=== PATIENT | male | born 1960 | race Caucasian/White ===

== ENCOUNTER → 2017-03-05 09:54 | Outpatient (POV) | payer BC, SELFPAY ==
[2017-03-05 10:23] VITALS: BP 163/105; PULSE 101; RESP 18
--- NOTE | 2017-03-05 10:55 | HMH.PMCON ---
Assessment and Plan (1) Neck pain of over 3 months duration Current visit: Yes Status: Chronic Category: Medical Code(s): M54.2 - Cervicalgia; G89.29 - Other chronic pain (2) Degenerative joint disease of cervical spine Current visit: Yes Status: Acute Qualifiers: Spinal osteoarthritis complication: with radiculopathy Qualified Code(s): M47.22 - Other spondylosis with radiculopathy, cervical region Category: Medical Code(s): M47.812 - Spondylosis without myelopathy or radiculopathy, cervical region (3) Cervical radiculopathy due to degenerative joint disease of spine Current visit: Yes Status: Acute Category: Medical Code(s): M47.22 - Other spondylosis with radiculopathy, cervical region (4) Cervical post-laminectomy syndrome Current visit: Yes Status: Acute Category: Medical Code(s): M96.1 - Postlaminectomy syndrome, not elsewhere classified - Assessment and plan all Dx Assessment and Plan for all problems:: We will seek approval for a cervical epidural steroid injection at C6-C7. We will follow-up with him after this injection. HPI - Data of Consult Consult date: 03/05/17 Requesting Physician: Gadiel Humphrey MD Primary Care Provider: Raoul Vazquez MD Family Provider: Referral Provider, - Consult Narrative Reason for consult: Neck pain with radiculopathy symptoms History of present illness: Mr. Jimenez is a 56 year old male who is referred from Dr. Vazquez with neck pain radiating to both shoulders and down his left arm. He has had previous discectomy with fusion of C3-C4. He has severe degenerative changes at C5-C6 and C6-C7. He is also had previous discectomy last November by Dr. Cooper. Most of his pain remain in the neck radiating to both shoulders and down his left arm. Pain score is a 10 out of 10. Patient has failed previous physical therapy. He has not had any injections. MRI does show degenerative changes with bulging disc at C5-C6 and C6-C7. I do believe that he would benefit from a local epidural steroid injection at C6-C7. CC: Gadiel Humphrey MD [facility] History I have reviewed the patient's past medical history: Yes Medical History: Reports:: Hypertension Other Surgeries: Yes: Other Comment: Discectomy, colonoscopy, 2 stents placed - *Social History Smoking Status: Current every day smoker Tobacco Type: cigarettes Review of Systems - Review of Systems Review of systems:: pertinent systems reviewed and negative unless documented below - *Cardiovascular Reports shortness of breath - *Musculoskeletal Reports back pain, Reports neck pain, Reports numbness, Reports radiating pain into limb Meds Allergies Allergy/AdvReac Type Severity Reaction Status Date / Time No Known Allergies Allergy Unverified 02/19/17 15:15 Objective Vital signs: Pulse Resp BP 101 H 18 163/105 03/05/17 10:23 03/05/17 10:23 03/05/17 10:23 - *Routine Neck Exam Present: tenderness Comments: Motor strength of upper extremity 5/5. There is some tingling and numbness down the left arm - Routine Back/Spine/Pelvis Exam Back/Spine: Present: paraspinal tenderness, vertebral tenderness Opioid Risk Tool - Opioid Risk Tool-Male Family hx alcohol abuse: N Family hx illegal drugs: N Family hx rx drug abuse: N Personal hx alcohol abuse: N Personal hx illegal drugs: N Personal hx rx drug abuse: N Age: 45+ Hx of sexual abuse: N Mental health issues-ADD,OCD,Bipolar, etc: N Hx of depression: N Male Risk Score: 0
== END ==
PROVIDERS: PCP Emergency Medicine; Visit Provider Anesthesiology
DX: M54.2 Cervicalgia (principal); M47.812 Spondylosis without myelopathy or radiculopathy, cervical region; G89.29 Other chronic pain; M96.1 Postlaminectomy syndrome, not elsewhere classified
CPT/HCPCS: 99202

== ENCOUNTER 2017-03-12 15:32 | Day surgery (SDC) | payer BC, SELFPAY ==
[2017-03-12 16:22] VITALS: BP 134/100; BP 157/104; PULSE 90; PULSE 96; RESP 18; RESP 20; TEMP 36.8; O2SAT 94
[2017-03-12 16:24] VITALS: BP 144/98; PULSE 87; RESP 20
--- NOTE | 2017-03-12 16:27 | HMH.PMPROC ---
- Procedure Date: 03/12/17 Time: 16:27 Anesthesiologist:: Jesus Manuel Barakat CRNA Complications:: None Pre-procedure Diagnosis:: Degenerative disc disease cervical spine multiple levels. Cervical radiculopathy symptoms. Cervical postlaminectomy syndrome. Post-procedure Diagnosis:: same Indications for Procedure:: Very pleasant 56-year-old white male that comes for procedure clinic today for his initial cervical epidural steroid injection and a C7-T1 level. Patient is status post 2 previous anterior cervical discectomies and fusion. Patient complains of cervical neck pain as well as bilateral arm radiculopathy symptoms. Procedure Details:: Procedure:Cervical epidural steroid injection Informed consent was obtained and the risks and benefits of the procedure were explained to the patient. The patient was taken to the procedure room and noninvasive monitors placed, including noninvasive blood pressure cuff and pulse oximeter. The neck was prepped using Betadine as a cleansing solution. The C6-C7 interspace was palpated. The skin and subcutaneous tissues were anesthetized using lidocaine 1.5% and a 25-gauge needle. After this an 18-gauge Touhy epidural needle was placed into the C6-C7 interspace and advanced using loss of resistance and fluoroscopy guidance to air until the epidural space was encountered. After confirmation of needle placement in the epidural space, a solution containing lidocaine 1.5%, 4 mL and Depo-Medrol 80 mg was incrementally injected into the cervical epidural space.~ The patient tolerated the procedure well with no complications. The patient was observed in the Pain Clinic and then discharged home neurologically intact. Plan and Disposition:: She tolerated the procedure very well. He was reevaluated 10 minutes post procedure. He is doing quite well. He will return to see us for follow-up appointment at the pain clinic.
[2017-03-12 16:32] VITALS: BP 145/101; PULSE 83; RESP 18; O2SAT 93
== END 2017-03-12 16:34 | disposition home or self-care (01) ==
PROVIDERS: PCP Emergency Medicine; Visit Provider Nurse Anesthetist, Certified Registered
DX: M50.10 Cervical disc disorder with radiculopathy, unspecified cervical region (principal); M96.1 Postlaminectomy syndrome, not elsewhere classified
CPT/HCPCS: 62321; J1040; Q9966

== ENCOUNTER → 2017-04-10 10:04 | Outpatient (REF) | payer BC, SELFPAY ==
[2017-04-10 15:35] LABS: Amphetamine/Metha Screen,Urine Negative ng/mL (<1000); Barbiturates Screen,Urine Negative ng/mL (<200); Benzodiazepines Screen,Urine Negative ng/mL (200); Cannabinoid Screen,Urine Negative ng/mL (<50); Cocaine Screen,Urine Negative ng/g (<300); Methadone Screen,Urine Negative ng/mL (<300); Opiate Screen,Urine Positive ng/mL (<300); Phencyclidine Screen,Urine Negative ng/mL (<25)
== END ==
LOC: LAB 10:04
PROVIDERS: Visit Provider Emergency Medicine
DX: Z79.899 Other long term (current) drug therapy (principal)
CPT/HCPCS: 80305

== ENCOUNTER → 2017-04-25 15:01 | Outpatient (CLI) | payer BC, SELFPAY ==
--- NOTE | 2017-04-25 15:03 | CT_ITS ---
CT chest wo con HISTORY: Follow-up pulmonary nodule ORDERING PHYSICIAN: Raoul Vazquez MD PATIENT AGE: 56 years TECHNIQUE: Axial images obtained. Sagittal and coronal reformatted images are also generated and reviewed. CONTRAST: None COMPARISON: 09/12/2016 FINDINGS: Bone plate is present over the lower cervical spine anteriorly. Scattered small lymph nodes are present in the mediastinum unchanged. Coronary artery calcification and/or stent noted. Normal heart size without evidence of pericardial effusion. 3 mm noncalcified nodule right upper lobe inferiorly unchanged. 2 mm noncalcified nodule right lower lobe posteriorly unchanged. This is well-circumscribed. Calcified nodule present in the left upper lobe and is unchanged. Small nodes are present in the axilla which are stable. Upper abdominal images show several small isodensity 7 the liver the largest in the left hepatic lobe at approximately 9 mm unchanged probably related to small hepatic cysts. No acute bony anomalies. IMPRESSION: 1. Overall stable CT appearance of the chest. No change in the 1 cm nodule in the right lower lobe this appears stable compared to an older CT 05/01/2016. Recommend continued 12 month follow-up to confirm 2 year stability. 2. Coronary artery disease
== END ==
PROVIDERS: PCP Emergency Medicine; Visit Provider Emergency Medicine
DX: R91.1 Solitary pulmonary nodule (principal)
CPT/HCPCS: 71250

== ENCOUNTER → 2017-04-29 13:50 | Outpatient (POV) | payer BC, SELFPAY ==
--- NOTE | 2017-04-29 14:06 | HMH.PAINSOAP ---
[facility] Pain Management SOAP Note Subjective:: Patient is a pleasant 56 white male who comes for follow-up after his cervical epidural steroid injection. Patient states he had 50% relief for up to 3 weeks after this injection. After which the pain returned. Patient does have numbness and tingling in bilateral arms. Patient has weakness at times in both arms. Patient rates his pain a 5 out of 10 today describes it as aching constant. Patient also has trigger points in his left trapezius. Patient states that the weather makes the pain worse. Patient is on Effient and has been taken off of this for previous injections. ROS General: no recent weight change, no fever, no sleep disturbances Respiratory: no cough, no shortness of air, no recurring pulmonary infections Cardiovascular/Peripheral Vascular: Patient has intermittent angina and is being followed for this Gastrointestinal: no incontinence, normal bowel movements reported Genitourinary: no incontinence Musculoskeletal: Neck pain, bilateral arm pain Psychiatric: normal mood/ affect Neurological: Intermittent weakness in bilateral upper extremities Objective:: Physical Exam General: Alert and oriented x3, no acute distress, pleasant and cooperative, [on room air] Lungs: Resps E/U, Symmetrical chest expansion, Eyes: PERRL Musculoskeletal: Flexion and extension of cervical spine somewhat guarded secondary to pain, deep tendon reflexes normal, strength in upper and lower extremities [5/5], normal gait noted Neurological: speech clear, wire spooler equal, no gross sensory deficits Assessment:: Degenerative disc disease cervical spine, cervical radiculopathy, myofascial pain syndrome, cervical postlaminectomy syndrome Plan:: Given the efficacy of the last injection I believe that it might be advantageous for the patient to have an additional cervical epidural steroid injection. We had a long discussion about injective therapy, trigger point injections for myofascial pain, and neurostimulation. This is a very pleasant patient who wishes to proceed with another injection. Patient's tried and failed medications, anti-inflammatories, physical therapy. Patient is currently on oxycodone 10 mg 1 p.o. 3 times daily from his primary care. This note was dictated using voice recognition software and may contain errors or omissions
--- NOTE | 2017-04-29 14:11 | P.CONS_ITS ---
[facility] Pain Management SOAP Note Subjective:: Patient is a pleasant 56 white male who comes for follow-up after his cervical epidural steroid injection. Patient states he had 50% relief for up to 3 weeks after this injection. After which the pain returned. Patient does have numbness and tingling in bilateral arms. Patient has weakness at times in both arms. Patient rates his pain a 5 out of 10 today describes it as aching constant. Patient also has trigger points in his left trapezius. Patient states that the weather makes the pain worse. Patient is on Effient and has been taken off of this for previous injections. ROS General: no recent weight change, no fever, no sleep disturbances Respiratory: no cough, no shortness of air, no recurring pulmonary infections Cardiovascular/Peripheral Vascular: Patient has intermittent angina and is being followed for this Gastrointestinal: no incontinence, normal bowel movements reported Genitourinary: no incontinence Musculoskeletal: Neck pain, bilateral arm pain Psychiatric: normal mood/ affect Neurological: Intermittent weakness in bilateral upper extremities Objective:: Physical Exam General: Alert and oriented x3, no acute distress, pleasant and cooperative, [ on room air] Lungs: Resps E/U, Symmetrical chest expansion, Eyes: PERRL Musculoskeletal: Flexion and extension of cervical spine somewhat guarded secondary to pain, deep tendon reflexes normal, strength in upper and lower extremities [5/5], normal gait noted Neurological: speech clear, tapping machine operator automatic equal, no gross sensory deficits Assessment:: Degenerative disc disease cervical spine, cervical radiculopathy, myofascial pain syndrome, cervical postlaminectomy syndrome Plan:: Given the efficacy of the last injection I believe that it might be advantageous for the patient to have an additional cervical epidural steroid injection. We had a long discussion about injective therapy, trigger point injections for myofascial pain, and neurostimulation. This is a very pleasant patient who wishes to proceed with another injection. Patient's tried and failed medications, anti-inflammatories, physical therapy. Patient is currently on oxycodone 10 mg 1 p.o. 3 times daily from his primary care. This note was dictated using voice recognition software and may contain errors or omissions
== END ==
PROVIDERS: PCP Emergency Medicine; Visit Provider Clinical Nurse Specialist Family Health
DX: M54.12 Radiculopathy, cervical region (principal)
CPT/HCPCS: 99212

== ENCOUNTER 2017-05-24 16:10 | Day surgery (SDC) | payer BC, SELFPAY ==
[2017-05-24 16:27] VITALS: BP 150/83; PULSE 69; RESP 20; TEMP 36.3; O2SAT 97; BMI 30.1
--- NOTE | 2017-05-24 16:31 | PC.NURSE ---
patient alert/oriented. breathing normal, no distress noted.
[2017-05-24 17:05] VITALS: BP 143/82; PULSE 66; RESP 18
--- NOTE | 2017-05-24 17:05 | HMH.PMPROC ---
- Procedure Date: 05/24/17 Time: 17:05 Anesthesiologist:: Gadiel Humphrey MD Complications:: None Pre-procedure Diagnosis:: Degenerative disc disease of cervical spine with cervical radiculopathy symptoms. Post-procedure Diagnosis:: Same Indications for Procedure:: Patient is a pleasant 56 white male who comes for follow-up after his cervical epidural steroid injection. Patient states he had 50% relief for up to 3 weeks after this injection. After which the pain returned. Patient does have numbness and tingling in bilateral arms. Patient has weakness at times in both arms. Patient is on Effient and has been taken off of this for previous injections. We will proceed with a second cervical epidural steroid injection today. Procedure Details:: Cervical epidural steroid injection under fluoroscopy Informed consent was obtained and the risks and benefits of the procedure was explained to the patient. The patient was taken to the procedure room placed prone on the procedure table. The neck was prepped using ChloraPrep. The skin and subcutaneous tissues were anesthetized using lidocaine. I placed a 18-gauge epidural needle into the C5-C6 interspace and advanced using [id number] to air and fluoroscopic guidance. After confirmation of needle placement in the epidural space with dye, I injected 3 mL's lidocaine 1.5% and Depo-Medrol 80 mg. The patient tolerated the procedure well with no complications. Plan and Disposition:: We will follow-up with this patient in our clinic and reassess his symptoms at the time. Patient has been instructed to call our clinic if he has any issues prior to this.
--- NOTE | 2017-05-24 17:09 | P.PCN_ITS ---
- Procedure Date: 05/24/17 Time: 17:05 Anesthesiologist:: Gadiel Humphrey MD Complications:: None Pre-procedure Diagnosis:: Degenerative disc disease of cervical spine with cervical radiculopathy symptoms. Post-procedure Diagnosis:: Same Indications for Procedure:: Patient is a pleasant 56 white male who comes for follow-up after his cervical epidural steroid injection. Patient states he had 50% relief for up to 3 weeks after this injection. After which the pain returned. Patient does have numbness and tingling in bilateral arms. Patient has weakness at times in both arms. Patient is on Effient and has been taken off of this for previous injections. We will proceed with a second cervical epidural steroid injection today. Procedure Details:: Cervical epidural steroid injection under fluoroscopy Informed consent was obtained and the risks and benefits of the procedure was explained to the patient. The patient was taken to the procedure room placed prone on the procedure table. The neck was prepped using ChloraPrep. The skin and subcutaneous tissues were anesthetized using lidocaine. I placed a 18- gauge epidural needle into the C5-C6 interspace and advanced using loss-of- resistance to air and fluoroscopic guidance. After confirmation of needle placement in the epidural space with dye, I injected 3 mL's lidocaine 1.5% and Depo-Medrol 80 mg. The patient tolerated the procedure well with no complications. Plan and Disposition:: We will follow-up with this patient in our clinic and reassess his symptoms at the time. Patient has been instructed to call our clinic if he has any issues prior to this.
[2017-05-24 17:11] VITALS: BP 146/89; PULSE 70; RESP 20
[2017-05-24 17:15] VITALS: BP 152/94; PULSE 70; RESP 18; O2SAT 96
== END 2017-05-24 17:20 | disposition home or self-care (01) ==
LOC: SC.PAINP 16:11
PROVIDERS: PCP Emergency Medicine; Visit Provider Anesthesiology
DX: M50.10 Cervical disc disorder with radiculopathy, unspecified cervical region (principal)
CPT/HCPCS: 62321; J1040; Q9966

== ENCOUNTER → 2017-06-10 09:39 | Outpatient (POV) | payer BC, SELFPAY ==
[2017-06-10 10:09] VITALS: BP 142/95; PULSE 81; RESP 18; TEMP 36.6; O2SAT 100; BMI 30.1
--- NOTE | 2017-06-10 10:35 | HMH.PAINSOAP ---
[facility] Pain Management SOAP Note Subjective:: Patient is a pleasant 56-year-old white male who presents today after cervical epidural steroid injection. Patient states that 9-10 days he was pain-free. Patient is doing quite well after the injection. Patient does have increased left arm numbness stretching to the last 2 digits on his left hand. Patient states that this is not new however it is typically intermittent. Patient states it is constant at this time. Patient has palpable points in his left trapezius. Patient and I have discussed in the past potentially trigger point injections and nerve stimulation. Patient and I had a longer discussion about neuro stimulation today. I answered the patient's questions. Patient is interested in doing the third cervical epidural steroid injection the efficacy of the last one. Patient had about 60% relief after the 9-10 days of pain free. Patient is on Effient and has been taken off of this for previous injections. We will proceed with another cervical epidural steroid injection. Patient is currently managed medically by his primary care physician on oxycodone 10 mg 1 p.o. 3 times daily and gabapentin 600 mg 1 p.o. 3 times daily. ROS General: no recent weight change, no fever, no sleep disturbances Respiratory: no cough, no shortness of air, no recurring pulmonary infections Cardiovascular/Peripheral Vascular: No chest pain, No palpitations, no edema, no shortness of breath. Gastrointestinal: no incontinence, normal bowel movements reported Genitourinary: no incontinence Musculoskeletal: Neck pain, myofascial pain, left arm pain Psychiatric: normal mood/ affect Neurological: Upper extremity weakness at times, [denies balance issues] Objective:: Physical Exam General: Alert and oriented x3, no acute distress, pleasant and cooperative, [on room air] Lungs: Resps E/U, Symmetrical chest expansion, Eyes: PERRL Musculoskeletal: Flexion and extension of cervical spine somewhat guarded secondary to pain, deep tendon reflexes normal, strength in upper and lower extremities [5/5], normal gait noted Neurological: speech clear, clarifier operator helper equal, no gross sensory deficits Assessment:: Degenerative disease of the cervical spine, cervical radiculopathy, myofascial pain syndrome, cervical postlaminectomy syndrome Plan:: Patient wishes to proceed with another cervical C5-C6 injection given the efficacy of his last one. Patient and I did discuss neuromodulation as well as myofascial trigger point injections. I will follow-up with this patient after his next cervical injection and we will determine a plan of care from there. Patient has tried and failed anti-inflammatories, medications, physical therapy. This note was dictated using voice recognition software and may contain errors or omissions
--- NOTE | 2017-06-10 10:38 | P.CONS_ITS ---
[facility] Pain Management SOAP Note Subjective:: Patient is a pleasant 56-year-old white male who presents today after cervical epidural steroid injection. Patient states that 9-10 days he was pain-free. Patient is doing quite well after the injection. Patient does have increased left arm numbness stretching to the last 2 digits on his left hand. Patient states that this is not new however it is typically intermittent. Patient states it is constant at this time. Patient has palpable points in his left trapezius. Patient and I have discussed in the past potentially trigger point injections and nerve stimulation. Patient and I had a longer discussion about neuro stimulation today. I answered the patient's questions. Patient is interested in doing the third cervical epidural steroid injection the efficacy of the last one. Patient had about 60% relief after the 9-10 days of pain free. Patient is on Effient and has been taken off of this for previous injections. We will proceed with another cervical epidural steroid injection. Patient is currently managed medically by his primary care physician on oxycodone 10 mg 1 p.o. 3 times daily and gabapentin 600 mg 1 p.o. 3 times daily. ROS General: no recent weight change, no fever, no sleep disturbances Respiratory: no cough, no shortness of air, no recurring pulmonary infections Cardiovascular/Peripheral Vascular: No chest pain, No palpitations, no edema, no shortness of breath. Gastrointestinal: no incontinence, normal bowel movements reported Genitourinary: no incontinence Musculoskeletal: Neck pain, myofascial pain, left arm pain Psychiatric: normal mood/ affect Neurological: Upper extremity weakness at times, [denies balance issues] Objective:: Physical Exam General: Alert and oriented x3, no acute distress, pleasant and cooperative, [ on room air] Lungs: Resps E/U, Symmetrical chest expansion, Eyes: PERRL Musculoskeletal: Flexion and extension of cervical spine somewhat guarded secondary to pain, deep tendon reflexes normal, strength in upper and lower extremities [5/5], normal gait noted Neurological: speech clear, chemistry associate equal, no gross sensory deficits Assessment:: Degenerative disease of the cervical spine, cervical radiculopathy, myofascial pain syndrome, cervical postlaminectomy syndrome Plan:: Patient wishes to proceed with another cervical C5-C6 injection given the efficacy of his last one. Patient and I did discuss neuromodulation as well as myofascial trigger point injections. I will follow-up with this patient after his next cervical injection and we will determine a plan of care from there. Patient has tried and failed anti-inflammatories, medications, physical therapy. This note was dictated using voice recognition software and may contain errors or omissions
== END ==
PROVIDERS: PCP Emergency Medicine; Visit Provider Clinical Nurse Specialist Family Health
DX: M54.12 Radiculopathy, cervical region (principal)
CPT/HCPCS: 99212

== ENCOUNTER → 2017-06-14 10:31 | Outpatient (CLI) | payer BC, SELFPAY ==
[2017-06-14 16:42] LABS: Amphetamine/Metha Screen,Urine Negative ng/mL (<1000); Barbiturates Screen,Urine Negative ng/mL (<200); Benzodiazepines Screen,Urine Negative ng/mL (200); Cannabinoid Screen,Urine Negative ng/mL (<50); Cocaine Screen,Urine Negative ng/g (<300); Methadone Screen,Urine Negative ng/mL (<300); Opiate Screen,Urine Positive ng/mL (<300); Phencyclidine Screen,Urine Negative ng/mL (<25)
== END ==
PROVIDERS: Visit Provider Emergency Medicine
DX: Z79.899 Other long term (current) drug therapy (principal)
CPT/HCPCS: 80305

== ENCOUNTER → 2017-08-06 11:06 | Outpatient (POV) | payer BC, SELFPAY ==
[2017-08-06 11:25] VITALS: BP 139/92; PULSE 68; RESP 18; O2SAT 98; BMI 29.8
--- NOTE | 2017-08-06 11:55 | HMH.PAINSOAP ---
[facility] Pain Management SOAP Note Subjective:: Patient is a pleasant 56-year-old white male who presents today for follow-up after his third cervical epidural steroid injection. Patient states he does have some relief of symptoms however not long-term. Patient has been seen by Dr. Cooper recently who suggested that he stay away from nerve stimulation. Patient and I discussed intrathecal therapies. I believe that this may be beneficial for him. Patient rates his pain a 7 out of 10 today. Patient is currently on oxycodone 10 mg 1 p.o. 4 times daily. Patient and I discussed weaning off this medication prior to an intrathecal pain pump trial. I believe it would be beneficial for him. Patient's tried and failed physical therapy, anti-inflammatories, medications, and is not a surgical candidate. ROS General: no recent weight change, no fever, no sleep disturbances Respiratory: no cough, no shortness of air, no recurring pulmonary infections Cardiovascular/Peripheral Vascular: No chest pain, No palpitations, no edema, no shortness of breath. Gastrointestinal: no incontinence, normal bowel movements reported Genitourinary: no incontinence Musculoskeletal: Neck pain, bilateral arm pain Psychiatric: normal mood/ affect Neurological: [denies weakness in extremities], [denies balance issues] Objective:: Physical Exam General: Alert and oriented x3, no acute distress, pleasant and cooperative, [on room air] Lungs: Resps E/U, Symmetrical chest expansion, Eyes: PERRL Musculoskeletal: Flexion and extension of cervical spine somewhat guarded secondary to pain, deep tendon reflexes normal, strength in upper and lower extremities [5/5], normal gait noted Neurological: speech clear, racing secretary equal, no gross sensory deficits Assessment:: 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 Patient and I discussed weaning his oxycodone by dropping one pill a week. Patient is on Effient. Patient has had permission to be off of it for his injective therapies. I will follow-up with the patient after his trial. This note was dictated using voice recognition software and may contain errors or omissions
--- NOTE | 2017-08-06 11:58 | P.CONS_ITS ---
[facility] Pain Management SOAP Note Subjective:: Patient is a pleasant 56-year-old white male who presents today for follow-up after his third cervical epidural steroid injection. Patient states he does have some relief of symptoms however not long-term. Patient has been seen by Dr. Cooper recently who suggested that he stay away from nerve stimulation. Patient and I discussed intrathecal therapies. I believe that this may be beneficial for him. Patient rates his pain a 7 out of 10 today. Patient is currently on oxycodone 10 mg 1 p.o. 4 times daily. Patient and I discussed weaning off this medication prior to an intrathecal pain pump trial. I believe it would be beneficial for him. Patient's tried and failed physical therapy, anti-inflammatories, medications, and is not a surgical candidate. ROS General: no recent weight change, no fever, no sleep disturbances Respiratory: no cough, no shortness of air, no recurring pulmonary infections Cardiovascular/Peripheral Vascular: No chest pain, No palpitations, no edema, no shortness of breath. Gastrointestinal: no incontinence, normal bowel movements reported Genitourinary: no incontinence Musculoskeletal: Neck pain, bilateral arm pain Psychiatric: normal mood/ affect Neurological: [denies weakness in extremities], [denies balance issues] Objective:: Physical Exam General: Alert and oriented x3, no acute distress, pleasant and cooperative, [ on room air] Lungs: Resps E/U, Symmetrical chest expansion, Eyes: PERRL Musculoskeletal: Flexion and extension of cervical spine somewhat guarded secondary to pain, deep tendon reflexes normal, strength in upper and lower extremities [5/5], normal gait noted Neurological: speech clear, pipefitter equal, no gross sensory deficits Assessment:: 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 Patient and I discussed weaning his oxycodone by dropping one pill a week. Patient is on Effient. Patient has had permission to be off of it for his injective therapies. I will follow-up with the patient after his trial. This note was dictated using voice recognition software and may contain errors or omissions
== END ==
PROVIDERS: PCP Emergency Medicine; Visit Provider Clinical Nurse Specialist Family Health
DX: M54.12 Radiculopathy, cervical region (principal)
CPT/HCPCS: 99212

== ENCOUNTER → 2017-08-23 08:55 | Outpatient (CLI) | payer BC, SELFPAY ==
[2017-08-23 13:58] LABS: Amphetamine/Metha Screen,Urine Negative ng/mL (<1000); Barbiturates Screen,Urine Negative ng/mL (<200); Benzodiazepines Screen,Urine Negative ng/mL (200); Cannabinoid Screen,Urine Negative ng/mL (<50); Cocaine Screen,Urine Negative ng/g (<300); Methadone Screen,Urine Negative ng/mL (<300); Opiate Screen,Urine Positive ng/mL (<300); Phencyclidine Screen,Urine Negative ng/mL (<25)
== END ==
PROVIDERS: Visit Provider Emergency Medicine
DX: Z79.899 Other long term (current) drug therapy (principal)
CPT/HCPCS: 80305

== ENCOUNTER → 2017-10-02 10:20 | Outpatient (POV) | payer BC, SELFPAY ==
[2017-10-02 10:38] VITALS: BP 145/91; PULSE 87; RESP 18; O2SAT 98; BMI 29.8
--- NOTE | 2017-10-02 10:54 | P.CONS_ITS ---
Assessment and Plan - Assessment and plan all Dx Assessment and Plan for all problems:: Impression-degenerative disc disease of the cervical spine with radiculopathy Plan-intrathecal pain pump trial to be scheduled. If successful patient will have placement of a permanent intrathecal pain pump system HPI - Data of Consult Patient: new to practice Consult date: 10/02/17 Requesting Physician: Selvin Castrejon MD Primary Care Provider: Raoul Vazquez MD Family Provider: Referral Provider, MD - Consult Narrative Reason for consult: Degenerative disc disease of the cervical spine with radiculopathy History of present illness: Mr. Jimenez is a 56 year old male with a history of cervical spinal surgery in the past. Since that time he has had significant problems with regards to the cervical spine with radiculopathy particularly down both upper extremities to the hands. Multiple attempts at pain relief have been unsuccessful. He is being considered for placement of an intrathecal pain pump trial for management of this problem. If the trial is successful he would be considered for placement of a permanent intrathecal pain pump system CC: Selvin Castrejon MD [facility] History I have reviewed the patient's past medical history: Yes Medical History: Reports:: Hyperlipidemia, Hypertension, Peripheral Artery Disease Denies:: Cancer, Diabetes Mellitus Type 1, Diabetes Mellitus Type 2, MRSA, Seizures Other Medical History: Reports: Arthritis. Denies: Blood Transfusion Reaction Other Surgeries: Yes: Colonoscopy, Coronary Stent, EGD, Other Amputation: No Fractures: Yes - *Social History Smoking Status: Former smoker Tobacco Type: cigarettes # Packs/Day (cigarettes): 1 #Yrs smoked (if former smoker): 40 Alcohol Intake: never Substance Use Type: denies use Occupational Status: employed Housing: house Household Members: children *Family Hx:: Unable to obtain, Heart Attack Meds Home Medications Medication Instructions Recorded Confirmed Type prasugrel 10 mg tablet 10 mg PO QDAY 03/12/17 History Aspirin [Aspirin 81mg EC Tab] 81 mg PO DAILY 05/24/17 05/24/17 History Atorvastatin Calcium [Lipitor 80mg 80 mg PO QDAY 05/24/17 05/24/17 History Tablet] Bisoprolol Fumarate 10 mg PO QDAY 05/24/17 05/24/17 History Cyclobenzaprine HCl 10 mg PO BID 05/24/17 05/24/17 History [Cyclobenzaprine 10mg Tab] Ranolazine [Ranexa] 1,000 mg PO Q12H 05/24/17 05/24/17 History buPROPion HCl [Wellbutrin Sr] 150 mg PO BID 05/24/17 05/24/17 History Allergies Allergy/AdvReac Type Severity Reaction Status Date / Time No Known Allergies Allergy Verified 09/20/17 08:47 Objective no acute distress - *Routine Respiratory Exam Present: CTA bilaterally - *Routine Cardiovascular Exam Present: RRR - *Routine Abdominal Exam Present: soft
== END ==
PROVIDERS: PCP Emergency Medicine; Visit Provider Surgery
DX: M50.10 Cervical disc disorder with radiculopathy, unspecified cervical region (principal)
CPT/HCPCS: 99212

== ENCOUNTER → 2017-10-23 07:25 | Outpatient (CLI) | payer BC, SELFPAY ==
--- NOTE | 2017-10-23 07:29 | CA_ITS ---
PROCEDURE: 2-D M-mode and color Doppler study INDICATIONS FOR THE TEST: Chest painX COPD Heart Murmur Tobacco SmokingX Palpitations Fatigue Syncope Edema HypertensionXDiabetes Mellitus Rheumatic Fever SOBXDOE Obesity Hyperlipidemia Family History HD Additional History CAD PATIENT INFORMATION HEIGHT: 73 WEIGHT:215 GENDER: Male B/P:138/92 2-D/M-MODE INTERPRETATION: 2-D MEASUREMENTS OBSERVED VALUES IN CMS Right Ventricular Dimension (RVDd) 3.0 Interventricular Septum (Thickness)(IVsd) 1.2 Left Ventricular Internal Dimensions(LVIDd) 5.6 Left Ventricular Posterior Wall (Thickness)(LVPWd) 1.0 Aortic Root 4.0 Aortic Cusp Separation 2.5 Left Atrial Dimensions (LAD) 3.6 2D 1. Left atrium is qualitatively mildly enlarged, left ventricle is normal size, mild concentric left ventricular hypertrophy, visually estimated ejection fraction 55% with no obvious regional wall motion abnormality. 2. The right atrium and right ventricle are normal size and contractility. 3. The aortic valve is minimally thickened and calcified. 4. The mitral and tricuspid valve leaflets are minimally thickened. 5. The pulmonic valve is poorly visualized. 6. No significant pericardial effusion noted. DOPPLER INTERROGATION: Doppler interrogation of the aortic, mitral and tricuspid valvular presence of mild mitral and tricuspid regurgitation, tricuspid regurgitation jet velocity is insufficient for calculation of the right ventricular systolic pressure, diastolic parameters are inconclusive. CONCLUSION: 1. Mildly enlarged left atrium, normal left ventricular size, mild concentric left ventricular hypertrophy, visually estimated ejection fraction 55% with no obvious regional wall motion abnormality, diastolic parameters are inconclusive. 2. Mild mitral and tricuspid regurgitation 3. No significant pericardial effusion noted.
--- NOTE | 2017-10-23 07:29 | NM_ITS ---
History and Indications: Coronary artery disease, hypertension, tobacco use, family history, chest pain and fatigue Procedure: Patient received a 0.4 mg of Lexiscan, resting heart rate was 57 bpm resting blood pressure 141/84, with Lexiscan maximum heart rate achieved was 86 bpm is less than 85% of the maximum predicted heart rate and a blood pressure was 119/70. With Lexiscan patient complained of shortness of breath and lightheadedness, requiring intravenous Aminophyllin to reverse symptoms. Electrocardiogram: Resting echocardiogram showed sinus bradycardia, with Lexiscan there is less than 1.[address] segment depression noted from the baseline EKG. The EKG portion of the Lexiscan Myoview is nondiagnostic. Cardiac stress and resting SPECT images: Cardiac stress and resting SPECT images were obtained using technetium 99 Myoview 31.5 mCi at stress and 10.2 mCi at rest gated SPECT further analysis of segmental wall motion and calculation of the ejection fraction also done. Cardiac stress and rest SPECT images show a fixed defect involving the inferior and posterobasal wall with decrease contractility on the gated SPECT is likely secondary to prior nontransmural myocardial scarring, without significant marietta-infarct ischemia. Computer derived ejection fraction is 52% with moderate hypokinesis involving the inferior and posterobasal wall. Right ventricle is normal size and contractility. Conclusion: 1. The EKG portion of the Lexiscan Myoview is nondiagnostic. 2. Scintigraphic evidence of nontransmural myocardial scarring involving the inferior and posterobasal wall, computer derived ejection fraction is 52% with segmental wall motion abnormality described above, right ventricle is normal size and contractility. 3. Abnormal Lexiscan Myoview study.
--- NOTE | 2017-10-23 07:49 | HMH.ITSHM ---
OXYCODONE CYCLOBENZAPM RANEXA GABAPENTIN BISOPROLOL EFFIENT ATORVASTATIN ASA LOSARTAN
== END ==
PROVIDERS: PCP Emergency Medicine; Visit Provider Internal Medicine
DX: I25.10 Atherosclerotic heart disease of native coronary artery without angina pectoris (principal); R07.89 Other chest pain; R06.00 Dyspnea, unspecified
CPT/HCPCS: 78452; 93017; 93306; A9502; J2785

== ENCOUNTER → 2017-10-30 11:20 | Outpatient (CLI) | payer BC, SELFPAY ==
[2017-10-30 13:49] LABS: Anion Gap 12.6 mEq/L (5-15); Blood Urea Nitrogen 15 mg/dL (7-18); Calcium 9.5 mg/dL (8.5-10.1); Carbon Dioxide 30 mmol/L (21.0-32.0); Chloride 104 mmol/L (98-107); Creatinine,Serum 0.93 mg/dL (0.70-1.30); Estimated Glomerular Filt Rate 84 ml/min (>60); GFR (African American) 101 ML/MIN (>60); Potassium 4.6 mmoL/L (3.5-5.1); Sodium 142 mmol/L (136-145)
[2017-10-30 14:22] LABS: Glucose 123 mg/dL (74-106)
== END ==
PROVIDERS: PCP Emergency Medicine; Visit Provider Internal Medicine Cardiovascular Disease
DX: E78.4 Other hyperlipidemia (principal); I10 Essential (primary) hypertension; I25.10 Atherosclerotic heart disease of native coronary artery without angina pectoris; I71.2 Thoracic aortic aneurysm, without rupture; R06.00 Dyspnea, unspecified; R07.89 Other chest pain; R07.9 Chest pain, unspecified; Z72.0 Tobacco use; Z95.5 Presence of coronary angioplasty implant and graft
CPT/HCPCS: 36415; 80048

== ENCOUNTER → 2017-11-08 09:06 | Outpatient (REF) | payer BC, SELFPAY ==
[2017-11-08 18:41] LABS: Amphetamine/Metha Screen,Urine Negative ng/mL (<1000); Barbiturates Screen,Urine Negative ng/mL (<200); Benzodiazepines Screen,Urine Negative ng/mL (<200); Cannabinoid Screen,Urine Negative ng/mL (<50); Cocaine Screen,Urine Negative ng/mL (<300); Methadone Screen,Urine Negative ng/mL (<300); Opiate Screen,Urine Positive ng/mL (<300); Phencyclidine Screen,Urine Negative ng/mL (<25)
== END ==
LOC: LAB 09:06
PROVIDERS: Visit Provider Emergency Medicine
DX: M47.812 Spondylosis without myelopathy or radiculopathy, cervical region (principal)
CPT/HCPCS: 80305

== ENCOUNTER → 2017-12-06 09:17 | Outpatient (REF) | payer BC, SELFPAY ==
[2017-12-06 18:42] LABS: Amphetamine/Metha Screen,Urine Negative ng/mL (<1000); Barbiturates Screen,Urine Negative ng/mL (<200); Benzodiazepines Screen,Urine Negative ng/mL (<200); Cannabinoid Screen,Urine Negative ng/mL (<50); Cocaine Screen,Urine Negative ng/mL (<300); Methadone Screen,Urine Negative ng/mL (<300); Opiate Screen,Urine Positive ng/mL (<300); Phencyclidine Screen,Urine Negative ng/mL (<25)
== END ==
LOC: LAB 09:17
PROVIDERS: Visit Provider Emergency Medicine
DX: Z79.899 Other long term (current) drug therapy (principal)
CPT/HCPCS: 80305

== ENCOUNTER → 2018-01-07 14:35 | Outpatient (CLI) | payer BC, SELFPAY ==
[2018-01-07 16:03] LABS: Amphetamine/Metha Screen,Urine Negative ng/mL (<1000); Barbiturates Screen,Urine Negative ng/mL (<200); Benzodiazepines Screen,Urine Negative ng/mL (<200); Cannabinoid Screen,Urine Negative ng/mL (<50); Cocaine Screen,Urine Negative ng/mL (<300); Methadone Screen,Urine Negative ng/mL (<300); Opiate Screen,Urine Positive ng/mL (<300); Phencyclidine Screen,Urine Negative ng/mL (<25)
== END ==
PROVIDERS: PCP Emergency Medicine; Visit Provider Emergency Medicine
DX: Z29.9 Encounter for prophylactic measures, unspecified (principal)
CPT/HCPCS: 80305

== ENCOUNTER → 2018-02-05 14:24 | Outpatient (CLI) | payer BC, SELFPAY ==
[2018-02-05 15:25] LABS: Amphetamine/Metha Screen,Urine Negative ng/mL (<1000); Barbiturates Screen,Urine Negative ng/mL (<200); Benzodiazepines Screen,Urine Negative ng/mL (<200); Cannabinoid Screen,Urine Negative ng/mL (<50); Cocaine Screen,Urine Negative ng/mL (<300); Methadone Screen,Urine Negative ng/mL (<300); Opiate Screen,Urine Positive ng/mL (<300); Phencyclidine Screen,Urine Negative ng/mL (<25)
== END ==
PROVIDERS: Visit Provider Emergency Medicine
DX: Z79.899 Other long term (current) drug therapy (principal)
CPT/HCPCS: 80305

== ENCOUNTER → 2018-04-07 11:42 | Outpatient (CLI) | payer BC, SELFPAY ==
--- NOTE | 2018-04-07 11:47 | XR_ITS ---
XR thoracic spine 3V Ordering Physician: Violet Hopper Patient Age: 57 years: Male HISTORY: ITS.REASON: pain back pain Surgery C-spine 2 years ago. Now having thoracic and lumbar pain. TECHNIQUE: AP and lateral view thoracic spine COMPARISON : Previous chest film 02/19/2018 CTA chest 10/04/2017 FINDINGS Prominent ascending aorta noted and likely accentuated by the AP projection on today's T-spine study., Vs February is previous PA chest film. However Would note that there was some fusiform dilatation of the ascending aorta noted on October 2017 CT chest. It measured up to 4.3 cm diameter. If there should be significant MID back and chest pain, a follow-up CT with contrast should be considered. The thoracic spine the vertebral bodies appear intact. Pedicles intact. Normal alignment. Disc spaces fairly well maintained with only borderline narrowing at T8 Anterior fusion lower C-spine are noted as seen on last years chest studiesDegenerative facet changes lower C-spine also noted IMPRESSION: --------- . Thoracic spine intact with no acute findings. Borderline disc space narrowing T8 noted Dilated ascending aorta again noted slightly more pronounced on today's AP chest study. This may merely reflect AP projection. But if significant chest pain radiating to the back, may want to consider a follow-up CTA chest with contrast
--- NOTE | 2018-04-07 11:47 | XR_ITS ---
XR lumbar spine min 4V Ordering Physician: Violet Hopper Patient Age: 57 years: Male HISTORY: ITS.REASON: pain TECHNIQUE: Five-view lumbar spine series COMPARISON :No lumbar spine studies April 2017, October 2017 CT chest studies FINDINGS The lumbar vertebral bodies are intact and the disc spaces are well-maintained. At all levels. No fracture. No subluxation. No pars defects. No listhesis. Sacrum and SI joints unremarkable. Transverse processes pedicles intact. But 1 cm pulmonary nodule right lung base again noted. Unchanged since April 2017 CT chest Nonspecific bowel gas pattern. IMPRESSION: . Lumbar spine intact. No significant findings.
== END ==
PROVIDERS: PCP Emergency Medicine; Visit Provider Nurse Practitioner Family
DX: M54.5 Low back pain (principal); M54.6 Pain in thoracic spine
CPT/HCPCS: 72072; 72110

== ENCOUNTER → 2018-04-24 14:45 | Outpatient (CLI) | payer BC, SELFPAY ==
[2018-04-24 15:57] LABS: Anion Gap 14.2 mEq/L (5-15); Blood Urea Nitrogen 17 mg/dL (7-18); Calcium 9.5 mg/dL (8.5-10.1); Carbon Dioxide 26 mmol/L (21.0-32.0); Chloride 104 mmol/L (98-107); Creatinine,Serum 0.82 mg/dL (0.70-1.30); Estimated Glomerular Filt Rate 96 ml/min (>60); GFR (African American) 117 ML/MIN (>60); Glucose 97 mg/dL (74-106); Potassium 4.2 mmoL/L (3.5-5.1); Sodium 140 mmol/L (136-145)
== END ==
PROVIDERS: Visit Provider Nurse Practitioner Family
DX: Z01.818 Encounter for other preprocedural examination (principal); I71.2 Thoracic aortic aneurysm, without rupture
CPT/HCPCS: 36415; 80048

== ENCOUNTER → 2018-04-25 13:37 | Outpatient (CLI) | payer BC, SELFPAY ==
--- NOTE | 2018-04-25 13:43 | CT_ITS ---
CT angio chest HISTORY: Follow-up thoracic aortic aneurysm and pulmonary nodule ITS.REASON: hx aneurysm, CP ORDERING PHYSICIAN: Violet Hopper PATIENT AGE: 57 years COMPARISON: 10/04/2017 TECHNIQUE: Axial images obtained following the administration of 100 mL of Optiray 350. Sagittal, and coronal reformatted images are also generated and reviewed. All CT scans at the facility use one or more dose reduction, viz: automated exposure control, ma/kV adjustment per patient size (including targeted exams where dose is matched to indication, i.e. head), or iterative reconstruction technique. FINDINGS: There is mild fusiform dilatation of the ascending aorta measuring about 4.6 cm in maximum AP dimension not significantly changed. No evidence of dissection. Significant coronary artery calcifications are present. Normal heart size. No evidence of central pulmonary embolus.. There is a noncalcified 9 mm nodule in the right lung base. A calcified granuloma is present in the left upper lobe.. The remaining lungs are clear. No acute bony anomalies. Upper abdominal images show no acute finding. There are 3 isodensity of the left lobe of the liver may be due to small cysts IMPRESSION: 1. Overall stable CT appearance of the chest. 2. No change mild fusiform dilatation of the ascending aorta at 4.6 cm 3. No change 9 mm right lower lobe nodule
--- NOTE | 2018-04-25 14:16 | HMH.ITSHM ---
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 []oxycodone 10mg x4day cyclobenzapm 10mg x3d ranexa 1000mg x2d gabapentin 300mg x2d bisoprolol 10mg x1d effient 10 mg x1d atrovastatin 80 mg x1d asprin 81mg x1d losatan hctz 50- 12.5 x1d
== END ==
PROVIDERS: PCP Emergency Medicine; Visit Provider Nurse Practitioner Family
DX: I71.2 Thoracic aortic aneurysm, without rupture (principal); R07.9 Chest pain, unspecified
CPT/HCPCS: 71275

== ENCOUNTER → 2018-05-06 14:52 | Outpatient (CLI) | payer BC, SELFPAY ==
[2018-05-06 15:49] LABS: Amphetamine/Metha Screen,Urine Negative ng/mL (<1000); Barbiturates Screen,Urine Negative ng/mL (<200); Benzodiazepines Screen,Urine Negative ng/mL (<200); Cannabinoid Screen,Urine Negative ng/mL (<50); Cocaine Screen,Urine Negative ng/mL (<300); Methadone Screen,Urine Negative ng/mL (<300); Opiate Screen,Urine Positive ng/mL (<300); Phencyclidine Screen,Urine Negative ng/mL (<25)
== END ==
PROVIDERS: Visit Provider Emergency Medicine
DX: Z79.891 Long term (current) use of opiate analgesic (principal)
CPT/HCPCS: 80305

== ENCOUNTER → 2018-07-04 13:57 | Outpatient (CLI) | payer BC, SELFPAY ==
[2018-07-04 15:12] LABS: Amphetamine/Metha Screen,Urine Negative ng/mL (<1000); Barbiturates Screen,Urine Negative ng/mL (<200); Benzodiazepines Screen,Urine Negative ng/mL (<200); Cannabinoid Screen,Urine Negative ng/mL (<50); Cocaine Screen,Urine Negative ng/mL (<300); Methadone Screen,Urine Negative ng/mL (<300); Opiate Screen,Urine Negative ng/mL (<300); Phencyclidine Screen,Urine Negative ng/mL (<25)
[2018-07-15 06:20] LABS: Opiates Negative (Cutoff=100)
== END ==
PROVIDERS: Visit Provider Emergency Medicine
DX: G89.29 Other chronic pain (principal); M54.2 Cervicalgia
CPT/HCPCS: 80305; 80361; 80365; G0480

== ENCOUNTER → 2018-09-02 14:02 | Outpatient (CLI) | payer SELFPAY ==
[2018-09-02 14:52] LABS: Amphetamine/Metha Screen,Urine Negative ng/mL (<1000); Barbiturates Screen,Urine Negative ng/mL (<200); Benzodiazepines Screen,Urine Negative ng/mL (<200); Cannabinoid Screen,Urine Negative ng/mL (<50); Cocaine Screen,Urine Negative ng/mL (<300); Methadone Screen,Urine Negative ng/mL (<300); Opiate Screen,Urine Positive ng/mL (<300); Phencyclidine Screen,Urine Negative ng/mL (<25)
== END ==
PROVIDERS: Visit Provider Emergency Medicine
DX: Z79.899 Other long term (current) drug therapy (principal)
CPT/HCPCS: 80305

== ENCOUNTER → 2018-10-29 17:19 | Outpatient (CLI) | payer OTHER, SELFPAY ==
[2018-10-29 19:04] LABS: Amphetamine/Metha Screen,Urine Negative ng/mL (<1000); Barbiturates Screen,Urine Negative ng/mL (<200); Benzodiazepines Screen,Urine Negative ng/mL (<200); Cannabinoid Screen,Urine Negative ng/mL (<50); Cocaine Screen,Urine Negative ng/mL (<300); Methadone Screen,Urine Negative ng/mL (<300); Opiate Screen,Urine Positive ng/mL (<300); Phencyclidine Screen,Urine Negative ng/mL (<25)
== END ==
PROVIDERS: Visit Provider Emergency Medicine
DX: Z79.891 Long term (current) use of opiate analgesic (principal)
CPT/HCPCS: 80305

== ENCOUNTER → 2018-12-19 17:22 | Outpatient (CLI) | payer OTHER, SELFPAY ==
[2018-12-19 18:18] LABS: Amphetamine/Metha Screen,Urine Negative ng/mL (<1000); Barbiturates Screen,Urine Negative ng/mL (<200); Benzodiazepines Screen,Urine Negative ng/mL (<200); Cannabinoid Screen,Urine Negative ng/mL (<50); Cocaine Screen,Urine Negative ng/mL (<300); Methadone Screen,Urine Negative ng/mL (<300); Opiate Screen,Urine Positive ng/mL (<300); Phencyclidine Screen,Urine Negative ng/mL (<25)
== END ==
PROVIDERS: Visit Provider Emergency Medicine
DX: Z79.899 Other long term (current) drug therapy (principal)
CPT/HCPCS: 80305

== ENCOUNTER → 2019-02-16 14:10 | Outpatient (CLI) | payer OTHER, SELFPAY ==
[2019-02-16 16:22] LABS: Amphetamine/Metha Screen,Urine Negative ng/mL (<1000); Barbiturates Screen,Urine Negative ng/mL (<200); Benzodiazepines Screen,Urine Negative ng/mL (<200); Cannabinoid Screen,Urine Negative ng/mL (<50); Cocaine Screen,Urine Negative ng/mL (<300); Methadone Screen,Urine Negative ng/mL (<300); Opiate Screen,Urine Positive ng/mL (<300); Phencyclidine Screen,Urine Negative ng/mL (<25)
== END ==
PROVIDERS: Visit Provider Emergency Medicine
DX: Z79.899 Other long term (current) drug therapy (principal)
CPT/HCPCS: 80305

== ENCOUNTER → 2020-03-21 14:16 | Outpatient (CLI) | payer MEDICARE, SELFPAY ==
[2020-03-21 15:12] LABS: Basophils # 0.1 K/mm3 (0-0.2); Basophils % 0.6 % (0.1-2.0); Eosinophils # 0.2 K/mm3 (0.0-0.4); Eosinophils % 2.5 % (0.1-12.0); Hematocrit 52.3 % (42.0-52.0); Hemoglobin 17.8 g/dL (14.1-18.0); Lymphocytes # 1.7 K/mm3 (0.7-4.5); Lymphocytes % 20.8 % (10-50); Mean Corpuscular HGB Conc 34.1 g/dL (31.8-35.4); Mean Corpuscular Hemoglobin 30.6 pg (27.0-31.2); Mean Corpuscular Volume 89.9 fl (80-94); Mean Platelet Volume 8.6 fl (7.4-10.4); Monocytes # 0.5 K/mm3 (0.1-1.0); Monocytes % 6.2 % (1.7-9.3); Neutrophils # 5.8 K/mm3 (1.8-7.8); Neutrophils % 69.9 % (37.0-80.0); Platelet Count 399 K/mm3 (142-424); Red Blood Count 5.81 M/mm3 (4.60-6.20); Red Cell Distribution Width 13.9 % (11.5-17.5); White Blood Count 8.3 K/mm3 (4.8-10.8)
[2020-03-21 15:17] LABS: Alanine Aminotransferase 21 U/L (12-78); Albumin Level 4.7 g/dl (3.5-5.0); Albumin/Globulin Ratio 1.4 (1.1-1.8); Alkaline Phosphatase 84 U/L (38-126); Anion Gap 13.6 mEq/L (5-15); Aspartate Amino Transferase 27 U/L (17-59); Bilirubin,Total 0.6 mg/dl (0.2-1.3); Blood Urea Nitrogen 13 mg/dl (9-20); Calcium 10.2 mg/dl (8.4-10.2); Carbon Dioxide 26 mmol/L (22.0-30.0); Chloride 105 mmol/L (98-107); Chol/HDL Ratio 4.3 (1-3.5); Cholesterol 253 mg/dl (140-200); Estimated Glomerular Filt Rate 115 ml/min (>60); GFR (African American) 139 ML/MIN (>60); Globulin 3.4 g/dL (1.3-3.2); Glucose 147 mg/dl (74-100); HDL Cholesterol 59 mg/dl (40-60); Potassium 4.6 mmoL/L (3.5-5.1); Sodium 140 mmol/L (136-145); Total Protein,Serum 8.1 g/dl (6.3-8.2); Triglycerides 153 mg/dl (30-150); VLDL Cholesterol 31 mg/dL (0-40)
[2020-03-21 15:28] LABS: Direct LDL Cholesterol 158.46 mg/dL (100-129)
[2020-03-21 15:35] LABS: 25-OH Vitamin D, Total 14.2 ng/mL (30-100)
[2020-03-21 15:50] LABS: Prostate Specific Ag Screen 0.7 ng/ml (0.0-4.0); Thyroid Stimulating Hormone 0.14 uIU/mL (0.465-4.68)
== END ==
PROVIDERS: Visit Provider Emergency Medicine
DX: I25.10 Atherosclerotic heart disease of native coronary artery without angina pectoris (principal); R53.83 Other fatigue; E55.9 Vitamin D deficiency, unspecified; Z12.5 Encounter for screening for malignant neoplasm of prostate
CPT/HCPCS: 80053; 80061; 82306; 84439; 84443; 85025; G0103

== ENCOUNTER → 2020-05-18 13:47 | Outpatient (CLI) | payer MEDICARE, SELFPAY ==
[2020-05-18 14:00] LABS: Hemoglobin A1C 5.8 % (4.0-6.0)
[2020-05-18 14:08] LABS: Amphetamine/Metha Screen,Urine Negative ng/ml (<1000)
[2020-05-18 14:09] LABS: Barbiturates Screen,Urine Negative ng/ml (<200); Benzodiazepines Screen,Urine Negative ng/ml (<200)
[2020-05-18 14:10] LABS: Cannabinoid Screen,Urine Negative ng/ml (<50)
[2020-05-18 14:11] LABS: Cocaine Screen,Urine Negative ng/ml (<300); Methadone Screen,Urine Negative ng/ml (<300)
[2020-05-18 14:12] LABS: Opiate Screen,Urine Positive ng/ml (<300)
[2020-05-18 14:13] LABS: Phencyclidine Screen,Urine Negative ng/ml (<25)
== END ==
PROVIDERS: Visit Provider Emergency Medicine
DX: M54.12 Radiculopathy, cervical region (principal); R73.09 Other abnormal glucose
CPT/HCPCS: 80305; 83036

== ENCOUNTER → 2020-07-18 13:50 | Outpatient (CLI) | payer MEDICARE, SELFPAY ==
[2020-07-18 17:05] LABS: Phencyclidine Screen,Urine Negative ng/ml (<25)
[2020-07-18 17:14] LABS: Amphetamine/Metha Screen,Urine Negative ng/ml (<1000)
[2020-07-18 17:16] LABS: Barbiturates Screen,Urine Negative ng/ml (<200)
[2020-07-18 17:17] LABS: Benzodiazepines Screen,Urine Negative ng/ml (<200); Cannabinoid Screen,Urine Negative ng/ml (<50)
[2020-07-18 17:19] LABS: Cocaine Screen,Urine Negative ng/ml (<300)
[2020-07-18 17:20] LABS: Methadone Screen,Urine Negative ng/ml (<300); Opiate Screen,Urine Positive ng/ml (<300)
== END ==
PROVIDERS: Visit Provider Emergency Medicine
DX: G89.29 Other chronic pain (principal); M54.2 Cervicalgia
CPT/HCPCS: 80305

== ENCOUNTER → 2020-09-13 13:33 | Outpatient (CLI) | payer MEDICARE, SELFPAY ==
[2020-09-13 14:37] LABS: Amphetamine/Metha Screen,Urine Negative ng/ml (<1000); Barbiturates Screen,Urine Negative ng/ml (<200)
[2020-09-13 14:38] LABS: Benzodiazepines Screen,Urine Negative ng/ml (<200)
[2020-09-13 14:39] LABS: Cannabinoid Screen,Urine Negative ng/ml (<50)
[2020-09-13 14:40] LABS: Cocaine Screen,Urine Negative ng/ml (<300); Methadone Screen,Urine Negative ng/ml (<300)
[2020-09-13 14:43] LABS: Opiate Screen,Urine Negative ng/ml (<300); Phencyclidine Screen,Urine Negative ng/ml (<25)
== END ==
PROVIDERS: Visit Provider Emergency Medicine
DX: M54.12 Radiculopathy, cervical region (principal)
CPT/HCPCS: 80305

== ENCOUNTER → 2020-11-15 18:45 | Outpatient (CLI) | payer MEDICARE, SELFPAY ==
[2020-11-15 21:15] LABS: Barbiturates Screen,Urine Negative ng/ml (<200); Benzodiazepines Screen,Urine Negative ng/ml (<200)
[2020-11-15 21:16] LABS: Amphetamine/Metha Screen,Urine Negative ng/ml (<1000)
[2020-11-15 21:17] LABS: Methadone Screen,Urine Negative ng/ml (<300)
[2020-11-15 21:18] LABS: Cannabinoid Screen,Urine Negative ng/ml (<50); Cocaine Screen,Urine Negative ng/ml (<300)
[2020-11-15 21:19] LABS: Opiate Screen,Urine Negative ng/ml (<300)
[2020-11-15 21:20] LABS: Phencyclidine Screen,Urine Negative ng/ml (<25)
== END ==
PROVIDERS: Visit Provider Emergency Medicine
DX: G89.29 Other chronic pain (principal); M54.2 Cervicalgia
CPT/HCPCS: 80305

== ENCOUNTER → 2021-03-22 15:03 | Outpatient (CLI) | payer MEDICARE, SELFPAY ==
[2021-03-22 15:57] LABS: Amphetamine/Metha Screen,Urine Positive ng/ml (<1000)
[2021-03-22 15:58] LABS: Barbiturates Screen,Urine Negative ng/ml (<200); Benzodiazepines Screen,Urine Negative ng/ml (<200)
[2021-03-22 15:59] LABS: Cannabinoid Screen,Urine Negative ng/ml (<50)
[2021-03-22 16:00] LABS: Cocaine Screen,Urine Negative ng/ml (<300); Methadone Screen,Urine Negative ng/ml (<300)
[2021-03-22 16:01] LABS: Opiate Screen,Urine Positive ng/ml (<300); Phencyclidine Screen,Urine Negative ng/ml (<25)
== END ==
PROVIDERS: Visit Provider Emergency Medicine
DX: G89.29 Other chronic pain (principal); M54.2 Cervicalgia
CPT/HCPCS: 80305

== ENCOUNTER 2021-11-21 10:24 | Emergency (ER) | payer MEDICARE, SELFPAY ==
[2021-11-21] VITALS (13 sets, daily range): BP systolic 104–162; BP diastolic 71–107; PULSE 59–121; RESP 16–22; TEMP 36.7–36.9; O2SAT 90–97; BMI 27.8
--- NOTE | 2021-11-21 10:40 | PC.NURSE ---
Pt O2 at 88% RA when sleeping. Placed on 2LPM via NC.
--- NOTE | 2021-11-21 10:46 | PC.NURSE ---
Pt O2 increased to 3LPM via NC d/t sat decreasing when pt sleeps.
--- NOTE | 2021-11-21 10:49 | XR_ITS ---
FINAL REPORT CLINICAL HISTORY: OD, CPR performed, C/O CP. COMPARISON: February 19, 2018 FINDINGS: PORTABLE CHEST. There is cervical fusion hardware in the lower cervical spine. There is mild cardiomegaly. The mediastinum is unremarkable. The lungs are clear. There is no pneumothorax. IMPRESSION: No acute process. Reviewed, Interpreted and Dictated by Catracho Mejia MD Transcribed by Irais Cabrales Authenticated and [facility]
--- NOTE | 2021-11-21 10:53 | ECG_ITS ---
APPROVED REPORT Exam: Resting ECG HR:104 bpm ECG Measurements Heart Rate 104 AXES TX 132 P 44 QRSd 118 QRS -3 QT 369 T 53 QTc 429 Conclusion SINUS TACHYCARDIA POSSIBLE LEFT ATRIAL ENLARGEMENT Late R wave progression ABNORMAL ECG UNCONFIRMED REPORT Electronically signed by : Syed Kelly MD 11/21/2021 21:07:20
[2021-11-21 10:55] LABS: Basophils # 0.3 K/mm3 (0-0.2); Basophils % 2.1 % (0.1-2.0); Eosinophils # 0.3 K/mm3 (0.0-0.4); Eosinophils % 2.6 % (0.1-12.0); Hematocrit 49.5 % (42.0-52.0); Hemoglobin 15.7 g/dL (14.1-18.0); Lymphocytes # 3.7 K/mm3 (0.7-4.5); Lymphocytes % 29.9 % (10-50); Mean Corpuscular HGB Conc 31.7 g/dL (31.8-35.4); Mean Corpuscular Hemoglobin 28.8 pg (27.0-31.2); Monocytes # 0.5 K/mm3 (0.1-1.0); Monocytes % 4.3 % (1.7-9.3); Neutrophils # 7.5 K/mm3 (1.8-7.8); Neutrophils % 61.1 % (37.0-80.0); Platelet Count 449 K/mm3 (142-424); Red Blood Count 5.44 M/mm3 (4.60-6.20); White Blood Count 12.2 K/mm3 (4.8-10.8)
[2021-11-21 10:57] LABS: Chloride 100 mmol/L (98-107); Sodium 141 mmol/L (136-145)
[2021-11-21 10:58] LABS: Potassium 3.9 mmoL/L (3.5-5.1)
[2021-11-21 11:00] LABS: Alanine Aminotransferase 33 U/L (12-78); Alkaline Phosphatase 86 U/L (38-126); Aspartate Amino Transferase 40 U/L (17-59); Bilirubin,Total 0.2 mg/dl (0.2-1.3); Blood Urea Nitrogen 17 mg/dl (9-20); Creatinine Clearance Estimated 102 mL/min (50-200); Estimated Glomerular Filt Rate 86 ml/min (>60); GFR (African American) 104 ML/MIN (>60)
[2021-11-21 11:01] LABS: Albumin Level 4.5 g/dl (3.5-5.0); Albumin/Globulin Ratio 1.4 (1.1-1.8); Anion Gap 20.9 mEq/L (5-15); Calcium 9.1 mg/dl (8.4-10.2); Carbon Dioxide 24 mmol/L (22.0-30.0); Globulin 3.3 g/dL (1.3-3.2); Glucose 230 mg/dl (74-100); Total Protein,Serum 7.8 g/dl (6.3-8.2)
[2021-11-21 11:13] LABS: Troponin I < 0.01 ng/ml (0.00-0.034)
--- NOTE | 2021-11-21 11:27 | HMH.EDGENADL ---
Discharge Plan Disposition Patient Disposition: Home, Self-Care Condition: Good Prescriptions Prescriptions: No Action nitroglycerin 0.4 mg tablet, sublingual 0.4 mg SUBLINGUAL Q5-15M PRN (Reason: chest pain) Qty: 30 6RF Rx Instructions: until response; do not exceed 3 doses per episode cholecalciferol (vitamin D3) 1,250 mcg (50,000 unit) capsule 1,250 mcg PO WEEKLY Qty: 14 3RF cholecalciferol (vitamin D3) 25 mcg (1,000 unit) capsule 25 mcg PO DAILY Qty: 90 3RF gemfibrozil [Lopid] 600 mg tablet 600 mg PO BID Qty: 60 5RF oxycodone 10 mg tablet 10 mg PO QID Qty: 120 0RF amlodipine 2.5 mg tablet 2.5 mg PO QHS Qty: 90 3RF atorvastatin 80 mg tablet 80 mg PO QDAY Qty: 90 3RF bisoprolol fumarate 10 mg tablet See Rx Instructions .ROUTE .COMPLEX Qty: 180 3RF Dose Instruction: TAKE 2 TABLETS BY MOUTH DAILY FOR BLOOD PRESSURE Rx Instructions: TAKE 2 TABLETS BY MOUTH DAILY FOR BLOOD PRESSURE bupropion HCl 150 mg tablet sustained-release 12 hr 150 mg PO BID Qty: 180 3RF clopidogrel 75 MG tablet 75 mg PO DAILY omeprazole 40 MG capsule,delayed release(DR/EC) 40 mg PO DAILY aspirin 81 MG tablet,delayed release (DR/EC) 81 mg PO DAILY furosemide 20 MG tablet 20 mg PO DAILY losartan-hydrochlorothiazide 1 EACH tablet 1 tab PO DAILY ranolazine 1,000 MG tablet extended release 12 hr 1,000 mg PO BID Referrals Follow up/Referrals: Provider,Referral, MD [Primary Care Provider] - See instructions Activity Restrictions/Add. Instructions Additional Instructions/Restrictions: Follow-up with Dr. Vazquez in the office, call tomorrow morning to make appointment. Your chest will be sore from having received CPR. Return to the emergency department if any worsening chest pain, shortness of breath, or other concerns. Do not use any Percocet, any street drugs, or other controlled substances. Clinical Impressions Clinical Impression: Opiate overdose Qualifiers: Encounter type: initial encounter Injury intent: accidental or unintentional Qualified Code(s): T40.601A - Poisoning by unspecified narcotics, accidental (unintentional), initial encounter Discharge ED Provider: Renusch,Tha General Adult HPI General Chief complaint: Overdose Stated complaint: Overdose Time Seen by Provider: 11/21/21 10:24 Mode of Arrival: EMS Source of Information: Patient and EMS Limitations: Altered Mental Status Description of Symptoms (Recalled from ER Triage Doc. by RN): Pt to ED per EMS. EMS and FD report that pt was a witnessed arrest. FD states that bystanders reported to them that pt snorted something and then went down . FD states that pt was pulseless and apneic upon their arrival on scene and CPR was started and 4mg nasal Narcan administered. EMS states that during transport to ED, a pulse was regained and pt had O2 sat in 50's when OA was placed and BVM utilized. Pt alert and yelling agressively upon arrival to ED. O2 sat has increased to 90% RA. Pt reports snorting percocet. States that he does not remember anything else. Pt c/o chest soreness at this time and states I'm just tired . History of Present Illness HPI narrative: Patient seen immediately upon arrival. Brought in by ambulance. Reported witnessed cardiac arrest. EMS personnel report that a bystander stated that the patient said that he had snorted something and then had a witnessed collapse. He was reportedly pulseless and cyanotic. He had CPR at the scene. He was given Narcan 4 mg nasally at the scene and regained consciousness during transport. Initial pulse ox was in the 50s, but ana to the 90s when he regained consciousness. The patient initially denied using any drugs today or snorting anything. States that he is on Percocet and does snorted, but did not do so today. States that he last snorted it 2 days ago. However, later in his stay he admitted to snorting Percocet today. States
[2021-11-21 11:49] LABS: Acetaminophen < 10 ug/ml (10-30); Salicylate < 1.0 mg/dL (2.0-20.0)
[2021-11-21 11:50] LABS: Ethyl Alcohol < 10 mg/dl (0-10)
[2021-11-21 13:59] LABS: Troponin I 0.03 ng/ml (0.00-0.034)
--- NOTE | 2021-11-21 14:11 | PC.NURSE ---
Called cardiology for consult on patient.
--- NOTE | 2021-11-21 14:46 | PC.NURSE ---
Cardiology at bedside
--- NOTE | 2021-11-21 14:52 | CA_ITS ---
APPROVED REPORT EXAM: Comprehensive 2D, Doppler, and color-flow Echocardiogram Branch Manager: Madalyn Guadarrama RVT Ht: 6 ft 0 in Wt: 205lbs BSA: 2.15 BP: 162/89 mmHg Indications: OD WITH CARDIAC ARREST,CP,CHF,SMOKER,CAD 2D Dimensions LVOT 2.25 cm (M/F) 1.5-2.5 LA Volume 26.80 mL LA Volume Index 12.46 mL/m2 (M/F) 16-34 M-Mode Dimensions RVDd 2.41 cm (0.9-2.6) LA Diam 3.67 cm (1.9-4.0) LVDd 6.60 cm (3.5-5.7) Ao Diam 4.48 cm (2.0-3.7) LVDs 4.63 cm (3.5-5.7) IVSd 0.64 cm (0.6-1.1) PWd 0.60 cm (0.6-1.1) EF (Teich) 55.80% FS 29.80% EDV (Teich) 223.60 mL TAPSE 2.30 (<1.7) ESV (Teich) 98.80 mL LV Diastology E Decel Time 150.00 (160-240 msec) E/A Ratio 0.7 MED E' 5.80 (< 7 cm/sec) E'/MED E' Ratio 13.17 (>14) LAT E' 9.70 (<10 cm/sec) E/LAT E' Ratio 7.88 (>14) Aortic Valve AO Peak GR. 4.80 mmHg Mitral Valve MV E Max Chace. 76.00 (40-130 cm/s) MV A Velocity 106.00 (40-130 cm/s) E/A Ratio 0.72 MV Decel. Time 150.00 (160-240 ms) MV PHT 44.00 ms Pulmonary Valve PV Peak Velocity 83.00 (50-150 cm/s) Tricuspid Valve TR P. Velocity 182.00 cm/s RAP Estimate 10.00 mmHg RVSP 23.20 mmHg Left Ventricle Left atrium is mildly enlarged, left ventricle is mildly dilated, estimated ejection fraction approximately 45%, there is mild left ventricular global hypokinesis. Grade 1 diastolic dysfunction seen without tissue Doppler evidence of raise left atrial pressure. Right Ventricle Right atrium and right ventricle are mildly enlarged with normal contractility. Aortic Valve Aortic valve is minimally thickened and fibrosed there is no aortic stenosis aortic insufficiency. Mitral Valve Mitral valve is grossly normal, there is trace mitral regurgitation. Tricuspid Valve Tricuspid valve grossly normal, there is trace tricuspid regurgitation, tricuspid regurgitation jet velocity is inadequate for calculation of the right ventricular systolic pressure. Pulmonic Valve Pulmonic valve is poorly visualized. Great Vessels Aortic root is normal size. Inferior vena cava is normal size with normal inspiratory collapse. Pericardium No significant pericardial effusion noted. Conclusion 1. Mildly dilated left ventricle, estimated ejection fraction 45%, left ventricle is globally hypokinetic, grade 1 diastolic dysfunction seen without tissue Doppler evidence of raise left atrial pressure. 2. Trace mitral and tricuspid regurgitation. 3. No significant pericardial effusion. 4. Inferior vena cava is poorly visualized. Electronically signed by : Jonathon Snow MD 11/21/2021 18:52:39
--- NOTE | 2021-11-21 15:20 | EXP.CARD.CON ---
History of Present Illness History of Present Illness Consult date: 11/21/21 Requesting physician: Tha Mac Chief complaint: OD, cardiac arrest, upward trending trop Additional Medical History:: Past medical hx HTN CAD Stable ascending thoracic aneurysm- 4.6 and stable in 2019 History of present illness: ER Note: EMS personnel reports a bystander stated that the patient said that he had snorted something and then had a witnessed collapse.? He was reportedly pulseless and cyanotic.? He had CPR at the scene.? He was given Narcan 4 mg nasally at the scene and regained consciousness during transport.? Initial pulse ox was in the 50s, but ana to the 90s when he regained consciousness.? The patient initially denied using any drugs today or snorting anything.? States that he is on Percocet and does snorted, but did not do so today.? States that he last snorted it 2 days ago.? However, later in his stay he admitted to snorting Percocet today. States that his chest is hurting and it is noted to be tender to touch on exam.? Also states that his left upper extremity hurts. Cardiology asked to consult for uptrending troponins. PFSH PFS Social History Smoking Status: Never smoker second hand exposure: Yes alcohol intake: current substance use type: denies use current occupational status: employed Travel in the last 8 weeks: None household members: children housing: house current occupational exposures/hazards: No caffeine: Yes Review of Systems *Cardiovascular Comments: chest wall tenderness Exam Data for Last 24 hours Vital signs and Labs for Last 24 Hours: Temp Pulse Resp BP Pulse Ox 98.0 F 90 16 162/89 H 97 11/21/21 10:24 11/21/21 14:51 11/21/21 14:51 11/21/21 14:51 11/21/21 14:51 Laboratory Results - last 24 hr 11/21/21 10:35: WBC 12.2 H, RBC 5.44, Hgb 15.7, Hct 49.5, MCV 91.0, MCH 28.8, MCHC 31.7 L, RDW 14.0, Plt Count 449 H, MPV 7.0 L, Neut % (Auto) 61.1, Lymph % (Auto) 29.9, [place] % (Auto) 4.3, Eos % (Auto) 2.6, Baso % (Auto) 2.1 H, Neut # (Auto) 7.5, Lymph # (Auto) 3.7, [place] # (Auto) 0.5, Eos # (Auto) 0.3, Baso # (Auto) 0.3 H 11/21/21 10:35: Sodium 141, Potassium 3.9, Chloride 100, Carbon Dioxide 24, Anion Gap 20.9 H, BUN 17, Creatinine 0.90, Estimated Creat Clear 102, Estimated GFR 86, Est GFR ( Amer) 104, Glucose 230 H, Calcium 9.1, Total Bilirubin 0.2, AST 40, ALT 33, Alkaline Phosphatase 86, Troponin I < 0.01, Total Protein 7.8, Albumin 4.5, Globulin 3.3 H, Albumin/Globulin Ratio 1.4 11/21/21 10:35: Salicylates < 1.0 L, Acetaminophen < 10 L 11/21/21 10:35: Plasma/Serum Alcohol < 10 11/21/21 13:30: Troponin I 0.03 I & O for Last 24 hours: Intake & Output 11/18/21 11/19/21 11/20/21 11/21/21 23:59 23:59 23:59 23:59 Weight 205 lb Constitutional Constitutional: no acute distress Routine Chest/Breast/Axilla Exam Comments: no chest wall abnormalites noted *Routine Respiratory Exam Respiratory: Present CTA bilaterally and symmetric chest movement *Routine Cardiovascular Exam Cardiovascular: Present Normal S1, Normal S2 and tachycardia *Routine Abdominal Exam Abdominal: Present soft and normoactive bowel sounds; Absent tenderness *Routine Extremities Exam Extremities: Present full ROM and normal capillary refill; Absent edema *Routine Skin Exam Skin: Present intact, dry and warm Detailed Neck Exam: Thyroids Thyroid: Absent bruit Meds Home Medications and Allergies Home Medications Medication Instructions Recorded Confirmed Type nitroglycerin 0.4 mg sublingual 0.4 mg sublingual Q5-15M PRN chest 03/10/18 03/22/21 Rx tablet pain #30 tabs aspirin 81 mg tablet,delayed 81 mg PO DAILY heart health 06/26/18 03/22/21 History release clopidogrel 75 mg tablet 75 mg PO DAILY thinner 06/26/18 03/22/21 History furosemide 20 mg tablet 20 mg PO DAILY chf 06/26/18 03/22/21 History losartan 50 mg-hydrochlorothiazide 1 tab PO DAILY bp 06/26/18 03/22/21 History 1
--- NOTE | 2021-11-21 15:38 | PC.NURSE ---
pt is sleeping
--- NOTE | 2021-11-21 18:54 | PC.NURSE ---
Pt requested that we call his daughter for transport home. Spoke with daughter, Alejandra. 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
== END 2021-11-21 19:30 | disposition home or self-care (01) ==
PROVIDERS: Emergency Provider Emergency Medicine
DX: T50.901A Poisoning by unspecified drugs, medicaments and biological substances, accidental (unintentional), initial encounter (principal); I10 Essential (primary) hypertension; Z86.79 Personal history of other diseases of the circulatory system; I25.118 Atherosclerotic heart disease of native coronary artery with other forms of angina pectoris; R77.8 Other specified abnormalities of plasma proteins; E78.5 Hyperlipidemia, unspecified; Z95.5 Presence of coronary angioplasty implant and graft
CPT/HCPCS: 71045; 80053; 80329; 84484; 85025; 93005; 93306; 99284

== ENCOUNTER 2023-04-26 10:26 | Observation (INO) | payer MEDICARE, SELFPAY ==
[2023-04-26] VITALS (11 sets, daily range): BP systolic 119–153; BP diastolic 56–107; PULSE 76–114; RESP 18–38; TEMP 36.4–36.7; O2SAT 89–98; BMI 26.4
--- NOTE | 2023-04-26 10:26 | ECG_ITS ---
APPROVED REPORT Exam: Resting ECG HR:111 bpm ECG Measurements Heart Rate 111 AXES NH 157 P 68 QRSd 112 QRS -41 QT 345 T 90 QTc 410 Conclusion SINUS TACHYCARDIA LEFT ATRIAL ENLARGEMENT [-0.15mV P-WAVE IN V1/V2] LEFT AXIS DEVIATION [QRS AXIS < -30] POSSIBLE ANTERIOR MYOCARDIAL INFARCTION , OF INDETERMINATE AGE [30 ms Q WAVE IN V3/V4, OR R < 0.2 mV IN V4] ABNORMAL ECG UNCONFIRMED REPORT Electronically signed by : Syed Kelly MD 04/27/2023 12:37:33
--- NOTE | 2023-04-26 10:42 | XR_ITS ---
FINAL REPORT CLINICAL HISTORY: cough, SOA COMPARISON: 11/21/2021 FINDINGS: 2 views of the chest were obtained . The heart is mildly enlarged. The mediastinum is within normal limits. There is mild interstitial opacity in the perihilar regions likely related to mild edema. Lungs are otherwise clear. There is no pneumothorax. Osseous structures are unremarkable. IMPRESSION: Mild cardiomegaly with mild interstitial opacity in the perihilar regions likely related to mild edema. Reviewed, Interpreted and Dictated by Catracho Mejia MD Transcribed by Kala Arciniega Authenticated and [facility]
[2023-04-26 10:52] LABS: Chloride 108 mmol/L (98-107); Sodium 140 mmol/L (136-145)
--- NOTE | 2023-04-26 10:53 | PC.NURSE ---
PT RETURNED FROM XR
--- NOTE | 2023-04-26 10:54 | PC.NURSE ---
DR SHIPMAN AT BEDSIDE
[2023-04-26 10:55] LABS: Alanine Aminotransferase 30 U/L (12-78); Albumin/Globulin Ratio 1.2 (1.1-1.8); Alkaline Phosphatase 88 U/L (38-126); Aspartate Amino Transferase 37 U/L (17-59); Bilirubin,Total 1.1 mg/dl (0.2-1.3); Blood Urea Nitrogen 24 mg/dl (9-20); Calcium 9.2 mg/dl (8.4-10.2); Carbon Dioxide 28 mmol/L (22.0-30.0); Creatinine Clearance Estimated 95 mL/min (50-200); Estimated Glomerular Filt Rate 85 ml/min (>60); GFR (African American) 103 ML/MIN (>60); Globulin 3.3 g/dL (1.3-3.2); Glucose 117 mg/dl (74-100); Total Protein,Serum 7.3 g/dl (6.3-8.2)
--- NOTE | 2023-04-26 10:58 | HMH.EDCP ---
Discharge Plan Disposition Patient Disposition: Admitted Clinical Impressions Clinical Impression: Acute non-ST elevation myocardial infarction (NSTEMI), CHF exacerbation, Acute hypoxemic respiratory failure Discharge ED Provider: Maru Godfrey HPI General Chief Complaint: Shortness of Breath/Dyspnea Stated Complaint: Chest pain Time Seen by Provider: 04/26/23 10:28 Mode of Arrival: Ambulatory Source of Information: Patient Limitations: No Limitations Description of Symptoms (Recalled from ER Triage Doc. by RN): pt c/o SOA, weakness, L chest pressure, and a productive cough with yellow sputum. pt states after coughing hard last night the chest pressure and SOA was worse. ongoing x3-4days. pt reports having 4 cardia [address] placed by Dr. Aguirre. pt states he stopped taking his all his meds including hisblood thinner and hypertensive medications. pt states he has not been to the dr in some time. History of Present Illness HPI narrative: This patient is a 62-year-old male with a history of hypertension, hyperlipidemia, CAD status post stenting, COPD, and chronic opioid use presenting to the emergency department for evaluation with concern for chest pain, shortness of breath, and cough. He states that it initially started last week as a cough with clear sputum production and chest congestion. He was taking [id number] medications, but for the last 3 to 4 days the symptoms of gotten much worse. He states that now he is coughing up thick, yellow sputum, he is having left chest pressure, and he is also having some left-sided chest wall pain. It is worse with movement and coughing. No other concerns noted at this time. He also notes bilateral lower extremity edema. No history of blood clots, clotting disorders, or other concerns. No recent surgeries or travel. Related Data Home Medications Medication Instructions Recorded Confirmed aspirin 81 mg tablet 81 mg PO DAILY 04/26/23 04/26/23 Allergies Allergy/AdvReac Type Severity Reaction Status Date / Time No Known Allergies Allergy Verified 03/22/21 11:[address] [facility] Disclaimer: The information contained in this section may have been updated after the patient was seen, as this information can be updated by other users. Social History Smoking Status: Current every day smoker tobacco type: cigarettes packs per day: 1 second hand exposure: Yes alcohol intake: current substance use type: denies use current occupational status: employed Travel in the last 8 weeks: None household members: children housing: house current occupational exposures/hazards: No caffeine: Yes ROS Obtained: Yes All systems reviewed & no additional complaints except as documented Physical Exam General General appearance: alert and in distress Comment: In mild respiratory distress Head Head exam: atraumatic and normocephalic Eye Eye exam: Present normal appearance, PERRL and EOMI ENT ENT exam: Present normal exam, normal oropharynx, mucous membranes moist and normal external ear exam Neck Neck exam: Present normal inspection, full ROM and trachea midline; Absent tenderness Chest Chest inspection: Present normal inspection and symmetric chest wall rise; Absent tenderness Respiratory Respiratory exam: Present respiratory distress, wheezes (Faint wheezing noted on the right greater than left), accessory muscle use, prolonged expiratory phase and other (Diminished breath sounds on the right side); Absent stridor Cardiovascular Cardiovascular exam: Present normal rhythm and tachycardia Abdominal Exam Abdominal exam: Present soft; Absent distention, tenderness or guarding Extremities Exam Extremities exam: Present full ROM, normal capillary refill and edema (Bilateral lower extremity edema); Absent tenderness Back Exam Back exam: Present normal inspection and full ROM; Absent tenderness Neurological Exam Neurological exam: Present alert, oriented X3, CN II-XII intact and normal gait; Absent motor sensory deficit Psychiatric Psychiatric exam: Present normal affect and normal mood Skin Skin exam: Present warm and dry HEART Score HEART Score HEART Score assessment performed?: Yes History (anamnesis): Moderately suspicious ECG: Non-specific disturbance Age: 45-65 years Risk factors: Atherosclerosis history Troponin: > 3x normal limit HEART Score: 7 Critical Care Critical Care Time Critical Care Time: No Medical Decision Making Medical Records Medical records reviewed: Yes I reviewed the patient's medical records. Brett Inquiry Pt receiving controlled substance: No Vital Signs Vital Signs: 04/26/23 10:33 04/26/23 11:01 04/26/23 11:47 Temperature 97.6 F Temperature Source Oral Pulse Rate 76 109 H Pulse Rate [Left] 114 H Respiratory Rate 38 H 21 18 Blood Pressure 143/76 H 138/100 H Blood Pressure [Right Arm] 138/106 H Blood Pressure Mean 98 Blood Pressure Mean [Right Arm] 116 Blood Pressure Source Blood Pressure Source [Right Arm] Automatic Cuff Blood Pressure Position Blood Pressure Position [Right Arm] Sitting 02 Sat by Pulse Oximetry 89 L 96 98 Oxygen Delivery Method Room Air Nasal Cannula Nasal Cannula Oxygen Flow Rate (LPM) 2 2 04/26/23 12:13 04/26/23 12:35 04/26/23 13:00 Temperature Temperature Source Pulse Rate 106 H 105 H 105 H Pulse Rate [Left] Respiratory Rate 25 H 22 28 H Blood Pressure 139/85 122/83 119/90 Blood Pressure [Right Arm] Blood Pressure Mean Blood Pressure Mean [Right Arm] Blood Pressure Source Blood Pressure Source [Right Arm] Blood Pressure Position Blood Pressure Position [Right Arm] 02 Sat by Pulse Oximetry 95 96 97 Oxygen Delivery Method Nasal Cannula Nasal Cannula Room Air Oxygen Flow Rate (LPM) 2 2 04/26/23 13:30 04/26/23 14:05 Temperature 97.6 F Temperature Source Oral Pulse Rate 105 H 107 H Pulse Rate [Left] Respiratory Rate 22 18 Blood Pressure 137/102 H 133/107 H Blood Pressure [Right Arm] Blood Pressure Mean 110 Blood Pressure Mean [Right Arm] Blood Pressure Source Automatic Cuff Blood Pressure Source [Right Arm] Blood Pressure Position Sitting Blood Pressure Position [Right Arm] 02 Sat by Pulse Oximetry 97 Oxygen Delivery Method Nasal Cannula Oxygen Flow Rate (LPM) 3 Lab Data Labs: Lab Results 04/26/23 10:31: WBC 12.6 H, RBC 5.03, Hgb 14.8, Hct 46.6, MCV 92.6, MCH 29.5, MCHC 31.8, RDW 15.6, Plt Count 321, MPV 8.1, Neut % (Auto) 74.4, Lymph % (Auto) 17.6, [place] % (Auto) 6.0, Eos % (Auto) 1.6, Baso % (Auto) 0.3, Neut # (Auto) 9.4 H, Lymph # (Auto) 2.2, [place] # (Auto) 0.8, Eos # (Auto) 0.2, Baso # (Auto) 0.0, D-Dimer 0.55 H, Sodium 140, Potassium 4.0, Chloride 108 H, Carbon Dioxide 28, Anion Gap 8.0, BUN 24 H, Creatinine 0.90, Estimated Creat Clear 95, Estimated GFR 85, Est GFR ( Amer) 103, Glucose 117 H, Calcium 9.2, Total Bilirubin 1.1, AST 37, ALT 30, Alkaline Phosphatase 88, Troponin I 0.05 H, NT-Pro-B Natriuret Pep 7650 H, Total Protein 7.3, Albumin 4.0, Globulin 3.3 H, Albumin/Globulin Ratio 1.2, Triglycerides 126, Cholesterol 190, VLDL Cholesterol 25, HDL Cholesterol 40, Cholesterol/HDL Ratio 4.8 H 04/26/23 10:35: APTT 28.9 04/26/23 10:57: Lactate 1.4, SARS-CoV-2 (PCR) Not detected, Influenza A Untype (PCR) Not detected, Influenza Type B (PCR) Not detected 04/26/23 11:02: VBG pH 7.32, VBG pCO2 47.6, VBG pO2 35.2, VBG HCO3 24.1, VBG Total CO2 25.6, VBG O2 Saturation 61.1, VBG Base Excess -1.9 04/26/23 13:35: Troponin I 0.05 H 04/26/23 13:49: Urine Opiates Screen Negative, Urine Methadone Screen Negative, Ur Barbituates Screen Negative, Ur Phencyclidine Scrn Negative, U Benzodiazepines Scrn Negative, Urine Cocaine Screen Negative, U Marijuana (THC) Screen Negative 04/26/23 10:31 04/26/23 10:31 Response Orders (Tests/Meds): ED MEDICATIONS Generic Name Dose Route Start Last Admin Trade Name Juwan PRN Reason Stop Dose Admin Aspirin 81 mg 04/26/23 13:15 04/26/23 13:45 Aspirin Ec 81mg Tablet PO 05/26/23 13:14 81 mg DAILY WILBER Administration Atorvastatin Calcium 40 mg 04/26/23 21:00 Atorvastatin 40mg Tablet PO 05/26/23 20:59 HS WILBER Bisoprolol Fumarate 2.5 mg 04/26/23 13:15 04/26/23 13:45 Bisoprolol 5mg Tablet PO 05/26/23 13:14 2.5 mg DAILY WILBER Administration Heparin Sodium/Dextrose 500 mls @ 32 mls/hr 04/26/23 13:30 04/26/23 13:51 Heparin 25,000 Units In D5w 500ml Premix IV 05/26/23 13:29 32 mls/hr .[id number] WILBER Administration 1,600 UNITS/HR Azithromycin 500 mg/ Sodium 250 mls @ 250 mls/hr 04/26/23 14:30 04/26/23 14:30 Chloride IV 05/06/23 14:29 250 mls/hr Q24H WILBER Administration Sacubitril/Valsartan 1 each 04/26/23 13:15 04/26/23 13:45 Sacubitril/Valsartan 24-26mg Tablet PO 05/26/23 13:14 1 each BID WILBER Administration Sodium Chloride 10 ml 04/26/23 13:47 Sodium Chloride 0.9% 10ml Flush Syringe IV 05/26/23 13:46 NEEDED PRN Maintain IV Site Discontinued Medications Generic Name Dose Route Start Last Admin Trade Name Freq PRN Reason Stop Dose Admin Albuterol/Ipratropium 9 ml 04/26/23 10:57 04/26/23 11:07 Ipratropium/Albuterol 3 Ml Neb IH 04/26/23 10:58 9 ml ONCE ONE Administration Aspirin 324 mg 04/26/23 11:11 04/26/23 11:20 Aspirin 81mg Chewable Tablet PO 04/26/23 11:12 324 mg ONCE ONE Administration Empagliflozin 10 mg 04/26/23 13:15 Empagliflozin 10mg Tablet PO 05/26/23 13:14 DAILY WILBER Furosemide 40 mg 04/26/23 12:27 04/26/23 12:35 Furosemide 40mg/4ml Vial IV 04/26/23 12:28 40 mg ONCE ONE Administration Heparin Sodium (Porcine) 7,000 unit 04/26/23 13:30 04/26/23 13:46 Heparin Sodium 5,000 Unit/Ml Vial IV 04/26/23 13:31 7,000 unit ONCE ONE Administration Iopamidol 70 ml 04/26/23 13:22 04/26/23 13:25 Iopamidol-370 (76%);100ml Bottle IV 04/26/23 13:23 70 ml ONCE ONE Administration Miscellaneous 1 each 04/26/23 13:15 04/26/23 15:32 Heparin Drip Consult NOTAPPLIC 05/26/23 13:14 Not Given CONSULT PHARMACY WILBER Sodium Chloride 50 ml 04/26/23 13:22 04/26/23 13:26 0.9 % Sodium Chloride 50 Ml Vial IV 04/26/23 13:23 50 ml ONCE ONE Administration Sodium Chloride 10 ml 04/26/23 13:22 Sodium Chloride 0.9% 10ml Syr (Rad Only) IV 05/26/23 13:21 NEEDED PRN Maintain IV Site ORDERS Category Date Time Status CT angio chest PE protocol Stat Cat Scan 04/26/23 12:45 Completed Cardiology Consult [Consult to Cardiology] [CONS] Cons 04/26/23 12:26 Active Routine Cardiology Consult [Consult to Cardiology] [CONS] Cons 04/26/23 13:37 Active Routine XR chest 2V Stat Exams 04/26/23 10:42 Completed Brain Natriuretic Peptide Stat Lab 04/26/23 10:31 Completed Complete Blood Count Auto Diff AMLAB Lab 04/27/23 06:00 Ordered Complete Blood Count Auto Diff Stat Lab 04/26/23 10:31 Completed Comprehensive Metabolic Panel AMLAB Lab 04/27/23 06:00 Ordered Comprehensive Metabolic Panel Stat Lab 04/26/23 10:31 Completed D-Dimer Stat Lab 04/26/23 10:31 Completed Lactic Acid Stat Lab 04/26/23 10:57 Completed Lipid Panel Routine Lab 04/26/23 10:31 Results Magnesium AMLAB Lab 04/27/23 06:00 Ordered PTT Heparin (inpatient only) Stat Lab 04/26/23 10:35 Completed Rapid PCR Covid and Flu A/B Stat Lab 04/26/23 10:57 Completed Troponin I Q3H Lab 04/26/23 13:35 Completed Troponin I Q3H Lab 04/26/23 16:45 Ordered Troponin I Stat Lab 04/26/23 10:31 Completed UDS [Drug Screen,Urine] Stat Lab 04/26/23 13:49 Results Venous Blood Gas Stat RT 04/26/23 11:02 Completed CA echo doppler complete Routine Y 04/26/23 12:41 Completed ECG initial [place] Routine Y 04/26/23 10:26 Completed ECG repeat same [place] Routine Y 04/26/23 12:17 Completed ECG Data Tracing #1: Attestation: I reviewed this ECG and interpreted as documented below: ECG Narrative: Sinus tachycardia with a ventricular rate of [address] elevations concerning for STEMI. Left axis deviation noted. ECG initial impression date: 04/26/23 ECG initial impression time: 10:31 Tracing #2: Attestation: I reviewed this ECG and interpreted as documented below: ECG Narrative: Sinus tachycardia with a ventricular rate of 102 bpm. No acute changes on prior EKG. Does not meet STEMI criteria. ECG initial impression date: 04/26/23 ECG initial impression time: 12:26 MDM Narrative Medical Decision Narrative: In summary, this patient is a 62-year-old male presenting to the Emergency Department for evaluation of cough, chest congestion, chest pain, and shortness of breath. Differential diagnoses considered include but are not limited to pneumonia, viral syndrome, COPD exacerbation, respiratory failure, ACS, dysrhythmia, CHF exacerbation. Ruling out the most morbid conditions drove assessment. It should be noted patient's history includes COPD, hypertension, hyperlipidemia, and CAD which are not at goal therapy. He has not been following regularly with a physician. This complicates all aspects of care by increasing patient's risk for morbidity. On exam, the patient is in mild respiratory distress. He is hypoxic on room air at 89% requiring 2 L nasal cannula for supplemental oxygen. He is diminished breath sounds on the right with some wheezing noted. He also has mild bilateral lower extremity edema. Workup included CBC, CMP, troponin, BNP, VBG, D-dimer, viral swab, chest x-ray, and EKG. He was given oral aspirin. EKG does not demonstrate any concerns for STEMI. He was given 3 DuoNebs to assess for symptomatic improvement, but did not have much improvement. He continues to be significantly symptomatic and require O2. I independently interpreted x-ray prior to the radiologist read and noted concerns for pulmonary edema but no obvious large focal consolidation concerning for pneumonia. Please see their read for final interpretation. Labs were obtained that demonstrated elevated troponin of 0.05 and elevated BNP of >7000. Given these concerns, patient was given 40 mg of IV Lasix. D-dimer is negative per age-adjusted D-dimer criteria. On reassessment, the patient is resting comfortably and is in no acute distress. He continues to have slightly increased work of breathing and required oxygen. Second troponin is pending. Repeat EKG does not demonstrate any acute ST changes. I called and had an interactive discussion with cardiology who is to evaluate the patient. They recommended echocardiogram and admission. Echocardiogram was ordered. At this time, patient was deemed to be appropriate for admission. The patient was admitted in stable condition. After interactive discussion with hospitalist.
[2023-04-26 11:02] LABS: Basophils % 0.3 % (0.1-2.0); Eosinophils # 0.2 K/mm3 (0.0-0.4); Eosinophils % 1.6 % (0.1-12.0); Hematocrit 46.6 % (42.0-52.0); Hemoglobin 14.8 g/dL (14.1-18.0); Lymphocytes # 2.2 K/mm3 (0.7-4.5); Lymphocytes % 17.6 % (10-50); Mean Corpuscular HGB Conc 31.8 g/dL (31.8-35.4); Mean Corpuscular Hemoglobin 29.5 pg (27.0-31.2); Mean Corpuscular Volume 92.6 fl (80-94); Mean Platelet Volume 8.1 fl (7.4-10.4); Monocytes # 0.8 K/mm3 (0.1-1.0); Neutrophils # 9.4 K/mm3 (1.8-7.8); Neutrophils % 74.4 % (37.0-80.0); Platelet Count 321 K/mm3 (142-424); Red Blood Count 5.03 M/mm3 (4.60-6.20); Red Cell Distribution Width 15.6 % (11.5-17.5); White Blood Count 12.6 K/mm3 (4.8-10.8)
[2023-04-26 11:04] LABS: Coronavirus 19, PCR Not Detected (NotDetected); Influenza A, PCR Not Detected (NotDetected); Influenza B, PCR Not Detected (NotDetected)
[2023-04-26 11:04] LABS: VBG Base Excess -1.9 mmol/L (-2.4-2.3); VBG HCO3 24.1 mmol/L (23-30); VBG Oxygen Saturation 61.1 % (50-70); VBG PCO2 47.6 mmol/L (35-51); VBG PH 7.32 mmol/L (7.31-7.41); VBG PO2 35.2 mmol/L (28-40); VBG Total CO2 25.6 mmol/L (23-27)
[2023-04-26] MEDS: IPRATROPIUM/ALBUTEROL 3 ML NEB 9 ML IH (11:07)
[2023-04-26 11:08] LABS: Troponin I 0.05 ng/ml (0.00-0.034)
[2023-04-26 11:19] LABS: Lactic Acid 1.4 mmol/L (0.7-2.1)
[2023-04-26] MEDS: ASPIRIN 81MG CHEWABLE TABLET 324 MG PO (11:20)
[2023-04-26 11:24] LABS: D-Dimer 0.55 ug/mL (0.0-0.5)
[2023-04-26 12:12] LABS: NT Pro Brain Natriuretic Pep. 7650 pg/mL (0-125)
--- NOTE | 2023-04-26 12:17 | ECG_ITS ---
APPROVED REPORT Exam: Resting ECG HR:102 bpm ECG Measurements Heart Rate 102 AXES DE 168 P 90 QRSd 111 QRS -40 QT 355 T 91 QTc 414 Conclusion SINUS TACHYCARDIA LEFT ATRIAL ENLARGEMENT [-0.15mV P-WAVE IN V1/V2] LEFT AXIS DEVIATION [QRS AXIS < -30] POSSIBLE ANTERIOR MYOCARDIAL INFARCTION , OF INDETERMINATE AGE [30 ms Q WAVE IN V3/V4, OR R < 0.2 mV IN V4] ABNORMAL ECG UNCONFIRMED REPORT Electronically signed by : Syed Kelly MD 04/27/2023 12:37:09
--- NOTE | 2023-04-26 12:27 | PC.NURSE ---
called cardiology for consult
[2023-04-26] MEDS: FUROSEMIDE 40MG/4ML VIAL 40 MG IV (12:35)
--- NOTE | 2023-04-26 12:36 | PC.NURSE ---
PT MEDICATED PER EMAR, URINAL PROVIDED. CALL LIGHT WITHIN REACH. UPDATED ON POC
--- NOTE | 2023-04-26 12:41 | CA_ITS ---
APPROVED REPORT EXAM: Comprehensive 2D, Doppler, and color-flow [employer] Sales Consultant: Shirley Payne RDCS Ht: 6 ft 1 in Wt: 195lbs BSA: 2.13 BP: 122/83 mmHg Indications: CHF,SOA,HTN,SMOKER,COPD 2D Dimensions LA Volume 132.90 mL LA Volume Index 62.39 mL/m2 (M/F) 16-34 M-Mode Dimensions RVDd 3.51 cm (0.9-2.6) LA Diam 3.35 cm (1.9-4.0) LVDd 6.82 cm (3.5-5.7) LVDs 6.34 cm (3.5-5.7) IVSd 1.01 cm (0.6-1.1) PWd 0.97 cm (0.6-1.1) EF (Teich) 15.20% FS 7.00% EDV (Teich) 240.80 mL ESV (Teich) 204.10 mL LV Diastology E Decel Time 97 (160-240 msec) E/A Ratio 2.1 Mitral Valve MV E Max Chace. 81.0 (40-130 cm/s) MV A Velocity 38.0 (40-130 cm/s) E/A Ratio 2.16 MV PHT 28.0 ms Tricuspid Valve TR P. Velocity 342.00 cm/s RAP Estimate 10.00 mmHg RVSP 56.90 mmHg Left Ventricle Left ventricle is severely dilated (LVEDVi 126 ml/m2). Left ventricular systolic function is severely decreased. There is normal left ventricular wall thickness. There is severe global hypokinesis present. Grade 3 diastolic dysfunction is present. LVEF is 15%. Right Ventricle Right ventricle is severely dilated. Right ventricle is moderately hypokinetic. Atria Left atrium is severely dilated. Right atrium is severely dilated. There is no Doppler evidence of interatrial shunt. Aortic Valve The aortic valve is mildly thickened. There is no aortic valvular stenosis. Trace aortic regurgitation. Mitral Valve The mitral valve is mildly thickened. No evidence of mitral valve stenosis. Mild mitral regurgitation. The MR jet is central. Tricuspid Valve The tricuspid valve leaflets are thin and pliable. Moderate tricuspid regurgitation. RVSP is 40-45 mmHg. Pulmonic Valve The pulmonary valve is normal in structure. Mild pulmonic regurgitation. Great Vessels The aortic root is normal in size. The ascending aorta is not well visualized. IVC is normal in size and collapses >50% with inspiration. Pericardium There is no pericardial effusion. Other Information Study Quality: Fair Conclusion Severely dilated LV with severe reduction in LV systolic function (LVEF 15%). Grade 3 diastolic dysfunction. Severe RV dilation with moderate reduction in RV function. Severe biatrial dilation. Mild MR, mild PI Moderate TR. Elevated RVSP 40-45 mmHg. Compared to prior study from 11/2021, the LVEF is now further reduced. New ischemic work-up and cardiac MRI (cardiomyopathy protocol) are both recommended. Electronically signed by : Usha Moore MD 04/29/2023 19:49:36
--- NOTE | 2023-04-26 12:45 | CT_ITS ---
FINAL REPORT TECHNIQUE: The patient was injected with IV contrast. Axial images were obtained through the chest in a PE protocol. 3-D reconstruction images were also performed. Individualized dose reduction techniques using automated exposure control or adjustment of the MA and/or KV according to patient's size were employed. CLINICAL HISTORY: hypoxia, CP, AAA FINDINGS: Mediastinal vasculature is adequately opacified. No pulmonary artery filling defects are identified to suggest PE. There is no aortic dissection. There is no axillary adenopathy. There is moderate mediastinal adenopathy. A right paratracheal lymph node measures up to 1.8 cm. There are marked coronary artery calcifications. The heart size is normal. There is no pericardial effusion. There is a moderate right and small left pleural effusion. There is a 10 mm nodule in the right lung base with a mean attenuation value of 12 Hounsfield units. Limited images of the upper abdomen demonstrate moderate ascites. IMPRESSION: No pulmonary embolus or dissection. Bilateral pleural effusions. Moderate mediastinal adenopathy which is favored to be reactive. 10 mm nodule in the right lung base. Follow-up chest CT is recommended in 3 months. Reviewed, Interpreted and Dictated by Catracho Mejia MD Transcribed by Aleida Franco Authenticated and [facility]
--- NOTE | 2023-04-26 12:53 | PC.NURSE ---
CARDIOLOGY AT BEDSIDE
--- NOTE | 2023-04-26 12:57 | EXP.CARD.CON ---
History of Present Illness History of Present Illness Consult date: 04/26/23 Requesting physician: Maru Godfrey Consult reason: chest pain Chief complaint: Shortness of breath History of present illness: 62-year-old white male with history of HFrEF EF 45% COPD hypertension high cholesterol, history of opioid abuse, ongoing tobacco use. Patient has not followed up with a doctor for outpatient care in several years and takes no meds at home. Last seen here in November with accidental drug overdose. 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 Over the weekend developed chest congestion with mucus production and cough associated with severe shortness of breath. Symptoms progressed thoughout the week and today he was unable to ambulate from room to room. He presented to the emergency room where he was found to be hypoxic in the upper 80s, white blood cell count 12,000, first troponin 0.05, proBNP 7000, D-dimer 0.5, EKG is sinus tach without acute ischemic changes. Review of his chart shows ascending aortic aneurysm 4.6 cm in 2019. Patient is currently on 2 L nasal cannula and reports some improvement in symptoms with nebulizer and oxygen. Denies anginal chest pain. [facility] Disclaimer: The information contained in this section may have been updated after the patient was seen, as this information can be updated by other users. Social History Smoking Status: Current every day smoker tobacco type: cigarettes packs per day: 1 second hand exposure: Yes alcohol intake: current substance use type: denies use current occupational status: employed Travel in the last 8 weeks: None household members: children housing: house current occupational exposures/hazards: No caffeine: Yes Review of Systems Constitutional Constitutional: Denies fatigue and Reports weakness Eyes Eyes: Denies loss of vision ENT Ears, Nose, Mouth, and Throat: Denies hearing loss, Reports nasal congestion and Denies vertigo *Cardiovascular Cardiovascular: Reports chest pain, Reports dyspnea, Reports dyspnea on exertion, Reports leg edema and Denies syncope *Respiratory Respiratory: Reports chest congestion, Reports cough, Reports dyspnea, Reports dyspnea on exertion, Reports excessive phlegm production and Reports wheezing *Gastrointestinal Gastrointestinal: Denies change in stool character, Denies nausea and Denies vomiting *Genitourinary Genitourinary: Denies difficulty urinating *Musculoskeletal Musculoskeletal: Denies muscle weakness Integumentary/Breasts Skin/Breast: Denies changing lesions *Neurologic Neurologic: Denies loss of vision, Denies syncope, Denies vertigo and Reports weakness Endocrine Endocrine: Denies fatigue Allergic/Immunologic Allergic/Immunologic: Reports wheezing Exam Data for Last 24 hours Vital signs and Labs for Last 24 Hours: Temp Pulse Resp BP Pulse Ox O2 Del Method O2 Flow Rate 97.6 F 105 H 22 122/83 96 Nasal Cannula 2 04/26/23 10:33 04/26/23 12:35 04/26/23 12:35 04/26/23 12:35 04/26/23 12:35 04/26/23 12:35 04/26/23 12:35 Laboratory Results - last 24 hr 04/26/23 10:31: WBC 12.6 H, RBC 5.03, Hgb 14.8, Hct 46.6, MCV 92.6, MCH 29.5, MCHC 31.8, RDW 15.6, Plt Count 321, MPV 8.1, Neut % (Auto) 74.4, Lymph % (Auto) 17.6, [place] % (Auto) 6.0, Eos % (Auto) 1.6, Baso % (Auto) 0.3, Neut # (Auto) 9.4 H, Lymph # (Auto) 2.2, [place] # (Auto) 0.8, Eos # (Auto) 0.2, Baso # (Auto) 0.0, D-Dimer 0.55 H, Sodium 140, Potassium 4.0, Chloride 108 H, Carbon Dioxide 28, Anion Gap 8.0, BUN 24 H, Creatinine 0.90, Estimated Creat Clear 95, Estimated GFR 85, Est GFR ( Amer) 103, Glucose 117 H, Calcium 9.2, Total Bilirubin 1.1, AST 37, ALT 30, Alkaline Phosphatase 88, Troponin I 0.05 H, NT-Pro-B Natriuret Pep 7650 H, Total Protein 7.3, Albumin 4.0, Globulin 3.3 H, Albumin/Globulin Ratio 1.2 04/26/23 10:57: Lactate 1.4, SARS-CoV-2 (PCR) Not detected, Influenza A Untype (PCR) Not detected, Influenza Type B (PCR) Not detected 04/26/23 11:02: VBG pH 7.32, VBG pCO2 47.6, VBG pO2 35.2, VBG HCO3 24.1, VBG Total CO2 25.6, VBG O2 Saturation 61.1, VBG Base Excess -1.9 I & O for Last 24 hours: Intake & Output 04/23/23 04/24/23 04/25/23 04/26/23 23:59 23:59 23:59 23:59 Weight 195 lb Constitutional Constitutional: no acute distress and cooperative *Routine HEENT Exam Eye: Present PERRL *Routine Respiratory Exam Respiratory: Present accessory muscle use, decreased breath sounds and diminished air movement; Absent wheezes or crackles *Routine Cardiovascular Exam Cardiovascular: Present RRR, Normal S1 and Normal S2; Absent murmur, gallop or rubs *Routine Abdominal Exam Abdominal: Present soft; Absent tenderness *Routine Extremities Exam Extremities: Present edema (Knee-high bilaterally) and pulses intact; Absent cyanosis *Routine Skin Exam Skin: Present intact; Absent erythema or wounds *Routine Neurological Exam Neurological: Present alert and oriented X3 Routine Psychiatric Exam Psychiatric: Present cooperative Meds Home Medications and Allergies Home Medications Medication Instructions Recorded Confirmed Type nitroglycerin 0.4 mg sublingual 0.4 mg sublingual Q5-15M PRN chest 03/10/18 03/22/21 Rx tablet pain #30 tabs aspirin 81 mg tablet,delayed 81 mg PO DAILY heart health 06/26/18 03/22/21 History release clopidogrel 75 mg tablet 75 mg PO DAILY thinner 06/26/18 03/22/21 History furosemide 20 mg tablet 20 mg PO DAILY chf 06/26/18 03/22/21 History losartan 50 mg-hydrochlorothiazide 1 tab PO DAILY bp 06/26/18 03/22/21 History 12.5 mg tablet omeprazole 40 mg capsule,delayed 40 mg PO DAILY stomach 06/26/18 03/22/21 History release ranolazine 1,000 mg 1,000 mg PO BID stomach 06/26/18 03/22/21 History tablet,extended release,12 hr cholecalciferol (vitamin D3) 1,250 1,250 mcg PO WEEKLY #14 caps 05/18/20 03/22/21 Rx mcg (50,000 unit) capsule cholecalciferol (vitamin D3) 25 25 mcg PO DAILY #90 caps 05/18/20 03/22/21 Rx mcg (1,000 unit) capsule gemfibrozil 600 mg tablet (Lopid) 600 mg PO BID #60 tabs 05/18/20 03/22/21 Rx amlodipine 2.5 mg tablet 2.5 mg PO QHS #90 tabs 09/13/20 03/22/21 Rx atorvastatin 80 mg tablet 80 mg PO QDAY Cholesterol #90 tabs 09/13/20 03/22/21 Rx bisoprolol fumarate 10 mg tablet See Rx Instructions .Route 09/13/20 03/22/21 Rx .COMPLEX #180 tabs bupropion HCl 150 mg tablet,12 hr 150 mg PO BID Depression #180 tabs 09/13/20 03/22/21 Rx sustained-release oxycodone 10 mg tablet 10 mg PO QID pain #120 tabs 03/22/21 03/22/21 Rx New Prescriptions to Start Prescriptions: Allergies Allergy/AdvReac Type Severity Reaction Status Date / Time No Known Allergies Allergy Verified 03/22/21 11:46 Assessment and Plan *Assessment and plan (1) Acute hypoxic respiratory failure: Status: Acute Category: Medical Code(s): J96.01 - Acute respiratory failure with hypoxia (2) Acute on chronic HFrEF (heart failure with reduced ejection fraction): Status: Acute Category: Medical Code(s): I50.23 - Acute on chronic systolic (congestive) heart failure (3) COPD exacerbation: Status: Acute Category: Medical Code(s): J44.1 - Chronic obstructive pulmonary disease with (acute) exacerbation (4) Elevated troponin: Status: Acute Category: Medical Code(s): R77.8 - Other specified abnormalities of plasma proteins Plan Acute hypoxic respiratory failure -Broad differential, workup still in progress -Check 2D echo and CTA PE protocol, Acute on chronic HFrEF -known EF 45% on no meds at home, baseline functional status is NYHA = 1, currently at NYHA = 4 -presented with acute hypoxia, ProBNP 7k, CXR/CT pending -add Entresto, Jardiance, Bisoprolol -already received Lasix 40, will see how he responds Elevated Troponin - likely Type II AK secondary to resp failure - start ASA, Heparin, Statin - trend troponin - consider LHC vs OP stress imaging - pt had elevated Trop here in Nov in setting of accidental drug O/D and he did not f/u for OP testing as recommended COPD Exacerbation - presumed COPD in long time smoker - here with acute hypoxia, increased mucous production, and cough - steroids/nebs/Ab per ED/Hosp services Hx of Drug Use - see visit from 11/24 at this facility- had snorted Percocet and required bystander CPR Summary: Workup still in progress, imaging/meds as recommended above. Recommend admission for workup and stabilization.
[2023-04-26] MEDS: IOPAMIDOL-370 (76%);100ML BOTTLE 70 ML IV (13:25)
[2023-04-26] MEDS: 0.9 % SODIUM CHLORIDE 50 ML VIAL IV (13:26)
--- NOTE | 2023-04-26 13:30 | PC.NURSE ---
DR SHIPMAN SPEAKING WITH DR MAYORGA
--- NOTE | 2023-04-26 13:32 | PC.NURSE ---
[facility] NOTIFIED OF ADMISSION
[2023-04-26 13:33] LABS: PTT Heparin (inpatient only) 28.9 Seconds (23.6-34.0)
--- NOTE | 2023-04-26 13:33 | PC.NURSE ---
CRITICAL PTT/HEPARIN 28.9 RECEIVED FROM [facility] IN LAB. PT NAME AND R/V. DR SHIPMAN NOTIFIED. NO NEW ORDERS
--- NOTE | 2023-04-26 13:40 | P.HP_ITS ---
History of Present Illness *Admission Date: 04/26/23 *Reason for visit:: Shortness of breath, weakness *History of present illness: Mr. Nino is a 62-year-old male who presented to the ER because of complaint of shortness of breath, weakness, pressure in his left chest. States he is also had somewhat of a productive cough with yellow sputum. Developed worsening shortness of breath and cough over the past 4-5 days. Reports seeing cardiology in the past with placement of at least 4 stents, has not been taking his medications recently however and has been lost to follow-up. On presentation to the ER, was found to be hypertensive and tachycardic. Initial workup concerning for NSTEMI and CHF given elevated BNP and detectable troponin. EKG with no acute ischemic changes. Cardiology was consulted, recommended admission, heparin drip, medical management at this time. Medicine was consulted for further treatment and admission. History significant for hypertension, hyperlipidemia, CAD, COPD, tobacco use disorder. Afebrile. Does complain of bilateral lower extremity edema. Chest pain mainly on left side, worse with movement and cough. No syncope or confusion. No nausea or vomiting. [facility] Disclaimer: The information contained in this section may have been updated after the patient was seen, as this information can be updated by other users. Medical History Accidental drug overdose CAD (coronary artery disease) HTN (hypertension) Overweight (BMI 25.0-29.9) Tobacco use Social History Smoking Status: Current every day smoker tobacco type: cigarettes packs per day: 1 second hand exposure: Yes alcohol intake: current substance use type: denies use current occupational status: employed Travel in the last 8 weeks: None household members: children housing: house current occupational exposures/hazards: No caffeine: Yes Review of Systems Review of Systems Review of systems (narrative): 14 point review of systems performed, pertinent positives and negatives as per HPI Constitutional Constitutional: Reports weakness Eyes Eyes: Denies loss of vision ENT Ears, Nose, Mouth, and Throat: Denies vertigo *Cardiovascular Cardiovascular: Denies syncope *Neurologic Neurologic: Denies loss of vision, Denies syncope, Denies vertigo and Reports weakness Meds Home Medications and Allergies Home Medications Medication Instructions Recorded Confirmed Type aspirin 81 mg tablet 81 mg PO DAILY 04/26/23 04/26/23 History New Prescriptions to Start Prescriptions: Allergies Allergy/AdvReac Type Severity Reaction Status Date / Time No Known Allergies Allergy Verified 03/22/21 11:46 Exam Data for Last 24 hours Vital signs and Labs for Last 24 Hours: Temp Pulse Resp BP Pulse Ox O2 Del Method O2 Flow Rate 97.6 F 105 H 28 H 119/90 97 Room Air 2 04/26/23 10:33 04/26/23 13:00 04/26/23 13:00 04/26/23 13:00 04/26/23 13:00 04/26/23 13:00 04/26/23 12:35 Laboratory Results - last 24 hr 04/26/23 10:31: WBC 12.6 H, RBC 5.03, Hgb 14.8, Hct 46.6, MCV 92.6, MCH 29.5, MCHC 31.8, RDW 15.6, Plt Count 321, MPV 8.1, Neut % (Auto) 74.4, Lymph % (Auto) 17.6, [place] % (Auto) 6.0, Eos % (Auto) 1.6, Baso % (Auto) 0.3, Neut # (Auto) 9.4 H, Lymph # (Auto) 2.2, [place] # (Auto) 0.8, Eos # (Auto) 0.2, Baso # (Auto) 0.0, D-Dimer 0.55 H, Sodium 140, Potassium 4.0, Chloride 108 H, Carbon Dioxide 28, Anion Gap 8.0, BUN 24 H, Creatinine 0.90, Estimated Creat Clear 95, Estimated GFR 85, Est GFR ( Amer) 103, Glucose 117 H, Calcium 9.2, Total Bilirubin 1.1, AST 37, ALT 30, Alkaline Phosphatase 88, Troponin I 0.05 H, NT-Pro-B Natriuret Pep 7650 H, Total Protein 7.3, Albumin 4.0, Globulin 3.3 H, Albumin/Globulin Ratio 1.2 04/26/23 10:35: APTT 28.9 04/26/23 10:57: Lactate 1.4, SARS-CoV-2 (PCR) Not detected, Influenza A Untype (PCR) Not detected, Influenza Type B (PCR) Not detected 04/26/23 11:02: VBG pH 7.32, VBG pCO2 47.6, VBG pO2 35.2, VBG HCO3 24.1, VBG Total CO2 25.6, VBG O2 Saturation 61.1, VBG Base Excess -1.9 I & O for Last 24 hours: Intake & Output 04/23/23 04/24/23 04/25/23 04/26/23 23:59 23:59 23:59 23:59 Weight 88.451 kg Constitutional Constitutional: mild distress, average body habitus and cooperative *Routine HEENT Exam Head: Present normocephalic Eye: Present EOMI and PERRL ENT: Present mucous membranes moist *Routine Neck Exam Neck: Present supple; Absent lymphadenopathy *Routine Respiratory Exam Respiratory: Present prolonged expiratory phase and diminished air movement; Absent rhonchi, wheezes or crackles *Routine Cardiovascular Exam Cardiovascular: Present RRR *Routine Abdominal Exam Abdominal: Present soft and normoactive bowel sounds; Absent tenderness *Routine Rectal Exam Rectal:: deferred *Routine Genitalia Exam Genitalia:: deferred *Routine Extremities Exam Extremities: Present edema (1+ bilaterally lower extremities) and full ROM; Absent cyanosis or clubbing *Routine Skin Exam Skin: Present warm; Absent rash *Routine Neurological Exam Neurological: Present alert, oriented X3 and moving all extremities; Absent altered mental status Assessment and Plan *Assessment and plan (1) NSTEMI (non-ST elevated myocardial infarction): Status: Acute Category: Medical Code(s): I21.4 - Non-ST elevation (NSTEMI) myocardial infarction (2) Acute on chronic HFrEF (heart failure with reduced ejection fraction): Status: Acute Category: Medical Code(s): I50.23 - Acute on chronic systolic (congestive) heart failure (3) COPD exacerbation: Status: Acute Category: Medical Code(s): J44.1 - Chronic obstructive pulmonary disease with (acute) exacerbation (4) Atypical chest pain: Status: Acute Category: Medical Code(s): R07.89 - Other chest pain (5) History of aortic aneurysm: Status: Acute Category: Medical Code(s): Z86.79 - Personal history of other diseases of the circulatory system (6) Tobacco use: Status: Chronic Category: Social Hx Code(s): Z72.0 - Tobacco use (7) CAD (coronary artery disease): Status: Chronic Qualifiers: Associated angina: with stable angina Coronary Disease-Associated Artery/Lesion type: [place] artery [place] vs. transplanted heart: [place] heart Qualified Code(s): I25.118 - Atherosclerotic heart disease of [place] coronary artery with other forms of angina pectoris Category: Medical Code(s): I25.10 - Atherosclerotic heart disease of [place] coronary artery without angina pectoris (8) HTN (hypertension): Status: Chronic Qualifiers: Hypertension type: essential hypertension Qualified Code(s): I10 - Essential (primary) hypertension Category: Medical Code(s): I10 - Essential (primary) hypertension (9) HLD (hyperlipidemia): Status: Chronic Qualifiers: Hyperlipidemia type: other hyperlipidemia Qualified Code(s): E78.4 - Other hyperlipidemia Category: Medical Code(s): E78.5 - Hyperlipidemia, unspecified Plan Mr. Nino is a 62-year-old male with history of CAD, hypertension, CHF, tobacco use disorder who presented to the ER because of worsening shortness of breath over 4 to 5 days. Discussed case with ER physician, request admission for diuresis, medical management of NSTEMI. Cardiology was consulted in the ER and recommended admission. Medicine agreed to admit for further management. Patient seeing some slight improvement with diuresis, still short of breath necessitated excision currently on 3 L nasal cannula. Problems addressed as follows: Acute hypoxic respiratory failure Acute on chronic heart failure with reduced ejection fraction Type II NSTEMI -Patient has been without his meds for some time. Found to have elevated blood pressure on admission with diastolic over 100. BNP elevated at 7650, troponin stable at 0.05 x 2. -Cardiology consulted, appreciate their recommendations. Will initiate diuresis with Lasix 40 mg IV x 1. Initiated on heparin drip for NSTEMI. -Chart review shows echo from 11/2021 with grade 1 diastolic dysfunction with EF of 45%. Repeat echo pending. -Cardiology recommends initiating Entresto, Jardiance, bisoprolol. -Loaded with aspirin, continue 81 mg daily. Initiate high intensity statin with Lipitor 40 mg nightly. -Cardiology recommends considering left heart cath versus outpatient stress imaging pending response to diuresis and medical management COPD exacerbation SIRS - Leukocytosis of 12.6, tachycardic at 105, technically meeting SIRS criteria -On room air, goal saturations greater 90%, will add supplemental oxygen if needed. -DuoNebs every 6 hours as needed -Azithromycin 500 mg IV x 3 days for exacerbation, will reevaluate the need for steroids if develops oxygen requirement. - Electrolytes normal, kidney function normal at 0.9 for creatinine. Tobacco use disorder: Nicotine patch as needed Full code Cardiac diet Heparin drip
[2023-04-26] MEDS: ASPIRIN EC 81MG TABLET 81 MG PO (13:45)
[2023-04-26] MEDS: SACUBITRIL/VALSARTAN 24-26MG TABLET 1 EACH PO ×2 (13:45→20:57)
[2023-04-26] MEDS: BISOPROLOL 5MG TABLET 2.5 MG PO (13:45)
[2023-04-26] MEDS: HEPARIN SODIUM 5,000 UNIT/ML VIAL 7000 UNIT IV (13:46)
--- NOTE | 2023-04-26 13:49 | P.CONPHA_ITS ---
[facility] Heparin Dosing Demographic Data Admission date:: 04/26/23 Date: 04/26/23 Time: 13:50 Allergies Allergy/AdvReac Type Severity Reaction Status Date / Time No Known Allergies Allergy Verified 03/22/21 11:46 Height: 1.83 m Weight: 88.5 kg Indication Medication therapy:: Heparin Current Active Problems (Updated 04/26/23 @ 17:59 by Rod Mayorga MD) Tobacco use (Chronic) CAD (coronary artery disease) (Chronic) Acute non-ST elevation myocardial infarction (NSTEMI) (Acute) CHF exacerbation (Acute) Acute hypoxemic respiratory failure (Acute) NSTEMI (non-ST elevated myocardial infarction) (Acute) COPD exacerbation (Acute) Acute on chronic HFrEF (heart failure with reduced ejection fraction) (Acute) Acute hypoxic respiratory failure (Acute) Elevated troponin (Acute) Atypical chest pain (Acute) History of aortic aneurysm (Acute) HLD (hyperlipidemia) (Chronic) HTN (hypertension) (Chronic) CVA?: No Bleeding problem?: No Kidney disease?: No DE?: No Desired PTT range:: 50-75 seconds Labs Anticoagulation Lab Results:: 04/26/23 10:31 Hgb 14.8 Hct 46.6 Plt Count 321 Monitoring Dose Monitor 1: Date: 04/26/23 Time: 14:00 PTT Result:: 28.9 (BASELINE) Infusion Rate:: 1,700 UNITS/HR Comment:: 7,000 UNIT BOLUS Dose Monitor 2: Date: 04/26/23 Time: 20:00 PTT Result:: 72.8 Infusion Rate:: 1,600 UNITS/HR Dose Monitor 3: Date: 04/27/23 Time: 10:50 PTT Result:: 36.1 Comment:: HEPARIN DRIP STOPPED PER DR. MAYORGA Core Measures Is INR > or = 2 at discharge?: No Most Recent Labs:: Laboratory Results - last 24 hr 04/26/23 10:31: WBC 12.6 H, RBC 5.03, Hgb 14.8, Hct 46.6, MCV 92.6, MCH 29.5, MCHC 31.8, RDW 15.6, Plt Count 321, MPV 8.1, Neut % (Auto) 74.4, Lymph % (Auto) 17.6, [place] % (Auto) 6.0, Eos % (Auto) 1.6, Baso % (Auto) 0.3, Neut # (Auto) 9.4 H, Lymph # (Auto) 2.2, [place] # (Auto) 0.8, Eos # (Auto) 0.2, Baso # (Auto) 0.0, D-Dimer 0.55 H, Sodium 140, Potassium 4.0, Chloride 108 H, Carbon Dioxide 28, Anion Gap 8.0, BUN 24 H, Creatinine 0.90, Estimated Creat Clear 95, Estimated GFR 85, Est GFR ( Amer) 103, Glucose 117 H, Calcium 9.2, Total Bilirubin 1.1, AST 37, ALT 30, Alkaline Phosphatase 88, Troponin I 0.05 H, NT-Pro-B Natriuret Pep 7650 H, Total Protein 7.3, Albumin 4.0, Globulin 3.3 H, Albumin/Globulin Ratio 1.2 04/26/23 10:35: APTT 28.9 04/26/23 10:57: Lactate 1.4, SARS-CoV-2 (PCR) Not detected, Influenza A Untype (PCR) Not detected, Influenza Type B (PCR) Not detected 04/26/23 11:02: VBG pH 7.32, VBG pCO2 47.6, VBG pO2 35.2, VBG HCO3 24.1, VBG Total CO2 25.6, VBG O2 Saturation 61.1, VBG Base Excess -1.9 Were Heparin and Warfarin started on the same day?: No If not, why?: PATIENT DISCHARGED
[2023-04-26] MEDS: HEPARIN 25,000 UNITS/D5W 500 ML 32 UNIT IV (13:51)
[2023-04-26 14:00] LABS: Cholesterol 190 mg/dl (140-200); Triglycerides 126 mg/dl (30-150); VLDL Cholesterol 25 mg/dL (0-40)
[2023-04-26 14:01] LABS: Chol/HDL Ratio 4.8 (1-3.5); HDL Cholesterol 40 mg/dl (40-60)
[2023-04-26 14:02] LABS: Troponin I 0.05 ng/ml (0.00-0.034)
[2023-04-26 14:11] LABS: Barbiturates Screen,Urine Negative ng/ml (<200); Benzodiazepines Screen,Urine Negative ng/ml (<200)
[2023-04-26 14:13] LABS: Cannabinoid Screen,Urine Negative ng/ml (<50); Cocaine Screen,Urine Negative ng/ml (<300)
[2023-04-26 14:14] LABS: Methadone Screen,Urine Negative ng/ml (<300)
[2023-04-26 14:15] LABS: Opiate Screen,Urine Negative ng/ml (<300); Phencyclidine Screen,Urine Negative ng/ml (<25)
--- NOTE | 2023-04-26 14:25 | PC.NURSE ---
arrived by stretcher from ED
[2023-04-26] MEDS: AZITHROMYCIN 500 MG in 0.9 % SODIUM CHLORIDE 250 ML 250 MG IV (14:30)
--- NOTE | 2023-04-26 15:28 | PC.NURSE ---
Patient is alert and oriented x4, O2 sats in the high 90s on 3L NC. Patient denies chest pain. No complaints at this time.
[2023-04-26 16:21] LABS: Direct LDL Cholesterol 112.51 mg/dL (100-129)
[2023-04-26 16:21] LABS: Amphetamine/Metha Screen,Urine Positive ng/ml (<1000)
[2023-04-26 17:17] LABS: Troponin I 0.05 ng/ml (0.00-0.034)
[2023-04-26 20:57] LABS: PTT Heparin (inpatient only) 72.8 Seconds (23.6-34.0)
[2023-04-26] MEDS: ATORVASTATIN 40MG TABLET 40 MG PO (20:57)
--- NOTE | 2023-04-27 03:41 | PC.NURSE ---
patient c/o sob. Oxygen saturations 100% on 4lnc. Jose, MAYNOR notified. Orders received for duonebs Q6
[2023-04-27 04:00] VITALS: BP 114/87; PULSE 96; RESP 26; TEMP 36.7; O2SAT 100; BMI 27.8
[2023-04-27] MEDS: IPRATROPIUM/ALBUTEROL 3 ML NEB IH (04:00)
[2023-04-27 04:01] VITALS: O2SAT 97
--- NOTE | 2023-04-27 05:16 | PC.NURSE ---
Patient has rested well this shift. With complaints of SOB with exertion. Patient currently on 3LC. Heparin GTT still infusing no complications noted. No acute changes this shift. Lungs sounds have scattered rhonchi noted. Call carson, personal belongings, water pitcher and bedside table all within reach. Plan of care ongoing.
--- NOTE | 2023-04-27 07:52 | P.PN_ITS ---
Subjective *Date: 04/27/23 *Time: 07:52 Medical Exam Vital signs and Labs for Last 24 Hours: Vital Signs Temp Pulse Pulse Resp BP BP Pulse Ox 04/27/23 04:00 98.0 F 96 H 26 H 114/87 100 04/27/23 04:01 97 04/26/23 21:00 04/26/23 20:00 98.1 F 87 20 125/69 90 L 04/26/23 18:46 04/26/23 16:46 04/26/23 16:00 97.7 F 82 22 153/56 H 90 L 04/26/23 15:37 97 04/26/23 15:00 04/26/23 14:05 97.6 F 107 H 18 133/107 H 04/26/23 13:30 105 H 22 137/102 H 97 04/26/23 13:00 105 H 28 H 119/90 97 04/26/23 12:35 105 H 22 122/83 96 04/26/23 12:13 106 H 25 H 139/85 95 04/26/23 11:47 109 H 18 138/100 H 98 04/26/23 11:01 76 21 143/76 H 96 04/26/23 10:33 97.6 F 114 H 38 H 138/106 H 89 L O2 Del Method O2 Flow Rate 04/27/23 04:00 Nasal Cannula 4 04/27/23 04:01 Nasal Cannula 2 04/26/23 21:00 Nasal Cannula 3.5 04/26/23 20:00 Nasal Cannula 04/26/23 18:46 Nasal Cannula 3 04/26/23 16:46 Nasal Cannula 3 04/26/23 16:00 Nasal Cannula 4 04/26/23 15:37 Nasal Cannula 3 04/26/23 15:00 Nasal Cannula 3 04/26/23 14:05 Nasal Cannula 3 04/26/23 13:30 04/26/23 13:00 Room Air 04/26/23 12:35 Nasal Cannula 2 04/26/23 12:13 Nasal Cannula 2 04/26/23 11:47 Nasal Cannula 2 04/26/23 11:01 Nasal Cannula 2 04/26/23 10:33 Room Air Intake and Output 04/26/23 04/26/23 04/27/23 15:59 23:59 07:59 Intake Total 543 / 903 360 / 903 472 / 472 Output Total 100 / 100 600 / 600 Balance 543 / 803 260 / 803 -128 / -128 Intake: Intake, Oral Amount 240 / 600 360 / 600 120 / 120 Intake, Total IV Amount 303 / 303 352 / 352 Azithromycin 500 mg In 0.9 % 250 / 250 Sodium Chloride 250 ml @ 250 mls/hr IV Q24H [facility] Rx#:[id number] Heparin Sodium,Porcine/D5w 500 53 / 53 352 / 352 ml @ 1,600 UNITS/HR 32 mls/hr IV .[id number] [facility] Rx#:[id number] Output: Output, Urine Amount 100 / 100 600 / 600 Other: Number of Unmeasured Voids 1 2 Weight 88.5 kg 93.128 kg Patient Weight 04/27/23 23:59 Weight 93.128 kg Laboratory Results - last 24 hr 04/26/23 10:31: WBC 12.6 H, RBC 5.03, Hgb 14.8, Hct 46.6, MCV 92.6, MCH 29.5, MCHC 31.8, RDW 15.6, Plt Count 321, MPV 8.1, Neut % (Auto) 74.4, Lymph % (Auto) 17.6, [place] % (Auto) 6.0, Eos % (Auto) 1.6, Baso % (Auto) 0.3, Neut # (Auto) 9.4 H, Lymph # (Auto) 2.2, [place] # (Auto) 0.8, Eos # (Auto) 0.2, Baso # (Auto) 0.0, D-Dimer 0.55 H, Sodium 140, Potassium 4.0, Chloride 108 H, Carbon Dioxide 28, Anion Gap 8.0, BUN 24 H, Creatinine 0.90, Estimated Creat Clear 95, Estimated GFR 85, Est GFR ( Amer) 103, Glucose 117 H, Calcium 9.2, Total Bilirubin 1.1, AST 37, ALT 30, Alkaline Phosphatase 88, Troponin I 0.05 H, NT-Pro-B Natriuret Pep 7650 H, Total Protein 7.3, Albumin 4.0, Globulin 3.3 H, Albumin/Globulin Ratio 1.2, Triglycerides 126, Cholesterol 190, LDL Cholesterol Direct 112.51, VLDL Cholesterol 25, HDL Cholesterol 40, Cholesterol/HDL Ratio 4.8 H 04/26/23 10:35: APTT 28.9 04/26/23 10:57: Lactate 1.4, SARS-CoV-2 (PCR) Not detected, Influenza A Untype (PCR) Not detected, Influenza Type B (PCR) Not detected 04/26/23 11:02: VBG pH 7.32, VBG pCO2 47.6, VBG pO2 35.2, VBG HCO3 24.1, VBG Total CO2 25.6, VBG O2 Saturation 61.1, VBG Base Excess -1.9 04/26/23 13:35: Troponin I 0.05 H 04/26/23 13:49: Urine Opiates Screen Negative, Urine Methadone Screen Negative, Ur Barbituates Screen Negative, Ur Phencyclidine Scrn Negative, Ur Amphetamines Screen Positive H, U Benzodiazepines Scrn Negative, Urine Cocaine Screen Negative, U Marijuana (THC) Screen Negative 04/26/23 16:49: Troponin I 0.05 H 04/26/23 20:00: APTT 72.8 H* I & O for Labs for Last 24 Hours: Intake & Output 04/24/23 04/25/23 04/26/23 04/27/23 23:59 23:59 23:59 23:59 Intake Total 903 / 903 472 / 472 Output Total 100 / 100 600 / 600 Balance 803 / 803 -128 / -128 Weight 88.5 kg 93.128 kg
[2023-04-27 08:00] VITALS: BP 96/73; PULSE 90; PULSE 93; RESP 22; TEMP 37.6; O2SAT 93
[2023-04-27 08:05] LABS: Basophils # 0.1 K/mm3 (0-0.2); Basophils % 0.5 % (0.1-2.0); Eosinophils # 0.2 K/mm3 (0.0-0.4); Hemoglobin 14.4 g/dL (14.1-18.0); Lymphocytes % 27.5 % (10-50); Mean Corpuscular HGB Conc 31.2 g/dL (31.8-35.4); Mean Corpuscular Hemoglobin 28.9 pg (27.0-31.2); Mean Corpuscular Volume 92.7 fl (80-94); Mean Platelet Volume 9.2 fl (7.4-10.4); Monocytes # 0.8 K/mm3 (0.1-1.0); Monocytes % 7.2 % (1.7-9.3); Neutrophils # 6.8 K/mm3 (1.8-7.8); Neutrophils % 62.8 % (37.0-80.0); Platelet Count 352 K/mm3 (142-424); Red Blood Count 4.97 M/mm3 (4.60-6.20); Red Cell Distribution Width 15.6 % (11.5-17.5); White Blood Count 10.8 K/mm3 (4.8-10.8)
[2023-04-27 08:08] LABS: Chloride 106 mmol/L (98-107); Potassium 3.9 mmoL/L (3.5-5.1); Sodium 138 mmol/L (136-145)
[2023-04-27 08:10] LABS: Blood Urea Nitrogen 24 mg/dl (9-20)
[2023-04-27 08:11] LABS: Alanine Aminotransferase 26 U/L (12-78); Albumin Level 3.7 g/dl (3.5-5.0); Albumin/Globulin Ratio 1.3 (1.1-1.8); Alkaline Phosphatase 82 U/L (38-126); Anion Gap 7.9 mEq/L (5-15); Aspartate Amino Transferase 34 U/L (17-59); Bilirubin,Total 0.9 mg/dl (0.2-1.3); Calcium 8.7 mg/dl (8.4-10.2); Carbon Dioxide 28 mmol/L (22.0-30.0); Creatinine Clearance Estimated 100 mL/min (50-200); Estimated Glomerular Filt Rate 75 ml/min (>60); GFR (African American) 91 ML/MIN (>60); Globulin 2.8 g/dL (1.3-3.2); Glucose 165 mg/dl (74-100); Total Protein,Serum 6.5 g/dl (6.3-8.2)
[2023-04-27 08:12] LABS: Magnesium 1.9 mg/dl (1.6-2.3)
--- NOTE | 2023-04-27 08:16 | PC.NURSE ---
Patients room air was 92 at rest
[2023-04-27] MEDS: HEPARIN 25,000 UNITS/D5W 500 ML 32 UNIT IV (09:39)
[2023-04-27] MEDS: ASPIRIN EC 81MG TABLET 81 MG PO (09:51)
[2023-04-27] MEDS: SACUBITRIL/VALSARTAN 24-26MG TABLET 1 EACH PO (09:51)
[2023-04-27] MEDS: BISOPROLOL 5MG TABLET 2.5 MG PO (09:51)
[2023-04-27] MEDS: FUROSEMIDE 40MG/4ML VIAL 40 MG IV (09:51)
[2023-04-27 11:51] LABS: PTT Heparin (inpatient only) 36.1 Seconds (23.6-34.0)
[2023-04-27 12:00] VITALS: PULSE 80
--- NOTE | 2023-04-27 12:58 | P.DS_ITS ---
General Admission date:: 04/26/23 Discharge date: 04/27/23 HPI HPI HPI: Mr. Jimenez is a 62-year-old male who presented to the ER because of complaint of shortness of breath, weakness, pressure in his left chest. States he is also had somewhat of a productive cough with yellow sputum. Developed worsening shortness of breath and cough over the past 4-5 days. Reports seeing cardiology in the past with placement of at least 4 stents, has not been taking his medications recently however and has been lost to follow-up. On presentation to the ER, was found to be hypertensive and tachycardic. Initial workup concerning for NSTEMI and CHF given elevated BNP and detectable troponin. EKG with no acute ischemic changes. Cardiology was consulted, recommended admission, heparin drip, medical management at this time. Medicine was consulted for further treatment and admission. History significant for hypertension, hyperlipidemia, CAD, COPD, tobacco use disorder. Afebrile. Does complain of bilateral lower extremity edema. Chest pain mainly on left side, worse with movement and cough. No syncope or confusion. No nausea or vomiting. Hospital Course Hospital Course Hospital Course: Mr. Nino is a 62-year-old male with history of CAD, hypertension, CHF, tobacco use disorder who presented to the ER because of worsening shortness of breath over 4 to 5 days. Discussed case with ER physician, request admission for diuresis, medical management of NSTEMI. Cardiology was consulted in the ER and recommended admission. Medicine agreed to admit for further management. Patient seeing some slight improvement with diuresis, still short of breath necessitated excision currently on 3 L nasal cannula. Problems addressed as follows: Acute hypoxic respiratory failure Acute on chronic heart failure with reduced ejection fraction Type II NSTEMI -Patient has been without his meds for some time. Found to have elevated blood pressure on admission with diastolic over 100. BNP elevated at 7650, troponin stable at 0.05 x 2. Pain similar to his chronic left chest musculoskeletal CP. Cardiology consulted, appreciate their recommendations. Recommended diuresis and medical management. Patient started on goal-directed therapy for his heart failure including bisoprolol, Entresto, Jardiance. Will continue these medications along with diuresis at discharge. Repeat echo was obtained, formal read still pending. Echo from 11/23 showed grade 1 diastolic dysfunction and EF of 45%. Continue aspirin daily and high intensity statin with Lipitor 40 mg nightly. Given improvement in symptoms, weaning to room air, patient would like to go home. Recommended he needs close follow-up with cardiology as an outpatient for further management of ischemic workup. Patient states understanding. Denies any new chest pain today and symptomatically feels better. COPD exacerbation SIRS - Leukocytosis of 12.6 on admission, improved to 10.8. Overall doing well. CT of chest reviewed showing effusion on right side. No focal consolidation. Will continue azithromycin for 1 more dose to complete 3 dose course of azithromycin 500 mg. Weaned to room air. Tobacco use disorder: Nicotine patch as needed. Encourage smoking cessation Spent 30 minutes in discharge counseling, documentation, chart review, and direct care with patient. Exam Data for Last 24 hours Vital signs and Labs for Last 24 Hours: Temp Pulse Resp BP Pulse Ox O2 Del Method O2 Flow Rate 99.6 F 93 H 22 96/73 L 93 L Room Air 3 04/27/23 08:00 04/27/23 08:00 04/27/23 08:00 04/27/23 08:00 04/27/23 08:00 04/27/23 08:00 04/27/23 07:47 Laboratory Results - last 24 hr 04/26/23 10:31: Triglycerides 126, Cholesterol 190, LDL Cholesterol Direct 112.51, VLDL Cholesterol 25, HDL Cholesterol 40, Cholesterol/HDL Ratio 4.8 H 04/26/23 10:35: APTT 28.9 04/26/23 13:35: Troponin I 0.05 H 04/26/23 13:49: Urine Opiates Screen Negative, Urine Methadone Screen Negative, Ur Barbituates Screen Negative, Ur Phencyclidine Scrn Negative, Ur Amphetamines Screen Positive H, U Benzodiazepines Scrn Negative, Urine Cocaine Screen Negative, U Marijuana (THC) Screen Negative 04/26/23 16:49: Troponin I 0.05 H 04/26/23 20:00: APTT 72.8 H* 04/27/23 07:19: WBC 10.8, RBC 4.97, Hgb 14.4, Hct 46.0, MCV 92.7, MCH 28.9, MCHC 31.2 L, RDW 15.6, Plt Count 352, MPV 9.2, Neut % (Auto) 62.8, Lymph % (Auto) 27.5, [place] % (Auto) 7.2, Eos % (Auto) 2.0, Baso % (Auto) 0.5, Neut # (Auto) 6.8, Lymph # (Auto) 3.0, [place] # (Auto) 0.8, Eos # (Auto) 0.2, Baso # (Auto) 0.1, Sodium 138, Potassium 3.9, Chloride 106, Carbon Dioxide 28, Anion Gap 7.9, BUN 24 H, Creatinine 1.00, Estimated Creat Clear 100, Estimated GFR 75, Est GFR ( Amer) 91, Glucose 165 H D, Calcium 8.7, Magnesium 1.9, Total Bilirubin 0.9, AST 34, ALT 26, Alkaline Phosphatase 82, Total Protein 6.5, Albumin 3.7, Globulin 2.8, Albumin/Globulin Ratio 1.3 04/27/23 10:47: APTT 36.1 H I & O for Last 24 hours: Intake & Output 04/24/23 04/25/23 04/26/23 04/27/23 23:59 23:59 23:59 23:59 Intake Total 903 / 903 952 / 952 Output Total 100 / 100 600 / 600 Balance 803 / 803 352 / 352 Weight 88.5 kg 93.128 kg Constitutional Constitutional: no acute distress, average body habitus and cooperative *Routine HEENT Exam Head: Present normocephalic Eye: Present EOMI and PERRL ENT: Present mucous membranes moist *Routine Neck Exam Neck: Present supple; Absent lymphadenopathy Routine Chest/Breast/Axilla Exam Chest wall: Present tenderness (Mild left anterior chest) *Routine Respiratory Exam Respiratory: Present crackles (Minor in right base) and normal respiratory effort; Absent rhonchi or wheezes *Routine Cardiovascular Exam Cardiovascular: Present RRR; Absent murmur *Routine Abdominal Exam Abdominal: Present soft and normoactive bowel sounds; Absent tenderness *Routine Rectal Exam Patient deferred: visual exam *Routine Exam Patient deferred: penile exam *Routine Extremities Exam Extremities: Absent cyanosis, clubbing or edema *Routine Skin Exam Skin: Present warm; Absent rash *Routine Neurological Exam Neurological: Present alert, oriented X3 and moving all extremities; Absent altered mental status Results Data Completed and Pending Labs on day of discharge: Labs from last 24 hours 02/24/24 02/24/24 02/23/24 10:47 07:19 20:00 WBC 10.8 RBC 4.97 Hgb 14.4 Hct 46.0 MCV 92.7 MCH 28.9 MCHC 31.2 L RDW 15.6 Plt Count 352 MPV 9.2 Neut % (Auto) 62.8 Lymph % (Auto) 27.5 [place] % (Auto) 7.2 Eos % (Auto) 2.0 Baso % (Auto) 0.5 Neut # (Auto) 6.8 Lymph # (Auto) 3.0 [place] # (Auto) 0.8 Eos # (Auto) 0.2 Baso # (Auto) 0.1 APTT 36.1 H 72.8 H* Sodium 138 Potassium 3.9 Chloride 106 Carbon Dioxide 28 Anion Gap 7.9 BUN 24 H Creatinine 1.00 Estimated Creat Clear 100 Estimated GFR 75 Est GFR ( Amer) 91 Glucose 165 H D Calcium 8.7 Magnesium 1.9 Total Bilirubin 0.9 AST 34 ALT 26 Alkaline Phosphatase 82 Troponin I Total Protein 6.5 Albumin 3.7 Globulin 2.8 Albumin/Globulin Ratio 1.3 Triglycerides Cholesterol LDL Cholesterol Direct VLDL Cholesterol HDL Cholesterol Cholesterol/HDL Ratio Urine Opiates Screen Urine Methadone Screen Ur Barbituates Screen Ur Phencyclidine Scrn Ur Amphetamines Screen U Benzodiazepines Scrn Urine Cocaine Screen U Marijuana (THC) Screen 04/26/23 04/26/23 04/26/23 16:49 13:49 13:35 WBC RBC Hgb Hct MCV MCH MCHC RDW Plt Count MPV Neut % (Auto) Lymph % (Auto) [place] % (Auto) Eos % (Auto) Baso % (Auto) Neut # (Auto) Lymph # (Auto) [place] # (Auto) Eos # (Auto) Baso # (Auto) APTT Sodium Potassium Chloride Carbon Dioxide Anion Gap BUN Creatinine Estimated Creat Clear Estimated GFR Est GFR ( Amer) Glucose Calcium Magnesium Total Bilirubin AST ALT Alkaline Phosphatase Troponin I 0.05 H 0.05 H Total Protein Albumin Globulin Albumin/Globulin Ratio Triglycerides Cholesterol LDL Cholesterol Direct VLDL Cholesterol HDL Cholesterol Cholesterol/HDL Ratio Urine Opiates Screen Negative Urine Methadone Screen Negative Ur Barbituates Screen Negative Ur Phencyclidine Scrn Negative Ur Amphetamines Screen Positive H U Benzodiazepines Scrn Negative Urine Cocaine Screen Negative U Marijuana (THC) Screen Negative 04/26/23 04/26/23 10:35 10:31 WBC RBC Hgb Hct MCV MCH MCHC RDW Plt Count MPV Neut % (Auto) Lymph % (Auto) [place] % (Auto) Eos % (Auto) Baso % (Auto) Neut # (Auto) Lymph # (Auto) [place] # (Auto) Eos # (Auto) Baso # (Auto) APTT 28.9 Sodium Potassium Chloride Carbon Dioxide Anion Gap BUN Creatinine Estimated Creat Clear Estimated GFR Est GFR ( Amer) Glucose Calcium Magnesium Total Bilirubin AST ALT Alkaline Phosphatase Troponin I Total Protein Albumin Globulin Albumin/Globulin Ratio Triglycerides 126 Cholesterol 190 LDL Cholesterol Direct 112.51 VLDL Cholesterol 25 HDL Cholesterol 40 Cholesterol/HDL Ratio 4.8 H Urine Opiates Screen Urine Methadone Screen Ur Barbituates Screen Ur Phencyclidine Scrn Ur Amphetamines Screen U Benzodiazepines Scrn Urine Cocaine Screen U Marijuana (THC) Screen DS: Diagnosis Discharge Diagnosis (1) NSTEMI (non-ST elevated myocardial infarction): Status: Acute Code(s): I21.4 - Non-ST elevation (NSTEMI) myocardial infarction (2) Acute on chronic HFrEF (heart failure with reduced ejection fraction): Status: Acute Code(s): I50.23 - Acute on chronic systolic (congestive) heart failure (3) COPD exacerbation: Status: Acute Code(s): J44.1 - Chronic obstructive pulmonary disease with (acute) exacerbation (4) Atypical chest pain: Status: Acute Code(s): R07.89 - Other chest pain (5) History of aortic aneurysm: Status: Acute Code(s): Z86.79 - Personal history of other diseases of the circulatory system (6) Tobacco use: Status: Chronic Code(s): Z72.0 - Tobacco use (7) CAD (coronary artery disease): Status: Chronic Code(s): I25.10 - Atherosclerotic heart disease of [place] coronary artery without angina pectoris Qualifiers: Associated angina: with stable angina Coronary Disease-Associated Artery/Lesion type: [place] artery [place] vs. transplanted heart: [place] heart Qualified Code(s): I25.118 - Atherosclerotic heart disease of [place] coronary artery with other forms of angina pectoris (8) HTN (hypertension): Status: Chronic Code(s): I10 - Essential (primary) hypertension Qualifiers: Hypertension type: essential hypertension Qualified Code(s): I10 - Essential (primary) hypertension (9) HLD (hyperlipidemia): Status: Chronic Code(s): E78.5 - Hyperlipidemia, unspecified Qualifiers: Hyperlipidemia type: other hyperlipidemia Qualified Code(s): E78.4 - Other hyperlipidemia Meds Home Medications and Allergies Home Medications Medication Instructions Recorded Confirmed Type aspirin 81 mg tablet 81 mg PO DAILY 04/26/23 04/26/23 History atorvastatin 40 mg tablet 40 mg PO HS 30 days #30 tabs 04/27/23 Rx azithromycin 500 mg tablet 500 mg PO DAILY 1 day #1 tab 04/27/23 Rx bisoprolol fumarate 5 mg tablet 2.5 mg PO DAILY 30 days #15 tabs 04/27/23 Rx empagliflozin 10 mg tablet 10 mg PO DAILY 30 days #30 tabs 04/27/23 Rx (Jardiance) furosemide 40 mg tablet (Lasix) 40 mg PO DAILY #30 tabs 04/27/23 Rx sacubitril 24 mg-valsartan 26 mg 1 tab PO BID 30 days #60 tabs 04/27/23 Rx tablet (Entresto) New Prescriptions to Start Prescriptions: marcia Ryan,Rod azithromycin Shelby,Rod bisoprolol fumarate Rod Ryan empagliflozin [Jardiance] Rod Ryan furosemide [Lasix] Shelby,Rod sacubitril-valsartan [Entresto] Rod Ryan Allergies Allergy/AdvReac Type Severity Reaction Status Date / Time No Known Allergies Allergy Verified 03/22/21 11:46 Discharge Plan Disposition Patient Disposition: Home, Self-Care Condition: Fair Follow up Plan Follow up with: Tom Castaneda APRN [Nurse Practitioner] - Enter time for follow up (Please call Saturday for your follow up appt. ) Enrique Moore MD [Staff Physician] - Enter time for follow up (The office will call you with a follow up appt. ) Prescriptions/Medication Reconciliation: New atorvastatin 40 mg Tablet 40 mg PO HS 30 Days Qty: 30 0RF bisoprolol fumarate 5 mg Tablet 2.5 mg PO DAILY 30 Days Qty: 15 0RF Jardiance 10 mg Tablet 10 mg PO DAILY 30 Days Qty: 30 0RF Entresto 24-26 mg Tablet 1 tab PO BID 30 Days Qty: 60 0RF azithromycin 500 mg tablet 500 mg PO DAILY 1 Days Qty: 1 0RF furosemide [Lasix] 40 mg tablet 40 mg PO DAILY Qty: 30 0RF Continued aspirin 81 mg Tablet 81 mg PO DAILY Problem Reconciliation Problems Reviewed?: Yes Patient Discharge Instructions ACTIVITY: Continue current activity DIET: continue same diet Patient Instructions: DI for Heart Failure, DI for Chronic Obstructive Pulmonary Disease, DI for Chest Pain, DI for Respiratory Failure Providers Primary Care Provider: Provider,Referral Admit Provider: Rod Ryan Attending Provider: Rod Ryan
[2023-04-27] MEDS: AZITHROMYCIN 250MG TABLET 500 MG PO (13:27)
--- NOTE | 2023-04-30 12:47 | CARE MANAGER ---
Attempted to contact patient x2 related to hospital discharge. No voicemail option. SUSSY Navarro
== END 2023-04-27 14:44 | disposition home or self-care (01) ==
LOC: ER 11:47 → 2ND 14:08
PROVIDERS: Physician Assistant; Admitting Provider Internal Medicine Adolescent Medicine; Emergency Provider Emergency Medicine; Visit Provider Internal Medicine Adolescent Medicine
DX: I11.0 Hypertensive heart disease with heart failure (principal); I50.23 Acute on chronic systolic (congestive) heart failure; J44.1 Chronic obstructive pulmonary disease with (acute) exacerbation; R07.89 Other chest pain; Z86.79 Personal history of other diseases of the circulatory system; Z72.0 Tobacco use; I25.118 Atherosclerotic heart disease of native coronary artery with other forms of angina pectoris; J96.01 Acute respiratory failure with hypoxia; I21.A1 Myocardial infarction type 2; E78.5 Hyperlipidemia, unspecified
CPT/HCPCS: 36415; 71046; 71275; 80053; 80061; 80307; 82803; 83605; 83735; 83880; 84484; 85025; 85378; 85730; 87636; 93005; 93306; 94640; G0378; J0456; Q9967

== ENCOUNTER 2023-05-02 13:20 | Observation (INO) | payer MEDICARE, SELFPAY ==
[2023-05-02] VITALS (14 sets, daily range): BP systolic 101–144; BP diastolic 56–99; PULSE 87–101; RESP 18–24; TEMP 36.6–36.8; O2SAT 90–99; BMI 29.0; BMI 28.0
[2023-05-02 12:07] LABS: Anion Gap 12.5 mEq/L (5-15); Blood Urea Nitrogen 22 mg/dl (9-20); Calcium 8.5 mg/dl (8.4-10.2); Carbon Dioxide 24 mmol/L (22.0-30.0); Chloride 107 mmol/L (98-107); Creatinine Clearance Estimated 104 mL/min (50-200); Estimated Glomerular Filt Rate 75 ml/min (>60); GFR (African American) 91 ML/MIN (>60); Glucose 97 mg/dl (74-100); Potassium 3.5 mmoL/L (3.5-5.1); Sodium 140 mmol/L (136-145)
[2023-05-02 12:11] LABS: Basophils # 0.1 K/mm3 (0-0.2); Eosinophils # 0.2 K/mm3 (0.0-0.4); Eosinophils % 2.1 % (0.1-12.0); Hematocrit 48.8 % (42.0-52.0); Hemoglobin 14.8 g/dL (14.1-18.0); Lymphocytes # 2.5 K/mm3 (0.7-4.5); Lymphocytes % 21.6 % (10-50); Mean Corpuscular HGB Conc 30.4 g/dL (31.8-35.4); Mean Corpuscular Hemoglobin 29.1 pg (27.0-31.2); Mean Corpuscular Volume 95.7 fl (80-94); Mean Platelet Volume 8.1 fl (7.4-10.4); Monocytes # 0.8 K/mm3 (0.1-1.0); Monocytes % 6.9 % (1.7-9.3); Neutrophils # 7.7 K/mm3 (1.8-7.8); Neutrophils % 68.4 % (37.0-80.0); Platelet Count 354 K/mm3 (142-424); Red Cell Distribution Width 16.6 % (11.5-17.5); White Blood Count 11.3 K/mm3 (4.8-10.8)
[2023-05-02] MEDS: diphenhydrAMINE 50MG/ML VIAL 50 MG IV (12:39)
[2023-05-02] MEDS: VERAPAMIL 2.5MG/ML 2ML VIAL 2.5 MG IV (12:39)
[2023-05-02] MEDS: HEPARIN 1,000 UNITS/ML 10ML VIAL (CATH LAB) 10000 UNIT IV (12:45)
[2023-05-02] MEDS: NITROGLYCERIN 800MCG/8ML SYR (CATH LAB) 800 MCG IA (12:45)
[2023-05-02] MEDS: HEPARIN 1,000 UNITS/500ML NS (CATH LAB) 3000 UNIT IV (12:45)
[2023-05-02] MEDS: LIDOCAINE 1% 10ML MDV 20 ML IJ (12:45)
[2023-05-02] MEDS: 0.9 % SODIUM CHLORIDE 500 ML 25 ML IV (12:46)
[2023-05-02] MEDS: BUMETANIDE 1MG/4ML VIAL 4 MG IV (13:04)
[2023-05-02] MEDS: IOPAMIDOL-370 (76%);100ML BOTTLE 101 ML IV (13:14)
--- NOTE | 2023-05-02 13:14 | HMH.PHAINT1 ---
Pharmacy Intervention Comments: MEDICATION RECONCILIATION COMPLETED ON PATIENT USING EXTERNAL FILL HISTORY FROM PHARMACY, DISCHARGE SUMMARY FROM PREVIOUS ADMISSION, LIST FROM CARDIOLOGY OFFICE, AND INCLUDED NEW MEDICATIONS FROM INDUSTRIAL/ORGANIZATIONAL PSYCHOLOGIST. -CARLOS CUELLAR, JADEND
--- NOTE | 2023-05-02 14:43 | P.CONCA_ITS ---
History of Present Illness History of Present Illness Consult date: 05/02/23 Requesting physician: Arden Zambrano Consult reason: congestive heart failure Chief complaint: SOA, CAD, Cardiomyopathy Additional Medical History:: 1. CAD A. KALEB to RCA x 2, 10/2017 B. History of KALEB to LAD x 2, [facility] C. [facility], 05/02/2023, circumflex artery occluded. LAD, ramus and RCA without significant stenosis. 2. Ascending thoracic aneurysm, CT of chest, 2019, 4.6 cm A. CTA of the chest, 04/26/2023, no mention of the thoracic aneurysm. Amended report pending. 3. HFrEF with EF 15%, new on 04/2023 echo A. GDMT started 04/26/2023 B. [facility], 05/02/2023, occluded circumflex artery but with patent LAD, ramus and RCA C. Echocardiogram, 04/26/23, severe LV dilatation with EF 15%. Grade 3 DD. Severe RV dilatation with moderate RV function reduction. Severe biatrial enlargement. Mild MR/PI with moderate TR. RVSP 40-45 mmHg. Compared to 2021 study he LVEF is now reduced from 45% to 15%. D. LifeVest ordered, 05/02/2023 4. COPD with ongoing tobacco use 5. History of drug use, opioids A. History of bystander CPR 11/2022 with subsequent ER visit 6. Hypertension 7. Hyperlipidemia A. LDL 112 in April 2023 History of present illness: 62-year-old white male seen in the office on 05/02/2023 for hospital follow-up. Patient having significant increase in shortness of breath since hospital discharge. Review of echocardiogram shows EF now 15%. Patient was taken to the Admissions Officer for reassessment of his coronary arteries (no intervention required) and subsequently admitted for treatment of his heart failure thereafter. [facility] Disclaimer: The information contained in this section may have been updated after the patient was seen, as this information can be updated by other users. Medical History (Updated 05/02/23 @ 14:59 by JOANNA Echevarria) Accidental drug overdose Acute on chronic HFrEF (heart failure with reduced ejection fraction) CAD (coronary artery disease) Cardiomyopathy Dyspnea HTN (hypertension) LV dysfunction Non-STEMI (non-ST elevated myocardial infarction) SPEEDY (obstructive sleep apnea) Overweight (BMI 25.0-29.9) Tobacco use Unstable angina Family History (Updated 05/02/23 @ 14:24 by Alexandra Wolf RN) No significant family history Social History Smoking Status: Current every day smoker tobacco type: cigarettes packs per day: 1 second hand exposure: Yes alcohol intake: current substance use type: denies use current occupational status: employed Travel in the last 8 weeks: Inside the [place] household members: children housing: house current occupational exposures/hazards: No caffeine: Yes Review of Systems Review of Systems Review of systems:: pertinent systems reviewed and negative unless documented below *Cardiovascular Cardiovascular: Reports chest pain, Reports dyspnea and Reports dyspnea on exertion *Respiratory Respiratory: Reports dyspnea and Reports dyspnea on exertion Exam Data for Last 24 hours Vital signs and Labs for Last 24 Hours: Temp Pulse Resp BP Pulse Ox O2 Del Method O2 Flow Rate 98.3 F 90 20 132/78 95 Nasal Cannula 2 05/02/23 13:55 05/02/23 14:25 05/02/23 14:25 05/02/23 14:25 05/02/23 14:25 05/02/23 14:25 05/02/23 14:25 Laboratory Results - last 24 hr 05/02/23 11:41: WBC 11.3 H, RBC 5.10, Hgb 14.8, Hct 48.8, MCV 95.7 H, MCH 29.1, MCHC 30.4 L, RDW 16.6, Plt Count 354, MPV 8.1, Neut % (Auto) 68.4, Lymph % (Auto) 21.6, [place] % (Auto) 6.9, Eos % (Auto) 2.1, Baso % (Auto) 1.0, Neut # (Auto) 7.7, Lymph # (Auto) 2.5, [place] # (Auto) 0.8, Eos # (Auto) 0.2, Baso # (Auto) 0.1, Sodium 140, Potassium 3.5, Chloride 107, Carbon Dioxide 24, Anion Gap 12.5, BUN 22 H, Creatinine 1.00, Estimated Creat Clear 104, Estimated GFR 75, Est GFR ( Amer) 91, Glucose 97, Calcium 8.5 I & O for Last 24 hours: Intake & Output 04/30/23 05/01/23 05/02/23 05/03/23 11:59 11:59 11:59 11:59 Output Total 500 / 500 Balance -500 / -500 Weight 214 lb 207 lb 3.752 oz Constitutional Constitutional: no acute distress *Routine Respiratory Exam Respiratory: Present rales and diminished air movement *Routine Cardiovascular Exam Cardiovascular: Present RRR Meds Home Medications and Allergies Home Medications Medication Instructions Recorded Confirmed Type aspirin 81 mg tablet,delayed 81 mg PO DAILY 05/02/23 05/02/23 History release atorvastatin 40 mg tablet 40 mg PO HS #90 tabs 05/02/23 05/02/23 Rx bisoprolol fumarate 5 mg tablet 5 mg PO DAILY 30 days #30 tabs 05/02/23 05/02/23 Rx bumetanide 2 mg tablet 2 mg PO DAILY #30 tabs 05/02/23 Rx empagliflozin 10 mg tablet 10 mg PO DAILY #90 tabs 05/02/23 05/02/23 Rx (Jardiance) sacubitril 49 mg-valsartan 51 mg 1 tab PO BID #60 tabs 05/02/23 05/02/23 Rx tablet (Entresto) spironolactone 100 mg tablet 100 mg PO DAILY #30 tabs 05/02/23 Rx (Aldactone) New Prescriptions to Start Prescriptions: bumetanide Jad Aguirre spironolactone [Aldactone] Jad Aguirre Allergies Allergy/AdvReac Type Severity Reaction Status Date / Time No Known Allergies Allergy Verified 05/02/23 14:16 Assessment and Plan *Assessment and plan (1) Acute on chronic HFrEF (heart failure with reduced ejection fraction): Status: Acute Category: Medical Code(s): I50.23 - Acute on chronic systolic (congestive) heart failure (2) CAD (coronary artery disease): Status: Chronic Qualifiers: Associated angina: with stable angina Coronary Disease-Associated Artery/Lesion type: [place] artery [place] vs. transplanted heart: [place] heart Qualified Code(s): I25.118 - Atherosclerotic heart disease of [place] coronary artery with other forms of angina pectoris Category: Medical Code(s): I25.10 - Atherosclerotic heart disease of [place] coronary artery without angina pectoris (3) HTN (hypertension): Status: Acute Qualifiers: Hypertension type: primary hypertension Qualified Code(s): I10 - Essential (primary) hypertension Category: Medical Code(s): I10 - Essential (primary) hypertension (4) SPEEDY (obstructive sleep apnea): Status: Acute Category: Medical Code(s): G47.33 - Obstructive sleep apnea (adult) (pediatric) (5) Thoracic aortic aneurysm: Status: Chronic Qualifiers: Presence of rupture: without rupture Qualified Code(s): I71.2 - Thoracic aortic aneurysm, without rupture Category: Medical Code(s): I71.2 - Thoracic aortic aneurysm, without rupture (6) HLD (hyperlipidemia): Status: Chronic Qualifiers: Hyperlipidemia type: other hyperlipidemia Qualified Code(s): E78.4 - Other hyperlipidemia Category: Medical Code(s): E78.5 - Hyperlipidemia, unspecified Plan 1. Acute on chronic HFrEF -Admitted for IV diuresis -[facility] without need for coronary intervention -Advance goal-directed medical therapy as blood pressure and heart rate allow -LifeVest needed for EF of 15% -On Jardiance 2. CAD -LHC without need for coronary intervention this admission -Continue aspirin and statin therapy 3. Hypertension -Advance GDMT as able 4. SPEEDY -Will require aggressive intervention 5. Thoracic aortic aneurysm -I have contacted radiology for an amendment of CTA from last week 6. Hyperlipidemia -Continue statin
[2023-05-02 15:31] LABS: NT Pro Brain Natriuretic Pep. 6000 pg/mL (0-125)
[2023-05-02] MEDS: FUROSEMIDE 40MG/4ML VIAL 40 MG IV (17:16)
[2023-05-02] MEDS: HEPARIN SODIUM 5,000 UNIT/ML VIAL 5000 UNIT SQ (17:21)
--- NOTE | 2023-05-02 17:48 | PC.NURSE ---
Pt alert and oriented. VSS. On room air. Denies pain. Up to bedside for voids via urinal. Diuretics administered per orders with copious urine output. Patient's dyspnea improved since admission. Plan for life vest before discharge home
--- NOTE | 2023-05-02 18:43 | EXP.HP ---
History of Present Illness *Admission Date: 05/02/23 *Reason for visit:: SOB *History of present illness: Patient is a 62-year-old male who presents to the hospital due to shortness of breath and possible cardiac defibrillator implantation. Patient had cardiac cath today, patient was noticed to have EF of around 15%. He has past medical history of chronic systolic CHF, CAD, hypertension, tobacco use. He mentions he has been actively smoking. He denied fever chills diarrhea constipation dysuria. He mentions he has been feeling short of breath especially while walking, he had cardiac cath today, 05/02/2023 circumflex artery was occluded. [facility] Disclaimer: The information contained in this section may have been updated after the patient was seen, as this information can be updated by other users. Medical History (Updated 05/02/23 @ 14:59 by JOANNA Echevarria) Accidental drug overdose Acute on chronic HFrEF (heart failure with reduced ejection fraction) CAD (coronary artery disease) Cardiomyopathy Dyspnea HTN (hypertension) LV dysfunction Non-STEMI (non-ST elevated myocardial infarction) SPEEDY (obstructive sleep apnea) Overweight (BMI 25.0-29.9) Tobacco use Unstable angina Family History (Updated 05/02/23 @ 14:24 by Alexandra Wolf RN) Other No significant family history Social History Smoking Status: Current every day smoker tobacco type: cigarettes packs per day: 1 second hand exposure: Yes alcohol intake: current substance use type: denies use current occupational status: employed Travel in the last 8 weeks: Inside the [place] household members: children housing: house current occupational exposures/hazards: No caffeine: Yes Review of Systems Review of Systems Review of systems (narrative): as per HPI Meds Home Medications and Allergies Home Medications Medication Instructions Recorded Confirmed Type aspirin 81 mg tablet,delayed 81 mg PO DAILY 05/02/23 05/02/23 History release atorvastatin 40 mg tablet 40 mg PO HS #90 tabs 05/02/23 05/02/23 Rx bumetanide 2 mg tablet 2 mg PO DAILY #30 tabs 05/02/23 Rx empagliflozin 10 mg tablet 10 mg PO DAILY #90 tabs 05/02/23 05/02/23 Rx (Jardiance) sacubitril 49 mg-valsartan 51 mg 1 tab PO BID #60 tabs 05/02/23 05/02/23 Rx tablet (Entresto) carvedilol 3.125 mg tablet 3.125 mg PO BID 30 days #60 tabs 05/03/23 Rx spironolactone 25 mg tablet 25 mg PO BID 30 days #60 tabs 05/03/23 Rx New Prescriptions to Start Prescriptions: bumetanide Jad Aguirre carvedilol Arden Zambrano spironolactone Arden Zambrano Allergies Allergy/AdvReac Type Severity Reaction Status Date / Time No Known Allergies Allergy Verified 05/02/23 14:16 Exam Data for Last 24 hours Vital signs and Labs for Last 24 Hours: Temp Pulse Resp BP Pulse Ox O2 Del Method O2 Flow Rate 97.8 F 100 H 20 141/96 H 98 Room Air 1 05/02/23 15:55 05/02/23 16:00 05/02/23 15:55 05/02/23 15:55 05/02/23 15:55 05/02/23 18:40 05/02/23 15:25 Laboratory Results - last 24 hr 05/02/23 11:41: WBC 11.3 H, RBC 5.10, Hgb 14.8, Hct 48.8, MCV 95.7 H, MCH 29.1, MCHC 30.4 L, RDW 16.6, Plt Count 354, MPV 8.1, Neut % (Auto) 68.4, Lymph % (Auto) 21.6, [place] % (Auto) 6.9, Eos % (Auto) 2.1, Baso % (Auto) 1.0, Neut # (Auto) 7.7, Lymph # (Auto) 2.5, [place] # (Auto) 0.8, Eos # (Auto) 0.2, Baso # (Auto) 0.1, Sodium 140, Potassium 3.5, Chloride 107, Carbon Dioxide 24, Anion Gap 12.5, BUN 22 H, Creatinine 1.00, Estimated Creat Clear 104, Estimated GFR 75, Est GFR ( Amer) 91, Glucose 97, Calcium 8.5 05/02/23 11:45: NT-Pro-B Natriuret Pep 6000 H I & O for Last 24 hours: Intake & Output 04/29/23 04/30/23 05/01/23/24 23:59 23:59 23:59 23:59 Intake Total 1320 / 1320 Output Total 3800 / 3800 Balance -2480 / -2480 Weight 94 kg Constitutional Constitutional: no acute distress *Routine HEENT Exam Head: Present normocephalic Eye: Present EOMI and PERRL ENT: Present mucous membranes moist *Routine Neck Exam Neck: Present supple; Absent lymphadenopathy *Routine Respiratory Exam Respiratory: Present CTA bilaterally, rhonchi and distant breath sounds *Routine Cardiovascular Exam Cardiovascular: Present RRR *Routine Abdominal Exam Abdominal: Present soft and normoactive bowel sounds; Absent tenderness *Routine Rectal Exam Rectal:: deferred *Routine Genitalia Exam Genitalia:: deferred *Routine Extremities Exam Extremities: Absent cyanosis, clubbing or edema *Routine Skin Exam Skin: Present warm; Absent rash *Routine Neurological Exam Neurological: Present alert and oriented X3 Assessment and Plan *Assessment and plan (1) Acute on chronic HFrEF (heart failure with reduced ejection fraction): Status: Acute Category: Medical Code(s): I50.23 - Acute on chronic systolic (congestive) heart failure (2) SPEEDY (obstructive sleep apnea): Status: Acute Category: Medical Code(s): G47.33 - Obstructive sleep apnea (adult) (pediatric) (3) Non-STEMI (non-ST elevated myocardial infarction): Status: Acute Category: Medical Code(s): I21.4 - Non-ST elevation (NSTEMI) myocardial infarction (4) LV dysfunction: Status: Acute Category: Medical Code(s): I51.9 - Heart disease, unspecified (5) Cardiomyopathy: Status: Acute Qualifiers: Cardiomyopathy type: unspecified Qualified Code(s): I42.9 - Cardiomyopathy, unspecified Category: Medical Code(s): I42.9 - Cardiomyopathy, unspecified (6) Tobacco use: Status: Chronic Category: Social Hx Code(s): Z72.0 - Tobacco use (7) CAD (coronary artery disease): Status: Chronic Qualifiers: Associated angina: with stable angina Coronary Disease-Associated Artery/Lesion type: [place] artery [place] vs. transplanted heart: [place] heart Qualified Code(s): I25.118 - Atherosclerotic heart disease of [place] coronary artery with other forms of angina pectoris Category: Medical Code(s): I25.10 - Atherosclerotic heart disease of [place] coronary artery without angina pectoris (8) HTN (hypertension): Status: Acute Qualifiers: Hypertension type: primary hypertension Qualified Code(s): I10 - Essential (primary) hypertension Category: Medical Code(s): I10 - Essential (primary) hypertension Plan Patient is a 62-year-old male who presents to the hospital due to shortness of breath and possible cardiac defibrillator implantation. Patient had cardiac cath today, patient was noticed to have EF of around 15%. He has past medical history of chronic systolic CHF, CAD, hypertension, tobacco use. He mentions he has been actively smoking. He denied fever chills diarrhea constipation dysuria. He mentions he has been feeling short of breath especially while walking, he had cardiac cath today, 05/02/2023 circumflex artery was occluded. Assessment and plan Acute on chronic systolic CHF Admit for IV diuresis with Lasix LifeVest while inpatient Strict I's and O's Consult cardiology Monitor and replace electrolytes Fluids monitor BMP CAD Hypertension Hyperlipidemia COPD Active tobacco use -Resume home aspirin, statin, Coreg, Jardiance, Entresto DVT prophylaxis-heparin
[2023-05-02] MEDS: SACUBITRIL/VALSARTAN 24-26MG TABLET 2 EACH PO (20:25)
[2023-05-02] MEDS: CARVEDILOL 6.25MG TABLET 6.25 MG PO (20:26)
[2023-05-02] MEDS: ATORVASTATIN 40MG TABLET 40 MG PO (20:26)
[2023-05-02] MEDS: SPIRONOLACTONE 25MG TABLET 25 MG PO (20:26)
[2023-05-03] VITALS: BP 105/65; PULSE 84; PULSE 87; RESP 18; TEMP 36.5; O2SAT 93
[2023-05-03] MEDS: HEPARIN SODIUM 5,000 UNIT/ML VIAL 5000 UNIT SQ ×2 (00:39→08:05)
[2023-05-03 04:00] VITALS: BP 97/57; PULSE 82; RESP 18; TEMP 36.6; O2SAT 92; BMI 25.1
[2023-05-03 06:56] LABS: Basophils # 0.1 K/mm3 (0-0.2); Eosinophils # 0.3 K/mm3 (0.0-0.4); Eosinophils % 3.1 % (0.1-12.0); Hematocrit 49.7 % (42.0-52.0); Hemoglobin 15.4 g/dL (14.1-18.0); Lymphocytes % 22.8 % (10-50); Mean Corpuscular Hemoglobin 29.1 pg (27.0-31.2); Mean Corpuscular Volume 93.8 fl (80-94); Monocytes # 0.7 K/mm3 (0.1-1.0); Monocytes % 7.3 % (1.7-9.3); Neutrophils # 5.8 K/mm3 (1.8-7.8); Neutrophils % 65.8 % (37.0-80.0); Platelet Count 352 K/mm3 (142-424); Red Cell Distribution Width 16.6 % (11.5-17.5); White Blood Count 8.9 K/mm3 (4.8-10.8)
[2023-05-03 06:58] LABS: Anion Gap 10.7 mEq/L (5-15); Blood Urea Nitrogen 17 mg/dl (9-20); Calcium 8.3 mg/dl (8.4-10.2); Carbon Dioxide 27 mmol/L (22.0-30.0); Chloride 105 mmol/L (98-107); Creatinine Clearance Estimated 90 mL/min (50-200); Estimated Glomerular Filt Rate 75 ml/min (>60); GFR (African American) 91 ML/MIN (>60); Glucose 88 mg/dl (74-100); Potassium 3.7 mmoL/L (3.5-5.1); Sodium 139 mmol/L (136-145)
[2023-05-03 08:00] VITALS: BP 111/79; PULSE 96; RESP 23; TEMP 36.6; O2SAT 96
[2023-05-03] MEDS: EMPAGLIFLOZIN 10MG TABLET 10 MG PO (08:04)
[2023-05-03] MEDS: SPIRONOLACTONE 25MG TABLET 25 MG PO (08:04)
[2023-05-03] MEDS: SACUBITRIL/VALSARTAN 24-26MG TABLET 2 EACH PO (08:05)
[2023-05-03] MEDS: FUROSEMIDE 40MG/4ML VIAL 40 MG IV (08:05)
[2023-05-03] MEDS: ASPIRIN 81MG CHEWABLE TABLET 81 MG PO (08:05)
[2023-05-03] MEDS: CARVEDILOL 3.125MG TABLET 3.125 MG PO (08:39)
--- NOTE | 2023-05-03 09:39 | P.DS_ITS ---
General Admission date:: 05/02/23 Discharge date: 05/03/23 HPI HPI HPI: Patient is a 62-year-old male who presents to the hospital due to shortness of breath and possible cardiac defibrillator implantation. Patient had cardiac cath today, patient was noticed to have EF of around 15%. He has past medical history of chronic systolic CHF, CAD, hypertension, tobacco use. He mentions he has been actively smoking. He denied fever chills diarrhea constipation dysuria. He mentions he has been feeling short of breath especially while walking, he had cardiac cath today, 05/02/2023 circumflex artery was occluded. Hospital Course Hospital Course Hospital Course: Patient is a 62-year-old male who presents to the hospital due to shortness of breath and possible cardiac defibrillator implantation. Patient had cardiac cath today, patient was noticed to have EF of around 15%. He has past medical history of chronic systolic CHF, CAD, hypertension, tobacco use. He mentions he has been actively smoking. He denied fever chills diarrhea constipation dysuria. He mentions he has been feeling short of breath especially while walking, he had cardiac cath today, 05/02/2023 circumflex artery was occluded. Assessment and plan Acute on chronic systolic CHF - improved switch to PO LifeVest while inpatient - approved CAD Hypertension Hyperlipidemia COPD Active tobacco use -Resume home aspirin, statin, Coreg, Jardiance, Entresto stable for discharge, discussed with cardiology, follow up as OP Exam Data for Last 24 hours Vital signs and Labs for Last 24 Hours: Temp Pulse Resp BP Pulse Ox O2 Del Method O2 Flow Rate 97.9 F 96 H 23 111/79 96 Room Air 1 05/03/23 08:00 05/03/23 08:00 05/03/23 08:00 05/03/23 08:00 05/03/23 08:00 05/03/23 08:00 05/02/23 15:25 Laboratory Results - last 24 hr 05/02/23 11:41: WBC 11.3 H, RBC 5.10, Hgb 14.8, Hct 48.8, MCV 95.7 H, MCH 29.1, MCHC 30.4 L, RDW 16.6, Plt Count 354, MPV 8.1, Neut % (Auto) 68.4, Lymph % (Auto) 21.6, [place] % (Auto) 6.9, Eos % (Auto) 2.1, Baso % (Auto) 1.0, Neut # (Auto) 7.7, Lymph # (Auto) 2.5, [place] # (Auto) 0.8, Eos # (Auto) 0.2, Baso # (Auto) 0.1, Sodium 140, Potassium 3.5, Chloride 107, Carbon Dioxide 24, Anion Gap 12.5, BUN 22 H, Creatinine 1.00, Estimated Creat Clear 104, Estimated GFR 75, Est GFR ( Amer) 91, Glucose 97, Calcium 8.5 05/02/23 11:45: NT-Pro-B Natriuret Pep 6000 H 05/03/23 06:23: WBC 8.9, RBC 5.30, Hgb 15.4, Hct 49.7, MCV 93.8, MCH 29.1, MCHC 31.0 L, RDW 16.6, Plt Count 352, MPV 8.0, Neut % (Auto) 65.8, Lymph % (Auto) 22.8, [place] % (Auto) 7.3, Eos % (Auto) 3.1, Baso % (Auto) 1.0, Neut # (Auto) 5.8, Lymph # (Auto) 2.0, [place] # (Auto) 0.7, Eos # (Auto) 0.3, Baso # (Auto) 0.1, Sodium 139, Potassium 3.7, Chloride 105, Carbon Dioxide 27, Anion Gap 10.7, BUN 17, Creatinine 1.00, Estimated Creat Clear 90, Estimated GFR 75, Est GFR ( Amer) 91, Glucose 88, Calcium 8.3 L I & O for Last 24 hours: Intake & Output 04/30/23 05/01/23 05/02/23 05/03/23 23:59 23:59 23:59 23:59 Intake Total 1320 / 1560 600 / 600 Output Total 3800 / 3800 0 / 0 Balance -2480 / -2240 600 / 600 Weight 94 kg 84.2 kg Constitutional Constitutional: no acute distress *Routine HEENT Exam Head: Present normocephalic Eye: Present EOMI and PERRL ENT: Present mucous membranes moist *Routine Neck Exam Neck: Present supple; Absent lymphadenopathy *Routine Respiratory Exam Respiratory: Present CTA bilaterally *Routine Cardiovascular Exam Cardiovascular: Present RRR *Routine Abdominal Exam Abdominal: Present soft and normoactive bowel sounds; Absent tenderness *Routine Extremities Exam Extremities: Absent cyanosis, clubbing or edema *Routine Skin Exam Skin: Present warm; Absent rash *Routine Neurological Exam Neurological: Present alert and oriented X3 Results Data Completed and Pending Labs on day of discharge: Labs from last 24 hours 05/03/23 05/02/23 05/02/23 06:23 11:45 11:41 WBC 8.9 11.3 H RBC 5.30 5.10 Hgb 15.4 14.8 Hct 49.7 48.8 MCV 93.8 95.7 H MCH 29.1 29.1 MCHC 31.0 L 30.4 L RDW 16.6 16.6 Plt Count 352 354 MPV 8.0 8.1 Neut % (Auto) 65.8 68.4 Lymph % (Auto) 22.8 21.6 [place] % (Auto) 7.3 6.9 Eos % (Auto) 3.1 2.1 Baso % (Auto) 1.0 1.0 Neut # (Auto) 5.8 7.7 Lymph # (Auto) 2.0 2.5 [place] # (Auto) 0.7 0.8 Eos # (Auto) 0.3 0.2 Baso # (Auto) 0.1 0.1 Sodium 139 140 Potassium 3.7 3.5 Chloride 105 107 Carbon Dioxide 27 24 Anion Gap 10.7 12.5 BUN 17 22 H Creatinine 1.00 1.00 Estimated Creat Clear 90 104 Estimated GFR 75 75 Est GFR ( Amer) 91 91 Glucose 88 97 Calcium 8.3 L 8.5 NT-Pro-B Natriuret Pep 6000 H DS: Diagnosis Discharge Diagnosis (1) Acute on chronic HFrEF (heart failure with reduced ejection fraction): Status: Acute Code(s): I50.23 - Acute on chronic systolic (congestive) heart failure (2) SPEEDY (obstructive sleep apnea): Status: Acute Code(s): G47.33 - Obstructive sleep apnea (adult) (pediatric) (3) Non-STEMI (non-ST elevated myocardial infarction): Status: Acute Code(s): I21.4 - Non-ST elevation (NSTEMI) myocardial infarction (4) LV dysfunction: Status: Acute Code(s): I51.9 - Heart disease, unspecified (5) Cardiomyopathy: Status: Acute Code(s): I42.9 - Cardiomyopathy, unspecified Qualifiers: Cardiomyopathy type: unspecified Qualified Code(s): I42.9 - Cardiomyopathy, unspecified (6) Tobacco use: Status: Chronic Code(s): Z72.0 - Tobacco use (7) CAD (coronary artery disease): Status: Chronic Code(s): I25.10 - Atherosclerotic heart disease of [place] coronary artery without angina pectoris Qualifiers: Coronary Disease-Associated Artery/Lesion type: [place] artery Associated angina: with stable angina [place] vs. transplanted heart: [place] heart Qualified Code(s): I25.118 - Atherosclerotic heart disease of [place] coronary artery with other forms of angina pectoris (8) HTN (hypertension): Status: Acute Code(s): I10 - Essential (primary) hypertension Qualifiers: Hypertension type: primary hypertension Qualified Code(s): I10 - Essential (primary) hypertension Meds Home Medications and Allergies Home Medications Medication Instructions Recorded Confirmed Type aspirin 81 mg tablet,delayed 81 mg PO DAILY 05/02/23 05/02/23 History release atorvastatin 40 mg tablet 40 mg PO HS #90 tabs 05/02/23 05/02/23 Rx bumetanide 2 mg tablet 2 mg PO DAILY #30 tabs 05/02/23 Rx empagliflozin 10 mg tablet 10 mg PO DAILY #90 tabs 05/02/23 05/02/23 Rx (Jardiance) sacubitril 49 mg-valsartan 51 mg 1 tab PO BID #60 tabs 05/02/23 05/02/23 Rx tablet (Entresto) carvedilol 3.125 mg tablet 3.125 mg PO BID 30 days #60 tabs 05/03/23 Rx spironolactone 25 mg tablet 25 mg PO BID 30 days #60 tabs 05/03/23 Rx New Prescriptions to Start Prescriptions: bumetanide Jad Aguirre carvedilol Arden Zambrano spironolactone Arden Zambrano Allergies Allergy/AdvReac Type Severity Reaction Status Date / Time No Known Allergies Allergy Verified 05/02/23 14:16 Discharge Plan Disposition Patient Disposition: Home, Self-Care Condition: Good Follow up Plan Follow up with: Jad Aguirre MD [Staff Physician] - 05/09/23 1:45 pm Prescriptions/Medication Reconciliation: New bumetanide 2 mg Tablet 2 mg PO DAILY Qty: 30 3RF spironolactone 25 mg Tablet 25 mg PO BID 30 Days Qty: 60 0RF carvedilol 3.125 mg Tablet 3.125 mg PO BID 30 Days Qty: 60 0RF Continued Entresto 49-51 mg tablet 1 tab PO BID Qty: 60 2RF atorvastatin 40 mg tablet 40 mg PO HS Qty: 90 0RF Jardiance 10 mg tablet 10 mg PO DAILY Qty: 90 0RF aspirin 81 mg Tablet,Delayed Release (Dr/Ec) 81 mg PO DAILY Discontinued spironolactone 25 mg tablet 25 mg PO DAILY Qty: 30 2RF bisoprolol fumarate 5 mg tablet 5 mg PO DAILY 30 Days Qty: 30 3RF furosemide [Lasix] 40 mg tablet 40 mg PO DAILY Qty: 90 0RF Problem Reconciliation Problems Reviewed?: Yes Patient Discharge Instructions ACTIVITY: Ambulate as tolerated DIET: continue same diet Patient Instructions: DI for Cardiac Catheterization, DI for Surgical Site Infection, DI for Moderate Sedation, DI for Post-Surgical Bleeding Providers Primary Care Provider: Tom Castaneda Admit Provider: Arden Zambrano Attending Provider: Arden Zambrano
--- NOTE | 2023-05-03 10:51 | P.PN_ITS ---
Subjective Subjective Date: 05/03/23 Time: 10:51 Principal diagnosis: CHF Interval history: 62-year-old white male in bed in no acute distress. Feels better but is still fatigued from the medications. LifeVest was approved and will be fitted prior to discharge today. Exam Data for Last 24 hours Vital signs and Labs for Last 24 Hours: Temp Pulse Resp BP Pulse Ox O2 Del Method O2 Flow Rate 97.9 F 96 H 23 111/79 96 Room Air 1 05/03/23 08:00 05/03/23 08:00 05/03/23 08:00 05/03/23 08:00 05/03/23 08:00 05/03/23 09:00 05/02/23 15:25 Laboratory Results - last 24 hr 05/02/23 11:41: WBC 11.3 H, RBC 5.10, Hgb 14.8, Hct 48.8, MCV 95.7 H, MCH 29.1, MCHC 30.4 L, RDW 16.6, Plt Count 354, MPV 8.1, Neut % (Auto) 68.4, Lymph % (Auto) 21.6, [place] % (Auto) 6.9, Eos % (Auto) 2.1, Baso % (Auto) 1.0, Neut # (Auto) 7.7, Lymph # (Auto) 2.5, [place] # (Auto) 0.8, Eos # (Auto) 0.2, Baso # (Auto) 0.1, Sodium 140, Potassium 3.5, Chloride 107, Carbon Dioxide 24, Anion Gap 12.5, BUN 22 H, Creatinine 1.00, Estimated Creat Clear 104, Estimated GFR 75, Est GFR ( Amer) 91, Glucose 97, Calcium 8.5 05/02/23 11:45: NT-Pro-B Natriuret Pep 6000 H 05/03/23 06:23: WBC 8.9, RBC 5.30, Hgb 15.4, Hct 49.7, MCV 93.8, MCH 29.1, MCHC 31.0 L, RDW 16.6, Plt Count 352, MPV 8.0, Neut % (Auto) 65.8, Lymph % (Auto) 22.8, [place] % (Auto) 7.3, Eos % (Auto) 3.1, Baso % (Auto) 1.0, Neut # (Auto) 5.8, Lymph # (Auto) 2.0, [place] # (Auto) 0.7, Eos # (Auto) 0.3, Baso # (Auto) 0.1, Sodium 139, Potassium 3.7, Chloride 105, Carbon Dioxide 27, Anion Gap 10.7, BUN 17, Creatinine 1.00, Estimated Creat Clear 90, Estimated GFR 75, Est GFR ( Amer) 91, Glucose 88, Calcium 8.3 L I & O for Last 24 hours: Intake & Output 04/30/23 05/01/23 05/02/23 05/03/23 11:59 11:59 11:59 11:59 Intake Total 1920 / 1920 Output Total 3800 / 3800 Balance -1880 / -1880 Weight 214 lb 185 lb 10.067 oz *Routine Respiratory Exam Respiratory: Present CTA bilaterally *Routine Cardiovascular Exam Cardiovascular: Present RRR Progress Note: A&P Assessment and plan (1) Acute on chronic HFrEF (heart failure with reduced ejection fraction): Status: Acute (2) SPEEDY (obstructive sleep apnea): Status: Acute (3) Non-STEMI (non-ST elevated myocardial infarction): Status: Acute (4) LV dysfunction: Status: Acute (5) Cardiomyopathy: Status: Acute (6) Tobacco use: Status: Chronic (7) CAD (coronary artery disease): Status: Chronic (8) HTN (hypertension): Status: Acute Assessment and Plan Assessment and Plan for All Diagnoses:: 1. Acute on chronic HFrEF -Admitted for IV diuresis -[facility] without need for coronary intervention -GDMT with carvedilol, Entresto, Bumex, Jardiance, spironolactone -LifeVest needed for EF of 15% 2. CAD -LHC without need for coronary intervention this admission -Continue aspirin and statin therapy 3. Hypertension -Advance GDMT as able 4. SPEEDY -Will require aggressive intervention 5. Thoracic aortic aneurysm -Stable at 4.8 cm by chest CTA this admission 6. Hyperlipidemia -Continue statin Clinically stable for discharge home from cardiology standpoint. LifeVest will be fitted prior to discharge. Home medication recommendations: Aspirin 81 mg daily Atorvastatin 40 mg daily Bumex 2 mg daily Carvedilol 3.125 mg twice daily Jardiance 10 mg daily Entresto 49/51 mg twice daily Spironolactone 25 mg twice daily Follow-up in our office in 1 to 2 weeks with BMP and BNP prior to visit
[2023-05-03 12:00] VITALS: BP 108/74; PULSE 80; RESP 20; TEMP 36.6; O2SAT 94
--- NOTE | 2023-05-03 12:46 | PC.NURSE ---
Kimberly Sanchez at bedside with life vest.
--- NOTE | 2023-05-06 13:59 | CARE MANAGER ---
Contacted patient related to hospital discharge. Patient states he has all his new medications and is awre of follow up appointments. Denies questions or concerns. SUSSY Navarro
== END 2023-05-03 13:59 | disposition home or self-care (01) ==
LOC: 2ND 13:20
PROVIDERS: Internal Medicine; Physician Assistant; Admitting Provider Internal Medicine; PCP Nurse Practitioner Family; Visit Provider Internal Medicine
PROC: B2151ZZ Fluoroscopy of Left Heart using Low Osmolar Contrast (ICD-10-PCS; principal; 2023-05-02 10:30)
DX: I11.0 Hypertensive heart disease with heart failure (principal); I50.23 Acute on chronic systolic (congestive) heart failure; I25.118 Atherosclerotic heart disease of native coronary artery with other forms of angina pectoris; G47.33 Obstructive sleep apnea (adult) (pediatric); I21.4 Non-ST elevation (NSTEMI) myocardial infarction; I42.9 Cardiomyopathy, unspecified; Z72.0 Tobacco use; F17.210 Nicotine dependence, cigarettes, uncomplicated; I71.20 Thoracic aortic aneurysm, without rupture, unspecified; E78.5 Hyperlipidemia, unspecified
CPT/HCPCS: 36415; 80048; 83880; 85025; 93454; 93571; 99152; 99153; C1725; C1760; C1769; G0378; J1644; Q9967

== ENCOUNTER 2023-07-08 12:58 | Outpatient (CLI) | payer MEDICARE, SELFPAY ==
--- NOTE | 2023-07-08 13:14 | CA_ITS ---
APPROVED REPORT EXAM: Limited 2D Echocardiogram Aircraft Instrument Repairer: Madalyn Guadarrama RVT Ht: 6 ft 0 in Wt: 184lbs BSA: 2.06 BP: 116/75 mmHg Indications: EF CHECK, EF OF 15% ON 04/29/22,LIFEVEST,SOA,SMOKER,HTN,HLD,HFrEF 2D Dimensions IVSd 1.05 cm M: 0.6-1.2 LVEF (Visual) 25.90 % PWd 0.62 cm M: 0.6 - 1.2 LVDd 6.72 cm M: 4.2 - 5.9 LVDs 5.89 cm M: 2.5 - 4.0 M-Mode Dimensions RVDd 2.84 cm (0.9-2.6) LA Diam 5.11 cm (1.9-4.0) LVDd 7.27 cm (3.5-5.7) LVDs 6.40 cm (3.5-5.7) IVSd 0.71 cm (0.6-1.1) PWd 0.75 cm (0.6-1.1) EF (Teich) 25.00% FS 12.00% EDV (Teich) 278.10 mL ESV (Teich) 208.50 mL Other Information Study Quality: Fair Conclusion This is a limited TTE to evaluate for LVEF. Limited windows were obtained. The left ventricle is severely dilated. There is normal LV wall thickness. There is severe global hypokinesis present. LVEF is 15-20%. Compared to prior study from 04/2023, there are overall no significant changes noted. Further evaluation with cardiac MRI (cardiomyopathy protocol) is recommended in the setting of persistent nonischemic cardiomyopathy of unclear etiology. Electronically signed by : Usha Moore MD 07/09/2023 13:42:28
== END 2023-07-08 23:59 | disposition home or self-care (01) ==
LOC: RT 12:59
PROVIDERS: PCP Internal Medicine; Visit Provider Physician Assistant
DX: I20.89 Other forms of angina pectoris (principal); G47.33 Obstructive sleep apnea (adult) (pediatric); I21.4 Non-ST elevation (NSTEMI) myocardial infarction; R06.02 Shortness of breath; I51.9 Heart disease, unspecified; Z72.0 Tobacco use; I10 Essential (primary) hypertension; Z95.5 Presence of coronary angioplasty implant and graft; E78.49 Other hyperlipidemia; I42.8 Other cardiomyopathies
CPT/HCPCS: 93308

== ENCOUNTER 2023-08-05 09:49 | Outpatient (CLI) | payer MEDICARE, SELFPAY ==
[2023-08-05 10:20] LABS: Blood Urea Nitrogen 28 mg/dl (9-20); Estimated Glomerular Filt Rate 68 ml/min (>60); GFR (African American) 82 ML/MIN (>60)
== END 2023-08-05 23:59 | disposition home or self-care (01) ==
LOC: RAD 09:51
PROVIDERS: PCP Nurse Practitioner Family; Visit Provider Nurse Practitioner Family
DX: I42.8 Other cardiomyopathies (principal)
CPT/HCPCS: 36415; 82565; 84520

== ENCOUNTER 2023-08-26 07:59 | Inpatient (IN) | payer MEDICARE, SELFPAY ==
[2023-08-26] VITALS (18 sets, daily range): BP systolic 108–149; BP diastolic 50–108; PULSE 78–113; RESP 18–29; TEMP 36.4–36.9; O2SAT 2–99; BMI 24.4; BMI 26.0
--- NOTE | 2023-08-26 08:00 | ECG_ITS ---
APPROVED REPORT Exam: Resting ECG HR:111 bpm ECG Measurements Heart Rate [address] 164 P 72 QRSd 114 QRS 216 QT 364 T 71 QTc 430 Conclusion Sinus tachycardia Biatrial enlargement Rightward axis with RVH Electronically signed by : BRANDY CHAVARRIA, 08/26/2023 15:53:07
--- NOTE | 2023-08-26 08:31 | XR_ITS ---
FINAL REPORT TECHNIQUE: Single view chest CLINICAL HISTORY: SOA. Left sided chest pain. FINDINGS: A single view of the chest was obtained. The heart is enlarged. The lungs are clear. There is no pneumothorax. Osseous structures are unremarkable. IMPRESSION: No acute cardiopulmonary process. Reviewed, Interpreted and Dictated by Daryn Segal MD Transcribed by Kala Arciniega Authenticated and [facility]
[2023-08-26 08:40] LABS: Chloride 103 mmol/L (98-107); Sodium 139 mmol/L (136-145)
[2023-08-26 08:41] LABS: Basophils # 0.2 K/mm3 (0-0.2); Basophils % 1.5 % (0.1-2.0); Eosinophils # 0.2 K/mm3 (0.0-0.4); Eosinophils % 1.5 % (0.1-12.0); Hematocrit 43.9 % (42.0-52.0); Hemoglobin 14.3 g/dL (14.1-18.0); Lymphocytes # 1.8 K/mm3 (0.7-4.5); Lymphocytes % 14.5 % (10-50); Mean Corpuscular HGB Conc 32.6 g/dL (31.8-35.4); Mean Corpuscular Hemoglobin 30.1 pg (27.0-31.2); Mean Corpuscular Volume 92.4 fl (80-94); Mean Platelet Volume 8.4 fl (7.4-10.4); Monocytes # 0.6 K/mm3 (0.1-1.0); Monocytes % 4.9 % (1.7-9.3); Neutrophils # 9.6 K/mm3 (1.8-7.8); Neutrophils % 77.6 % (37.0-80.0); Platelet Count 382 K/mm3 (142-424); Red Blood Count 4.75 M/mm3 (4.60-6.20); Red Cell Distribution Width 16.3 % (11.5-17.5); White Blood Count 12.4 K/mm3 (4.8-10.8)
[2023-08-26 08:43] LABS: Alanine Aminotransferase 34 U/L (12-78); Alkaline Phosphatase 64 U/L (38-126); Aspartate Amino Transferase 47 U/L (17-59); Bilirubin,Total 1.3 mg/dl (0.2-1.3); Blood Urea Nitrogen 28 mg/dl (9-20); Creatinine Clearance Estimated 79 mL/min (50-200); Estimated Glomerular Filt Rate 68 ml/min (>60); GFR (African American) 82 ML/MIN (>60)
[2023-08-26 08:44] LABS: Albumin/Globulin Ratio 1.2 (1.1-1.8); Calcium 9.1 mg/dl (8.4-10.2); Carbon Dioxide 28 mmol/L (22.0-30.0); Globulin 3.3 g/dL (1.3-3.2); Glucose 130 mg/dl (74-100); Magnesium 1.9 mg/dl (1.6-2.3); Total Protein,Serum 7.3 g/dl (6.3-8.2)
--- NOTE | 2023-08-26 08:45 | ED_ITS ---
Discharge Plan Disposition Patient Disposition: Admitted Discharge ED Provider: David Potter HPI General Chief Complaint: Chest Pain Stated Complaint: chest pain Time Seen by Provider: 08/26/23 08:03 Mode of Arrival: Ambulatory Source of Information: Patient Limitations: No Limitations Description of Symptoms (Recalled from ER Triage Doc. by RN): Patient reports chest pain that started last night, a constant pain on the left side that he rates 6/10. History of Present Illness HPI narrative: Please note that above description of symptoms, in this electronic medical record under categorization of recalled from ER triage doctor by RN are reflective of an initial nursing assessment, however, is not reflective of my full history and physical exam that was personally taken and clarified. Consequentially, this preceding description of symptoms, which may include the patient's categorized chief complaint in the EMR, do not reflect my personal clinical impression, and the ultimate description of history of present illness and patient stated complaints should be deferred to this section of the note. Unless stated otherwise or congruent with this section of the note, additional signs, symptoms, or incongruence should be interpreted as inaccurate with my clinical impression. Related Data Home Medications Medication Instructions Recorded Confirmed aspirin 81 mg tablet,delayed 81 mg PO DAILY 05/02/23 07/09/23 release Previous Rx's Medication Instructions Recorded atorvastatin 40 mg tablet 40 mg PO HS #90 tabs 05/02/23 bumetanide 2 mg tablet 2 mg PO DAILY #30 tabs 05/02/23 empagliflozin 10 mg tablet 10 mg PO DAILY #90 tabs 05/02/23 (Jardiance) spironolactone 25 mg tablet 25 mg PO BID 30 days #60 tabs 05/03/23 hydroxyzine pamoate 25 mg capsule 25 mg PO TID PRN itching #90 caps 05/09/23 (Vistaril) sacubitril 97 mg-valsartan 103 mg 1 tab PO BID #60 tabs 06/11/23 tablet (Entresto) carvedilol 3.125 mg tablet 3.125 mg PO BID 30 days #60 tabs 07/11/23 Allergies Allergy/AdvReac Type Severity Reaction Status Date / Time No Known Allergies Allergy Verified 07/09/23 13:23 [facility] Disclaimer: The information contained in this section may have been updated after the patient was seen, as this information can be updated by other users. Medical History (Updated 08/26/23 @ 10:59 by Alta Patel APRN) NICM (nonischemic cardiomyopathy) HFrEF (heart failure with reduced ejection fraction) SPEEDY (obstructive sleep apnea) Unstable angina Non-STEMI (non-ST elevated myocardial infarction) LV dysfunction Cardiomyopathy Dyspnea Acute on chronic HFrEF (heart failure with reduced ejection fraction) HTN (hypertension) Accidental drug overdose Overweight (BMI 25.0-29.9) Tobacco use CAD (coronary artery disease) Family History Other No significant family history Social History Smoking Status: Never smoker second hand exposure: Yes alcohol intake: current alcohol intake frequency: holidays/special occasions only substance use type: denies use current occupational status: employed Travel in the last 8 weeks: Inside the [place] household members: children housing: house current occupational exposures/hazards: No caffeine: Yes ROS Obtained: Yes All systems reviewed & no additional complaints except as documented Physical Exam General General appearance: alert Neck Neck exam: Present trachea midline Chest Chest inspection: Present normal inspection and symmetric chest wall rise Respiratory Respiratory exam: Present normal lung sounds bilaterally; Absent respiratory distress, wheezes, stridor, accessory muscle use or prolonged expiratory phase Cardiovascular Cardiovascular exam: Present normal rhythm and tachycardia Abdominal Exam Abdominal exam: Present soft, distention and other (Hepatomegaly); Absent tenderness, guarding, rebound or rigidity Extremities Exam Extremities exam: Absent edema Neurological Exam Neurological exam: Present alert, oriented X3 and CN II-XII intact Skin Skin exam: Present warm and dry; Absent cyanosis, diaphoresis or pallor HEART Score HEART Score HEART Score assessment performed?: Yes HEART Score: 6 Critical Care Critical Care Time Critical Care Time: Yes (CV) Attestation: On 08/26/23, the high probability of a clinically significant, sudden or life threatening deterioration of the following system(s) required my full and direct attention, intervention and personal management. The time I documented below is in addition to time spent performing reported procedures but includes the following listed in this critical care notation. Total Time Total Critical Care Time: 35 Medical Decision Making Medical Records Medical records reviewed: Yes I reviewed the patient's medical records. Brett Inquiry Pt receiving controlled substance: No Brett was queried for this patient: No Vital Signs Vital Signs: 08/26/23 08:02 08/26/23 08:17 08/26/23 08:30 Temperature 98.1 F Temperature Source Oral Pulse Rate 111 H 113 H Pulse Rate [Right Brachial] 111 H Respiratory Rate 18 Blood Pressure 134/107 H Blood Pressure [Right Arm] 126/108 H Blood Pressure Mean [Right Arm] 114 Blood Pressure Source [Right Arm] Automatic Cuff Blood Pressure Position [Right Arm] Sitting 02 Sat by Pulse Oximetry 92 L 98 99 Oxygen Delivery Method Room Air Room Air Oxygen Flow Rate (LPM) 08/26/23 09:00 08/26/23 10:00 08/26/23 10:30 Temperature Temperature Source Pulse Rate 104 H 106 H Pulse Rate [Right Brachial] Respiratory Rate 22 29 H Blood Pressure 136/92 H 108/72 L 125/83 Blood Pressure [Right Arm] Blood Pressure Mean [Right Arm] Blood Pressure Source [Right Arm] Blood Pressure Position [Right Arm] 02 Sat by Pulse Oximetry 92 L 97 97 Oxygen Delivery Method Room Air Room Air Room Air Oxygen Flow Rate (LPM) 08/26/23 11:00 08/26/23 11:31 08/26/23 13:00 Temperature 98.0 F Temperature Source Oral Pulse Rate 102 H 104 H 78 Pulse Rate [Right Brachial] Respiratory Rate 18 21 Blood Pressure 128/92 H 134/96 H 140/50 L Blood Pressure [Right Arm] Blood Pressure Mean [Right Arm] Blood Pressure Source [Right Arm] Blood Pressure Position [Right Arm] 02 Sat by Pulse Oximetry 96 87 L Oxygen Delivery Method Room Air Nasal Cannula Nasal Cannula Oxygen Flow Rate (LPM) 2 08/26/23 13:46 08/26/23 13:48 Temperature 98.1 F Temperature Source Pulse Rate 111 H Pulse Rate [Right Brachial] 103 H Respiratory Rate 18 24 Blood Pressure 136/72 Blood Pressure [Right Arm] 124/93 H Blood Pressure Mean [Right Arm] 103 Blood Pressure Source [Right Arm] Automatic Cuff Blood Pressure Position [Right Arm] Supine 02 Sat by Pulse Oximetry 97 Oxygen Delivery Method Nasal Cannula Nasal Cannula Oxygen Flow Rate (LPM) 2 2 Lab Data Labs: Lab Results 08/26/23 08:00: WBC 12.4 H, RBC 4.75, Hgb 14.3, Hct 43.9, MCV 92.4, MCH 30.1, MCHC 32.6, RDW 16.3, Plt Count 382, MPV 8.4, Neut % (Auto) 77.6, Lymph % (Auto) 14.5, Thayer % (Auto) 4.9, Eos % (Auto) 1.5, Baso % (Auto) 1.5, Neut # (Auto) 9.6 H, Lymph # (Auto) 1.8, Thayer # (Auto) 0.6, Eos # (Auto) 0.2, Baso # (Auto) 0.2, APTT 27.9, Sodium 139, Potassium 4.0, Chloride 103, Carbon Dioxide 28, Anion Gap 12.0, BUN 28 H, Creatinine 1.10, Estimated Creat Clear 79, Estimated GFR 68, Est GFR ( Amer) 82, Glucose 130 H, Calcium 9.1, Magnesium 1.9, Total Bilirubin 1.3, AST 47, ALT 34, Alkaline Phosphatase 64, Troponin I 0.04 H, N T-Pro-B Natriuret Pep 8960 H, Total Protein 7.3, Albumin 4.0, Globulin 3.3 H, Albumin/Globulin Ratio 1.2 08/26/23 08:00 08/26/23 08:00 Response Orders (Tests/Meds): ED MEDICATIONS Generic Name Dose Route Start Last Admin Trade Name Freq PRN Reason Stop Dose Admin Aspirin 81 mg 08/27/23 09:00 Aspirin Ec 81mg Tablet PO 09/26/23 08:59 DAILY WILBER Bumetanide 10 mg/ Sodium 100 mls @ 10 mls/hr 08/26/23 11:05 08/26/23 11:30 Chloride IV 09/25/23 11:04 10 mls/hr .Q10H WILBER Administration Discontinued Medications Generic Name Dose Route Start Last Admin Trade Name Freq PRN Reason Stop Dose Admin Furosemide 40 mg 08/26/23 09:47 08/26/23 10:08 Furosemide 40mg/4ml Vial IV 08/26/23 09:48 40 mg ONCE ONE Administration ORDERS Category Date Time Status Cardiology Consult [Consult to Cardiology] [CONS] Cons 08/26/23 10:35 Active Routine Cardiology Consult [Consult to Cardiology] [CONS] Cons 08/26/23 11:32 Active Routine XR chest portable Stat Exams 08/26/23 08:31 Completed Basic Metabolic Panel [facility] Lab 08/27/23 06:00 Ordered Complete Blood Count Auto Diff [facility] Lab 08/27/23 06:00 Ordered Complete Blood Count Auto Diff Stat Lab 08/26/23 08:00 Completed Comprehensive Metabolic Panel [facility] Lab 08/27/23 06:00 Ordered Comprehensive Metabolic Panel Stat Lab 08/26/23 08:00 Completed Lipid Panel [facility] Lab 08/27/23 06:00 Ordered Liver Panel [facility] Lab 08/27/23 06:00 Ordered Magnesium [facility] Lab 08/27/23 06:00 Ordered Magnesium Stat Lab 08/26/23 08:00 Completed NT Pro Brain Natriuretic Pep. Stat Lab 08/26/23 08:00 Completed PTT [Activated Partial Thrombo Time] Stat Lab 08/26/23 08:00 Completed Troponin I Q3H Lab 08/26/23 13:55 Completed Troponin I Q3H Lab 08/26/23 14:45 Ordered Troponin I Stat Lab 08/26/23 08:00 Completed MDM Narrative Medical Decision Narrative: 62-year-old male history of hypertension, hyperlipidemia, CAD with ischemic cardiomyopathy previously on LifeVest, awaiting pacemaker defibrillator, COPD with lung nodules currently still smoking not on home oxygen presenting with shortness of breath. Patient states he has been short of breath for the last couple of days and has gotten worse. States that given his history, he came in for further evaluation. He has been taking his diuretic medications as prescribed. No lower extremity swelling, chest pains, but is short of breath with minimal exertion. PND and orthopnea as well. History was obtained via conversation with patient. On arrival, patient hemodynamically stable, alert, oriented x4, appropriate, GCS 15, moving all extremities spontaneously, pupils equal and reactive to light. Full physical exam performed and significant for very well-appearing male who is in no acute distress. He is tachycardic, mildly hypertensive, no lower extremity edema. Cardiopulmonary exam within normal limits without appreciable murmur or wheezes. He is tachycardic. Abdomen is soft, but distended and nontender. Hepatomegaly present. differential includes CHF exacerbation, COPD exacerbation, ACS, WA, coronary artery dissection, pneumothorax, PE, dissection, pericarditis, myocarditis, pneumothorax, aortic aneurysm, pneumonia, bronchitis, among others. Patient was given 324 mg aspirin for symptomatic management and correction of underlying abnormalities. Workup independently interpreted and significant for significantly elevated BNP, kidney function normal. Electrolytes normal. Patient with mild leukocytosis. Initial troponin elevated 0.04.Chest x-ray without edema or pulmonary mass ingestion. See radiology read for full review of final results. Independent interpretation of EKG shows sinus tachycardia 111 bpm with T wave inversions and ST depressions high lateral leads without reciprocal change. Rightward axis deviation. Poor R wave progression in precordial leads. MT 164, QRS 114, QTc 430.. Patient placed on continuous cardiac monitoring and continuous pulse ox with initial blood pressure 126/100, heart rate 111, saturation 92% on room air after ambulating, up to 98% on room air at rest. Heart score 6. Patient was placed in observation beginning at 8:30 AM in order to rule out evolving WA with delta troponin and determine need for admission versus home-going. The patient was provided Lasix, cardiac monitoring, cardiology consult while awaiting results. Independent interpretation of results demonstrated stable troponin 0.04. Cardiology recommending inpatient admission with diuresis and potential cardiac MRI if possible. On reevaluation, patient still resting baseline producing plenty of urine. At this time, I feel patient is appropriate for admission and further cardiac workup. Total observation time 3 hours. Shot Fireman disclaimer Much of this encounter note is an electronic refrigeration service technician spoken language to printed text. Electronic refrigeration service technician of the spoken language may permit errors. Although I have reviewed the note, some errors may still exist.
[2023-08-26 08:47] LABS: Activated Partial Thrombo Time 27.9 seconds (22.8-30.6)
[2023-08-26 08:52] LABS: NT Pro Brain Natriuretic Pep. 8960 pg/mL (0-125)
[2023-08-26 08:55] LABS: Troponin I 0.04 ng/ml (0.00-0.034)
[2023-08-26] MEDS: FUROSEMIDE 40MG/4ML VIAL 40 MG IV (10:08)
--- NOTE | 2023-08-26 10:23 | PC.NURSE ---
Called Cardiology for a consult
--- NOTE | 2023-08-26 10:33 | PC.NURSE ---
Alta Patel from Cardiology office is here for consult.
--- NOTE | 2023-08-26 10:48 | EXP.CARD.CON ---
History of Present Illness History of Present Illness Consult date: 08/26/23 Requesting physician: David Potter Consult reason: chest pain, congestive heart failure and shortness of breath Chief complaint: Shortness of breath and chest pain History of present illness: This is a 67-year-old white gentleman who presented to the emergency department complaints of chest pain or shortness of breath. He states he had sudden onset worsening shortness of breath yesterday with bilateral lower extremity edema. He states that he could not get the edema to go away. He is unable to lie flat. He is also experiencing PND. He has a nonproductive cough associated with the shortness of breath. He is having to sleep propped up. He states that the shortness of breath is worse with exertion. It is improving with rest but not resolving. He states that he woke up this morning with an aching sensation in the left side of his chest. It did not radiate. It was associated with worsening shortness of breath and the day before. He states that this was severe. That is why he decided to come to the emergency department. The patient is having acute on chronic exacerbation of HFrEF. BNP is elevated over 8000. His initial troponin is slightly elevated at 0.04. He denies any fever, chills, nausea, vomiting, diarrhea. The patient will be admitted to the hospital for diuresis. He is scheduled for outpatient cardiac MRI in September to reevaluate his ejection fraction to determine if he needs an AICD placed. He was post to have this to back in July but the patient states he was unable to lie flat because of his diuretics. [facility] Disclaimer: The information contained in this section may have been updated after the patient was seen, as this information can be updated by other users. Medical History (Updated 08/26/23 @ 10:59 by Alta Patel APRN) NICM (nonischemic cardiomyopathy) HFrEF (heart failure with reduced ejection fraction) SPEEDY (obstructive sleep apnea) Unstable angina Non-STEMI (non-ST elevated myocardial infarction) LV dysfunction Cardiomyopathy Dyspnea Acute on chronic HFrEF (heart failure with reduced ejection fraction) HTN (hypertension) Accidental drug overdose Overweight (BMI 25.0-29.9) Tobacco use CAD (coronary artery disease) Family History Other No significant family history Social History Smoking Status: Never smoker second hand exposure: Yes alcohol intake: current alcohol intake frequency: holidays/special occasions only substance use type: denies use current occupational status: employed Travel in the last 8 weeks: Inside the [place] household members: children housing: house current occupational exposures/hazards: No caffeine: Yes Review of Systems Review of Systems Review of systems:: pertinent systems reviewed and negative unless documented below Constitutional Constitutional: Reports system reviewed and no additional complaints, except as documented Eyes Eyes: Reports system reviewed and no additional complaints, except as documented ENT Ears, Nose, Mouth, and Throat: Reports system reviewed and no additional complaints, except as documented *Cardiovascular Cardiovascular: Reports system reviewed and no additional complaints, except as documented, Reports chest pain, Reports chest pain at rest, Reports chest pain with activity, Reports dyspnea, Reports dyspnea on exertion, Reports edema, Reports leg edema, Reports paroxysmal nocturnal dyspnea and Reports pedal edema *Respiratory Respiratory: Reports system reviewed and no additional complaints, except as documented, Reports cough, Reports dyspnea, Reports dyspnea on exertion and Denies excessive phlegm production *Gastrointestinal Gastrointestinal: Reports system reviewed and no additional complaints, except as documented and Reports other (abdominal edema) *Genitourinary Genitourinary: Reports system reviewed and no additional complaints, except as documented *Musculoskeletal Musculoskeletal: Reports system reviewed and no additional complaints, except as documented Integumentary/Breasts Skin/Breast: Reports system reviewed and no additional complaints, except as documented *Neurologic Neurologic: Reports system reviewed and no additional complaints, except as documented Psychiatric Psychiatric: Reports system reviewed and no additional complaints, except as documented Endocrine Endocrine: Reports system reviewed and no additional complaints, except as documented Hematologic/Lymphatic Hematologic/Lymphatic: Reports system reviewed and no additional complaints, except as documented Allergic/Immunologic Allergic/Immunologic: Reports system reviewed and no additional complaints, except as documented Exam Data for Last 24 hours Vital signs and Labs for Last 24 Hours: Temp Pulse Resp BP Pulse Ox O2 Del Method 98.1 F 104 H 29 H 108/72 L 97 Room Air 08/26/23 08:02 08/26/23 09:00 08/26/23 10:00 08/26/23 10:00 08/26/23 10:00 08/26/23 10:00 Laboratory Results - last 24 hr 08/26/23 08:00: WBC 12.4 H, RBC 4.75, Hgb 14.3, Hct 43.9, MCV 92.4, MCH 30.1, MCHC 32.6, RDW 16.3, Plt Count 382, MPV 8.4, Neut % (Auto) 77.6, Lymph % (Auto) 14.5, [place] % (Auto) 4.9, Eos % (Auto) 1.5, Baso % (Auto) 1.5, Neut # (Auto) 9.6 H, Lymph # (Auto) 1.8, [place] # (Auto) 0.6, Eos # (Auto) 0.2, Baso # (Auto) 0.2, APTT 27.9, Sodium 139, Potassium 4.0, Chloride 103, Carbon Dioxide 28, Anion Gap 12.0, BUN 28 H, Creatinine 1.10, Estimated Creat Clear 79, Estimated GFR 68, Est GFR ( Amer) 82, Glucose 130 H, Calcium 9.1, Magnesium 1.9, Total Bilirubin 1.3, AST 47, ALT 34, Alkaline Phosphatase 64, Troponin I 0.04 H, NT-Pro-B Natriuret Pep 8960 H, Total Protein 7.3, Albumin 4.0, Globulin 3.3 H, Albumin/Globulin Ratio 1.2 I & O for Last 24 hours: Intake & Output 08/23/23 08/24/23 08/25/23 08/26/23 23:59 23:59 23:59 23:59 Weight 180 lb Constitutional Constitutional: no acute distress and average body habitus *Routine HEENT Exam Head: Present normocephalic and atraumatic ENT: Present mucous membranes moist *Routine Neck Exam Neck: Present supple, full ROM and normal carotid upstroke; Absent JVD, carotid bruit or lymphadenopathy *Routine Respiratory Exam Respiratory: Present crackles, normal respiratory effort, able to speak in complete sentences and symmetric chest movement *Routine Cardiovascular Exam Cardiovascular: Present RRR, Normal S1 and Normal S2; Absent murmur or gallop *Routine Abdominal Exam Abdominal: Present soft, normoactive bowel sounds and distended; Absent tenderness or organomegaly *Routine Extremities Exam Extremities: Present edema, full ROM, pulses intact and normal capillary refill; Absent cyanosis or clubbing *Routine Skin Exam Skin: Present intact and warm; Absent erythema *Routine Neurological Exam Neurological: Present alert, oriented X3 and CN II-XII intact; Absent sensory deficit or motor deficit Routine Psychiatric Exam Psychiatric: Present normal affect Meds Home Medications and Allergies Home Medications Medication Instructions Recorded Confirmed Type aspirin 81 mg tablet,delayed 81 mg PO DAILY 05/02/23 07/09/23 History release atorvastatin 40 mg tablet 40 mg PO HS #90 tabs 05/02/23 07/09/23 Rx bumetanide 2 mg tablet 2 mg PO DAILY #30 tabs 05/02/23 07/09/23 Rx empagliflozin 10 mg tablet 10 mg PO DAILY #90 tabs 05/02/23 07/09/23 Rx (Jardiance) spironolactone 25 mg tablet 25 mg PO BID 30 days #60 tabs 05/03/23 07/09/23 Rx hydroxyzine pamoate 25 mg capsule 25 mg PO TID PRN itching #90 caps 05/09/23 07/09/23 Rx (Vistaril) sacubitril 97 mg-valsartan 103 mg 1 tab PO BID #60 tabs 06/11/23 07/09/23 Rx tablet (Entresto) carvedilol 3.125 mg tablet 3.125 mg PO BID 30 days #60 tabs 07/11/23 Rx New Prescriptions to Start Prescriptions: Allergies Allergy/AdvReac Type Severity Reaction Status Date / Time No Known Allergies Allergy Verified 07/09/23 13:23 Assessment and Plan *Assessment and plan (1) HFrEF (heart failure with reduced ejection fraction): Status: Acute Category: Medical Code(s): I50.20 - Unspecified systolic (congestive) heart failure (2) NICM (nonischemic cardiomyopathy): Status: Acute Category: Medical Code(s): I42.8 - Other cardiomyopathies (3) Atypical angina: Status: Acute Category: Medical Code(s): I20.89 - Other forms of angina pectoris (4) LV dysfunction: Status: Acute Category: Medical Code(s): I51.9 - Heart disease, unspecified (5) Cardiomyopathy: Status: Acute Qualifiers: Cardiomyopathy type: unspecified Qualified Code(s): I42.9 - Cardiomyopathy, unspecified Category: Medical Code(s): I42.9 - Cardiomyopathy, unspecified (6) CAD (coronary artery disease): Status: Chronic Qualifiers: Associated angina: with other forms of angina Coronary Disease-Associated Artery/Lesion type: [place] artery [place] vs. transplanted heart: [place] heart Qualified Code(s): I25.118 - Atherosclerotic heart disease of [place] coronary artery with other forms of angina pectoris Category: Medical Code(s): I25.10 - Atherosclerotic heart disease of [place] coronary artery without angina pectoris (7) Dyspnea: Status: Acute Qualifiers: Dyspnea type: shortness of breath Qualified Code(s): R06.02 - Shortness of breath Category: Medical Code(s): R06.00 - Dyspnea, unspecified (8) HTN (hypertension): Status: Acute Qualifiers: Hypertension type: primary hypertension Qualified Code(s): I10 - Essential (primary) hypertension Category: Medical Code(s): I10 - Essential (primary) hypertension (9) HLD (hyperlipidemia): Status: Chronic Qualifiers: Hyperlipidemia type: other hyperlipidemia Qualified Code(s): E78.4 - Other hyperlipidemia Category: Medical Code(s): E78.5 - Hyperlipidemia, unspecified (10) Stented coronary artery: Status: Chronic Category: Surgical Code(s): Z95.5 - Presence of coronary angioplasty implant and graft (11) SPEEDY (obstructive sleep apnea): Status: Acute Category: Medical Code(s): G47.33 - Obstructive sleep apnea (adult) (pediatric) Plan Plan: 1. The patient presented to the emergency department with complaints of shortness of breath and chest pain. The patient's BNP is elevated over 8000. He is having acute on chronic exacerbation of HFrEF. Patient has been given a dose of IV Lasix which he states has improved his edema but he still feels really short of breath and is unable to lie flat. Will admit the patient for IV diuretics. Will start him on a Bumex drip at 1 mg an hour for diuresis. 2. The patient was scheduled to have a cardiac MRI in July of this year to reevaluate his ejection fraction and to try to determine the etiology of his cardiomyopathy. This has not been completed at this time. The patient is scheduled for an outpatient cardiac MRI on September 10, 2023. He did attempt previously to have a cardiac MRI but was unable to lie flat due to his diuretics. Once the patient is diuresed during this hospitalization we can consider proceeding with cardiac MRI while hospitalized. 3. The patient does have known severe LV dysfunction with an ejection fraction at 15 to 20%. If his cardiac MRI still shows severe LV dysfunction then the patient will need to undergo AICD placement. 4. The patient was previously wearing a LifeVest but this has been discontinued due to cost. He is at increased risk for sudden cardiac due to his severe LV dysfunction. 5. Continue carvedilol, Entresto, spironolactone and Jardiance for HFrEF. 6. The patient does have known coronary artery disease. Recent cardiac catheterization in April 2023 showed patent coronary artery disease. His initial troponin is 0.04. Will trend his troponins at this time and if there is any further elevation in his troponin consider left cardiac catheterization. Continue aspirin for coronary artery disease. 7. His blood pressure is well-controlled. 8. His LDL goal is less than 55. He is on a statin. Will repeat a liver and lipid panel in the morning. 9. Further recommendations will be made pending the patient's response to treatment. Thank you for the opportunity to help participate in the care of this patient. All recommendations and orders are per Dr. Moore.
--- NOTE | 2023-08-26 11:23 | EXP.HP ---
History of Present Illness *Admission Date: 08/26/23 *Reason for visit:: Shortness of breath, weakness *History of present illness: Mr. Jimenez is a 62-year-old male with history of COPD, nonischemic cardiomyopathy, heart failure with reduced ejection fraction, medication noncompliance, CKD who presented to the ER with complaint of chest pain and worsening shortness of breath. He had a worsening shortness of breath acutely over the past 1 to 2 days with worsening lower extremity edema. Has had positional orthopnea, no productive cough, no fever, nausea or vomiting. Having to sleep on a few pillows per his report. His shortness of breath is worse with exertion. On arrival to the ER, workup initiated. BNP elevated above 8000. Initial troponin 0.04. Scheduled for MRI in September and to evaluate his ischemic cardiomyopathy. Had a heart cath earlier this year with no obstructive disease. Medicine and cardiology consulted to assist with management and admit patient. On arrival to the floor, patient has been started on Bumex drip by cardiology. Able to lay flat. Stating he is feeling little bit better, having brisk response to diuresis. On room air. He denies any fever, chills, nausea, vomiting, diarrhea. Patient continues to smoke. Last time he filled his medications was the beginning of June. [facility] Disclaimer: The information contained in this section may have been updated after the patient was seen, as this information can be updated by other users. Medical History NICM (nonischemic cardiomyopathy) HFrEF (heart failure with reduced ejection fraction) SPEEDY (obstructive sleep apnea) Unstable angina Non-STEMI (non-ST elevated myocardial infarction) LV dysfunction Cardiomyopathy Dyspnea Acute on chronic HFrEF (heart failure with reduced ejection fraction) HTN (hypertension) Accidental drug overdose Overweight (BMI 25.0-29.9) Tobacco use CAD (coronary artery disease) Family History Other No significant family history Social History Smoking Status: Never smoker second hand exposure: Yes alcohol intake: current alcohol intake frequency: holidays/special occasions only substance use type: denies use current occupational status: employed Travel in the last 8 weeks: [place] the [place] household members: children housing: house current occupational exposures/hazards: No caffeine: Yes Review of Systems Review of Systems Review of systems (narrative): 14 point review of systems performed, pertinent positives and negatives as per HPI *Neurologic Neurologic: Reports system reviewed and no additional complaints, except as documented Meds Home Medications and Allergies Home Medications Medication Instructions Recorded Confirmed Type aspirin 81 mg tablet,delayed 81 mg PO DAILY 05/02/23 08/26/23 History release atorvastatin 40 mg tablet 40 mg PO HS #90 tabs 05/02/23 08/26/23 Rx bumetanide 2 mg tablet 2 mg PO DAILY #30 tabs 05/02/23 08/26/23 Rx empagliflozin 10 mg tablet 10 mg PO DAILY #90 tabs 05/02/23 08/26/23 Rx (Jardiance) spironolactone 25 mg tablet 25 mg PO BID 30 days #60 tabs 05/03/23 08/26/23 Rx hydroxyzine pamoate 25 mg capsule 25 mg PO TID PRN itching #90 caps 05/09/23 08/26/23 Rx (Vistaril) sacubitril 97 mg-valsartan 103 mg 1 tab PO BID #60 tabs 06/11/23 08/26/23 Rx tablet (Entresto) carvedilol 3.125 mg tablet 3.125 mg PO BID 30 days #60 tabs 07/11/23 08/26/23 Rx New Prescriptions to Start Prescriptions: Allergies Allergy/AdvReac Type Severity Reaction Status Date / Time No Known Allergies Allergy Verified 07/09/23 13:23 Exam Data for Last 24 hours Vital signs and Labs for Last 24 Hours: Temp Pulse Resp BP Pulse Ox O2 Del Method 98.1 F 104 H 29 H 108/72 L 97 Room Air 08/26/23 08:02 08/26/23 09:00 08/26/23 10:00 08/26/23 10:00 08/26/23 10:08/26/23 10:00 Laboratory Results - last 24 hr 08/26/23 08:00: WBC 12.4 H, RBC 4.75, Hgb 14.3, Hct 43.9, MCV 92.4, MCH 30.1, MCHC 32.6, RDW 16.3, Plt Count 382, MPV 8.4, Neut % (Auto) 77.6, Lymph % (Auto) 14.5, [place] % (Auto) 4.9, Eos % (Auto) 1.5, Baso % (Auto) 1.5, Neut # (Auto) 9.6 H, Lymph # (Auto) 1.8, [place] # (Auto) 0.6, Eos # (Auto) 0.2, Baso # (Auto) 0.2, APTT 27.9, Sodium 139, Potassium 4.0, Chloride 103, Carbon Dioxide 28, Anion Gap 12.0, BUN 28 H, Creatinine 1.10, Estimated Creat Clear 79, Estimated GFR 68, Est GFR ( Amer) 82, Glucose 130 H, Calcium 9.1, Magnesium 1.9, Total Bilirubin 1.3, AST 47, ALT 34, Alkaline Phosphatase 64, Troponin I 0.04 H, NT-Pro-B Natriuret Pep 8960 H, Total Protein 7.3, Albumin 4.0, Globulin 3.3 H, Albumin/Globulin Ratio 1.2 I & O for Last 24 hours: Intake & Output 08/23/23 08/24/23 08/25/23 08/26/23 23:59 23:59 23:59 23:59 Weight 81.647 kg Constitutional Constitutional: mild distress, average body habitus and cooperative *Routine HEENT Exam Head: Present normocephalic Eye: Present EOMI and PERRL ENT: Present mucous membranes moist *Routine Neck Exam Neck: Present supple; Absent lymphadenopathy *Routine Respiratory Exam Respiratory: Present prolonged expiratory phase and diminished air movement; Absent rhonchi, wheezes or crackles *Routine Cardiovascular Exam Cardiovascular: Present RRR *Routine Abdominal Exam Abdominal: Present soft and normoactive bowel sounds; Absent tenderness *Routine Rectal Exam Rectal:: deferred *Routine Genitalia Exam Genitalia:: deferred *Routine Extremities Exam Extremities: Present edema (1+ bilaterally lower extremities) and full ROM; Absent cyanosis or clubbing *Routine Skin Exam Skin: Present warm; Absent rash *Routine Neurological Exam Neurological: Present alert, oriented X3 and moving all extremities; Absent altered mental status Assessment and Plan *Assessment and plan (1) Acute on chronic HFrEF (heart failure with reduced ejection fraction): Status: Inactive Category: Medical Code(s): I50.23 - Acute on chronic systolic (congestive) heart failure (2) Atypical chest pain: Status: Acute Category: Medical Code(s): R07.89 - Other chest pain (3) History of aortic aneurysm: Status: Acute Category: Medical Code(s): Z86.79 - Personal history of other diseases of the circulatory system (4) Tobacco use: Status: Chronic Category: Social Hx Code(s): Z72.0 - Tobacco use (5) CAD (coronary artery disease): Status: Chronic Qualifiers: Associated angina: with other forms of angina Coronary Disease-Associated Artery/Lesion type: [place] artery [place] vs. transplanted heart: [place] heart Qualified Code(s): I25.118 - Atherosclerotic heart disease of [place] coronary artery with other forms of angina pectoris Category: Medical Code(s): I25.10 - Atherosclerotic heart disease of [place] coronary artery without angina pectoris (6) HTN (hypertension): Status: Chronic Qualifiers: Hypertension type: essential hypertension Qualified Code(s): I10 - Essential (primary) hypertension Category: Medical Code(s): I10 - Essential (primary) hypertension (7) HLD (hyperlipidemia): Status: Chronic Qualifiers: Hyperlipidemia type: other hyperlipidemia Qualified Code(s): E78.4 - Other hyperlipidemia Category: Medical Code(s): E78.5 - Hyperlipidemia, unspecified (8) NICM (nonischemic cardiomyopathy): Status: Acute Category: Medical Code(s): I42.8 - Other cardiomyopathies (9) COPD (chronic obstructive pulmonary disease): Status: Chronic Category: Medical Code(s): J44.9 - Chronic obstructive pulmonary disease, unspecified Plan Mr. Jimenez is a 62-year-old male with history of CAD, hypertension, CHF, tobacco use disorder who presented to the ER because of worsening shortness of breath over The past 24 to 48 hours. Discussed case with ER physician, request admission for diuresis and further medical management of his heart failure. Cardiology consulted to assist with care. I agreed to admit for further management. Arrives to the floor on Bumex drip. Already having increased urine output. Problems addressed as follows: Acute on chronic heart failure with reduced ejection fraction Non-ischemic cardiomyopathy HTN -Patient has been without his meds for approximately a month as best I can tell from chart review and patient history. - BUN 28, creatinine 1.1. Troponin stable with serial levels 0.04. BNP 8900. Monitoring kidney function closely during diuresis due to risk of kidney injury. -Cardiology consulted, appreciate their recommendations. Will initiate diuresis with Bumex drip 1 mg/h. -Consider cardiac MRI during admission to evaluate further his nonischemic cardiomyopathy - The patient does have known severe LV dysfunction with an ejection fraction at 15 to 20%. If his cardiac MRI still shows severe LV dysfunction then the patient will need to undergo AICD placement. - Continue carvedilol, Entresto, spironolactone and Jardiance for HFrEF. CAD - The patient does have known coronary artery disease. Recent cardiac catheterization in April 2023 showed patent coronary artery disease. His initial troponin is 0.04. - Continue aspirin for coronary artery disease. COPD - On room air, goal saturations greater 90%, will add supplemental oxygen if needed. -DuoNebs every 6 hours as needed HLD: resume lipitor 40mg HS, lipid panel in morning Tobacco use disorder: Nicotine patch as needed DNR Cardiac diet
[2023-08-26] MEDS: BUMETANIDE 10 MG in 0.9 % SODIUM CHLORIDE 60 ML IV ×2 (11:30→20:11)
--- NOTE | 2023-08-26 13:02 | PC.NURSE ---
Dr. Ryan states he has already placed order on this pt, notified House that pt is admitted. Will call back with room
--- NOTE | 2023-08-26 13:22 | PC.NURSE ---
report called to SUSSY Linton at this time
--- NOTE | 2023-08-26 13:38 | PC.NURSE ---
arrived byw/c from ED
[2023-08-26 14:34] LABS: Troponin I 0.04 ng/ml (0.00-0.034)
[2023-08-26 17:27] LABS: Troponin I 0.03 ng/ml (0.00-0.034)
[2023-08-26 20:14] LABS: Chloride 97 mmol/L (98-107); Potassium 3.7 mmoL/L (3.5-5.1); Sodium 138 mmol/L (136-145)
[2023-08-26 20:17] LABS: Anion Gap 11.7 mEq/L (5-15); Blood Urea Nitrogen 27 mg/dl (9-20); Carbon Dioxide 33 mmol/L (22.0-30.0); Creatinine Clearance Estimated 72 mL/min (50-200); Estimated Glomerular Filt Rate 56 ml/min (>60); GFR (African American) 67 ML/MIN (>60)
[2023-08-26 20:18] LABS: Calcium 8.7 mg/dl (8.4-10.2); Glucose 106 mg/dl (74-100); Magnesium 1.8 mg/dl (1.6-2.3)
[2023-08-27] VITALS (10 sets, daily range): BP systolic 85–164; BP diastolic 52–90; PULSE 65–110; RESP 16–35; TEMP 36.3–36.9; O2SAT 93–100; BMI 24.6
[2023-08-27] MEDS: MAGNESIUM OXIDE 400MG TABLET 400 MG PO ×2 (01:14→08:05)
[2023-08-27] MEDS: METHOCARBAMOL 500MG TABLET 500 MG PO ×3 (01:14→20:30)
--- NOTE | 2023-08-27 02:22 | EXP.PN ---
Subjective *Date: 08/27/23 *Time: 02:22 Interval history: Patient has notified nursing staff that he was having cramps in both calves and his hands, patient is on a Bumex drip but last labs showed no significant abnormality. Exam Data for Last 24 hours Vital signs and Labs for Last 24 Hours: Temp Pulse Resp BP Pulse Ox O2 Del Method O2 Flow Rate 98.4 F 104 H 25 H 123/88 93 L Room Air 2 08/27/23 00:00 08/27/23 02:00 08/27/23 02:00 08/27/23 02:00 08/27/23 02:00 08/27/23 02:00 08/26/23 16:49 Laboratory Results - last 24 hr 08/26/23 08:00: WBC 12.4 H, RBC 4.75, Hgb 14.3, Hct 43.9, MCV 92.4, MCH 30.1, MCHC 32.6, RDW 16.3, Plt Count 382, MPV 8.4, Neut % (Auto) 77.6, Lymph % (Auto) 14.5, [place] % (Auto) 4.9, Eos % (Auto) 1.5, Baso % (Auto) 1.5, Neut # (Auto) 9.6 H, Lymph # (Auto) 1.8, [place] # (Auto) 0.6, Eos # (Auto) 0.2, Baso # (Auto) 0.2, APTT 27.9, Sodium 139, Potassium 4.0, Chloride 103, Carbon Dioxide 28, Anion Gap 12.0, BUN 28 H, Creatinine 1.10, Estimated Creat Clear 79, Estimated GFR 68, Est GFR ( Amer) 82, Glucose 130 H, Calcium 9.1, Magnesium 1.9, Total Bilirubin 1.3, AST 47, ALT 34, Alkaline Phosphatase 64, Troponin I 0.04 H, NT-Pro-B Natriuret Pep 8960 H, Total Protein 7.3, Albumin 4.0, Globulin 3.3 H, Albumin/Globulin Ratio 1.2 08/26/23 13:55: Troponin I 0.04 H 08/26/23 16:55: Troponin I 0.03 08/26/23 20:02: Sodium 138, Potassium 3.7, Chloride 97 L, Carbon Dioxide 33 H, Anion Gap 11.7, BUN 27 H, Creatinine 1.30 H, Estimated Creat Clear 72, Estimated GFR 56 L, Est GFR ( Amer) 67, Glucose 106 H, Calcium 8.7, Magnesium 1.8 I & O for Last 24 hours: Intake & Output 08/24/23 08/25/23 08/26/23 08/27/23 23:59 23:59 23:59 23:59 Intake Total 636.833 / 636.833 Output Total 4950 / 5350 400 / 400 Balance -4313.167 / -4713.167 -400 / -400 Weight 87.146 kg Constitutional Constitutional: mild distress Comments: Patient expressed the discomfort of having these cramping off sensations., He is alert oriented able to talk well showing really no signs of distress. *Routine Extremities Exam Comments: Patient is able to move all of his extremities sit up without any assistance his balance is good.. He shows me his right hand where it is kind of drawing up his fingers some, also touching both of the back of his calves with muscle tightness. He says it is not as bad as a charley horse to the legs but it does hurt. Assessment and Plan *Assessment and plan (1) Muscle cramps: Start date: 08/27/23 Status: Acute Category: Medical Code(s): R25.2 - Cramp and spasm Plan 1. Muscle cramping, from his history he tells me this type of cramping is different than what he is ever had. Being on the Bumex drip may be the reason for this. Lab work is relatively normal. And the patient is doing well with the Bumex drip so we will not stop it. Talked with him about muscle cramps in the past and he has had Robaxin before so we will try that, his last magnesium was still in the normal range at 1.8 but will also add some magnesium tablets. Will continue to evaluate the patient if this was to worsen, would then have to reassess treatment.
--- NOTE | 2023-08-27 05:37 | PC.NURSE ---
Patient has tolerated room air throughout shift. He is on a Bumex drip and has had over 5000 ml output of urine so far this shift. He did call out once complaining of leg cramps. A magnesium and BMP was drawn. He was then given magnesium oxide and Methocarbamol to help with the cramps. Other then that he has had no other complaints.
[2023-08-27 06:03] LABS: Basophils # 0.1 K/mm3 (0-0.2); Basophils % 1.1 % (0.1-2.0); Eosinophils # 0.2 K/mm3 (0.0-0.4); Eosinophils % 1.8 % (0.1-12.0); Hemoglobin 14.2 g/dL (14.1-18.0); Lymphocytes # 2.3 K/mm3 (0.7-4.5); Lymphocytes % 19.2 % (10-50); Mean Corpuscular HGB Conc 30.8 g/dL (31.8-35.4); Mean Corpuscular Hemoglobin 28.4 pg (27.0-31.2); Mean Corpuscular Volume 92.3 fl (80-94); Mean Platelet Volume 7.4 fl (7.4-10.4); Monocytes # 0.7 K/mm3 (0.1-1.0); Monocytes % 6.1 % (1.7-9.3); Neutrophils # 8.5 K/mm3 (1.8-7.8); Neutrophils % 71.8 % (37.0-80.0); Platelet Count 389 K/mm3 (142-424); Red Blood Count 4.98 M/mm3 (4.60-6.20); Red Cell Distribution Width 16.4 % (11.5-17.5); White Blood Count 11.8 K/mm3 (4.8-10.8)
[2023-08-27 06:09] LABS: Chloride 94 mmol/L (98-107); Sodium 137 mmol/L (136-145)
[2023-08-27 06:10] LABS: Potassium 3.4 mmoL/L (3.5-5.1)
[2023-08-27 06:12] LABS: Alanine Aminotransferase 34 U/L (12-78); Albumin Level 4.1 g/dl (3.5-5.0); Albumin/Globulin Ratio 1.2 (1.1-1.8); Alkaline Phosphatase 79 U/L (38-126); Anion Gap 11.4 mEq/L (5-15); Aspartate Amino Transferase 38 U/L (17-59); Bilirubin,Total 1.2 mg/dl (0.2-1.3); Blood Urea Nitrogen 27 mg/dl (9-20); Calcium 8.7 mg/dl (8.4-10.2); Carbon Dioxide 35 mmol/L (22.0-30.0); Creatinine Clearance Estimated 80 mL/min (50-200); Estimated Glomerular Filt Rate 68 ml/min (>60); GFR (African American) 82 ML/MIN (>60); Globulin 3.3 g/dL (1.3-3.2); Glucose 124 mg/dl (74-100); Total Protein,Serum 7.4 g/dl (6.3-8.2)
[2023-08-27 06:13] LABS: Magnesium 1.9 mg/dl (1.6-2.3)
[2023-08-27] MEDS: BUMETANIDE 10 MG in 0.9 % SODIUM CHLORIDE 60 ML IV (06:17)
[2023-08-27 07:07] LABS: Chol/HDL Ratio 4.1 (1-3.5); Cholesterol 176 mg/dl (140-200); HDL Cholesterol 43 mg/dl (40-60); Triglycerides 72 mg/dl (30-150); VLDL Cholesterol 14 mg/dL (0-40)
[2023-08-27 07:18] LABS: Direct LDL Cholesterol 110.49 mg/dL (100-129)
[2023-08-27] MEDS: CARVEDILOL 3.125MG TABLET 3.125 MG PO (08:05)
[2023-08-27] MEDS: EMPAGLIFLOZIN 10MG TABLET 10 MG PO (08:05)
[2023-08-27] MEDS: HEPARIN SODIUM 5,000 UNIT/ML VIAL 5000 UNIT SQ ×3 (08:05→20:30)
[2023-08-27] MEDS: SPIRONOLACTONE 25MG TABLET 25 MG PO ×2 (08:05→20:30)
[2023-08-27] MEDS: SACUBITRIL/VALSARTAN 24-26MG TABLET 1 EACH PO (08:05)
[2023-08-27] MEDS: ASPIRIN EC 81MG TABLET 81 MG PO (08:07)
--- NOTE | 2023-08-27 09:13 | HMH.PHAINT1 ---
Pharmacy Intervention Comments: MEDICATION RECONCILIATION COMPLETED ON PATIENT USING EXTERNAL FILL HISTORY FROM PHARMACY AND LIST FROM CARDIOLOGY OFFICE. -CARLOS CUELLAR, JADEND
[2023-08-27] MEDS: SACUBITRIL/VALSARTAN 24-26MG TABLET 3 EACH PO (09:49)
[2023-08-27] MEDS: POTASSIUM CHLORIDE 20MEQ TAB 40 MEQ PO (09:54)
--- NOTE | 2023-08-27 10:47 | EXP.CARD.PN ---
Subjective Subjective Date: 08/27/23 Time: 10:00 Principal diagnosis: acute on chronic HFrEF Interval history: This is a 67-year-old white gentleman who was admitted to the hospital with acute on chronic exacerbation of HFrEF. He has been diuresed with a Bumex drip overnight. The patient was -4 L overnight last night and is already in -4 L this morning. His renal function remained stable this morning. He is a little bit hypokalemic. He states that his shortness of breath and lower extremity edema have significantly improved. He is feeling much better today. He denies any chest pain or pressure this morning. He denies any fever, chills, nausea, vomiting, diarrhea, PND or orthopnea. He is complaining of muscle cramps in his legs from his significant diuresis overnight last night. Exam Data for Last 24 hours Vital signs and Labs for Last 24 Hours: Temp Pulse Resp BP Pulse Ox O2 Del Method O2 Flow Rate 97.4 F L 95 H 20 91/61 L 96 Nasal Cannula 2 08/27/23 04:00 08/27/23 10:00 08/27/23 10:00 08/27/23 10:00 08/27/23 10:00 08/27/23 10:00 08/27/23 10:00 Laboratory Results - last 24 hr 08/26/23 13:55: Troponin I 0.04 H 08/26/23 16:55: Troponin I 0.03 08/26/23 20:02: Sodium 138, Potassium 3.7, Chloride 97 L, Carbon Dioxide 33 H, Anion Gap 11.7, BUN 27 H, Creatinine 1.30 H, Estimated Creat Clear 72, Estimated GFR 56 L, Est GFR ( Amer) 67, Glucose 106 H, Calcium 8.7, Magnesium 1.8 08/27/23 05:19: WBC 11.8 H, RBC 4.98, Hgb 14.2, Hct 46.0, MCV 92.3, MCH 28.4, MCHC 30.8 L, RDW 16.4, Plt Count 389, MPV 7.4, Neut % (Auto) 71.8, Lymph % (Auto) 19.2, [place] % (Auto) 6.1, Eos % (Auto) 1.8, Baso % (Auto) 1.1, Neut # (Auto) 8.5 H, Lymph # (Auto) 2.3, [place] # (Auto) 0.7, Eos # (Auto) 0.2, Baso # (Auto) 0.1, Sodium 137, Potassium 3.4 L, Chloride 94 L, Carbon Dioxide 35 H, Anion Gap 11.4, BUN 27 H, Creatinine 1.10, Estimated Creat Clear 80, Estimated GFR 68, Est GFR ( Amer) 82 D, Glucose 124 H, Calcium 8.7, Magnesium 1.9, Total Bilirubin 1.2, AST 38, ALT 34, Alkaline Phosphatase 79, Total Protein 7.4, Albumin 4.1, Globulin 3.3 H, Albumin/Globulin Ratio 1.2, Triglycerides 72, Cholesterol 176, LDL Cholesterol Direct 110.49, VLDL Cholesterol 14, HDL Cholesterol 43, Cholesterol/HDL Ratio 4.1 H I & O for Last 24 hours: Intake & Output 08/24/23 08/25/23 08/26/23 08/27/23 23:59 23:59 23:59 23:59 Intake Total 636.833 / 636.833 886 / 886 Output Total 4950 / 5350 4925 / 4925 Balance -4313.167 / -4713.167 -4039 / -4039 Weight 192 lb 2 oz 182 lb 2 oz Constitutional Constitutional: no acute distress and average body habitus *Routine HEENT Exam Head: Present normocephalic and atraumatic ENT: Present mucous membranes moist *Routine Neck Exam Neck: Present supple, full ROM and normal carotid upstroke; Absent JVD, carotid bruit or lymphadenopathy *Routine Respiratory Exam Respiratory: Present crackles, normal respiratory effort, able to speak in complete sentences and symmetric chest movement *Routine Cardiovascular Exam Cardiovascular: Present RRR, Normal S1 and Normal S2; Absent murmur or gallop *Routine Abdominal Exam Abdominal: Present soft, normoactive bowel sounds and distended; Absent tenderness or organomegaly *Routine Extremities Exam Extremities: Present full ROM, pulses intact and normal capillary refill; Absent cyanosis, clubbing or edema *Routine Skin Exam Skin: Present intact and warm; Absent erythema *Routine Neurological Exam Neurological: Present alert, oriented X3 and CN II-XII intact; Absent sensory deficit or motor deficit Routine Psychiatric Exam Psychiatric: Present normal affect Progress Note: A&P Assessment and plan (1) Muscle cramps: Status: Acute (2) Hypokalemia: Status: Acute (3) NICM (nonischemic cardiomyopathy): Status: Acute (4) HFrEF (heart failure with reduced ejection fraction): Status: Acute (5) SPEEDY (obstructive sleep apnea): Status: Acute (6) COPD (chronic obstructive pulmonary disease): Status: Chronic (7) LV dysfunction: Status: Acute (8) CAD (coronary artery disease): Status: Chronic (9) HTN (hypertension): Status: Acute (10) HLD (hyperlipidemia): Status: Chronic (11) Stented coronary artery: Status: Chronic Assessment and Plan Assessment and Plan for All Diagnoses:: Plan: 1. The patient presented to the emergency department with complaints of shortness of breath and chest pain. The patient's BNP is elevated over 8000. He is having acute on chronic exacerbation of HFrEF. The patient was diuresed on a Bumex drip overnight. He did have a -4 L fluid balance overnight and has another -4 L fluid balance already this morning. Will stop his Bumex drip at this time. will resume likely oral diureitcs following cardiac MRI. 2. The patient was scheduled to have a cardiac MRI in July of this year to reevaluate his ejection fraction and to try to determine the etiology of his cardiomyopathy. This has not been completed at this time. The patient is scheduled for an outpatient cardiac MRI on September 10, 2023. He did attempt previously to have a cardiac MRI but was unable to lie flat due to his diuretics. Will plan to proceed with cardiac MRI today to evaluate his LV function and etiology of his NICM. 3. The patient does have known severe LV dysfunction with an ejection fraction at 15 to 20%. If his cardiac MRI still shows severe LV dysfunction then the patient will need to undergo AICD placement. 4. The patient was previously wearing a LifeVest but this has been discontinued due to cost. He is at increased risk for sudden cardiac due to his severe LV dysfunction. 5. Continue carvedilol, Entresto, spironolactone and Jardiance for HFrEF. 6. The patient does have known coronary artery disease. Recent cardiac catheterization in April 2023 showed patent coronary artery disease. His initial troponin is 0.04. And his second troponin was negative at 0.03. No plans for invasive left cardiac catheterization at this time. 7. His blood pressure is elevated this morning. Will increase his Entresto back to 97/103 mg twice daily. 8. His LDL goal is less than 55. His LDL is 110. Will increase his Lipitor to 80 mg p.o. nightly. 9. Further recommendations will be made pending the patient's response to treatment. Thank you for the opportunity to help participate in the care of this patient. All recommendations and orders are per Dr. Moore. Addendum: Cardiac MRI shows his ejection fraction is 9 to 10%. There is no ischemia. The patient has dilated nonischemic cardiomyopathy. Pt?s EF still remains <35%. Pt is at increased risk for sudden cardiac secondary to the severe LV dysfunction. Pt has NYHA class III systolic congestive heart failure. Given the pt?s severe LV dysfunction and NYHA class III HFrEF, will plan to proceed with permanent AICD placement tomorrow. The patient has been educated on the risks and benefits of proceeding with AICD placement. The patient has verbalized understanding and is agreeable in proceeding with AICD placement. NPO after midnight.
--- NOTE | 2023-08-27 11:37 | MR_ITS ---
APPROVED REPORT Help Desk Internship: CLINICAL INDICATION Cardiomyopathy evaluation (prior to ICD implantation). TECHNIQUE Image Acquisition: Cardiac magnetic resonance (CMR) was performed on Siemens Espree MRI 1.5T scanner. Software platform sequences were performed using the Siemens [employer] MR B19 platform. A set of three-plane, low-resolution, large [id number] localizers were initially acquired. Then axial, coronal, sagittal TrueFISP, as well as axial HASTE images, were obtained. These were followed by gated TrueFISP breathold cinematic sequences obtained in the short axis with 8 mm slices and 2 mm gaps, 2-chamber (vertical long axis), 3-chamber, 4-chamber (horizontal long axis). A bolus of contrast was injected intravenously with first-pass sequences obtained in the short axis and four-chamber planes. After approximately 10 minutes, a TI piston maker sequence was performed to determine the optimal TI time. Using the optimized TI time, delayed contrast enhancement segmented inversion???recovery TurboFLASH sequences were obtained in the short axis, 2-chamber, 3-chamber, and 4-chamber projections. 2D-velocity phase mapping was performed. Functional parameters were calculated by offline analysis on an independent workstation ([employer] Imaging Platform, [employer] V[employer]V). Contrast: ProHance??? (Gadoteridol) FINDINGS MORPHOLOGY AND FUNCTION Left ventricle: The left ventricle is severely dilated with spherical remodeling. The indexed left ventricular end-diastolic volume (LVEDVi) is 170 ml/m2 (reference range 57-105 ml/m2 in males, 56-96 ml/m2 in females). There is severe reduction in left ventricular systolic function. There is normal left ventricular wall thickness. There is severe global hypokinesis present. LVEF is calculated at 10.0% (reference range 57-77%). Right ventricle: The right ventricle is severely dilated. The indexed right ventricular end-diastolic volume (RVEDVi) is 117 ml/m2 (reference range 61-121 ml/m2 in males, 48-112 ml/m2 in females). There is severe reduction in right ventricular systolic function. RVEF is calculated at 18.1% (reference range 52-72% in males, 51-71% in females). Atria: The left atrium is normal severely dilated. The maximum indexed left atrial volume is 65 ml/m2 (reference range 26-52 ml/m2 in males, 27-53 ml/m2 in females). The right atrium is moderately dilated. The maximum indexed right atrial volume is 46 ml/m2. Aorta: The diameter of the aortic annulus is normal, measuring 27 mm (coronal view reference range 21-30 mm in males, 19-27 mm in females). The diameter of the aortic sinus is normal, measuring 43 mm (coronal view reference range 25-42 mm in males, 24-36 mm in females). The diameter of the sinotubular junction is normal, measuring 37 mm (coronal view reference range 18-32 mm in males, 18-28 mm in females). The diameters of the ascending and descending thoracic aorta are normal. Main pulmonary artery: The main pulmonary artery diameter is mildly increased, measuring 32 mm. Pericardium: The pericardial thickness is normal. The pericardial thickness measures 2.0 mm (normal < 4.0 mm). There is no pericardial effusion. VALVES The valvular morphologies in the visualized sequences appear normal. There is no significant valvular stenosis or regurgitation of the mitral, aortic, tricuspid, or pulmonic valve noted visually. Systolic anterior motion of the mitral valve is not visualized. Ratio of pulmonary to systemic flow, Qp:Qs ratio = 1.0 (normal < or = 1.2, hemodynamically significant shunt > 1.5), demonstrating no evidence of hemodynamically significant shunt. TISSUE CHARACTERIZATION Resting Perfusion: Normal myocardial blood flow at rest. No evidence of resting hypoperfusion. Myocardial Fibrosis and/or edema: Grossly, there is no obvious evidence of late gadolinium enhancement is noted, consistent with absence of myocardial scarring, infarction, or necrosis. However, note that LGE data is difficult to analyze due to significant motion at the time of image acquisition. OTHER No other significant findings are noted. However, this exam is focused on the cardiac structure and function. IMPRESSION Difficult study due to significant motion. LGE data analysis is limited. Severe LV dilation with severe reduction in LV systolic function. LVEDVi= 170 ml/m2 and LVEF= 10.0%. Severe RV dilation with severe reduction in RV systolic function. RVEDVi= 117 ml/m2 and RVEF= 18.1%. Biatrial enlargement. No obvious CMR evidence of myocardial scarring, infarction, or necrosis. No evidence of myocardial edema or inflammation. However, note that LGE data is difficult to analyze due to significant motion at the time of image acquisition. Perfusion analysis demonstrates normal blood flow at rest with no evidence of resting hypoperfusion. Ratio of pulmonary to systemic flow, Qp:Qs ratio = 1.0 (normal < or = 1.2, hemodynamically significant shunt > 1.5), demonstrating no evidence of hemodynamically significant shunt. Mild dilation of the aortic root (43 mm) and ascending aorta (37 mm). Mild dilation of the main PA (32 mm). Overall, this CMR demonstrates severe biventricular failure likely due to idiopathic non-ischemic, idiopathic dilated cardiomyopathy. COMPARISON None CRITICAL RESULT None COMMUNICATION The above findings were communicated with the inpatient cardiology consult team at the time of image acquisition for planned ICD implantation for primary prevention. The findings of this cardiac MR were reviewed, reported, and signed by Enrique Moore MD (Reel Repairer). Conclusion Electronically signed by : Usha Moore MD 09/11/2023 23:46:15
--- NOTE | 2023-08-27 11:46 | PC.NURSE ---
Addendum entered by Gloria Acevedo RN 08/27/23 11:54: pt left floor at 11:54 Original Note: pt off the floor to radiology for cardiac MRI
--- NOTE | 2023-08-27 13:01 | PC.NURSE ---
pt arrived back to floor from mri
[2023-08-27] MEDS: GADOTERIDOL INJ 20ML SYRINGE 19 ML IV (13:18)
[2023-08-27] MEDS: 0.9 % SODIUM CHLORIDE 50 ML VIAL IV (13:18)
[2023-08-27] MEDS: SODIUM CHLORIDE 0.9% 10ML SYR (RAD ONLY) 10 ML IV (13:18)
--- NOTE | 2023-08-27 13:57 | ECG_ITS ---
APPROVED REPORT Exam: Resting ECG HR:87 bpm ECG Measurements Heart Rate 87 AXES VT 167 P 52 QRSd 110 QRS -38 QT 425 T 153 QTc 469 Conclusion SINUS RHYTHM WITH OCCASIONAL SUPRAVENTRICULAR PREMATURE COMPLEXES POSSIBLE RIGHT ATRIAL ENLARGEMENT [0.25mV P-WAVE] LEFT ATRIAL ENLARGEMENT [-0.15mV P-WAVE IN V1/V2] LEFT AXIS DEVIATION [QRS AXIS < -30] LEFT VENTRICULAR HYPERTROPHY AND ST-T CHANGE [VOLTAGE CRITERIA PLUS ST/T ABNORMALITY] ABNORMAL ECG UNCONFIRMED REPORT Electronically signed by : Syed Kelly MD 08/28/2023 08:40:34
--- NOTE | 2023-08-27 14:16 | PC.NURSE ---
Notified Dr. Zambrano of possible t wave inversion on monitor, ekg obtained. VS 86/51 map 62 and 86/59 map 70/ heart rate 88, [address] Zambrano made aware of ekg results and VS, no new orders just to monitor. Patient not symptomatic of low blood pressures, patient alert and oriented times 4, no dizziness or fatigue.
--- NOTE | 2023-08-27 15:51 | PC.NURSE ---
pt has overall had a good shift. pt had slight ekg changes earlier with inverted t-waves. was notified (see previous note). pt was complaining of muscle spasms this a.m. chanel le ordered K+ po and son wanted to continue his muscle relaxer. pt has not since c/o muscle spasms. pt had a cardiac mri today and tolerated the procedure well. no new orders at this time.
--- NOTE | 2023-08-27 17:43 | EXP.PN ---
Subjective *Date: 08/27/23 *Time: 17:43 Interval history: patient is seen at bedside, no acute events overnight, no CP, SOB Exam Data for Last 24 hours Vital signs and Labs for Last 24 Hours: Temp Pulse Resp BP Pulse Ox O2 Del Method O2 Flow Rate 98 F 65 16 85/60 L 100 Room Air 2 08/27/23 16:00 08/27/23 16:00 08/27/23 16:00 08/27/23 16:00 08/27/23 16:00 08/27/23 13:15 08/27/23 11:00 Laboratory Results - last 24 hr 08/26/23 20:02: Sodium 138, Potassium 3.7, Chloride 97 L, Carbon Dioxide 33 H, Anion Gap 11.7, BUN 27 H, Creatinine 1.30 H, Estimated Creat Clear 72, Estimated GFR 56 L, Est GFR ( Amer) 67, Glucose 106 H, Calcium 8.7, Magnesium 1.8 08/27/23 05:19: WBC 11.8 H, RBC 4.98, Hgb 14.2, Hct 46.0, MCV 92.3, MCH 28.4, MCHC 30.8 L, RDW 16.4, Plt Count 389, MPV 7.4, Neut % (Auto) 71.8, Lymph % (Auto) 19.2, [place] % (Auto) 6.1, Eos % (Auto) 1.8, Baso % (Auto) 1.1, Neut # (Auto) 8.5 H, Lymph # (Auto) 2.3, [place] # (Auto) 0.7, Eos # (Auto) 0.2, Baso # (Auto) 0.1, Sodium 137, Potassium 3.4 L, Chloride 94 L, Carbon Dioxide 35 H, Anion Gap 11.4, BUN 27 H, Creatinine 1.10, Estimated Creat Clear 80, Estimated GFR 68, Est GFR ( Amer) 82 D, Glucose 124 H, Calcium 8.7, Magnesium 1.9, Total Bilirubin 1.2, AST 38, ALT 34, Alkaline Phosphatase 79, Total Protein 7.4, Albumin 4.1, Globulin 3.3 H, Albumin/Globulin Ratio 1.2, Triglycerides 72, Cholesterol 176, LDL Cholesterol Direct 110.49, VLDL Cholesterol 14, HDL Cholesterol 43, Cholesterol/HDL Ratio 4.1 H I & O for Last 24 hours: Intake & Output 08/24/23 08/25/23 08/26/23 08/27/23 23:59 23:59 23:59 23:59 Intake Total 636.833 / 824.350 7363 / 1592 Output Total 4950 / 5350 4925 / 4925 Balance -4313.167 / -4713.167 -3333 / -3333 Weight 87.146 kg 82.6 kg Constitutional Constitutional: no acute distress *Routine HEENT Exam Head: Present normocephalic Eye: Present EOMI and PERRL ENT: Present mucous membranes moist *Routine Neck Exam Neck: Present supple; Absent lymphadenopathy *Routine Respiratory Exam Respiratory: Present CTA bilaterally *Routine Cardiovascular Exam Cardiovascular: Present RRR *Routine Abdominal Exam Abdominal: Present soft and normoactive bowel sounds; Absent tenderness *Routine Extremities Exam Extremities: Absent cyanosis, clubbing or edema *Routine Skin Exam Skin: Present warm; Absent rash *Routine Neurological Exam Neurological: Present alert and oriented X3 Assessment and Plan *Assessment and plan (1) Acute on chronic HFrEF (heart failure with reduced ejection fraction): Status: Inactive Category: Medical Code(s): I50.23 - Acute on chronic systolic (congestive) heart failure (2) Atypical chest pain: Status: Acute Category: Medical Code(s): R07.89 - Other chest pain (3) History of aortic aneurysm: Status: Acute Category: Medical Code(s): Z86.79 - Personal history of other diseases of the circulatory system (4) Tobacco use: Status: Chronic Category: Social Hx Code(s): Z72.0 - Tobacco use (5) CAD (coronary artery disease): Status: Chronic Qualifiers: Coronary Disease-Associated Artery/Lesion type: [place] artery Associated angina: with other forms of angina [place] vs. transplanted heart: [place] heart Qualified Code(s): I25.118 - Atherosclerotic heart disease of [place] coronary artery with other forms of angina pectoris Category: Medical Code(s): I25.10 - Atherosclerotic heart disease of [place] coronary artery without angina pectoris (6) HTN (hypertension): Status: Chronic Qualifiers: Hypertension type: essential hypertension Qualified Code(s): I10 - Essential (primary) hypertension Category: Medical Code(s): I10 - Essential (primary) hypertension (7) HLD (hyperlipidemia): Status: Chronic Qualifiers: Hyperlipidemia type: other hyperlipidemia Qualified Code(s): E78.4 - Other hyperlipidemia Category: Medical Code(s): E78.5 - Hyperlipidemia, unspecified (8) NICM (nonischemic cardiomyopathy): Status: Acute Category: Medical Code(s): I42.8 - Other cardiomyopathies (9) COPD (chronic obstructive pulmonary disease): Status: Chronic Category: Medical Code(s): J44.9 - Chronic obstructive pulmonary disease, unspecified Plan Mr. Jimenez is a 62-year-old male with history of CAD, hypertension, CHF, tobacco use disorder who presented to the ER because of worsening shortness of breath over The past 24 to 48 hours. Discussed case with ER physician, request admission for diuresis and further medical management of his heart failure. Acute on chronic heart failure with reduced ejection fraction Non-ischemic cardiomyopathy HTN -Cardiology consulted, appreciate their recommendations. Bumex gtt is on hold -Consider cardiac MRI - showed EF only around 10%, AICD placement - Continue carvedilol, Entresto, spironolactone and Jardiance for HFrEF. CAD - The patient does have known coronary artery disease. Recent cardiac catheterization in April 2023 showed patent coronary artery disease. His initial troponin is 0.04. - Continue aspirin for coronary artery disease. COPD - On room air, goal saturations greater 90%, will add supplemental oxygen if needed. -DuoNebs every 6 hours as needed HLD: resume lipitor 40mg HS, lipid panel in morning Tobacco use disorder: Nicotine patch as needed DNR Cardiac diet NPO after MN for AICD placement
[2023-08-27] MEDS: ACETAMINOPHEN 325MG TAB 650 MG PO (20:30)
[2023-08-27] MEDS: ATORVASTATIN 40MG TABLET 80 MG PO (20:30)
[2023-08-28] VITALS (26 sets, daily range): BP systolic 65–134; BP diastolic 40–91; PULSE 76–100; RESP 18–24; TEMP 36.4–37.6; O2SAT 89–100; BMI 24.7
--- NOTE | 2023-08-28 06:30 | PC.NURSE ---
Patient has had a good shift. He has not complained of any muscle spasms or any pain. He is currently asleep and call light within reach.
[2023-08-28 06:41] LABS: Basophils # 0.1 K/mm3 (0-0.2); Basophils % 1.1 % (0.1-2.0); Eosinophils # 0.4 K/mm3 (0.0-0.4); Eosinophils % 3.5 % (0.1-12.0); Hemoglobin 16.2 g/dL (14.1-18.0); Lymphocytes # 2.4 K/mm3 (0.7-4.5); Lymphocytes % 21.9 % (10-50); Mean Corpuscular HGB Conc 31.7 g/dL (31.8-35.4); Mean Corpuscular Hemoglobin 29.3 pg (27.0-31.2); Mean Corpuscular Volume 92.3 fl (80-94); Mean Platelet Volume 8.3 fl (7.4-10.4); Monocytes % 8.9 % (1.7-9.3); Neutrophils % 64.6 % (37.0-80.0); Platelet Count 421 K/mm3 (142-424); Red Blood Count 5.53 M/mm3 (4.60-6.20); White Blood Count 10.9 K/mm3 (4.8-10.8)
[2023-08-28 06:44] LABS: Chloride 96 mmol/L (98-107); Potassium 3.5 mmoL/L (3.5-5.1); Sodium 136 mmol/L (136-145)
[2023-08-28 06:47] LABS: Anion Gap 12.5 mEq/L (5-15); Blood Urea Nitrogen 35 mg/dl (9-20); Carbon Dioxide 31 mmol/L (22.0-30.0); Creatinine Clearance Estimated 59 mL/min (50-200); Estimated Glomerular Filt Rate 47 ml/min (>60); GFR (African American) 57 ML/MIN (>60); Glucose 97 mg/dl (74-100)
[2023-08-28] MEDS: SPIRONOLACTONE 25MG TABLET 25 MG PO ×2 (08:15→21:47)
[2023-08-28] MEDS: SACUBITRIL/VALSARTAN 24-26MG TABLET 4 EACH PO ×2 (08:15→21:46)
[2023-08-28] MEDS: EMPAGLIFLOZIN 10MG TABLET 10 MG PO (08:15)
[2023-08-28] MEDS: MAGNESIUM OXIDE 400MG TABLET 400 MG PO (08:15)
[2023-08-28] MEDS: CARVEDILOL 3.125MG TABLET 3.125 MG PO ×2 (08:15→21:46)
[2023-08-28] MEDS: diazePAM 10MG TABLET 10 MG PO (10:32)
--- NOTE | 2023-08-28 10:46 | EXP.CARD.PN ---
Subjective Subjective Date: 08/28/23 Time: 10:00 Principal diagnosis: acute on chronic HFrEF Interval history: This is a 62-year-old white gentleman who was admitted to the hospital with acute on chronic exacerbation of HFrEF. The patient was diuresed with a Bumex drip. He did have a -2900 fluid balance overnight. His Bumex drip was stopped yesterday so he was able to lay down to have his cardiac MRI completed. Today he states that his shortness of breath and edema have both significantly improved with being diuresed. He is feeling much better. He denies any chest pain or pressure today. He denies any fever, chills, nausea, vomiting, diarrhea. He states that his orthopnea and PND have also improved. His muscle cramps have resolved today. His ejection fraction on cardiac MRI is around 9 to 10%. Exam Data for Last 24 hours Vital signs and Labs for Last 24 Hours: Temp Pulse Resp BP Pulse Ox O2 Del Method O2 Flow Rate 98.5 F 100 H 22 126/91 H 95 Room Air 2 08/28/23 08:00 08/28/23 08:10 08/28/23 08:00 08/28/23 08:00 08/28/23 08:10 08/28/23 09:00 08/27/23 11:00 Laboratory Results - last 24 hr 08/28/23 05:28: WBC 10.9 H, RBC 5.53, Hgb 16.2, Hct 51.0, MCV 92.3, MCH 29.3, MCHC 31.7 L, RDW 16.0, Plt Count 421, MPV 8.3, Neut % (Auto) 64.6, Lymph % (Auto) 21.9, [place] % (Auto) 8.9, Eos % (Auto) 3.5, Baso % (Auto) 1.1, Neut # (Auto) 7.0, Lymph # (Auto) 2.4, [place] # (Auto) 1.0, Eos # (Auto) 0.4, Baso # (Auto) 0.1, Sodium 136, Potassium 3.5, Chloride 96 L, Carbon Dioxide 31 H, Anion Gap 12.5, BUN 35 H D, Creatinine 1.50 H D, Estimated Creat Clear 59, Estimated GFR 47 L, Est GFR ( Amer) 57 L D, Glucose 97, Calcium 9.0 I & O for Last 24 hours: Intake & Output 08/25/23 08/26/23 08/27/23 08/28/23 23:59 23:59 23:59 23:59 Intake Total 636.833 / 499.686 8507 / 2012 Output Total 4950 / 5350 4925 / 4925 600 / 600 Balance -4313.167 / -4713.167 -2913 / -2913 -600 / -600 Weight 192 lb 2 oz 182 lb 1.629 oz 182 lb 9.6 oz Constitutional Constitutional: no acute distress and average body habitus *Routine HEENT Exam Head: Present normocephalic and atraumatic ENT: Present mucous membranes moist *Routine Neck Exam Neck: Present supple, full ROM and normal carotid upstroke; Absent JVD, carotid bruit or lymphadenopathy *Routine Respiratory Exam Respiratory: Present crackles, normal respiratory effort, able to speak in complete sentences and symmetric chest movement *Routine Cardiovascular Exam Cardiovascular: Present RRR, Normal S1 and Normal S2; Absent murmur or gallop *Routine Abdominal Exam Abdominal: Present soft, normoactive bowel sounds and distended; Absent tenderness or organomegaly *Routine Extremities Exam Extremities: Present full ROM, pulses intact and normal capillary refill; Absent cyanosis, clubbing or edema *Routine Skin Exam Skin: Present intact and warm; Absent erythema *Routine Neurological Exam Neurological: Present alert, oriented X3 and CN II-XII intact; Absent sensory deficit or motor deficit Routine Psychiatric Exam Psychiatric: Present normal affect Progress Note: A&P Assessment and plan (1) Acute on chronic HFrEF (heart failure with reduced ejection fraction): Status: Inactive (2) NICM (nonischemic cardiomyopathy): Status: Acute (3) LV dysfunction: Status: Acute (4) CAD (coronary artery disease): Status: Chronic (5) HTN (hypertension): Status: Chronic (6) HLD (hyperlipidemia): Status: Chronic (7) COPD (chronic obstructive pulmonary disease): Status: Chronic (8) History of aortic aneurysm: Status: Acute (9) Tobacco use: Status: Chronic (10) Stented coronary artery: Status: Chronic (11) Solitary pulmonary nodule on lung CT: Status: Chronic Assessment and Plan Assessment and Plan for All Diagnoses:: Plan: 1. The patient presented to the emergency department with complaints of shortness of breath and chest pain. The patient's BNP is elevated over 8000. He is having acute on chronic exacerbation of HFrEF. The patient was diuresed on a Bumex drip. He was a -2900 mL fluid balance overnight last night. His Bumex drip was stopped yesterday so he could lie flat to have his cardiac MRI completed. Will restart Bumex 2 mg p.o. twice daily. 2. Cardiac MRI showed an ejection fraction of 9 to 10%. There was no ischemia or infiltrates noted. The patient does have dilated nonischemic cardiomyopathy. 3. Pt?s EF still remains <35% after 90 days of GDMT. Pt is at increased risk for sudden cardiac secondary to the severe LV dysfunction. Pt has NYHA class III HFrEF. Given the pt?s severe LV dysfunction and NYHA class III HFrEF, will plan to proceed with permanent AICD placement. 4. A shared decision making interaction was held with the patient for the purpose of educating patient prior to ICD insertion. We discussed the benefits as well as the alternatives to undergoing ICD implantation. We discussed the patient's health goals, preferences and values prior to proceeding with ICD insertion. In order to facilitate this discussion, we used an evidence based tool downloaded from: HTTPS://patientdecisionaid.org 5. The patient has been educated on the risks and benefits of proceeding with AICD placement. The patient has verbalized understanding and is agreeable in proceeding with AICD placement. 6. The patient was previously wearing a LifeVest but this has been discontinued due to cost, he had to pay $700 a month for the vest and he could not afford this. 7. Continue carvedilol, Entresto, spironolactone and Jardiance for HFrEF. 8. The patient does have known coronary artery disease. Recent cardiac catheterization in April 2023 showed patent coronary artery disease. His initial troponin is 0.04. And his second troponin was negative at 0.03. No plans for invasive left cardiac catheterization at this time. 9. His blood pressure is well-controlled today. 10. His LDL goal is less than 55. His LDL is 110. His Lipitor has been increased this admission. 11. Pt has 10 mm nodule in the R lung base. needs follow up on outpatient basis. 12. Further recommendations will be made pending the patient's response to treatment. Thank you for the opportunity to help participate in the care of this patient. All recommendations and orders are per Dr. Moore.
--- NOTE | 2023-08-28 13:37 | PC.NURSE ---
Addendum entered by Sarah Rosen RN 08/28/23 15:58: 1540 pt returned to unit via stretcher with Neena Gilliland RN and Rishabh Benitez RN Original Note: 1332 pt off unit with Kayce Phillips RN to company laborer for procedure.
[2023-08-28] MEDS: 0.9 % SODIUM CHLORIDE 1000ML 1,000 ML 25 ML IV (13:58)
[2023-08-28] MEDS: CEFAZOLIN 1GM VIAL 1 GM TP (13:59)
[2023-08-28] MEDS: CEFAZOLIN SODIUM 1 GM in 0.9 % SODIUM CHLORIDE 50 ML IV (13:59)
[2023-08-28] MEDS: LIDOCAINE 1% W/EPI 1:100,000 20ML VIAL 20 ML SQ (13:59)
[2023-08-28] MEDS: FENTANYL 100MCG/2ML VIAL 50 MCG IV (14:39)
[2023-08-28] MEDS: MIDAZOLAM HCL 1MG/1ML 5ML VIAL 1 MG IV (14:39)
[2023-08-28] MEDS: PROPOFOL 10MG/ML 20ML VIAL 210 MG IV (14:39)
--- NOTE | 2023-08-28 14:48 | XR_ITS ---
FINAL REPORT CLINICAL HISTORY: Confirm pacemaker/AID placement COMPARISON: 08/26/2023 FINDINGS: No acute pulmonary opacity is present. There is no evidence of effusion or pneumothorax. Mediastinum is unremarkable. There has been interval placement of left subclavian pacer. Leads are radiographically intact. There is stable mild cardiomegaly. IMPRESSION: No acute abnormality. Reviewed, Interpreted and Dictated by Daryn Segal MD Transcribed by Daisy Zendejas Authenticated and [facility]
--- NOTE | 2023-08-28 15:36 | SUR.PHASEII ---
PATEINT AND FAMILY INSTRUCTED TO COME TO ER IF URINARY BLEEDING WORSENS OR DOES NOT IMPROVE.
--- NOTE | 2023-08-28 17:20 | EXP.PN ---
Subjective *Date: 08/28/23 *Time: 17:20 Interval history: patient is seen at bedside, no acute events overnight, denied CP, SOB Exam Data for Last 24 hours Vital signs and Labs for Last 24 Hours: Temp Pulse Resp BP Pulse Ox O2 Del Method O2 Flow Rate 99.7 F H 93 H 24 105/75 L 97 Simple Mask 10 08/28/23 12:00 08/28/23 16:30 08/28/23 16:30 08/28/23 16:30 08/28/23 16:30 08/28/23 16:30 08/28/23 16:30 Laboratory Results - last 24 hr 08/28/23 05:28: WBC 10.9 H, RBC 5.53, Hgb 16.2, Hct 51.0, MCV 92.3, MCH 29.3, MCHC 31.7 L, RDW 16.0, Plt Count 421, MPV 8.3, Neut % (Auto) 64.6, Lymph % (Auto) 21.9, [place] % (Auto) 8.9, Eos % (Auto) 3.5, Baso % (Auto) 1.1, Neut # (Auto) 7.0, Lymph # (Auto) 2.4, [place] # (Auto) 1.0, Eos # (Auto) 0.4, Baso # (Auto) 0.1, Sodium 136, Potassium 3.5, Chloride 96 L, Carbon Dioxide 31 H, Anion Gap 12.5, BUN 35 H D, Creatinine 1.50 H D, Estimated Creat Clear 59, Estimated GFR 47 L, Est GFR ( Amer) 57 L D, Glucose 97, Calcium 9.0 I & O for Last 24 hours: Intake & Output 08/25/23 08/26/23 08/27/23 08/28/23 23:59 23:59 23:59 23:59 Intake Total 636.833 / 169.077 0517 / 2012 Output Total 4950 / 5350 4925 / 4925 925 / 925 Balance -4313.167 / -4713.167 -2913 / -291 -925 / -925 Weight 87.146 kg 82.6 kg 82.826 kg Constitutional Constitutional: no acute distress *Routine HEENT Exam Head: Present normocephalic Eye: Present EOMI and PERRL ENT: Present mucous membranes moist *Routine Neck Exam Neck: Present supple; Absent lymphadenopathy *Routine Respiratory Exam Respiratory: Present CTA bilaterally *Routine Cardiovascular Exam Cardiovascular: Present RRR *Routine Abdominal Exam Abdominal: Present soft and normoactive bowel sounds; Absent tenderness *Routine Extremities Exam Extremities: Absent cyanosis, clubbing or edema *Routine Skin Exam Skin: Present warm; Absent rash *Routine Neurological Exam Neurological: Present alert and oriented X3 Assessment and Plan *Assessment and plan (1) Acute on chronic HFrEF (heart failure with reduced ejection fraction): Status: Inactive Category: Medical Code(s): I50.23 - Acute on chronic systolic (congestive) heart failure (2) Atypical chest pain: Status: Acute Category: Medical Code(s): R07.89 - Other chest pain (3) History of aortic aneurysm: Status: Acute Category: Medical Code(s): Z86.79 - Personal history of other diseases of the circulatory system (4) Tobacco use: Status: Chronic Category: Social Hx Code(s): Z72.0 - Tobacco use (5) CAD (coronary artery disease): Status: Chronic Qualifiers: Coronary Disease-Associated Artery/Lesion type: [place] artery Associated angina: with other forms of angina [place] vs. transplanted heart: [place] heart Qualified Code(s): I25.118 - Atherosclerotic heart disease of [place] coronary artery with other forms of angina pectoris Category: Medical Code(s): I25.10 - Atherosclerotic heart disease of [place] coronary artery without angina pectoris (6) HTN (hypertension): Status: Chronic Qualifiers: Hypertension type: essential hypertension Qualified Code(s): I10 - Essential (primary) hypertension Category: Medical Code(s): I10 - Essential (primary) hypertension (7) HLD (hyperlipidemia): Status: Chronic Qualifiers: Hyperlipidemia type: other hyperlipidemia Qualified Code(s): E78.4 - Other hyperlipidemia Category: Medical Code(s): E78.5 - Hyperlipidemia, unspecified (8) NICM (nonischemic cardiomyopathy): Status: Acute Category: Medical Code(s): I42.8 - Other cardiomyopathies (9) COPD (chronic obstructive pulmonary disease): Status: Chronic Category: Medical Code(s): J44.9 - Chronic obstructive pulmonary disease, unspecified Plan Mr. Jimenez is a 62-year-old male with history of CAD, hypertension, CHF, tobacco use disorder who presented to the ER because of worsening shortness of breath over The past 24 to 48 hours. Discussed case with ER physician, request admission for diuresis and further medical management of his heart failure. Acute on chronic heart failure with reduced ejection fraction Non-ischemic cardiomyopathy HTN -Cardiology consulted, appreciate their recommendations. Bumex gtt is on hold -Consider cardiac MRI - showed EF only around 10%, AICD placement - Continue carvedilol, Entresto, spironolactone and Jardiance for HFrEF. CAD - The patient does have known coronary artery disease. Recent cardiac catheterization in April 2023 showed patent coronary artery disease. His initial troponin is 0.04. - Continue aspirin for coronary artery disease. COPD - On room air, goal saturations greater 90%, will add supplemental oxygen if needed. -DuoNebs every 6 hours as needed HLD: resume lipitor 40mg HS, lipid panel in morning Tobacco use disorder: Nicotine patch as needed DNR Cardiac diet NPO after MN for AICD placement, plan for AICD today, likely dc tomorrow
[2023-08-28] MEDS: ATORVASTATIN 40MG TABLET 80 MG PO (21:46)
[2023-08-28] MEDS: HEPARIN SODIUM 5,000 UNIT/ML VIAL 5000 UNIT SQ (21:46)
[2023-08-28] MEDS: ACETAMINOPHEN 325MG TAB 650 MG PO (21:48)
[2023-08-28] MEDS: OXYCODONE 5MG W/APAP 325MG TABLET 1 EACH PO (23:44)
[2023-08-29] VITALS: BP 88/35; PULSE 89; PULSE 90; RESP 20; TEMP 36.4; O2SAT 97
[2023-08-29 04:00] VITALS: BP 75/49; PULSE 80; RESP 20; TEMP 36.6; O2SAT 90; BMI 24.6
--- NOTE | 2023-08-29 04:00 | PC.NURSE ---
Patient alert and oriented x4 throughout shift. Tolerating room air well. Has complained of surgical site pain, treated per MAY. Surgical site dressing C/D/I upon inspection. Will continue to inspect site through shift. Patient has had some low blood pressures through shift. Contacted MD Aguirre prior to administering night time cardiology meds. No other needs expressed throughout shift. Call light within reach.
[2023-08-29 06:37] LABS: Basophils # 0.1 K/mm3 (0-0.2); Basophils % 0.7 % (0.1-2.0); Chloride 97 mmol/L (98-107); Eosinophils # 0.2 K/mm3 (0.0-0.4); Eosinophils % 1.8 % (0.1-12.0); Hematocrit 51.5 % (42.0-52.0); Hemoglobin 16.4 g/dL (14.1-18.0); Lymphocytes # 1.8 K/mm3 (0.7-4.5); Mean Corpuscular HGB Conc 31.9 g/dL (31.8-35.4); Mean Corpuscular Hemoglobin 29.7 pg (27.0-31.2); Mean Corpuscular Volume 93.1 fl (80-94); Monocytes # 0.9 K/mm3 (0.1-1.0); Monocytes % 7.3 % (1.7-9.3); Neutrophils # 9.2 K/mm3 (1.8-7.8); Neutrophils % 75.2 % (37.0-80.0); Platelet Count 467 K/mm3 (142-424); Red Blood Count 5.53 M/mm3 (4.60-6.20); Red Cell Distribution Width 15.8 % (11.5-17.5); Sodium 135 mmol/L (136-145); White Blood Count 12.2 K/mm3 (4.8-10.8)
[2023-08-29 06:38] LABS: Potassium 3.8 mmoL/L (3.5-5.1)
[2023-08-29 06:41] LABS: Anion Gap 9.8 mEq/L (5-15); Blood Urea Nitrogen 40 mg/dl (9-20); Calcium 8.3 mg/dl (8.4-10.2); Carbon Dioxide 32 mmol/L (22.0-30.0); Creatinine Clearance Estimated 59 mL/min (50-200); Estimated Glomerular Filt Rate 47 ml/min (>60); GFR (African American) 57 ML/MIN (>60); Glucose 125 mg/dl (74-100)
[2023-08-29 08:00] VITALS: BP 83/53; PULSE 84; PULSE 85; RESP 18; TEMP 36.8; O2SAT 99
[2023-08-29] MEDS: CARVEDILOL 3.125MG TABLET 3.125 MG PO (08:11)
[2023-08-29] MEDS: MAGNESIUM OXIDE 400MG TABLET 400 MG PO (08:11)
[2023-08-29] MEDS: EMPAGLIFLOZIN 10MG TABLET 10 MG PO (08:11)
[2023-08-29] MEDS: HEPARIN SODIUM 5,000 UNIT/ML VIAL 5000 UNIT SQ (08:11)
[2023-08-29] MEDS: METHOCARBAMOL 500MG TABLET 500 MG PO (08:12)
[2023-08-29] MEDS: SPIRONOLACTONE 25MG TABLET 25 MG PO (08:12)
[2023-08-29] MEDS: OXYCODONE 5MG W/APAP 325MG TABLET 1 EACH PO (08:12)
[2023-08-29] MEDS: BUMETANIDE 1 MG TABLET 2 MG PO (08:13)
[2023-08-29] MEDS: ASPIRIN EC 81MG TABLET 81 MG PO (08:13)
[2023-08-29] MEDS: SACUBITRIL/VALSARTAN 24-26MG TABLET 4 EACH PO (08:13)
--- NOTE | 2023-08-29 10:57 | P.PN_ITS ---
Subjective Subjective Date: 08/29/23 Time: 10:00 Principal diagnosis: acute on chronic HFrEF Interval history: This is a 62-year-old white gentleman who presented to the hospital with acute on chronic exacerbation of HFrEF. He has been diuresed with a Bumex drip and is now on oral Bumex. He had -925 of milliliters fluid balance overnight. He did have a cardiac MRI during this hospitalization and his ejection fraction was estimated around 10%. The patient had been on guideline directed medical therapy for greater than 90 days without improvement in his EF so he underwent AICD placement yesterday and tolerated the procedure well. The AICD insertion site has no signs of infection. He does have some soreness around the site. No drainage noted. He denies any chest pain or pressure. He denies any shortness of breath or edema. He denies any fever, chills, nausea, vomiting, diarrhea, PND or orthopnea. Exam Data for Last 24 hours Vital signs and Labs for Last 24 Hours: Temp Pulse Resp BP Pulse Ox O2 Del Method O2 Flow Rate 98.2 F 84 18 83/53 L 99 Room Air 10 08/29/23 08:00 08/29/23 08:00 08/29/23 08:00 08/29/23 08:00 08/29/23 08:00 08/29/23 09:00 08/28/23 18:00 Laboratory Results - last 24 hr 08/29/23 05:26: WBC 12.2 H, RBC 5.53, Hgb 16.4, Hct 51.5, MCV 93.1, MCH 29.7, MCHC 31.9, RDW 15.8, Plt Count 467 H, MPV 7.0 L, Neut % (Auto) 75.2, Lymph % (Auto) 15.0, [place] % (Auto) 7.3, Eos % (Auto) 1.8, Baso % (Auto) 0.7, Neut # (Auto) 9.2 H, Lymph # (Auto) 1.8, [place] # (Auto) 0.9, Eos # (Auto) 0.2, Baso # (Auto) 0.1, Sodium 135 L, Potassium 3.8, Chloride 97 L, Carbon Dioxide 32 H, Anion Gap 9.8, BUN 40 H, Creatinine 1.50 H, Estimated Creat Clear 59, Estimated GFR 47 L, Est GFR ( Amer) 57 L, Glucose 125 H D, Calcium 8.3 L I & O for Last 24 hours: Intake & Output 08/26/23 08/27/23 08/28/23 08/29/23 23:59 23:59 23:59 23:59 Intake Total 636.833 / 829.364 5615 / 2012 360 / 360 Output Total 4950 / 5350 4925 / 4925 925 / 925 Balance -4313.167 / -4713.167 -2913 / -2913 -925 / -925 360 / 360 Weight 192 lb 2 oz 182 lb 1.629 oz 182 lb 9.6 oz 182 lb Constitutional Constitutional: no acute distress and average body habitus *Routine HEENT Exam Head: Present normocephalic and atraumatic ENT: Present mucous membranes moist *Routine Neck Exam Neck: Present supple, full ROM and normal carotid upstroke; Absent JVD, carotid bruit or lymphadenopathy *Routine Respiratory Exam Respiratory: Present crackles, normal respiratory effort, able to speak in complete sentences and symmetric chest movement *Routine Cardiovascular Exam Cardiovascular: Present RRR, Normal S1 and Normal S2; Absent murmur or gallop Comments: AICD to left chest wall with dressing intact. No signs of infection. *Routine Abdominal Exam Abdominal: Present soft, normoactive bowel sounds and distended; Absent tenderness or organomegaly *Routine Extremities Exam Extremities: Present full ROM, pulses intact and normal capillary refill; Absent cyanosis, clubbing or edema *Routine Skin Exam Skin: Present intact and warm; Absent erythema *Routine Neurological Exam Neurological: Present alert, oriented X3 and CN II-XII intact; Absent sensory deficit or motor deficit Routine Psychiatric Exam Psychiatric: Present normal affect Progress Note: A&P Assessment and plan (1) Acute on chronic HFrEF (heart failure with reduced ejection fraction): Status: Inactive (2) AICD (automatic cardioverter/defibrillator) present: Status: Acute (3) NICM (nonischemic cardiomyopathy): Status: Acute (4) LV dysfunction: Status: Acute (5) CAD (coronary artery disease): Status: Chronic (6) HTN (hypertension): Status: Chronic (7) HLD (hyperlipidemia): Status: Chronic (8) History of aortic aneurysm: Status: Acute (9) Tobacco use: Status: Chronic (10) COPD (chronic obstructive pulmonary disease): Status: Chronic (11) Stented coronary artery: Status: Chronic (12) Solitary pulmonary nodule on lung CT: Status: Chronic (13) HARITHA (acute kidney injury): Status: Acute Assessment and Plan Assessment and Plan for All Diagnoses:: Plan: 1. The patient presented to the emergency department with complaints of shortness of breath and chest pain. The patient's BNP was elevated over 8000. He was having acute on chronic exacerbation of HFrEF. The patient was diuresed on a Bumex drip. He was converted over to oral Bumex yesterday. He had -925 fluid balance overnight. Continue Bumex 2 mg p.o. twice daily. 2. Cardiac MRI showed an ejection fraction of approximately 10%. There was no ischemia or infiltrates noted. The patient does have dilated nonischemic cardiomyopathy. 3. Pt?s EF still remains <35% after 90 days of GDMT. Pt is at increased risk for sudden cardiac secondary to the severe LV dysfunction. Pt has NYHA class III HFrEF. Given the pt?s severe LV dysfunction and NYHA class III HFrEF and after a shared decision making interaction was held the patient underwent AICD placement yesterday. He tolerated the procedure well. There is no bleeding or drainage noted from the site. No signs of infection. 5. Continue carvedilol, Entresto, spironolactone and Jardiance for HFrEF. 6. The patient does have known coronary artery disease. Recent cardiac catheterization in April 2023 showed patent coronary artery disease. His in itial troponin is 0.04. And his second troponin was negative at 0.03. No plans for invasive left cardiac catheterization at this time. 7. His blood pressure is on the low side but acceptable. 8. His LDL goal is less than 55. His LDL is 110. His Lipitor has been increased this admission. 9. Pt has 10 mm nodule in the R lung base. needs follow up on outpatient basis. 10. The patient's creatinine has elevated to 1.5. He does need to be Prerenal to keep him out of pulmonary edema. 11. No further recommendations at this time from a cardiac standpoint. The patient can be discharged home today from a cardiac standpoint. The patient will need follow-up in cardiology clinic next for removal of his norris at his AICD site. 12. The patient can be discharged on the following cardiac medications: Bumex 2 mg p.o. twice daily, atorvastatin 80 mg p.o. nightly, aspirin 81 mg daily, Coreg 3.125 mg p.o. twice daily, Jardiance 10 mg daily, Entresto 97/103 mg p.o. twice daily, spironolactone 25 mg p.o. twice daily. Thank you for the opportunity to help participate in the care of this patient. All recommendations and orders are per Dr. Moore.
[2023-08-29 12:00] VITALS: BP 112/52; PULSE 83; RESP 18; TEMP 36.8; O2SAT 96
--- NOTE | 2023-08-30 11:49 | EXP.DC.SUM ---
General Admission date:: 08/26/23 Discharge date: 08/30/23 HPI HPI HPI: Mr. Jimenez is a 62-year-old male with history of COPD, nonischemic cardiomyopathy, heart failure with reduced ejection fraction, medication noncompliance, CKD who presented to the ER with complaint of chest pain and worsening shortness of breath. He had a worsening shortness of breath acutely over the past 1 to 2 days with worsening lower extremity edema. Has had positional orthopnea, no productive cough, no fever, nausea or vomiting. Having to sleep on a few pillows per his report. His shortness of breath is worse with exertion. On arrival to the ER, workup initiated. BNP elevated above 8000. Initial troponin 0.04. Scheduled for MRI in September and to evaluate his ischemic cardiomyopathy. Had a heart cath earlier this year with no obstructive disease. Medicine and cardiology consulted to assist with management and admit patient. On arrival to the floor, patient has been started on Bumex drip by cardiology. Able to lay flat. Stating he is feeling little bit better, having brisk response to diuresis. On room air. He denies any fever, chills, nausea, vomiting, diarrhea. Patient continues to smoke. Last time he filled his medications was the beginning of June. Hospital Course Hospital Course Hospital Course: Mr. Jimenez is a 62-year-old male with history of CAD, hypertension, CHF, tobacco use disorder who presented to the ER because of worsening shortness of breath over The past 24 to 48 hours. Discussed case with ER physician, request admission for diuresis and further medical management of his heart failure. Acute on chronic heart failure with reduced ejection fraction Non-ischemic cardiomyopathy HTN -Cardiology consulted, appreciate their recommendations. Bumex gtt is on hold -Consider cardiac MRI - showed EF only around 10%, s/p AICD placement - Continue carvedilol, Entresto, spironolactone and Jardiance for HFrEF. patient is stable for discharge, s/p AICD. Patient seen and evaluated by cardiology and deemed stable for discahrge. Exam Data for Last 24 hours Vital signs and Labs for Last 24 Hours: Temp Pulse Resp BP Pulse Ox O2 Del Method O2 Flow Rate 98.2 F 83 18 112/52 L 96 Room Air 10 08/29/23 12:00 08/29/23 12:00 08/29/23 12:00 08/29/23 12:00 08/29/23 12:00 08/29/23 13:00 08/28/23 18:00 I & O for Last 24 hours: Intake & Output 08/27/23 08/28/23 08/29/23 08/30/23 23:59 23:59 23:59 23:59 Intake Total 2011 360 / 360 Output Total 4925 / 4925 925 / 925 600 / 600 Balance -2913 / -2913 -925 / -925 -240 / -240 Weight 82.6 kg 82.826 kg 82.554 kg Constitutional Constitutional: no acute distress *Routine HEENT Exam Head: Present normocephalic Eye: Present EOMI and PERRL ENT: Present mucous membranes moist *Routine Neck Exam Neck: Present supple; Absent lymphadenopathy *Routine Respiratory Exam Respiratory: Present CTA bilaterally *Routine Cardiovascular Exam Cardiovascular: Present RRR *Routine Abdominal Exam Abdominal: Present soft and normoactive bowel sounds; Absent tenderness *Routine Extremities Exam Extremities: Absent cyanosis, clubbing or edema *Routine Skin Exam Skin: Present warm; Absent rash *Routine Neurological Exam Neurological: Present alert and oriented X3 DS: Diagnosis Discharge Diagnosis (1) Acute on chronic HFrEF (heart failure with reduced ejection fraction): Status: Inactive Code(s): I50.23 - Acute on chronic systolic (congestive) heart failure (2) AICD (automatic cardioverter/defibrillator) present: Status: Acute Code(s): Z95.810 - Presence of automatic (implantable) cardiac defibrillator (3) NICM (nonischemic cardiomyopathy): Status: Acute Code(s): I42.8 - Other cardiomyopathies (4) LV dysfunction: Status: Acute Code(s): I51.9 - Heart disease, unspecified (5) CAD (coronary artery disease): Status: Chronic Code(s): I25.10 - Atherosclerotic heart disease of [place] coronary artery without angina pectoris Qualifiers: Coronary Disease-Associated Artery/Lesion type: [place] artery Associated angina: with other forms of angina [place] vs. transplanted heart: [place] heart Qualified Code(s): I25.118 - Atherosclerotic heart disease of [place] coronary artery with other forms of angina pectoris (6) HTN (hypertension): Status: Chronic Code(s): I10 - Essential (primary) hypertension Qualifiers: Hypertension type: essential hypertension Qualified Code(s): I10 - Essential (primary) hypertension (7) HLD (hyperlipidemia): Status: Chronic Code(s): E78.5 - Hyperlipidemia, unspecified Qualifiers: Hyperlipidemia type: other hyperlipidemia Qualified Code(s): E78.4 - Other hyperlipidemia (8) History of aortic aneurysm: Status: Acute Code(s): Z86.79 - Personal history of other diseases of the circulatory system (9) Tobacco use: Status: Chronic Code(s): Z72.0 - Tobacco use (10) COPD (chronic obstructive pulmonary disease): Status: Chronic Code(s): J44.9 - Chronic obstructive pulmonary disease, unspecified (11) Stented coronary artery: Status: Chronic Code(s): Z95.5 - Presence of coronary angioplasty implant and graft (12) Solitary pulmonary nodule on lung CT: Status: Chronic Code(s): R91.1 - Solitary pulmonary nodule (13) HARITHA (acute kidney injury): Status: Acute Code(s): N17.9 - Acute kidney failure, unspecified Meds Home Medications and Allergies Home Medications Medication Instructions Recorded Confirmed Type aspirin 81 mg tablet,delayed 81 mg PO DAILY 05/02/23 08/26/23 History release empagliflozin 10 mg tablet 10 mg PO DAILY #90 tabs 05/02/23 08/26/23 Rx (Jardiance) spironolactone 25 mg tablet 25 mg PO BID 30 days #60 tabs 05/03/23 08/26/23 Rx hydroxyzine pamoate 25 mg capsule 25 mg PO TID PRN itching #90 caps 05/09/23 08/26/23 Rx (Vistaril) sacubitril 97 mg-valsartan 103 mg 1 tab PO BID #60 tabs 06/11/23 08/26/23 Rx tablet (Entresto) carvedilol 3.125 mg tablet 3.125 mg PO BID 30 days #60 tabs 07/11/23 08/26/23 Rx atorvastatin 40 mg tablet 80 mg (2 x 40 mg) PO HS 30 days 08/29/23 Rx #60 tabs bumetanide 1 mg tablet 2 mg (2 x 1 mg) PO BIDL 30 days 08/29/23 Rx #120 tabs New Prescriptions to Start Prescriptions: Arden Mcginnis bumetanide Darius Zambranojosefina Allergies Allergy/AdvReac Type Severity Reaction Status Date / Time No Known Allergies Allergy Verified 07/09/23 13:23 Discharge Plan Disposition Patient Disposition: Home, Self-Care Condition: Good Discharge Order Discharge Orders: Discharge Order (Routine); Ordered 08/29/23 Ordered By: Arden Zambrano Follow up Plan Follow up with: Tom Castaneda APRN [Nurse Practitioner] - 09/03/23 1:45 pm Jad Aguirre MD [Staff Physician] - 09/04/23 10:15 am Prescriptions/Medication Reconciliation: New atorvastatin 40 mg Tablet 80 mg PO HS 30 Days Qty: 60 0RF bumetanide 1 mg Tablet 2 mg PO BIDL 30 Days Qty: 120 0RF Continued hydroxyzine pamoate [Vistaril] 25 mg capsule 25 mg PO TID PRN (Reason: itching) Qty: 90 1RF Jardiance 10 mg tablet 10 mg PO DAILY Qty: 90 0RF Entresto 97-103 mg tablet 1 tab PO BID Qty: 60 5RF carvedilol 3.125 mg tablet 3.125 mg PO BID 30 Days Qty: 60 11RF aspirin 81 mg Tablet,Delayed Release (Dr/Ec) 81 mg PO DAILY spironolactone 25 mg Tablet 25 mg PO BID 30 Days Qty: 60 0RF Discontinued atorvastatin 40 mg tablet 40 mg PO HS Qty: 90 0RF bumetanide 2 mg Tablet 2 mg PO DAILY Qty: 30 3RF Problem Reconciliation Problems Reviewed?: Yes Patient Discharge Instructions ACTIVITY: Ambulate as tolerated DIET: continue same diet Patient Instructions: DI for Heart Failure, DI for Angina, DI for Automatic Cardioverter/Defibrillator Implantation, DI for Surgical Site Infection Providers Primary Care Provider: Provider,Referral Admit Provider: Rod Ryan Attending Provider: Rod Ryan
--- NOTE | 2023-09-02 14:58 | CARE MANAGER ---
Contacted patient related to hospital discharge. He states he is doing very well. He has his medications and is aware of follow up appointments. SUSSY Navarro
== END 2023-08-29 14:43 | disposition home or self-care (01) | DRG 276 ==
LOC: ER 08:13 → 2ND 13:05
PROVIDERS: Internal Medicine; Nurse Practitioner Family; Admitting Provider Internal Medicine Adolescent Medicine; Emergency Provider Emergency Medicine; Visit Provider Internal Medicine Adolescent Medicine
PROC: 0JH608Z Insertion of Defibrillator Generator into Chest Subcutaneous Tissue and Fascia, Open Approach (ICD-10-PCS; CPT 33249; principal; 2023-08-28 12:45)
DX: I11.0 Hypertensive heart disease with heart failure; I50.23 Acute on chronic systolic (congestive) heart failure; N17.9 Acute kidney failure, unspecified; I25.118 Atherosclerotic heart disease of native coronary artery with other forms of angina pectoris; Z95.5 Presence of coronary angioplasty implant and graft; G47.33 Obstructive sleep apnea (adult) (pediatric); I42.8 Other cardiomyopathies; J44.9 Chronic obstructive pulmonary disease, unspecified; E87.6 Hypokalemia; R91.1 Solitary pulmonary nodule; Z79.899 Other long term (current) drug therapy
CPT/HCPCS: 33249; 33225; 36415; 71045; 75561; 80048; 80053; 80061; 83735; 83880; 84484; 85025; 85730; 93005; 99152; 99153; 99291; A9576; C1721; C1895; C1898; J1644; J1940; J2250; J3010

== ENCOUNTER 2023-10-17 06:40 | Observation (INO) | payer MEDICARE, SELFPAY ==
[2023-10-17] VITALS (10 sets, daily range): BP systolic 81–118; BP diastolic 50–83; PULSE 72–111; RESP 16–24; TEMP 36.4–36.7; O2SAT 92–99; BMI 25.4; BMI 25.0
--- NOTE | 2023-10-17 06:40 | ECG_ITS ---
APPROVED REPORT Exam: Resting ECG HR:109 bpm ECG Measurements Heart Rate 109 AXES WV 179 P 75 QRSd 120 QRS -68 QT 360 T 95 QTc 424 Conclusion SINUS TACHYCARDIA POSSIBLE RIGHT ATRIAL ENLARGEMENT [0.25mV P-WAVE] LEFT ATRIAL ENLARGEMENT [-0.15mV P-WAVE IN V1/V2] POSSIBLE RIGHT VENTRICULAR CONDUCTION DELAY [RSR (QR) IN V1/V2] LEFT ANTERIOR FASCICULAR BLOCK [QRS AXIS <= -45, QR IN I, RS IN II] ANTEROSEPTAL MYOCARDIAL INFARCTION , OF INDETERMINATE AGE [40+ ms Q WAVE IN V1-V4] ABNORMAL ECG Electronically signed by : CRISSY VEGA, 10/19/2023 15:41:56
--- NOTE | 2023-10-17 06:51 | ED_ITS ---
Discharge Plan Disposition Patient Disposition: Admitted Prescriptions Prescriptions: No Action hydroxyzine pamoate [Vistaril] 25 mg capsule 25 mg PO TID PRN (Reason: itching) Qty: 90 1RF carvedilol [Coreg] 6.25 mg tablet 6.25 mg PO BID Qty: 60 5RF Rx Instructions: must administer with a meal/food atorvastatin [Lipitor] 80 mg tablet 80 mg PO DAILY Qty: 30 5RF bumetanide 2 mg tablet 2 mg PO BID Qty: 60 5RF Jardiance 10 mg tablet 10 mg PO DAILY Qty: 90 0RF Entresto 97-103 mg tablet 1 tab PO BID Qty: 60 5RF spironolactone 25 mg tablet 25 mg PO BID Qty: 60 5RF aspirin 81 mg Tablet,Delayed Release (Dr/Ec) 81 mg PO DAILY Referrals Follow up/Referrals: Tom Castaneda APRN [Primary Care Provider] - See instructions Clinical Impressions Clinical Impression: Atypical chest pain Print Language Print Language: Citizen Of [place] Discharge ED Provider: Marko Mendoza General Adult HPI <Marko Mendoza MD - Last Filed: 10/17/23 06:57> General Chief complaint: Chest Pain Stated complaint: chest pain Time Seen by Provider: 10/17/23 06:45 History of Present Illness HPI narrative: 62-year-old male with history of coronary artery disease, heart failure, recent placement of AICD, hypertension, hyperlipidemia, aortic aneurysm presents for chest pain. He reports it is different than his normal chest pain. It is centrally located, sharp, radiating directly through the back. Approximately 5 out of 10 currently. It started approximately 10 minutes prior to arrival. He reports shortness of breath that is chronic but unchanged. Denies any increased cough or infectious symptoms. Related Data Home Medications ?Medication ?Instructions ?Recorded ?Confirmed aspirin 81 mg tablet,delayed 81 mg PO DAILY 05/02/23 09/18/23 release Previous Rx's ?Medication ?Instructions ?Recorded hydroxyzine pamoate 25 mg capsule 25 mg PO TID PRN itching #90 caps 05/09/23 (Vistaril) atorvastatin 80 mg tablet (Lipitor) 80 mg PO DAILY #30 tabs 09/18/23 bumetanide 2 mg tablet 2 mg PO BID #60 tabs 09/18/23 carvedilol 6.25 mg tablet (Coreg) 6.25 mg PO BID #60 tabs 09/18/23 empagliflozin 10 mg tablet 10 mg PO DAILY #90 tabs 09/18/23 (Jardiance) sacubitril 97 mg-valsartan 103 mg 1 tab PO BID #60 tabs 09/18/23 tablet (Entresto) spironolactone 25 mg tablet 25 mg PO BID #60 tabs 09/18/23 Allergies Allergy/AdvReac Type Severity Reaction Status Date / Time No Known Allergies Allergy Verified 09/18/23 10:41 PFS <Marko Mendoza MD - Last Filed: 10/17/23 06:57> [facility] Disclaimer: The information contained in this section may have been updated after the patient was seen, as this information can be updated by other users. Medical History HARITHA (acute kidney injury) Hypokalemia NICM (nonischemic cardiomyopathy) HFrEF (heart failure with reduced ejection fraction) SPEEDY (obstructive sleep apnea) Unstable angina Non-STEMI (non-ST elevated myocardial infarction) LV dysfunction Cardiomyopathy Dyspnea Acute on chronic HFrEF (heart failure with reduced ejection fraction) HTN (hypertension) Accidental drug overdose Overweight (BMI 25.0-29.9) Tobacco use CAD (coronary artery disease) Surgical History Stented coronary artery AICD (automatic cardioverter/defibrillator) present Family History Other No significant family history Social History Smoking Status: Current every day smoker tobacco type: cigarettes packs per day: 1 second hand exposure: Yes alcohol intake: current alcohol intake frequency: holidays/special occasions only substance use type: denies use current occupational status: employed Travel in the last 8 weeks: Inside the [place] household members: children housing: house current occupational exposures/hazards: No caffeine: Yes <Marko Mendoza MD - Last Filed: 10/17/23 06:57> ROS Obtained: Yes All systems reviewed & no additional complaints except as documented Physical Exam <Marko Mendoza MD - Last Filed: 10/17/23 06:57> General General appearance: alert and in no apparent distress Head Head exam: atraumatic and normocephalic Eye Eye exam: Present normal appearance, PERRL and EOMI ENT ENT exam: Present normal oropharynx and normal external ear exam Neck Neck exam: Present normal inspection and full ROM Chest Chest inspection: Present normal inspection and symmetric chest wall rise; Absent tenderness Respiratory Respiratory exam: Present normal lung sounds bilaterally; Absent respiratory distress Cardiovascular Cardiovascular exam: Present regular rate and normal rhythm Abdominal Exam Abdominal exam: Present soft; Absent distention, tenderness or guarding Extremities Exam Extremities exam: Present normal inspection; Absent edema or joint swelling Back Exam Back exam: Present normal inspection; Absent tenderness Neurological Exam Neurological exam: Present alert and oriented X3; Absent motor sensory deficit Psychiatric Psychiatric exam: Present normal affect and normal mood Skin Skin exam: Present warm, dry and normal color Lymphatic Lymphatic Findings: no adenopathy Medical Decision Making <Marko Mendoza MD - Last Filed: 10/17/23 06:57> Medical Records Medical records reviewed: Yes I reviewed the patient's medical records. Brett Inquiry Pt receiving controlled substance: No Brett was queried for this patient: No Vital Signs: 10/17/23 06:40 10/17/23 06:52 10/17/23 07:00 Temperature 97.6 F Temperature Source Oral Pulse Rate 111 H 95 H Pulse Rate [Right] 111 H Respiratory Rate 16 24 Blood Pressure 114/74 Blood Pressure [Right Arm] 118/83 Blood Pressure Mean 83 Blood Pressure Mean [Right Arm] 94 Blood Pressure Source [Right Arm] Automatic Cuff Blood Pressure Position [Right Arm] Sitting 02 Sat by Pulse Oximetry 99 92 L Oxygen Delivery Method Room Air 10/17/23 08:00 10/17/23 08:30 10/17/23 09:00 Temperature Temperature Source Pulse Rate 96 H 91 H Pulse Rate [Right] Respiratory Rate 21 21 18 Blood Pressure 108/69 L 118/75 118/81 Blood Pressure [Right Arm] Blood Pressure Mean 78 88 93 Blood Pressure Mean [Right Arm] Blood Pressure Source [Right Arm] Blood Pressure Position [Right Arm] 02 Sat by Pulse Oximetry 92 L Oxygen Delivery Method Lab Data Lab results reviewed: Yes I reviewed the patient's lab results. Lab Results 10/17/23 06:43: WBC 9.8, RBC 5.17, Hgb 15.0, Hct 49.0, MCV 94.8 H, MCH 29.0, M CHC 30.5 L, RDW 15.2, Plt Count 309, MPV 7.3 L, Neut % (Auto) 69.4, Lymph % (Auto) 21.3, [place] % (Auto) 4.6, Eos % (Auto) 3.6, Baso % (Auto) 1.1, Neut # (Auto) 6.8, Lymph # (Auto) 2.1, [place] # (Auto) 0.5, Eos # (Auto) 0.4, Baso # (Auto) 0.1, Sodium 139, Potassium 3.5, Chloride 105, Carbon Dioxide 29, Anion Gap 8.5, BUN 31 H, Creatinine 1.00, Estimated Creat Clear 94, Estimated GFR 75, Est GFR ( Amer) 91, Glucose 105 H, Calcium 9.4, Total Bilirubin 0.9, AST 40, ALT 37, Alkaline Phosphatase 95, Troponin I 0.03, Total Protein 8.2, Albumin 4.5, Globulin 3.7 H, Albumin/Globulin Ratio 1.2 10/17/23 06:43 10/17/23 06:43 Orders (Tests/Meds): ED MEDICATIONS Discontinued Medications Generic Name Dose Route Start Last Admin Trade Name Freq PRN Reason Stop Dose Admin Acetaminophen 1,000 mg 10/17/23 06:51 10/17/23 06:59 Acetaminophen 500mg Tab PO 10/17/23 06:52 1,000 mg ONCE ONE Administration Iopamidol 80 ml 10/17/23 07:53 10/17/23 07:54 Iopamidol-370 (76%);100ml Bottle IV 10/17/23 07:54 80 ml ONCE ONE Administration Morphine Sulfate 4 mg 10/17/23 06:51 10/17/23 07:01 Morphine 4mg/Ml Syringe IV 10/17/23 06:52 4 mg ONCE ONE Administration Sodium Chloride 50 ml 10/17/23 07:53 10/17/23 07:54 0.9 % Sodium Chloride 50 Ml Vial IV 10/17/23 07:54 50 ml ONCE ONE Administration Sodium Chloride 10 ml 10/17/23 07:53 10/17/23 07:54 Sodium Chloride 0.9% 10ml Syr (Rad Only) IV 10/17/23 07:54 10 ml ONCE ONE Administration ORDERS Category Date Time Status CTA Chest [CT angio chest - dissection] Stat Cat Scan 10/17/23 06:51 Completed Cardiology Consult [Consult to Cardiology] [CONS] Cons 10/17/23 08:20 Active Routine CBC w/Auto Diff [Complete Blood Count Auto Diff] Stat Lab 10/17/23 06:43 Completed CMP [Comprehensive Metabolic Panel] Stat Lab 10/17/23 06:43 Completed Troponin I Q3H Lab 10/17/23 06:43 Completed Troponin I Q3H Lab 10/17/23 09:43 Received ECG Data Tracing #1: I reviewed this ECG and interpreted as documented below: Sinus tachycardia, rate of 109, no significant ST elevation, no evidence of arrhythmia ECG initial impression date: 10/17/23 ECG initial impression time: 06:41 Medical Decision Narrative: 62-year-old male with history of hypertension hyperlipidemia coronary artery disease, aortic aneurysm presents for chest pain rating to the back. History was obtained via interactive discussion with patient, chart review. On arrival, patient is [afebrile, hemodynamically stable, satting appropriately, alert, oriented x4, GCS 15], moving all extremities spontaneously. Full physical exam performed and significant for no significant physical exam abnormality Differential includes but is not limited to ACS, PE, aortic dissection, pneumothorax, tamponade, esophageal perforation musculoskeletal chest pain. Patient was given Tylenol and morphine for symptomatic management and correction of underlying abnormalities. Workup initiated including CTA chest, CBC CMP troponin EKG. At this time care handed off to oncoming physician. Patient will require a heart score. <Junior Hayes MD - Last Filed: 10/17/23 10:01> Vital Signs: 10/17/23 06:40 10/17/23 06:52 10/17/23 07:00 Temperature 97.6 F Temperature Source Oral Pulse Rate 111 H 95 H Pulse Rate [Right] 111 H Respiratory Rate 16 24 Blood Pressure 114/74 Blood Pressure [Right Arm] 118/83 Blood Pressure Mean 83 Blood Pressure Mean [Right Arm] 94 Blood Pressure Source [Right Arm] Automatic Cuff Blood Pressure Position [Right Arm] Sitting 02 Sat by Pulse Oximetry 99 92 L Oxygen Delivery Method Room Air 10/17/23 08:00 10/17/23 08:30 10/17/23 09:00 Temperature Temperature Source Pulse Rate 96 H 91 H Pulse Rate [Right] Respiratory Rate 21 21 18 Blood Pressure 108/69 L 118/75 118/81 Blood Pressure [Right Arm] Blood Pressure Mean 78 88 93 Blood Pressure Mean [Right Arm] Blood Pressure Source [Right Arm] Blood Pressure Position [Right Arm] 02 Sat by Pulse Oximetry 92 L Oxygen Delivery Method Lab Data Lab Results 10/17/23 06:43: WBC 9.8, RBC 5.17, Hgb 15.0, Hct 49.0, MCV 94.8 H, MCH 29.0, M CHC 30.5 L, RDW 15.2, Plt Count 309, MPV 7.3 L, Neut % (Auto) 69.4, Lymph % (Auto) 21.3, [place] % (Auto) 4.6, Eos % (Auto) 3.6, Baso % (Auto) 1.1, Neut # (Auto) 6.8, Lymph # (Auto) 2.1, [place] # (Auto) 0.5, Eos # (Auto) 0.4, Baso # (Auto) 0.1, Sodium 139, Potassium 3.5, Chloride 105, Carbon Dioxide 29, Anion Gap 8.5, BUN 31 H, Creatinine 1.00, Estimated Creat Clear 94, Estimated GFR 75, Est GFR ( Amer) 91, Glucose 105 H, Calcium 9.4, Total Bilirubin 0.9, AST 40, ALT 37, Alkaline Phosphatase 95, Troponin I 0.03, Total Protein 8.2, Albumin 4.5, Globulin 3.7 H, Albumin/Globulin Ratio 1.2 Orders (Tests/Meds): ED MEDICATIONS Discontinued Medications Generic Name Dose Route Start Last Admin Trade Name Freq PRN Reason Stop Dose Admin Acetaminophen 1,000 mg 10/17/23 06:51 10/17/23 06:59 Acetaminophen 500mg Tab PO 10/17/23 06:52 1,000 mg ONCE ONE Administration Iopamidol 80 ml 10/17/23 07:53 10/17/23 07:54 Iopamidol-370 (76%);100ml Bottle IV 10/17/23 07:54 80 ml ONCE ONE Administration Morphine Sulfate 4 mg 10/17/23 06:51 10/17/23 07:01 Morphine 4mg/Ml Syringe IV 10/17/23 06:52 4 mg ONCE ONE Administration Sodium Chloride 50 ml 10/17/23 07:53 10/17/23 07:54 0.9 % Sodium Chloride 50 Ml Vial IV 10/17/23 07:54 50 ml ONCE ONE Administration Sodium Chloride 10 ml 10/17/23 07:53 10/17/23 07:54 Sodium Chloride 0.9% 10ml Syr (Rad Only) IV 10/17/23 07:54 10 ml ONCE ONE Administration ORDERS Category Date Time Status CTA Chest [CT angio chest - dissection] Stat Cat Scan 10/17/23 06:51 Completed Cardiology Consult [Consult to Cardiology] [CONS] Cons 10/17/23 08:20 Active Routine CBC w/Auto Diff [Complete Blood Count Auto Diff] Stat Lab 10/17/23 06:43 Completed CMP [Comprehensive Metabolic Panel] Stat Lab 10/17/23 06:43 Completed Troponin I Q3H Lab 10/17/23 06:43 Completed Troponin I Q3H Lab 10/17/23 09:43 Received Medical Decision Narrative: 62-year-old male with history of hypertension hyperlipidemia coronary artery disease, aortic aneurysm presents for chest pain rating to the back. History was obtained via interactive discussion with patient, chart review. On arrival, patient is [afebrile, hemodynamically stable, satting appropriately, alert, oriented x4, GCS 15], moving all extremities spontaneously. Full physical exam performed and significant for no significant physical exam abnormality Differential includes but is not limited to ACS, PE, aortic dissection, pneumothorax, tamponade, esophageal perforation musculoskeletal chest pain. Patient was given Tylenol and morphine for symptomatic management and correction of underlying abnormalities. Workup initiated including CTA chest, CBC CMP troponin EKG. At this time care handed off to oncoming physician. Patient will require a heart score. MDM: Upon my assumption of care patient is stable and resting comfortably. He reports his pain is somewhat improved. CT imaging, troponin, repeat ECG are all pending at this time. I agree with the assessment and plan from Dr. Mendoza. Initial troponin 0.03, compared to prior this is similar to previous. Patient has a history of slightly elevated troponin. Repeat troponin will be necessary. Patient was placed in the ED observation at 0800 for the purpose of serial troponins to rule out evolving [place] and preclude unnecessary admission. CTA personally interpreted demonstrates no acute aortic dissection or other intrathoracic abnormality on my personal interpretation. See radiology read for final interpretation. Repeat ECG personally interpreted demonstrate Normal sinus rhythm, rate 85, normal [place], QTc 466, no STEMI, no dynamic changes from initial ECG. Repeat troponin is pending. Patient continues to have mild chest discomfort, given his previous history I consulted cardiology for evaluation. Draw she will evaluated the patient at bedside and after further discussion, he is recommending admission for device interrogation, serial troponin, monitoring. I discussed this case with the hospitalist. Patient was accepted for admission. Total time in ED observation 2 hours 1 minute Procedures <Marko Mendoza MD - Last Filed: 10/17/23 06:57> Risk/Benefits of Procedure(s) Were Explained: Yes Critical Care <Marko Mendoza MD - Last Filed: 10/17/23 06:57> Critical Care Time Critical Care Time: No
--- NOTE | 2023-10-17 06:51 | CT_ITS ---
FINAL REPORT CLINICAL HISTORY: CP, back pain, hx aneurysm COMPARISON: 04/26/2023 FINDINGS: Thin section axial CT images of the chest were obtained with contrast. 3D reformatted images were also obtained. This study was performed with techniques to keep radiation doses as low as reasonably achievable (ALARA). Individualized dose reduction techniques using automated exposure control or adjustment of mA and/or kV according to the patient's size were employed. There is no evidence of pulmonary embolism. There is a 46 mm ascending aortic aneurysm, stable. Left subclavian pacer is identified. There is cardiomegaly. There are multiple mildly enlarged mediastinal nodes which are stable, may be reactive. Severe coronary artery calcification is identified. There is a posterior right lung base nodule measuring 11 mm which is stable. There are improved pleural effusions and ascites. Limited images of the upper abdomen reveal several low-attenuation hepatic masses measuring up to 12 mm. These are visually stable and favored to be cysts. Upper abdomen adenopathy is also stable. These are nonspecific but may be reactive. IMPRESSION: No evidence of pulmonary embolism. No mass or localized inflammatory process. Reviewed, Interpreted and Dictated by Geremias Quintana III, MD Transcribed by Daisy Zendejas Authenticated and . [facility]
[2023-10-17] MEDS: ACETAMINOPHEN 500MG TAB 1000 MG PO (06:59)
[2023-10-17 07:00] LABS: Basophils # 0.1 K/mm3 (0-0.2); Basophils % 1.1 % (0.1-2.0); Eosinophils # 0.4 K/mm3 (0.0-0.4); Eosinophils % 3.6 % (0.1-12.0); Lymphocytes # 2.1 K/mm3 (0.7-4.5); Lymphocytes % 21.3 % (10-50); Mean Corpuscular HGB Conc 30.5 g/dL (31.8-35.4); Mean Corpuscular Volume 94.8 fl (80-94); Mean Platelet Volume 7.3 fl (7.4-10.4); Monocytes # 0.5 K/mm3 (0.1-1.0); Monocytes % 4.6 % (1.7-9.3); Neutrophils # 6.8 K/mm3 (1.8-7.8); Neutrophils % 69.4 % (37.0-80.0); Platelet Count 309 K/mm3 (142-424); Red Blood Count 5.17 M/mm3 (4.60-6.20); Red Cell Distribution Width 15.2 % (11.5-17.5); White Blood Count 9.8 K/mm3 (4.8-10.8)
[2023-10-17 07:01] LABS: Albumin Level 4.5 g/dl (3.5-5.0); Chloride 105 mmol/L (98-107); Potassium 3.5 mmoL/L (3.5-5.1); Sodium 139 mmol/L (136-145)
[2023-10-17] MEDS: MORPHINE 4MG/ML SYRINGE 4 MG IV (07:01)
[2023-10-17 07:04] LABS: Alanine Aminotransferase 37 U/L (12-78); Albumin/Globulin Ratio 1.2 (1.1-1.8); Alkaline Phosphatase 95 U/L (38-126); Anion Gap 8.5 mEq/L (5-15); Aspartate Amino Transferase 40 U/L (17-59); Bilirubin,Total 0.9 mg/dl (0.2-1.3); Blood Urea Nitrogen 31 mg/dl (9-20); Calcium 9.4 mg/dl (8.4-10.2); Carbon Dioxide 29 mmol/L (22.0-30.0); Creatinine Clearance Estimated 94 mL/min (50-200); Estimated Glomerular Filt Rate 75 ml/min (>60); GFR (African American) 91 ML/MIN (>60); Globulin 3.7 g/dL (1.3-3.2); Glucose 105 mg/dl (74-100); Total Protein,Serum 8.2 g/dl (6.3-8.2)
[2023-10-17 07:16] LABS: Troponin I 0.03 ng/ml (0.00-0.034)
--- NOTE | 2023-10-17 07:29 | PC.NURSE ---
pt to radiology
--- NOTE | 2023-10-17 07:42 | PC.NURSE ---
IV INFILTRATED WHILE RECEIVING IV CONTRAST, IV REMOVED AND COMPRESS APPLIED BY [employer] BOAR[employer]. NEW IV STARTED TO RIGHT AC, 20 GAUGE. SITE UNREMARKABLE
--- NOTE | 2023-10-17 07:50 | PC.NURSE ---
DR GUEVARA AT BEDSIDE TO UPDATE PT
[2023-10-17] MEDS: SODIUM CHLORIDE 0.9% 10ML SYR (RAD ONLY) 10 ML IV (07:54)
[2023-10-17] MEDS: IOPAMIDOL-370 (76%);100ML BOTTLE 80 ML IV (07:54)
[2023-10-17] MEDS: 0.9 % SODIUM CHLORIDE 50 ML VIAL IV (07:54)
--- NOTE | 2023-10-17 07:59 | ECG_ITS ---
APPROVED REPORT Exam: Resting ECG HR:85 bpm ECG Measurements Heart Rate 85 AXES [place] 183 P 77 QRSd 120 QRS -69 QT 424 T 104 QTc 466 Conclusion SINUS RHYTHM Bi-atrial abnormality RBBB LEFT ANTERIOR FASCICULAR BLOCK POSSIBLE ANTERIOR MYOCARDIAL INFARCTION , OF INDETERMINATE AGE [30 ms Q WAVE IN V3/V4, OR R < 0.2 mV IN V4] ABNORMAL ECG UNCONFIRMED REPORT Electronically signed by : Syed Kelly MD 10/18/2023 16:02:08
--- NOTE | 2023-10-17 09:05 | PC.NURSE ---
CARDIOLOGY AT BEDSIDE
--- NOTE | 2023-10-17 09:14 | PC.NURSE ---
I rounded on the pt, no new complaints at this time. call carson in reach.
--- NOTE | 2023-10-17 09:58 | INFXCTL.NOTE ---
DR GUEVARA SPEAKING WITH DR MAYORGA
--- NOTE | 2023-10-17 09:59 | P.CONCA_ITS ---
History of Present Illness History of Present Illness Consult date: 10/17/23 Requesting physician: Junior Hayes Consult reason: chest pain Chief complaint: chest pain Additional Medical History:: 1. CAD A. [facility], 05/02/2023, circumflex artery occluded. LAD, ramus and RCA without significant stenosis. B. KALEB to RCA x 2, 10/2017 C. History of KALEB to LAD x 2, [facility] 2. Ascending thoracic aneurysm, CT of chest, 2019, 4.6 cm A. CTA of the chest, 04/26/2023, no mention of the thoracic aneurysm. Amended report mentions ascending aortic aneurysm at 4.8 cm. 3. HFrEF with EF 15%, new on 04/2023 echo A. GDMT started 04/26/2023 B. [facility], 05/02/2023, occluded circumflex artery but with patent LAD, ramus and RCA C. Echocardiogram, 04/26/23, severe LV dilatation with EF 15%. Grade 3 DD. Severe RV dilatation with moderate RV function reduction. Severe biatrial enlargement. Mild MR/PI with moderate TR. RVSP 40-45 mmHg. Compared to 2021 study he LVEF is now reduced from 45% to 15%. D. LifeVest ordered, 05/02/2023 E. Cardiac MRI, 08/2023, EF 9-10%, RVEF 18%. All chambers very dilated. Dilated cardiomyopathy noted. F. Fay dual-chamber [place] DR NICHOLS implanted 08/28/2023 4. COPD with ongoing tobacco use A. RV enlargement with decreased RVEF. RVSP 40-45 mmHg, echo, 04/2023 5. History of drug use, opioids A. History of bystander CPR 11/2022 with subsequent ER visit 6. Hypertension 7. Hyperlipidemia A. LDL 112 in April 2023 History of present illness: 62-year-old male with history of hypertension hyperlipidemia coronary artery disease, aortic aneurysm presents for chest pain rating to the back. History was obtained via interactive discussion with patient, chart review. On arrival, patient is [afebrile, hemodynamically stable, satting appropriately, alert, oriented x4, GCS 15], moving all extremities spontaneously. Full physical exam performed and significant for no significant physical exam abnormality Differential includes but is not limited to ACS, PE, aortic dissection, pneumothorax, tamponade, esophageal perforation musculoskeletal chest pain. Patient was given Tylenol and morphine for symptomatic management and correction of underlying abnormalities. Workup initiated including CTA chest, CBC CMP troponin EKG. At this time care handed off to oncoming physician. Patient will require a heart score. MDM: Upon my assumption of care patient is stable and resting comfortably. He reports his pain is somewhat improved. CT imaging, troponin, repeat ECG are all pending at this time. I agree with the assessment and plan from Dr. Mendoza. Initial troponin 0.03, compared to prior this is similar to previous. Patient has a history of slightly elevated troponin. Repeat troponin will be necessary. Patient was placed in the ED observation at 0800 for the purpose of serial troponins to rule out evolving [place] and preclude unnecessary admission. CTA personally interpreted demonstrates no acute aortic dissection or other intrathoracic abnormality on my personal interpretation. See radiology read for final interpretation. Repeat ECG personally interpreted demonstrate Normal sinus rhythm, rate 85, normal NM, QTc 466, no STEMI, no dynamic changes from initial ECG. The above per Dr. Hayes Cardiology consulted for complaint of chest pain in a patient with severe cardiomyopathy and AICD. Heart score estimated at 5. Patient is anxious about this chest pain being different than his previous pains. Recommend observation overnight. Will interrogate his AICD. Last download was 2 weeks ago with no significant arrhythmias. [facility] Disclaimer: The information contained in this section may have been updated after the patient was seen, as this information can be updated by other users. Medical History HARITHA (acute kidney injury) Hypokalemia NICM (nonischemic cardiomyopathy) HFrEF (heart failure with reduced ejection fraction) SPEEDY (obstructive sleep apnea) Unstable angina Non-STEMI (non-ST elevated myocardial infarction) LV dysfunction Cardiomyopathy Dyspnea Acute on chronic HFrEF (heart failure with reduced ejection fraction) HTN (hypertension) Accidental drug overdose Overweight (BMI 25.0-29.9) Tobacco use CAD (coronary artery disease) Surgical History Stented coronary artery AICD (automatic cardioverter/defibrillator) present Family History Other No significant family history Social History (Updated 10/17/23 @ 11:58 by Jesus Alberto Abdi RN) Smoking Status: Current every day smoker tobacco type: cigarettes packs per day: 1 second hand exposure: Yes alcohol intake: current alcohol intake frequency: holidays/special occasions only substance use type: denies use current occupational status: employed Travel in the last 8 weeks: Inside the [place] household members: children housing: house current occupational exposures/hazards: No caffeine: Yes Review of Systems Review of Systems Review of systems:: pertinent systems reviewed and negative unless documented below *Cardiovascular Cardiovascular: Reports chest pain and Reports dyspnea on exertion *Respiratory Respiratory: Denies cough and Reports dyspnea on exertion Exam Data for Last 24 hours Vital signs and Labs for Last 24 Hours: Temp Pulse Resp BP Pulse Ox O2 Del Method 97.6 F 91 H 18 118/81 92 L Room Air 10/17/23 06:40 10/17/23 08:30 10/17/23 09:00 10/17/23 09:00 10/17/23 09:00 10/17/23 06:40 Laboratory Results - last 24 hr 10/17/23 06:43: WBC 9.8, RBC 5.17, Hgb 15.0, Hct 49.0, MCV 94.8 H, MCH 29.0, MCHC 30.5 L, RDW 15.2, Plt Count 309, MPV 7.3 L, Neut % (Auto) 69.4, Lymph % (Auto) 21.3, [place] % (Auto) 4.6, Eos % (Auto) 3.6, Baso % (Auto) 1.1, Neut # (Auto) 6.8, Lymph # (Auto) 2.1, [place] # (Auto) 0.5, Eos # (Auto) 0.4, Baso # (Auto) 0.1, Sodium 139, Potassium 3.5, Chloride 105, Carbon Dioxide 29, Anion Gap 8.5, BUN 31 H, Creatinine 1.00, Estimated Creat Clear 94, Estimated GFR 75, Est GFR ( Amer) 91, Glucose 105 H, Calcium 9.4, Total Bilirubin 0.9, AST 40, ALT 37, Alkaline Phosphatase 95, Troponin I 0.03, Total Protein 8.2, Albumin 4.5, Globulin 3.7 H, Albumin/Globulin Ratio 1.2 I & O for Last 24 hours: Intake & Output 10/14/23 10/15/23 10/16/23 08/15/24 11:59 11:59 11:59 11:59 Weight 193 lb Constitutional Constitutional: mild distress Comments: Anxious/restless in bed *Routine Respiratory Exam Respiratory: Present decreased breath sounds; Absent rhonchi, wheezes or crackles *Routine Cardiovascular Exam Cardiovascular: Present RRR and murmur; Absent gallop or rubs *Routine Extremities Exam Extremities: Absent edema *Routine Neurological Exam Neurological: Present alert, oriented X3 and CN II-XII intact Meds Home Medications and Allergies Home Medications ?Medication ?Instructions ?Recorded ?Confirmed ?Type aspirin 81 mg tablet,delayed 81 mg PO DAILY 05/02/23 10/17/23 History release bumetanide 2 mg tablet 2 mg PO BID #60 tabs 09/18/23 10/17/23 Rx carvedilol 6.25 mg tablet (Coreg) 6.25 mg PO BID #60 tabs 09/18/23 10/17/23 Rx empagliflozin 10 mg tablet 10 mg PO DAILY #90 tabs 09/18/23 10/17/23 Rx (Jardiance) sacubitril 97 mg-valsartan 103 mg 1 tab PO BID #60 tabs 09/18/23 10/17/23 Rx tablet (Entresto) spironolactone 25 mg tablet 25 mg PO BID #60 tabs 09/18/23 10/17/23 Rx atorvastatin 80 mg tablet (Lipitor) 80 mg PO HS 10/17/23 10/17/23 History New Prescriptions to Start Prescriptions: Allergies Allergy/AdvReac Type Severity Reaction Status Date / Time No Known Allergies Allergy Verified 09/18/23 10:41 Assessment and Plan *Assessment and plan (1) Atypical chest pain: Status: Acute Category: Medical Code(s): R07.89 - Other chest pain (2) HFrEF (heart failure with reduced ejection fraction): Status: Acute Category: Medical Code(s): I50.20 - Unspecified systolic (congestive) heart failure (3) NICM (nonischemic cardiomyopathy): Status: Acute Category: Medical Code(s): I42.8 - Other cardiomyopathies (4) COPD (chronic obstructive pulmonary disease): Status: Chronic Qualifiers: COPD type: unspecified COPD Qualified Code(s): J44.9 - Chronic obstructive pulmonary disease, unspecified Category: Medical Code(s): J44.9 - Chronic obstructive pulmonary disease, unspecified (5) AICD (automatic cardioverter/defibrillator) present: Status: Acute Category: Surgical Code(s): Z95.810 - Presence of automatic (implantable) cardiac defibrillator (6) Tobacco use: Status: Chronic Category: Social Hx Code(s): Z72.0 - Tobacco use (7) CAD (coronary artery disease): Status: Chronic Qualifiers: Associated angina: without angina Coronary Disease-Associated Artery/Lesion type: [place] artery [place] vs. transplanted heart: [place] heart Qualified Code(s): I25.10 - Atherosclerotic heart disease of [place] coronary artery without angina pectoris Category: Medical Code(s): I25.10 - Atherosclerotic heart disease of [place] coronary artery without angina pectoris (8) Thoracic aortic aneurysm: Status: Chronic Qualifiers: Presence of rupture: without rupture Qualified Code(s): I71.2 - Thoracic aortic aneurysm, without rupture Category: Medical Code(s): I71.2 - Thoracic aortic aneurysm, without rupture (9) HLD (hyperlipidemia): Status: Chronic Qualifiers: Hyperlipidemia type: other hyperlipidemia Qualified Code(s): E78.4 - Other hyperlipidemia Category: Medical Code(s): E78.5 - Hyperlipidemia, unspecified (10) HTN (hypertension): Status: Chronic Qualifiers: Hypertension type: essential hypertension Qualified Code(s): I10 - Essential (primary) hypertension Category: Medical Code(s): I10 - Essential (primary) hypertension Plan 1. Chest pain -Initial troponin within normal limits -Left heart catheterization in April of this year without need for intervention with chronic occluded circumflex. -Continue aspirin -Will try to add ranexa if BP allows. 2. HFrEF -Chest CTA today negative for pulmonary embolus. Pleural effusions and ascites noted but improved compared to previous. -Check BNP -Continue GDMT with Entresto, spironolactone, Bumex, Jardiance and carvedilol 3. Nonischemic cardiomyopathy -AICD implanted 08/2023 -Will interrogate AICD today 4. Thoracic aortic aneurysm, stable by chest CTA today 5. COPD with continued tobacco use 6. Hyperlipidemia -LDL 110 08/27/2023 -On statin therapy -Repeat lipids today 7. Hypertension, controlled 8. Sinus tachycardia improved with recent increase in carvedilol therapy Will interrogate ICD today (see below) and try increasing coreg to 6.25 mg TID due to chest pain and tachycardia. Further recommendations to follow After patient arrived to Floor, he became dizzy with systolic BP readings in the 80's mm Hg. Will hold current meds and give IV NS 500 ml over 2 hrs. Pt did receive IV morphine in ER this AM. Continue to monitor BP and heart rate. AICD interrogated. No recent arrhythmias. APaced <1% VPaced <1% AF burden 0% Battery life 6-8yrs.
--- NOTE | 2023-10-17 10:01 | PC.NURSE ---
STAFF PHARMACIST NOTIFIED OF ADMISSION
--- NOTE | 2023-10-17 10:08 | EXP.HP ---
History of Present Illness *Admission Date: 10/17/23 *Reason for visit:: chest pain *History of present illness: Mr. Jimenez is a 62-year-old male with history of CAD, severe heart failure with reduced ejection fraction, recent AICD placement, hyperlipidemia, aortic aneurysm, COPD. Presented to the ER today because of complaint of chest pain. Started in the center of his chest and radiated to his back. Started approximately 10 minutes prior to arrival. Was having shortness of breath that is chronic. Denies any nausea or vomiting. Treated with morphine and nitro in the ER with improvement in symptoms. Cardiology consulted. Given symptoms and elevated heart score, will admit for observation overnight. CT obtained in the ER, negative for dissection or PE. Patient feeling somewhat better after arriving to the floor. Was little hypotensive and received 500 cc of IV fluids. On room air. Afebrile. [facility] Disclaimer: The information contained in this section may have been updated after the patient was seen, as this information can be updated by other users. Medical History HARITHA (acute kidney injury) Hypokalemia NICM (nonischemic cardiomyopathy) HFrEF (heart failure with reduced ejection fraction) SPEEDY (obstructive sleep apnea) Unstable angina Non-STEMI (non-ST elevated myocardial infarction) LV dysfunction Cardiomyopathy Dyspnea Acute on chronic HFrEF (heart failure with reduced ejection fraction) HTN (hypertension) Accidental drug overdose Overweight (BMI 25.0-29.9) Tobacco use CAD (coronary artery disease) Surgical History Stented coronary artery AICD (automatic cardioverter/defibrillator) present Family History Other No significant family history Social History Smoking Status: Current every day smoker tobacco type: cigarettes packs per day: 1 second hand exposure: Yes alcohol intake: current alcohol intake frequency: holidays/special occasions only substance use type: denies use current occupational status: employed Travel in the last 8 weeks: [place] the [place] household members: children housing: house current occupational exposures/hazards: No caffeine: Yes Review of Systems Review of Systems Review of systems (narrative): 14 point review of systems performed, pertinent positives and negatives as per HPI Meds Home Medications and Allergies Home Medications ?Medication ?Instructions ?Recorded ?Confirmed ?Type aspirin 81 mg tablet,delayed 81 mg PO DAILY 05/02/23 10/17/23 History release bumetanide 2 mg tablet 2 mg PO BID #60 tabs 09/18/23 10/17/23 Rx carvedilol 6.25 mg tablet (Coreg) 6.25 mg PO BID #60 tabs 09/18/23 10/17/23 Rx empagliflozin 10 mg tablet 10 mg PO DAILY #90 tabs 09/18/23 10/17/23 Rx (Jardiance) sacubitril 97 mg-valsartan 103 mg 1 tab PO BID #60 tabs 09/18/23 10/17/23 Rx tablet (Entresto) spironolactone 25 mg tablet 25 mg PO BID #60 tabs 09/18/23 10/17/23 Rx atorvastatin 80 mg tablet (Lipitor) 80 mg PO HS 10/17/23 10/17/23 History New Prescriptions to Start Prescriptions: Allergies Allergy/AdvReac Type Severity Reaction Status Date / Time No Known Allergies Allergy Verified 09/18/23 10:41 Exam Data for Last 24 hours Vital signs and Labs for Last 24 Hours: Temp Pulse Resp BP Pulse Ox O2 Del Method 97.6 F 91 H 18 118/81 92 L Room Air 10/17/23 06:40 10/17/23 08:30 10/17/23 09:00 10/17/23 09:00 10/17/23 09:00 10/17/23 06:40 Laboratory Results - last 24 hr 10/17/23 06:43: WBC 9.8, RBC 5.17, Hgb 15.0, Hct 49.0, MCV 94.8 H, MCH 29.0, MCHC 30.5 L, RDW 15.2, Plt Count 309, MPV 7.3 L, Neut % (Auto) 69.4, Lymph % (Auto) 21.3, [place] % (Auto) 4.6, Eos % (Auto) 3.6, Baso % (Auto) 1.1, Neut # (Auto) 6.8, Lymph # (Auto) 2.1, [place] # (Auto) 0.5, Eos # (Auto) 0.4, Baso # (Auto) 0.1, Sodium 139, Potassium 3.5, Chloride 105, Carbon Dioxide 29, Anion Gap 8.5, BUN 31 H, Creatinine 1.00, Estimated Creat Clear 94, Estimated GFR 75, Est GFR ( Amer) 91, Glucose 105 H, Calcium 9.4, Total Bilirubin 0.9, AST 40, ALT 37, Alkaline Phosphatase 95, Troponin I 0.03, Total Protein 8.2, Albumin 4.5, Globulin 3.7 H, Albumin/Globulin Ratio 1.2 I & O for Last 24 hours: Intake & Output 10/14/23 10/15/23 10/16/23 10/17/23 23:59 23:59 23:59 23:59 Weight 87.543 kg Constitutional Constitutional: no acute distress, average body habitus, chronically ill appearing and cooperative *Routine HEENT Exam Head: Present normocephalic Eye: Present EOMI and PERRL ENT: Present mucous membranes moist *Routine Neck Exam Neck: Present supple; Absent lymphadenopathy Routine Chest/Breast/Axilla Exam Chest wall: Present pacemaker *Routine Respiratory Exam Respiratory: Present prolonged expiratory phase and diminished air movement; Absent rhonchi, wheezes or crackles *Routine Cardiovascular Exam Cardiovascular: Present RRR *Routine Abdominal Exam Abdominal: Present soft and normoactive bowel sounds; Absent tenderness *Routine Rectal Exam Rectal:: deferred *Routine Genitalia Exam Genitalia:: deferred *Routine Extremities Exam Extremities: Present full ROM; Absent cyanosis, clubbing or edema *Routine Skin Exam Skin: Present warm; Absent rash *Routine Neurological Exam Neurological: Present alert, oriented X3 and moving all extremities; Absent altered mental status Assessment and Plan *Assessment and plan (1) Atypical chest pain: Status: Acute Category: Medical Code(s): R07.89 - Other chest pain (2) Stented coronary artery: Status: Chronic Category: Surgical Code(s): Z95.5 - Presence of coronary angioplasty implant and graft (3) AICD (automatic cardioverter/defibrillator) present: Status: Acute Category: Surgical Code(s): Z95.810 - Presence of automatic (implantable) cardiac defibrillator (4) NICM (nonischemic cardiomyopathy): Status: Acute Category: Medical Code(s): I42.8 - Other cardiomyopathies (5) HFrEF (heart failure with reduced ejection fraction): Status: Acute Category: Medical Code(s): I50.20 - Unspecified systolic (congestive) heart failure (6) SPEEDY (obstructive sleep apnea): Status: Acute Category: Medical Code(s): G47.33 - Obstructive sleep apnea (adult) (pediatric) (7) HTN (hypertension): Status: Chronic Qualifiers: Hypertension type: essential hypertension Qualified Code(s): I10 - Essential (primary) hypertension Category: Medical Code(s): I10 - Essential (primary) hypertension (8) HLD (hyperlipidemia): Status: Chronic Qualifiers: Hyperlipidemia type: other hyperlipidemia Qualified Code(s): E78.4 - Other hyperlipidemia Category: Medical Code(s): E78.5 - Hyperlipidemia, unspecified (9) Tobacco use: Status: Chronic Category: Social Hx Code(s): Z72.0 - Tobacco use Plan Mr. Jimenez is a 62-year-old male with history of heart failure with reduced ejection fraction, COPD, SPEEDY, AICD in place. Presented with chest pain to the ER. States it radiated from his chest to his back. Workup unremarkable in the ER. Chest imaging negative for aortic dissection. Cardiology consulted. Medicine consulted for further management, discussed with ER physician, request admission for serial troponins and monitoring overnight. I agreed to admit for further management. Problems addressed as follows: Chest pain Heart failure with reduced ejection fraction -Initial troponin negative. Had a left heart cath earlier this year with chronically occluded circumflex. Cardiology consulted, discussed case, recommend continuing goal-directed therapy. Will interrogate AICD -Recommend adding Ranexa if blood pressure allows - continue aspirin -Per my review of CTA of chest, no pulmonary emboli noted. Pleural effusions and ascites noted but improved compared to previous. - BNP elevated at 7600, improved from 2 months ago 8900 - Continue spironolactone 25 mg twice daily, Entresto 97/103 mg twice daily, empagliflozin 10 mg daily, Bumex 2 mg twice daily, Lipitor 80 mg nightly, and aspirin 81 mg daily. -Increase carvedilol to 6.25 mg 3 times a day -Will consider heart cath pending improvement in chest pain Nonischemic cardiomyopathy -AICD implanted 08/2023 -Interrogated today, no recent arrhythmias. APaced <1%; VPaced <1%; AF burden 0%; Battery life 6-8yrs. Thoracic aortic aneurysm, stable by chest CTA today COPD with continued tobacco use: DuoNebs as needed every 6 hours Continue Lipitor 80 mg nightly for hyperlipidemia DNR cardiac diet
--- NOTE | 2023-10-17 10:14 | PC.NURSE ---
Report called to Rishabh HI
[2023-10-17 10:15] LABS: Troponin I 0.03 ng/ml (0.00-0.034)
--- NOTE | 2023-10-17 10:25 | HMH.PHAINT1 ---
Pharmacy Intervention Comments: HOME MEDICATION LIST VERIFIED USING LIST FROM OUTPATIENT PHARMACY
[2023-10-17 10:40] LABS: Cholesterol 204 mg/dl (140-200); NT Pro Brain Natriuretic Pep. 7620 pg/mL (0-125); Triglycerides 125 mg/dl (30-150); VLDL Cholesterol 25 mg/dL (0-40)
[2023-10-17 10:41] LABS: Chol/HDL Ratio 2.8 (1-3.5); HDL Cholesterol 72 mg/dl (40-60)
--- NOTE | 2023-10-17 10:49 | PC.NURSE ---
PATIENT ARRIVED TO FLOOR BY WHEELCHAIR AT 1040
[2023-10-17 10:52] LABS: Direct LDL Cholesterol 108.43 mg/dL (100-129)
--- NOTE | 2023-10-17 11:07 | PC.NURSE ---
Dr. Ryan aware of pt's orthostatics and Michael Graves contacted. Standing 88/70 P:83, sitting 67/37 P:73, lying 85/51 P:70, new orders received.
[2023-10-17] MEDS: 0.9 % SODIUM CHLORIDE 1000ML 500 ML 250 ML IV (11:18)
[2023-10-17] MEDS: 0.9 % SODIUM CHLORIDE 1000ML 1,000 ML 100 ML IV (15:15)
--- NOTE | 2023-10-17 15:19 | PC.NURSE ---
Hill aware of pt's bp of 81/50 P: 76 and orders taken.
[2023-10-17] MEDS: ATORVASTATIN 40MG TABLET 80 MG PO (20:19)
[2023-10-18] VITALS (9 sets, daily range): BP systolic 88–121; BP diastolic 64–80; PULSE 49–100; RESP 17–20; TEMP 36.4–36.7; O2SAT 90–100; BMI 24.7
--- NOTE | 2023-10-18 05:34 | PC.NURSE ---
Patient is alert and oriented x4. Patient has rested throughout the night. Patient had an AICD interrogation yesterday (10/17/23) with no recent arrhythmias observed per report. Patient has remained normal sinus rhythm on telemetry this shift. Earlier this shift, the patient reported slight pain in his left chest since procedure. Tight swelling was noted in the patient's left forearm; he stated that it also felt a little sore. Due to hypotensive pressures (recent reading was 100/67), spironolactone, Entresto, and carvedilol were held per Harley SENIOR COUNSEL this shift. Patient only received atorvastatin per MAY. Patient has not complained of any dizziness or increased chest pain. However, patient did state that he felt lethargic earlier this shift. Patient tolerates ambulation in room and to bathroom well. He was given BBQ and original [employer] baked chips at bedtime last night. Patient is currently resting on his left side at this time. He does not have any further complaints. Call light is within reach.
[2023-10-18 06:53] LABS: Basophils # 0.1 K/mm3 (0-0.2); Basophils % 0.9 % (0.1-2.0); Eosinophils # 0.4 K/mm3 (0.0-0.4); Eosinophils % 4.4 % (0.1-12.0); Hemoglobin 15.6 g/dL (14.1-18.0); Lymphocytes # 2.1 K/mm3 (0.7-4.5); Lymphocytes % 24.4 % (10-50); Mean Corpuscular Hemoglobin 28.9 pg (27.0-31.2); Mean Corpuscular Volume 96.2 fl (80-94); Mean Platelet Volume 7.9 fl (7.4-10.4); Monocytes # 0.7 K/mm3 (0.1-1.0); Monocytes % 7.5 % (1.7-9.3); Neutrophils # 5.5 K/mm3 (1.8-7.8); Neutrophils % 62.8 % (37.0-80.0); Platelet Count 326 K/mm3 (142-424); Red Cell Distribution Width 15.1 % (11.5-17.5); White Blood Count 8.7 K/mm3 (4.8-10.8)
--- NOTE | 2023-10-18 07:04 | P.PN_ITS ---
Subjective Subjective Date: 10/18/23 Time: 07:05 Principal diagnosis: Hypotension, chest pain Interval history: 62-year-old white male lying in bed sleeping initially in no acute distress. Patient is somewhat clammy and sweaty but states he gets that way from time to time alternating between hot and cold. He denies any chest pain this morning but continues to relate intermittent mild chest pain. Exam Data for Last 24 hours Vital signs and Labs for Last 24 Hours: Temp Pulse Resp BP Pulse Ox O2 Del Method 97.7 F 91 H 18 113/79 100 Room Air 10/18/23 04:00 10/18/23 04:00 10/18/23 04:00 10/18/23 04:00 10/18/23 04:00 10/18/23 06:35 Laboratory Results - last 24 hr 10/17/23 06:43: WBC 9.8, RBC 5.17, Hgb 15.0, Hct 49.0, MCV 94.8 H, MCH 29.0, MCHC 30.5 L, RDW 15.2, Plt Count 309, MPV 7.3 L, Neut % (Auto) 69.4, Lymph % (Auto) 21.3, Edwards % (Auto) 4.6, Eos % (Auto) 3.6, Baso % (Auto) 1.1, Neut # (Auto) 6.8, Lymph # (Auto) 2.1, Edwards # (Auto) 0.5, Eos # (Auto) 0.4, Baso # (Auto) 0.1, Sodium 139, Potassium 3.5, Chloride 105, Carbon Dioxide 29, Anion Gap 8.5, BUN 31 H, Creatinine 1.00, Estimated Creat Clear 94, Estimated GFR 75, Est GFR ( Amer) 91, Glucose 105 H, Calcium 9.4, Total Bilirubin 0.9, AST 40, ALT 37, Alkaline Phosphatase 95, Troponin I 0.03, Total Protein 8.2, Albumin 4.5, Globulin 3.7 H, Albumin/Globulin Ratio 1.2 10/17/23 09:43: Troponin I 0.03, NT-Pro-B Natriuret Pep 7620 H, Triglycerides 125, Cholesterol 204 H, LDL Cholesterol Direct 108.43, VLDL Cholesterol 25, HDL Cholesterol 72 H, Cholesterol/HDL Ratio 2.8 I & O for Last 24 hours: Intake & Output 10/15/23 10/16/23 10/17/23 10/18/23 11:59 11:59 11:59 11:59 Intake Total 500 / 500 2715 / 2715 Output Total 700 / 700 400 / 400 Balance -200 / -200 2315 / 2315 Weight 184 lb 2 oz 182 lb 6.4 oz Constitutional Constitutional: no acute distress *Routine Respiratory Exam Respiratory: Present CTA bilaterally *Routine Cardiovascular Exam Cardiovascular: Present RRR; Absent murmur, gallop or rubs *Routine Extremities Exam Extremities: Absent edema *Routine Neurological Exam Neurological: Present alert and oriented X3 Progress Note: A&P Assessment and plan (1) Atypical chest pain: Status: Acute (2) Stented coronary artery: Status: Chronic (3) AICD (automatic cardioverter/defibrillator) present: Status: Acute (4) NICM (nonischemic cardiomyopathy): Status: Acute (5) HFrEF (heart failure with reduced ejection fraction): Status: Acute (6) SPEEDY (obstructive sleep apnea): Status: Acute (7) HTN (hypertension): Status: Chronic (8) HLD (hyperlipidemia): Status: Chronic (9) Tobacco use: Status: Chronic Assessment and Plan Assessment and Plan for All Diagnoses:: 1. Chest pain -troponins normal -Left heart catheterization in April of this year without need for intervention with chronic occluded circumflex. -Continue aspirin -add ranexa. 2. HFrEF -Chest CTA today negative for pulmonary embolus. Pleural effusions and ascites noted but improved compared to previous. -BNP 7620 (down from 8962 months ago) -Continue GDMT with Entresto, spironolactone, Bumex, Jardiance and carvedilol 3. Nonischemic cardiomyopathy -AICD implanted 08/2023 -Interrogation 10/17/2023 shows no arrhythmias 4. Thoracic aortic aneurysm, stable by chest CTA today 5. COPD with continued tobacco use 6. Hyperlipidemia -LDL 108 with HDL 72 this admission -On statin therapy 7. Hypertension, controlled 8. Sinus tachycardia improved with recent increase in carvedilol therapy Add Ranexa 500 mg twice daily for chest pain Resume home medications today and if blood pressure remains stable and patient's symptoms improved and discharged home later today Follow-up in our office in 1 to 2 weeks with BMP and BNP. Home medication recommendations: Aspirin 81 mg daily Lipitor 80 mg daily Bumex 2 mg daily (reduced frequency due to low BP/dehydration) Carvedilol 6.25 mg twice daily Jardiance 10 mg daily Entresto 97/103 mg twice daily Spironolactone 25 mg twice daily Ranexa 500 mg twice daily (new medication)
[2023-10-18 07:09] LABS: Albumin Level 3.5 g/dl (3.5-5.0); Chloride 110 mmol/L (98-107); Potassium 4.1 mmoL/L (3.5-5.1); Sodium 138 mmol/L (136-145)
[2023-10-18 07:12] LABS: Alanine Aminotransferase 29 U/L (12-78); Albumin/Globulin Ratio 1.2 (1.1-1.8); Alkaline Phosphatase 86 U/L (38-126); Anion Gap 10.1 mEq/L (5-15); Aspartate Amino Transferase 35 U/L (17-59); Bilirubin,Total 0.6 mg/dl (0.2-1.3); Blood Urea Nitrogen 24 mg/dl (9-20); Calcium 8.3 mg/dl (8.4-10.2); Carbon Dioxide 22 mmol/L (22.0-30.0); Creatinine Clearance Estimated 88 mL/min (50-200); Estimated Glomerular Filt Rate 85 ml/min (>60); GFR (African American) 103 ML/MIN (>60); Glucose 104 mg/dl (74-100); Magnesium 2.1 mg/dl (1.6-2.3); Total Protein,Serum 6.5 g/dl (6.3-8.2)
[2023-10-18] MEDS: EMPAGLIFLOZIN 10MG TABLET 10 MG PO (08:49)
[2023-10-18] MEDS: ASPIRIN EC 81MG TABLET 81 MG PO (08:49)
[2023-10-18] MEDS: RANOLAZINE 500MG ER TABLET 500 MG PO ×2 (08:49→22:12)
[2023-10-18] MEDS: CARVEDILOL 6.25MG TABLET 6.25 MG PO ×2 (11:30→22:12)
[2023-10-18] MEDS: SACUBITRIL/VALSARTAN 24-26MG TABLET 4 EACH PO ×2 (11:30→22:13)
--- NOTE | 2023-10-18 14:58 | EXP.ACUTE.PN ---
Subjective *Date: 10/18/23 *Time: 14:58 Interval history: Brief episode of chest pressure overnight. Stable on room air however. No nausea or vomiting. Feels quite weak today. Denies any shortness of breath. Alert and oriented x 4 Medical Exam Vital signs and Labs for Last 24 Hours: Vital Signs Temp Pulse Pulse Resp BP Pulse Ox O2 Del Method 10/18/23 13:21 Room Air 10/18/23 12:00 100 H 10/18/23 11:56 Room Air 10/18/23 09:39 Room Air 10/18/23 08:55 Room Air 10/18/23 08:00 100 H 10/18/23 08:00 Room Air 10/18/23 07:54 98.1 F 92 H 20 114/80 96 Room Air 10/18/23 06:35 Room Air 10/18/23 05:00 Room Air 10/18/23 04:00 97.7 F 91 H 18 113/79 100 Room Air 10/18/23 04:00 90 10/18/23 03:00 Room Air 10/18/23 01:00 Room Air 10/18/23 00:00 90 10/17/23 23:00 Room Air 10/17/23 21:00 Room Air 10/17/23 20:00 78 18 99 Room Air 10/17/23 20:00 80 10/17/23 20:00 97.7 F 78 18 100/67 L 99 Room Air 10/17/23 17:56 Room Air 10/17/23 16:00 80 10/17/23 16:00 98.1 F 72 18 91/61 L 92 L Room Air 10/17/23 15:20 76 81/50 L Intake and Output 10/17/23 10/18/23 10/18/23 23:59 07:59 15:59 Intake Total 1020 / 3215 725 / 1245 520 / 1245 Output Total 0 / 1100 0 / 325 325 / 325 Balance 1020 / 2115 725 / 920 195 / 920 Intake: Intake, Oral Amount 1020 / 1740 520 / 520 Intake, Oral Supplement Amount 0 / 0 Intake, Total IV Amount 725 / 725 0.9 % Sodium Chloride 1000ML 1, 725 / 725 000 ml @ 100 mls/hr IV .Q10H [facility] Rx#:[id number] Output: Output, Urine Amount 0 / 1100 0 / 325 325 / 325 Other: Number of Voids 0 Number of Unmeasured Voids 1 1 Number of Bowel Movements 1 1 Weight 82.735 kg Patient Weight 10/18/23 23:59 Weight 82.735 kg Laboratory Results - last 24 hr 10/18/23 05:30: WBC 8.7, RBC 5.40, Hgb 15.6, Hct 52.0, MCV 96.2 H, MCH 28.9, MCHC 30.0 L, RDW 15.1, Plt Count 326, MPV 7.9, Neut % (Auto) 62.8, Lymph % (Auto) 24.4, Bennett % (Auto) 7.5, Eos % (Auto) 4.4, Baso % (Auto) 0.9, Neut # (Auto) 5.5, Lymph # (Auto) 2.1, Bennett # (Auto) 0.7, Eos # (Auto) 0.4, Baso # (Auto) 0.1, Sodium 138, Potassium 4.1, Chloride 110 H, Carbon Dioxide 22, Anion Gap 10.1, BUN 24 H, Creatinine 0.90, Estimated Creat Clear 88, Estimated GFR 85, Est GFR ( Amer) 103, Glucose 104 H, Calcium 8.3 L, Magnesium 2.1, Total Bilirubin 0.6, AST 35, ALT 29, Alkaline Phosphatase 86, Total Protein 6.5, Albumin 3.5 D, Globulin 3.0, Albumin/Globulin Ratio 1.2 I & O for Labs for Last 24 Hours: Intake & Output 10/15/23 10/16/23 10/17/23 10/18/23 23:59 23:59 23:59 23:59 Intake Total 2490 / 3215 1245 / 1245 Output Total 1100 / 1100 325 / 325 Balance 1390 / 2115 920 / 920 Weight 83.518 kg 82.735 kg Constitutional: Present no acute distress, average body habitus and chronically ill appearing Head: Present atraumatic and normocephalic ENT: Present normal exam Neck: Present normal inspection Respiratory: Present normal respiratory effort; Absent rhonchi, wheezes or crackles Cardiac: Present Reg Rate and Rhythm GI: Present soft and normal bowel sounds; Absent distention or tenderness Extremities: Present normal inspection and full ROM; Absent edema Skin: Present intact; Absent erythema Neuro: Present Grossly Intact, alert, awake, oriented x 3 and moves all extremities Assessment and Plan *Assessment and plan (1) Atypical chest pain: Status: Acute Category: Medical Code(s): R07.89 - Other chest pain (2) Stented coronary artery: Status: Chronic Category: Surgical Code(s): Z95.5 - Presence of coronary angioplasty implant and graft (3) AICD (automatic cardioverter/defibrillator) present: Status: Acute Category: Surgical Code(s): Z95.810 - Presence of automatic (implantable) cardiac defibrillator (4) NICM (nonischemic cardiomyopathy): Status: Acute Category: Medical Code(s): I42.8 - Other cardiomyopathies (5) HFrEF (heart failure with reduced ejection fraction): Status: Acute Category: Medical Code(s): I50.20 - Unspecified systolic (congestive) heart failure (6) SPEEDY (obstructive sleep apnea): Status: Acute Category: Medical Code(s): G47.33 - Obstructive sleep apnea (adult) (pediatric) (7) HTN (hypertension): Status: Chronic Qualifiers: Hypertension type: essential hypertension Qualified Code(s): I10 - Essential (primary) hypertension Category: Medical Code(s): I10 - Essential (primary) hypertension (8) HLD (hyperlipidemia): Status: Chronic Qualifiers: Hyperlipidemia type: other hyperlipidemia Qualified Code(s): E78.4 - Other hyperlipidemia Category: Medical Code(s): E78.5 - Hyperlipidemia, unspecified (9) Tobacco use: Status: Chronic Category: Social Hx Code(s): Z72.0 - Tobacco use Plan Mr. Jimenez is a 62-year-old male with history of heart failure with reduced ejection fraction, COPD, SPEEDY, AICD in place. Presented with chest pain to the ER. States it radiated from his chest to his back. Workup unremarkable in the ER. Chest imaging negative for aortic dissection. Cardiology consulted. Medicine consulted for further management, discussed with ER physician, request admission for serial troponins and monitoring overnight. I agreed to admit for further management. Patient continues to require inpatient monitoring and management with medication adjustments. Problems addressed as follows: Chest pain Heart failure with reduced ejection fraction -Initial troponin negative. Had a left heart cath earlier this year with chronically occluded circumflex. Cardiology consulted, discussed case, recommend continuing goal-directed therapy. AICD interrogated, no arrhythmias noted. -Continue Ranexa 500 mg twice daily. Ecommend adding Ranexa if blood pressure allows - continue aspirin 81 mL daily, Bumex 2 mg daily, carvedilol 6.25 mg twice daily, Jardiance 10 mg daily, Entresto 97/103 mg twice daily, and spironolactone 25 mg daily. -Per my review of CTA of chest, no pulmonary emboli noted. Pleural effusions and ascites noted but improved compared to previous. - BNP elevated at 7600, improved from 2 months ago 8900 -Holding on left heart cath at this time, reevaluate as an outpatient. -If remains stable overnight, anticipate discharge in the morning. Ischemic cardiomyopathy -AICD implanted 08/2023 -Interrogated today, no recent arrhythmias. APaced <1%; VPaced <1%; AF burden 0%; Battery life 6-8yrs. Thoracic aortic aneurysm, stable by chest CTA today COPD with continued tobacco use: DuoNebs as needed every 6 hours DNR cardiac diet
--- NOTE | 2023-10-18 15:25 | PC.NURSE ---
Pt. aox4, up ad steven, no complaints of pain, nausea or feeling dizzy, 20g R AC SL, will continue to monitor.
[2023-10-18] MEDS: BUMETANIDE 1 MG TABLET 2 MG PO (16:34)
[2023-10-18] MEDS: ATORVASTATIN 40MG TABLET 80 MG PO (20:33)
[2023-10-18] MEDS: SPIRONOLACTONE 25MG TABLET 25 MG PO (22:12)
[2023-10-19] VITALS: BP 114/69; PULSE 89; PULSE 90; RESP 18; TEMP 37.2; O2SAT 91
[2023-10-19 04:00] VITALS: BP 101/54; PULSE 87; PULSE 90; RESP 17; TEMP 36.8; O2SAT 90; BMI 25.4
[2023-10-19 07:27] LABS: Basophils # 0.1 K/mm3 (0-0.2); Basophils % 0.7 % (0.1-2.0); Eosinophils # 0.3 K/mm3 (0.0-0.4); Eosinophils % 3.2 % (0.1-12.0); Hematocrit 49.1 % (42.0-52.0); Hemoglobin 15.5 g/dL (14.1-18.0); Lymphocytes # 1.9 K/mm3 (0.7-4.5); Lymphocytes % 18.9 % (10-50); Mean Corpuscular HGB Conc 31.5 g/dL (31.8-35.4); Mean Corpuscular Hemoglobin 29.9 pg (27.0-31.2); Mean Corpuscular Volume 95.1 fl (80-94); Mean Platelet Volume 7.9 fl (7.4-10.4); Monocytes # 0.7 K/mm3 (0.1-1.0); Neutrophils # 7.2 K/mm3 (1.8-7.8); Neutrophils % 70.2 % (37.0-80.0); Platelet Count 330 K/mm3 (142-424); Red Blood Count 5.16 M/mm3 (4.60-6.20); Red Cell Distribution Width 15.4 % (11.5-17.5); White Blood Count 10.2 K/mm3 (4.8-10.8)
[2023-10-19 07:37] LABS: Anion Gap 8.7 mEq/L (5-15); Blood Urea Nitrogen 20 mg/dl (9-20); Calcium 8.6 mg/dl (8.4-10.2); Carbon Dioxide 24 mmol/L (22.0-30.0); Chloride 108 mmol/L (98-107); Creatinine Clearance Estimated 91 mL/min (50-200); Estimated Glomerular Filt Rate 98 ml/min (>60); GFR (African American) 118 ML/MIN (>60); Glucose 121 mg/dl (74-100); Potassium 3.7 mmoL/L (3.5-5.1); Sodium 137 mmol/L (136-145)
[2023-10-19 08:00] VITALS: BP 105/75; PULSE 100; PULSE 67; RESP 16; TEMP 36.6; O2SAT 97
--- NOTE | 2023-10-19 08:04 | P.DS_ITS ---
General Admission date:: 10/17/23 Discharge date: 10/19/23 HPI HPI HPI: Mr. Jimenez is a 62-year-old male with history of CAD, severe heart failure with reduced ejection fraction, recent AICD placement, hyperlipidemia, aortic aneurysm, COPD. Presented to the ER today because of complaint of chest pain. Started in the center of his chest and radiated to his back. Started approximately 10 minutes prior to arrival. Was having shortness of breath that is chronic. Denies any nausea or vomiting. Treated with morphine and nitro in the ER with improvement in symptoms. Cardiology consulted. Given symptoms and elevated heart score, will admit for observation overnight. CT obtained in the ER, negative for dissection or PE. Patient feeling somewhat better after arriving to the floor. Was little hypotensive and received 500 cc of IV fluids. On room air. Afebrile. Hospital Course Hospital Course Hospital Course: Mr. Jimenez is a 62-year-old male with history of heart failure with reduced ejection fraction, COPD, SPEEDY, AICD in place. Presented with chest pain to the ER. States it radiated from his chest to his back. Workup unremarkable in the ER. Chest imaging negative for aortic dissection. Cardiology consulted. Medicine consulted for further management, discussed with ER physician, request admission for serial troponins and monitoring overnight. I agreed to admit for further management. Did well with adjustments to his medications. Cardiology was consulted and assisted with care. Stable to discharge home with close follow-up with cardiology. Problems addressed as follows: Chest pain Heart failure with reduced ejection fraction -Initial troponin negative. Had a left heart cath earlier this year with chronically occluded circumflex. Cardiology consulted, discussed case, recommend continuing goal-directed therapy. AICD interrogated, no arrhythmias noted. Continue Ranexa 500 mg twice daily. continue aspirin 81 mL daily, Bumex 2 mg daily, carvedilol 6.25 mg twice daily, Jardiance 10 mg daily, Entresto 97/103 mg twice daily, and spironolactone 25 mg daily. CTA of chest, no pulmonary emboli noted. Pleural effusions and ascites noted but improved compared to previous. Responded well to diuresis. BNP was elevated at 7600, improved from 2 months ago. No left heart cath performed during this visit. Remained stable during admission, tolerating goal-directed therapy. Further management as an outpatient Ischemic cardiomyopathy -AICD implanted 08/2023 -Interrogated today, no recent arrhythmias. APaced <1%; VPaced <1%; AF burden 0%; Battery life 6-8yrs. Thoracic aortic aneurysm, stable by chest CTA today COPD with continued tobacco use: DuoNebs as needed every 6 hours Total time spent on discharge 32 minutes in counseling, documentation, chart review, and direct care with patient. Exam Data for Last 24 hours Vital signs and Labs for Last 24 Hours: Temp Pulse Resp BP Pulse Ox O2 Del Method 98.1 F 100 H 20 114/80 96 Room Air 10/18/23 07:54 10/18/23 12:00 10/18/23 07:54 10/18/23 07:54 10/18/23 07:54 10/18/23 13:21 Laboratory Results - last 24 hr 10/18/23 05:30: WBC 8.7, RBC 5.40, Hgb 15.6, Hct 52.0, MCV 96.2 H, MCH 28.9, MCHC 30.0 L, RDW 15.1, Plt Count 326, MPV 7.9, Neut % (Auto) 62.8, Lymph % (Auto) 24.4, Aiken % (Auto) 7.5, Eos % (Auto) 4.4, Baso % (Auto) 0.9, Neut # (Auto) 5.5, Lymph # (Auto) 2.1, Aiken # (Auto) 0.7, Eos # (Auto) 0.4, Baso # (Auto) 0.1, Sodium 138, Potassium 4.1, Chloride 110 H, Carbon Dioxide 22, Anion Gap 10.1, BUN 24 H, Creatinine 0.90, Estimated Creat Clear 88, Estimated GFR 85, Est GFR ( Amer) 103, Glucose 104 H, Calcium 8.3 L, Magnesium 2.1, Total Bilirubin 0.6, AST 35, ALT 29, Alkaline Phosphatase 86, Total Protein 6.5, Albumin 3.5 D, Globulin 3.0, Albumin/Globulin Ratio 1.2 I & O for Last 24 hours: Intake & Output 10/15/23 10/16/23 10/17/23 10/18/23 23:59 23:59 23:59 23:59 Intake Total 2490 / 3215 1245 / 1245 Output Total 1100 / 1100 325 / 325 Balance 1390 / 2115 920 / 920 Weight 83.518 kg 82.735 kg Constitutional Constitutional: no acute distress, average body habitus, chronically ill appearing and cooperative *Routine HEENT Exam Head: Present normocephalic Eye: Present EOMI and PERRL ENT: Present mucous membranes moist *Routine Neck Exam Neck: Present supple; Absent lymphadenopathy *Routine Respiratory Exam Respiratory: Present CTA bilaterally; Absent rhonchi, wheezes or crackles *Routine Cardiovascular Exam Cardiovascular: Present RRR and S3 *Routine Abdominal Exam Abdominal: Present soft and normoactive bowel sounds; Absent tenderness *Routine Rectal Exam Patient deferred: visual exam *Routine Exam Patient deferred: penile exam *Routine Extremities Exam Extremities: Absent cyanosis, clubbing or edema *Routine Skin Exam Skin: Present warm; Absent rash *Routine Neurological Exam Neurological: Present alert, oriented X3 and moving all extremities; Absent altered mental status Results Data Completed and Pending Labs on day of discharge: Labs from last 24 hours 10/18/23 05:30 WBC 8.7 RBC 5.40 Hgb 15.6 Hct 52.0 MCV 96.2 H MCH 28.9 MCHC 30.0 L RDW 15.1 Plt Count 326 MPV 7.9 Neut % (Auto) 62.8 Lymph % (Auto) 24.4 Aiken % (Auto) 7.5 Eos % (Auto) 4.4 Baso % (Auto) 0.9 Neut # (Auto) 5.5 Lymph # (Auto) 2.1 Aiken # (Auto) 0.7 Eos # (Auto) 0.4 Baso # (Auto) 0.1 Sodium 138 Potassium 4.1 Chloride 110 H Carbon Dioxide 22 Anion Gap 10.1 BUN 24 H Creatinine 0.90 Estimated Creat Clear 88 Estimated GFR 85 Est GFR ( Amer) 103 Glucose 104 H Calcium 8.3 L Magnesium 2.1 Total Bilirubin 0.6 AST 35 ALT 29 Alkaline Phosphatase 86 Total Protein 6.5 Albumin 3.5 D Globulin 3.0 Albumin/Globulin Ratio 1.2 DS: Diagnosis Discharge Diagnosis (1) Atypical chest pain: Status: Acute Code(s): R07.89 - Other chest pain (2) Stented coronary artery: Status: Chronic Code(s): Z95.5 - Presence of coronary angioplasty implant and graft (3) AICD (automatic cardioverter/defibrillator) present: Status: Acute Code(s): Z95.810 - Presence of automatic (implantable) cardiac defibrillator (4) NICM (nonischemic cardiomyopathy): Status: Acute Code(s): I42.8 - Other cardiomyopathies (5) HFrEF (heart failure with reduced ejection fraction): Status: Acute Code(s): I50.20 - Unspecified systolic (congestive) heart failure (6) SPEEDY (obstructive sleep apnea): Status: Acute Code(s): G47.33 - Obstructive sleep apnea (adult) (pediatric) (7) HTN (hypertension): Status: Chronic Code(s): I10 - Essential (primary) hypertension Qualifiers: Hypertension type: essential hypertension Qualified Code(s): I10 - Essential (primary) hypertension (8) HLD (hyperlipidemia): Status: Chronic Code(s): E78.5 - Hyperlipidemia, unspecified Qualifiers: Hyperlipidemia type: other hyperlipidemia Qualified Code(s): E78.4 - Other hyperlipidemia (9) Tobacco use: Status: Chronic Code(s): Z72.0 - Tobacco use Meds Home Medications and Allergies Home Medications ?Medication ?Instructions ?Recorded ?Confirmed ?Type aspirin 81 mg tablet,delayed 81 mg PO DAILY 05/02/23 10/17/23 History release bumetanide 2 mg tablet 2 mg PO BID #60 tabs 09/18/23 10/17/23 Rx carvedilol 6.25 mg tablet (Coreg) 6.25 mg PO BID #60 tabs 09/18/23 10/17/23 Rx empagliflozin 10 mg tablet 10 mg PO DAILY #90 tabs 09/18/23 10/17/23 Rx (Jardiance) sacubitril 97 mg-valsartan 103 mg 1 tab PO BID #60 tabs 09/18/23 10/17/23 Rx tablet (Entresto) spironolactone 25 mg tablet 25 mg PO BID #60 tabs 09/18/23 10/17/23 Rx atorvastatin 80 mg tablet (Lipitor) 80 mg PO HS 10/17/23 10/17/23 History ranolazine 500 mg tablet,extended 500 mg PO BID 30 days #60 tabs 10/19/23 Rx release,12 hr New Prescriptions to Start Prescriptions: Rod Mcnally Allergies Allergy/AdvReac Type Severity Reaction Status Date / Time No Known Allergies Allergy Verified 09/18/23 10:41 Discharge Plan Disposition Patient Disposition: Home, Self-Care Condition: Fair Follow up Plan Follow up with: Michael Graves PA [Physician Optomechanical Technician] - 10/30/23 9:00 am Prescriptions/Medication Reconciliation: New ranolazine 500 mg Tablet Extended Release 12 Hr 500 mg PO BID 30 Days Qty: 60 0RF Continued carvedilol [Coreg] 6.25 mg tablet 6.25 mg PO BID Qty: 60 5RF Rx Instructions: must administer with a meal/food bumetanide 2 mg tablet 2 mg PO BID Qty: 60 5RF Jardiance 10 mg tablet 10 mg PO DAILY Qty: 90 0RF Entresto 97-103 mg tablet 1 tab PO BID Qty: 60 5RF spironolactone 25 mg tablet 25 mg PO BID Qty: 60 5RF aspirin 81 mg Tablet,Delayed Release (Dr/Ec) 81 mg PO DAILY atorvastatin [Lipitor] 80 mg tablet 80 mg PO HS Problem Reconciliation Problems Reviewed?: Yes Patient Discharge Instructions ACTIVITY: Continue current activity DIET: continue same diet Patient Instructions: DI for Chest Pain Print Language: Thai Providers Primary Care Provider: Tom Castaneda Admit Provider: Rod Ryan Attending Provider: Rod Ryan
[2023-10-19] MEDS: SACUBITRIL/VALSARTAN 24-26MG TABLET 4 EACH PO (09:03)
[2023-10-19] MEDS: RANOLAZINE 500MG ER TABLET 500 MG PO (09:03)
[2023-10-19] MEDS: EMPAGLIFLOZIN 10MG TABLET 10 MG PO (09:03)
[2023-10-19] MEDS: ASPIRIN EC 81MG TABLET 81 MG PO (09:04)
[2023-10-19] MEDS: BUMETANIDE 1 MG TABLET 2 MG PO (09:04)
[2023-10-19] MEDS: SPIRONOLACTONE 25MG TABLET 25 MG PO (09:04)
[2023-10-19] MEDS: CARVEDILOL 6.25MG TABLET 6.25 MG PO (09:04)
--- NOTE | 2023-10-21 13:53 | CARE MANAGER ---
Contacted patient related to hospital discharge. He states he is doing well and has new medication. He is aware of follow up appointment and denies questions or concerns. SUSSY Navarro
== END 2023-10-19 09:26 | disposition home or self-care (01) ==
LOC: ER 10:00 → 2ND 10:05
PROVIDERS: Physician Assistant; Admitting Provider Internal Medicine Adolescent Medicine; Emergency Provider Emergency Medicine; PCP Nurse Practitioner Family; Visit Provider Internal Medicine Adolescent Medicine
DX: R07.89 Other chest pain (principal); I42.8 Other cardiomyopathies; I50.20 Unspecified systolic (congestive) heart failure; Z95.810 Presence of automatic (implantable) cardiac defibrillator; I11.0 Hypertensive heart disease with heart failure; E78.5 Hyperlipidemia, unspecified; I71.21 Aneurysm of the ascending aorta, without rupture; G47.33 Obstructive sleep apnea (adult) (pediatric); J44.9 Chronic obstructive pulmonary disease, unspecified; I25.10 Atherosclerotic heart disease of native coronary artery without angina pectoris; F17.210 Nicotine dependence, cigarettes, uncomplicated; Z95.5 Presence of coronary angioplasty implant and graft; R00.0 Tachycardia, unspecified
CPT/HCPCS: 36415; 71275; 80048; 80053; 80061; 83735; 83880; 84484; 85025; 93005; 99285; G0378; J2270; J7030; Q9967

== ENCOUNTER 2023-11-21 11:54 | Outpatient (CLI) | payer MEDICARE, SELFPAY ==
[2023-11-21 12:11] LABS: Basophils # 0.1 K/mm3 (0-0.2); Basophils % 0.8 % (0.1-2.0); Eosinophils # 0.2 K/mm3 (0.0-0.4); Eosinophils % 2.7 % (0.1-12.0); Hematocrit 46.2 % (42.0-52.0); Hemoglobin 14.3 g/dL (14.1-18.0); Lymphocytes # 1.6 K/mm3 (0.7-4.5); Lymphocytes % 17.2 % (10-50); Mean Corpuscular Hemoglobin 29.2 pg (27.0-31.2); Mean Corpuscular Volume 94.4 fl (80-94); Mean Platelet Volume 8.1 fl (7.4-10.4); Monocytes # 0.6 K/mm3 (0.1-1.0); Monocytes % 7.1 % (1.7-9.3); Neutrophils # 6.5 K/mm3 (1.8-7.8); Neutrophils % 72.2 % (37.0-80.0); Platelet Count 231 K/mm3 (142-424); Red Cell Distribution Width 17.4 % (11.5-17.5)
[2023-11-21 12:46] LABS: Albumin Level 3.4 g/dl (3.5-5.0); Alkaline Phosphatase 111 U/L (38-126); Anion Gap 9.5 mEq/L (5-15); Aspartate Amino Transferase 440 U/L (17-59); Bilirubin,Direct 0.8 mg/dl (0.0-0.4); Bilirubin,Indirect 1.2 mg/dL (0.0-0.9); Bilirubin,Unconjugated 1.2 mg/dL (0.0-1.1); Blood Urea Nitrogen 26 mg/dl (9-20); Calcium 8.9 mg/dl (8.4-10.2); Carbon Dioxide 28 mmol/L (22.0-30.0); Chloride 98 mmol/L (98-107); Chol/HDL Ratio 4.7 (1-3.5); Cholesterol 145 mg/dl (140-200); Estimated Glomerular Filt Rate 85 ml/min (>60); GFR (African American) 103 ML/MIN (>60); Glucose 142 mg/dl (74-100); HDL Cholesterol 31 mg/dl (40-60); Magnesium 1.9 mg/dl (1.6-2.3); Potassium 3.5 mmoL/L (3.5-5.1); Sodium 132 mmol/L (136-145); Total Protein,Serum 6.6 g/dl (6.3-8.2); Triglycerides 77 mg/dl (30-150); VLDL Cholesterol 15 mg/dL (0-40)
[2023-11-21 12:52] LABS: Free T4 (Free Thyroxine) 2.19 ng/dl (0.78-2.19)
[2023-11-21 12:56] LABS: Direct LDL Cholesterol 93.93 mg/dL (100-129)
[2023-11-21 13:16] LABS: Thyroid Stimulating Hormone 2.63 uIU/mL (0.465-4.68)
[2023-11-21 14:18] LABS: Alanine Aminotransferase 987 U/L (12-78)
== END 2023-11-21 23:59 | disposition home or self-care (01) ==
LOC: LAB 11:55
PROVIDERS: PCP Nurse Practitioner Family; Visit Provider Physician Assistant
DX: I50.20 Unspecified systolic (congestive) heart failure (principal); I42.8 Other cardiomyopathies; J44.9 Chronic obstructive pulmonary disease, unspecified; I25.10 Atherosclerotic heart disease of native coronary artery without angina pectoris; I10 Essential (primary) hypertension; Z95.810 Presence of automatic (implantable) cardiac defibrillator; Z95.5 Presence of coronary angioplasty implant and graft; G47.33 Obstructive sleep apnea (adult) (pediatric); Z72.0 Tobacco use
CPT/HCPCS: 36415; 80048; 80061; 80076; 83735; 84439; 84443; 85025

== ENCOUNTER 2023-12-13 14:31 | Inpatient (IN) | payer MEDICARE, SELFPAY ==
[2023-12-13] VITALS (10 sets, daily range): BP systolic 126–151; BP diastolic 82–104; PULSE 99–105; RESP 18–21; TEMP 36.5–36.8; O2SAT 91–100; BMI 27.0
--- NOTE | 2023-12-13 14:35 | ECG_ITS ---
APPROVED REPORT Exam: Resting ECG HR:103 bpm ECG Measurements Heart Rate 103 AXES SD 148 P 63 QRSd 131 QRS -63 QT 455 T 98 QTc 515 Conclusion SINUS TACHYCARDIA LEFT ATRIAL ENLARGEMENT [-0.15mV P-WAVE IN V1/V2] INTRAVENTRICULAR CONDUCTION DELAY [130+ ms QRS DURATION] ABNORMAL ECG Electronically signed by : JENA SHIPMAN, 12/15/2023 13:17:54
--- NOTE | 2023-12-13 14:44 | XR_ITS ---
FINAL REPORT CLINICAL HISTORY: Shortness of breath, CP COMPARISON: 08/28/2023 FINDINGS: Two views of the chest were obtained. There is a left subclavian ICD. The heart is enlarged. There is pulmonary vascular congestion. The mediastinum is normal. There are bilateral pulmonary opacities which favor pulmonary edema. There is no pneumothorax. Postoperative changes are seen in the lower cervical spine. IMPRESSION: Bilateral pulmonary opacities, favor pulmonary edema. Reviewed, Interpreted and Dictated by Geremias Quintana III, MD Transcribed by Jaylin Sorensen Authenticated and [facility]
--- NOTE | 2023-12-13 14:45 | ED_ITS ---
Discharge Plan Disposition Patient Disposition: Admitted Condition: Good Prescriptions Prescriptions: No Action aspirin 81 mg tablet,delayed release (DR/EC) 81 mg PO DAILY Qty: 90 3RF atorvastatin [Lipitor] 80 mg tablet 80 mg PO HS Qty: 90 3RF bumetanide 2 mg tablet 2 mg PO BID Qty: 60 5RF carvedilol [Coreg] 6.25 mg tablet 6.25 mg PO BID Qty: 60 5RF Rx Instructions: must administer with a meal/food Jardiance 10 mg tablet 10 mg PO DAILY Qty: 90 3RF Entresto 97-103 mg tablet 1 tab PO BID Qty: 60 5RF spironolactone 25 mg tablet 25 mg PO BID Qty: 60 5RF prednisone 20 mg tablet 20 mg PO BID 5 Days Qty: 10 0RF metolazone 2.5 mg tablet 2.5 mg PO Q OTHER DAY Qty: 30 4RF Referrals Follow up/Referrals: Tom Castaneda APRN [Primary Care Provider] - See instructions Clinical Impressions Clinical Impression: CHF exacerbation Dyspnea Qualifiers: Dyspnea type: shortness of breath Qualified Code(s): R06.02 - Shortness of breath Print Language Print Language: Greenlandic Discharge ED Provider: David Potter General Adult HPI <JOANNA Macedo - Last Filed: 12/13/23 17:46> General Chief complaint: Shortness of Breath/Dyspnea Stated complaint: Chest Pain Time Seen by Provider: 12/13/23 14:43 Mode of Arrival: Wheelchair Limitations: No Limitations Description of Symptoms (Recalled from ER Triage Doc. by RN): PT REPORTS INCREASING SHORTNESS OF BREATH OVER THIS WEEK. PT REPORTS COUGH, EDEMA TO BLE AND FATIGUE. History of Present Illness HPI narrative: 63-year-old male presents emergency department with chest pain, different than his normal chest pain, it waxes and wanes, and has been going on for the last week, he describes it as substernal nonradiating, he admits to shortness of breath, for 1 week/last several days, with also bilateral lower extremity swelling and fatigue, right lower extremity swelling worse than left. Patient denies any fever chills, denies any abdominal pain, admits to nausea, denies vomiting, diarrhea, constipation, denies urinary type symptomatology. Patient has past medical history consistent with COPD, SPEEDY, coronary artery disease, post stent placement, implantable cardiac fibrillator/defibrillator, HFrEF, patient tells me his last echocardiogram was a little over a month ago, he admits to 5% EF, cardiomyopathy, coronary a smoker, hypertension, degenerative disc disease, hyperlipidemia, risk aortic aneurysm. Patient denies any alcohol or drug use. Initial triage vitals are notable for tachycardia, SpO2 is 9596% on room air. Onset (ago): day(s) Related Data Previous Rx's ?Medication ?Instructions ?Recorded aspirin 81 mg tablet,delayed 81 mg PO DAILY #90 tabs 10/30/23 release atorvastatin 80 mg tablet (Lipitor) 80 mg PO HS #90 tabs 10/30/23 bumetanide 2 mg tablet 2 mg PO BID #60 tabs 10/30/23 carvedilol 6.25 mg tablet (Coreg) 6.25 mg PO BID #60 tabs 10/30/23 empagliflozin 10 mg tablet 10 mg PO DAILY #90 tabs 10/30/23 (Jardiance) sacubitril 97 mg-valsartan 103 mg 1 tab PO BID #60 tabs 10/30/23 tablet (Entresto) spironolactone 25 mg tablet 25 mg PO BID #60 tabs 10/30/23 metolazone 2.5 mg tablet 2.5 mg PO Q OTHER DAY #30 tabs 11/21/23 prednisone 20 mg tablet 20 mg PO BID 5 days #10 tabs 12/03/23 Allergies Allergy/AdvReac Type Severity Reaction Status Date / Time No Known Allergies Allergy Verified 12/03/23 10:30 [facility], [facility] <JOANNA Macedo - Last Filed: 12/13/23 17:46> [facility] Disclaimer: The information contained in this section may have been updated after the patient was seen, as this information can be updated by other users. Medical History History of aortic aneurysm HARITHA (acute kidney injury) Hypokalemia NICM (nonischemic cardiomyopathy) HFrEF (heart failure with reduced ejection fraction) SPEEDY (obstructive sleep apnea) Unstable angina Non-STEMI (non-ST elevated myocardial infarction) LV dysfunction Cardiomyopathy Dyspnea Acute on chronic HFrEF (heart failure with reduced ejection fraction) HTN (hypertension) Accidental drug overdose Overweight (BMI 25.0-29.9) Tobacco use CAD (coronary artery disease) Surgical History Stented coronary artery AICD (automatic cardioverter/defibrillator) present Family History Other No significant family history Social History Smoking Status: Current every day smoker tobacco type: cigarettes packs per day: 1 second hand exposure: Yes alcohol intake: current alcohol intake frequency: holidays/special occasions only substance use type: denies use current occupational status: employed Travel in the last 8 weeks: Inside the [place] household members: children housing: house current occupational exposures/hazards: No caffeine: Yes Other Medical History Have you received the Flu Vaccine for this season: No Have you received the Pneumonia Vaccine: No <JOANNA Macedo - Last Filed: 12/13/23 17:46> ROS Obtained: Yes All systems reviewed & no additional complaints except as documented Physical Exam <JOANNA Macedo - Last Filed: 12/13/23 17:46> General General appearance: alert and in no apparent distress Head Head exam: atraumatic and normocephalic Eye Eye exam: Present normal appearance, PERRL and EOMI Neck Neck exam: Present full ROM and other (t); Absent meningismus Chest Chest inspection: Present normal inspection Respiratory Respiratory exam: Present other (Mild to moderate conversational dyspnea); Absent respiratory distress, wheezes, stridor, accessory muscle use or prolonged expiratory phase Expanded Respiratory Exam Location: Left: rales and Right: rales Cardiovascular Cardiovascular exam: Present normal rhythm, tachycardia, Pacemaker/defibrillator and other (Pulses equal and symmetric in bilateral upper and lower extremities) Abdominal Exam Abdominal exam: Absent distention, tenderness, guarding, rebound or rigidity Extremities Exam Extremities exam: Absent edema Neurological Exam Neurological exam: Present alert Psychiatric Psychiatric exam: Present normal affect Skin Skin exam: Present warm, dry and other (Bilateral +3 pitting edema of the lower extremities, right worse than left, there are some areas of chronic venous, stasis.) Medical Decision Making <JOANNA Macedo - Last Filed: 12/13/23 17:46> Medical Records Medical records reviewed: Yes I reviewed the patient's medical records. Screening: Per USPSTF and CDC recommendations, given the prevalence of disease in our region, it is our hospital?s policy to screen for HIV and viral Hepatitis for all patients aged 18 and over and those with ongoing risk factors. Brett Inquiry Pt receiving controlled substance: No Vital Signs: 12/13/23 14:32 12/13/23 15:05 12/13/23 15:07 Temperature 97.7 F Temperature Source Oral Pulse Rate 103 H 99 H Pulse Rate [Apical] 104 H Respiratory Rate 20 19 21 Blood Pressure 151/103 H Blood Pressure [Right Arm] 127/82 Blood Pressure Mean [Right Arm] 97 Blood Pressure Source [Right Arm] Automatic Cuff Blood Pressure Position [Right Arm] Sitting 02 Sat by Pulse Oximetry 95 95 100 Oxygen Delivery Method Room Air 12/13/23 15:30 12/13/23 16:00 12/13/23 17:00 Temperature Temperature Source Pulse Rate 102 H 102 H 103 H Pulse Rate [Apical] Respiratory Rate Blood Pressure 137/102 H 136/104 H 144/97 H Blood Pressure [Right Arm] Blood Pressure Mean [Right Arm] Blood Pressure Source [Right Arm] Blood Pressure Position [Right Arm] 02 Sat by Pulse Oximetry 98 99 99 Oxygen Delivery Method Room Air Room Air Lab Data Lab Results 12/13/23 14:35: WBC 8.9, RBC 5.26, Hgb 15.6, Hct 48.2, MCV 91.6, MCH 29.6, MCHC 32.3, RDW 17.8 H, Plt Count 328, MPV 7.2 L, Neut % (Auto) 72.8, Lymph % (Auto) 17.2, [place] % (Auto) 7.0, Eos % (Auto) 2.3, Baso % (Auto) 0.8, Neut # (Auto) 6.5, Lymph # (Auto) 1.5, [place] # (Auto) 0.6, Eos # (Auto) 0.2, Baso # (Auto) 0.1, PT 14.0 H, INR 1.28 H, D-Dimer 0.94 H, Sodium 133 L, Potassium 3.0 L, Chloride 100, Carbon Dioxide 29, Anion Gap 7.0, BUN 41 H, Creatinine 1.20, Estimated Creat Clear 82, Estimated GFR 61, Est GFR ( Amer) 74, Glucose 107 H, Calcium 8.8, Total Bilirubin 2.0 H, AST 145 H, ALT 90 H, Alkaline Phosphatase 122, CK-MB (CK-2) 48.0 H*, Troponin I 0.06 H, NT-Pro-B Natriuret Pep 6830 H, Total Protein 7.9, Albumin 4.2, Globulin 3.7 H, Albumin/Globulin Ratio 1.1, HIV 1&2 Antibody Rapid Nonreactive 12/13/23 17:19: Troponin I 0.05 H 12/13/23 14:35 12/13/23 14:35 Orders (Tests/Meds): ED MEDICATIONS Discontinued Medications Generic Name Dose Route Start Last Admin Trade Name Wilianq PRN Reason Stop Dose Admin Aspirin 244 mg 12/13/23 15:51 12/13/23 15:59 Aspirin 325mg Tablet PO 12/13/23 15:52 Not Given ONCE ONE Aspirin 243 mg 12/13/23 16:00 12/13/23 16:01 Aspirin 81mg Chewable Tablet PO 12/13/23 16:01 243 mg ONCE ONE Administration Furosemide 80 mg 12/13/23 15:39 12/13/23 16:01 Furosemide 40mg/4ml Vial IV 12/13/23 15:40 80 mg ONCE ONE Administration Potassium Chloride 60 meq 12/13/23 16:27 12/13/23 16:37 Potassium Chloride 20meq Tab PO 12/13/23 16:28 60 meq ONCE ONE Administration ORDERS Category Date Time Status CT chest wo con Stat Cat Scan 12/13/23 14:53 Completed XR chest 2V Stat Exams 12/13/23 14:44 Completed Complete Blood Count Auto Diff Stat Lab 12/13/23 14:35 Completed Comprehensive Metabolic Panel Stat Lab 12/13/23 14:35 Completed Creatine Kinase MB Stat Lab 12/13/23 14:35 Completed D-Dimer Stat Lab 12/13/23 14:35 Completed HIV (1&2) Antibody Rapid Stat Lab 12/13/23 14:35 Completed Hep C Ab with Reflex to RNA Stat Lab 12/13/23 14:35 Received NT Pro Brain Natriuretic Pep. Stat Lab 12/13/23 14:35 Completed Prothrombin Time INR Stat Lab 12/13/23 14:35 Completed Troponin I Q3H Lab 12/13/23 14:35 Completed Troponin I Q3H Lab 12/13/23 17:19 Completed Troponin I Q3H Lab 12/13/23 20:45 Ordered Medical Decision Narrative: 63-year-old male presents emergency department breath, bilateral lower extremity edema, pain, EXTR diagnose include but not limited to, acute CHF exacerbation, COPD exacerbation, pneumonia, pneumothorax, ACS pulmonary edema, pleural effusion. I discussed the patient's case with Dr. Potter Obtain CBC CMP, CK, D-dimer, proBNP, troponin, chest x-ray, EKG, continuous cardiac monitoring, tenderness Pulsoxymeter monitoring, PT/INR, chest without contrast. I along with the attending physician the patient's EKG, sinus tachycardia at 103 bpm, [place] interval within normal limits, QT interval within normal limits, there is no STEMI, there are there are some new ST depressions, V5 V6, as well as V2 comparison to prior EKG of 2023 CBC unremarkable PT/INR elevated at 14/1.28. CMP is notable for hyponatremia that is mild at 133, hypokalemia at 3 BUN is elevated at 41, AST and ALT are elevated at 145/90 bilirubin is elevated at 2, CK is elevated at 248, troponin is elevated at 0.06, proBNP is elevated at 6830 Will give 80 mg IV Lasix, will give full dose of aspirin to 244 mg po for today, as well as 60 mill equivalents p.o. potassium chloride for hypokalemia. D-dimer is elevated 0.94, utilizing years criteria, PE unlikely. Patient's symptomatology is most likely due to HFrEF/ongoing CHF exacerbation with possible ischemic changes due to ongoing heart failure/cardiomyopathy. I reviewed the patient's chest x-ray along the corresponding radiologic report, bilateral pulmonary opacities favored to be pulmonary edema. I reviewed the patient's CT chest without contrast along the corresponding radiologic report, there is a descending aortic aneurysm, stable right lower lobe nodule, no small to moderate ascites. I discussed patient case with Dr. Ryan hospitalist at 5:45 PM, he is agree with current admission plan/treatment plan for acute CHF exacerbation. Patient is a DNR be admitted to [facility]. Patient is agree with current admission plan/treatment plan <David Potter MD - Last Filed: 12/13/23 17:56> Vital Signs: 12/13/23 14:32 12/13/23 15:05 12/13/23 15:07 Temperature 97.7 F Temperature Source Oral Pulse Rate 103 H 99 H Pulse Rate [Apical] 104 H Respiratory Rate 20 19 21 Blood Pressure 151/103 H Blood Pressure [Right Arm] 127/82 Blood Pressure Mean [Right Arm] 97 Blood Pressure Source [Right Arm] Automatic Cuff Blood Pressure Position [Right Arm] Sitting 02 Sat by Pulse Oximetry 95 95 100 Oxygen Delivery Method Room Air 12/13/23 15:30 12/13/23 16:00 12/13/23 17:00 Temperature Temperature Source Pulse Rate 102 H 102 H 103 H Pulse Rate [Apical] Respiratory Rate Blood Pressure 137/102 H 136/104 H 144/97 H Blood Pressure [Right Arm] Blood Pressure Mean [Right Arm] Blood Pressure Source [Right Arm] Blood Pressure Position [Right Arm] 02 Sat by Pulse Oximetry 98 99 99 Oxygen Delivery Method Room Air Room Air Lab Data Lab Results 12/13/23 14:35: WBC 8.9, RBC 5.26, Hgb 15.6, Hct 48.2, MCV 91.6, MCH 29.6, MCHC 32.3, RDW 17.8 H, Plt Count 328, MPV 7.2 L, Neut % (Auto) 72.8, Lymph % (Auto) 17.2, [place] % (Auto) 7.0, Eos % (Auto) 2.3, Baso % (Auto) 0.8, Neut # (Auto) 6.5, Lymph # (Auto) 1.5, [place] # (Auto) 0.6, Eos # (Auto) 0.2, Baso # (Auto) 0.1, PT 14.0 H, INR 1.28 H, D-Dimer 0.94 H, Sodium 133 L, Potassium 3.0 L, Chloride 100, Carbon Dioxide 29, Anion Gap 7.0, BUN 41 H, Creatinine 1.20, Estimated Creat Clear 82, Estimated GFR 61, Est GFR ( Amer) 74, Glucose 107 H, Calcium 8.8, Total Bilirubin 2.0 H, AST 145 H, ALT 90 H, Alkaline Phosphatase 122, CK-MB (CK-2) 48.0 H*, Troponin I 0.06 H, NT-Pro-B Natriuret Pep 6830 H, Total Protein 7.9, Albumin 4.2, Globulin 3.7 H, Albumin/Globulin Ratio 1.1, HIV 1&2 Antibody Rapid Nonreactive 12/13/23 17:19: Troponin I 0.05 H Orders (Tests/Meds): ED MEDICATIONS Discontinued Medications Generic Name Dose Route Start Last Admin Trade Name Juwan PRN Reason Stop Dose Admin Aspirin 244 mg 12/13/23 15:51 12/13/23 15:59 Aspirin 325mg Tablet PO 12/13/23 15:52 Not Given ONCE ONE Aspirin 243 mg 12/13/23 16:00 12/13/23 16:01 Aspirin 81mg Chewable Tablet PO 12/13/23 16:01 243 mg ONCE ONE Administration Furosemide 80 mg 12/13/23 15:39 12/13/23 16:01 Furosemide 40mg/4ml Vial IV 12/13/23 15:40 80 mg ONCE ONE Administration Potassium Chloride 60 meq 12/13/23 16:27 12/13/23 16:37 Potassium Chloride 20meq Tab PO 12/13/23 16:28 60 meq ONCE ONE Administration ORDERS Category Date Time Status CT chest wo con Stat Cat Scan 12/13/23 14:53 Completed XR chest 2V Stat Exams 12/13/23 14:44 Completed Complete Blood Count Auto Diff Stat Lab 12/13/23 14:35 Completed Comprehensive Metabolic Panel Stat Lab 12/13/23 14:35 Completed Creatine Kinase MB Stat Lab 12/13/23 14:35 Completed D-Dimer Stat Lab 12/13/23 14:35 Completed HIV (1&2) Antibody Rapid Stat Lab 12/13/23 14:35 Completed Hep C Ab with Reflex to RNA Stat Lab 12/13/23 14:35 Received NT Pro Brain Natriuretic Pep. Stat Lab 12/13/23 14:35 Completed Prothrombin Time INR Stat Lab 12/13/23 14:35 Completed Troponin I Q3H Lab 12/13/23 14:35 Completed Troponin I Q3H Lab 12/13/23 17:19 Completed Troponin I Q3H Lab 12/13/23 20:45 Ordered Medical Decision Narrative: 63-year-old male presents emergency department breath, bilateral lower extremity edema, pain, EXTR diagnose include but not limited to, acute CHF exacerbation, COPD exacerbation, pneumonia, pneumothorax, ACS pulmonary edema, pleural effusion. I discussed the patient's case with Dr. Potter Obtain CBC CMP, CK, D-dimer, proBNP, troponin, chest x-ray, EKG, continuous cardiac monitoring, tenderness Pulsoxymeter monitoring, PT/INR, chest without contrast. I along with the attending physician the patient's EKG, sinus tachycardia at 103 bpm, [place] interval within normal limits, QT interval within normal limits, there is no STEMI, there are there are some new ST depressions, V5 V6, as well as V2 comparison to prior EKG of 2023 CBC unremarkable PT/INR elevated at 14/1.28. CMP is notable for hyponatremia that is mild at 133, hypokalemia at 3 BUN is elevated at 41, AST and ALT are elevated at 145/90 bilirubin is elevated at 2, CK is elevated at 248, troponin is elevated at 0.06, proBNP is elevated at 6830 Will give 80 mg IV Lasix, will give full dose of aspirin to 244 mg po for today, as well as 60 mill equivalents p.o. potassium chloride for hypokalemia. D-dimer is elevated 0.94, utilizing years criteria, PE unlikely. Patient's symptomatology is most likely due to HFrEF/ongoing CHF exacerbation with possible ischemic changes due to ongoing heart failure/cardiomyopathy. I reviewed the patient's chest x-ray along the corresponding radiologic report, bilateral pulmonary opacities favored to be pulmonary edema. I reviewed the patient's CT chest without contrast along the corresponding radiologic report, there is a descending aortic aneurysm, stable right lower lobe nodule, no small to moderate ascites. I discussed patient case with Dr. Ryan hospitalist at 5:45 PM, he is agree with current admission plan/treatment plan for acute CHF exacerbation. Patient is a DNR be admitted to [facility]. Patient is agree with current admission plan/treatment plan I was consulted by the PEGGY, and we discussed the complexity of the problems being addressed. I approved the treatment and management plan for this patient's care in the Emergency Department, thus performing a substantive portion of the medical decision making. David Potter MD Critical Care <JOANNA Macedo - Last Filed: 12/13/23 17:46> Critical Care Time Critical Care Time: No
--- NOTE | 2023-12-13 14:52 | PC.NURSE ---
Pt gone to RAD via wheelchair
--- NOTE | 2023-12-13 14:53 | CT_ITS ---
FINAL REPORT TECHNIQUE: Axial images were obtained from the lung apex to the mid abdomen by computed tomography. Coronal reformatted images were obtained. This study was performed with techniques to keep radiation doses as low as reasonably achievable, (ALARA). Individualized dose reduction techniques using automated exposure control or adjustment of mA and/or kV according to the patient''s size were employed. CLINICAL HISTORY: Shortness of breath and chest pain COMPARISON: CTA chest 10/17/2023 FINDINGS: There is stable mild mediastinal adenopathy which may be reactive. No axillary mass or adenopathy is seen. Cardiomegaly is noted. There are severe coronary artery calcifications. A left subclavian ICD is present. There is a descending aortic aneurysm measuring 4.8 cm and previously measured 4.6 cm. There is no pericardial or pleural effusion. There is a calcified granuloma in the lingula. An 11 mm right lower lobe nodule is stable from the previous study and well seen on series 3, image 76. Mild emphysema is noted. No localized pulmonary inflammatory process is noted. The chest wall is intact. Limited images of the upper abdomen demonstrate a small to moderate amount of ascites which is new from the prior study. There are several small hepatic masses which can not be accurately characterize and may represent cysts. IMPRESSION: Descending aortic aneurysm. Stable right lower lobe nodule. New small to moderate ascites. Reviewed, Interpreted and Dictated by Geremias Quintana III, MD Transcribed by Jeannie Thompson Authenticated and [facility]
--- NOTE | 2023-12-13 14:55 | PC.NURSE ---
Pt returned to room from RAD
[2023-12-13 14:56] LABS: Basophils # 0.1 K/mm3 (0-0.2); Basophils % 0.8 % (0.1-2.0); Eosinophils # 0.2 K/mm3 (0.0-0.4); Eosinophils % 2.3 % (0.1-12.0); Hematocrit 48.2 % (42.0-52.0); Hemoglobin 15.6 g/dL (14.1-18.0); Lymphocytes # 1.5 K/mm3 (0.7-4.5); Lymphocytes % 17.2 % (10-50); Mean Corpuscular HGB Conc 32.3 g/dL (31.8-35.4); Mean Corpuscular Hemoglobin 29.6 pg (27.0-31.2); Mean Corpuscular Volume 91.6 fl (80-94); Mean Platelet Volume 7.2 fl (7.4-10.4); Monocytes # 0.6 K/mm3 (0.1-1.0); Neutrophils # 6.5 K/mm3 (1.8-7.8); Neutrophils % 72.8 % (37.0-80.0); Platelet Count 328 K/mm3 (142-424); Red Blood Count 5.26 M/mm3 (4.60-6.20); Red Cell Distribution Width 17.8 % (11.5-17.5); White Blood Count 8.9 K/mm3 (4.8-10.8)
--- NOTE | 2023-12-13 14:58 | PC.NURSE ---
Pt out of room with Rad for CT
--- NOTE | 2023-12-13 15:06 | PC.NURSE ---
pt back from CT
[2023-12-13 15:08] LABS: INR 1.28 (0.9-1.1)
[2023-12-13 15:09] LABS: Alanine Aminotransferase 90 U/L (12-78); Albumin Level 4.2 g/dl (3.5-5.0); Albumin/Globulin Ratio 1.1 (1.1-1.8); Alkaline Phosphatase 122 U/L (38-126); Aspartate Amino Transferase 145 U/L (17-59); Blood Urea Nitrogen 41 mg/dl (9-20); Calcium 8.8 mg/dl (8.4-10.2); Carbon Dioxide 29 mmol/L (22.0-30.0); Chloride 100 mmol/L (98-107); Creatinine Clearance Estimated 82 mL/min (50-200); Estimated Glomerular Filt Rate 61 ml/min (>60); GFR (African American) 74 ML/MIN (>60); Globulin 3.7 g/dL (1.3-3.2); Glucose 107 mg/dl (74-100); Sodium 133 mmol/L (136-145); Total Protein,Serum 7.9 g/dl (6.3-8.2)
--- NOTE | 2023-12-13 15:13 | PC.NURSE ---
aware of potassium 3.0
[2023-12-13 15:20] LABS: NT Pro Brain Natriuretic Pep. 6830 pg/mL (0-125); Troponin I 0.06 ng/ml (0.00-0.034)
[2023-12-13 15:21] LABS: D-Dimer 0.94 ug/mL (0.0-0.5)
[2023-12-13] MEDS: FUROSEMIDE 40MG/4ML VIAL 80 MG IV (16:01)
[2023-12-13] MEDS: ASPIRIN 81MG CHEWABLE TABLET 243 MG PO (16:01)
[2023-12-13 16:22] LABS: HIV (1&2) Antibody Rapid NONREACTIVE (NONREACTIVE)
--- NOTE | 2023-12-13 16:30 | PC.NURSE ---
pt to and from bathroom independently. pt back in room, call light within reach
[2023-12-13] MEDS: POTASSIUM CHLORIDE 20MEQ TAB 60 MEQ PO (16:37)
--- NOTE | 2023-12-13 16:42 | PC.NURSE ---
Rounded on pt. No needs voiced at this time. Call light remains within reach.
--- NOTE | 2023-12-13 17:45 | PC.NURSE ---
DR MAYORGA CONTACTED FOR ADMISSION
--- NOTE | 2023-12-13 17:46 | P.HP_ITS ---
History of Present Illness *Admission Date: 12/13/23 *Reason for visit:: Dyspnea *History of present illness: Mr. Jimenez is a 63-year-old male with history of CAD, severe heart failure with reduced ejection fraction, AICD placement, hyperlipidemia, aortic aneurysm, COPD. Presented to the ER today because of complaint of chest pressure and worsening shortness of breath. Having a hard time laying down. Difficulty ambulating without shortness of breath. Increased swelling in his legs over the past several days. Has been taking his diuretic but not having the same benefit. Workup in the ER concerning for acute exacerbation of CHF with elevated BNP and volume overload on chest imaging. Discussed case with ER physician, request admission for further management. Initiated on diuretic in the ER. On evaluation, he is afebrile, appears in moderate distress though he is on room air. Leg significantly more swollen than previous evaluations by me when he has been admitted. [facility] Disclaimer: The information contained in this section may have been updated after the patient was seen, as this information can be updated by other users. Medical History History of aortic aneurysm HARITHA (acute kidney injury) Hypokalemia NICM (nonischemic cardiomyopathy) HFrEF (heart failure with reduced ejection fraction) SPEEDY (obstructive sleep apnea) Unstable angina Non-STEMI (non-ST elevated myocardial infarction) LV dysfunction Cardiomyopathy Dyspnea Acute on chronic HFrEF (heart failure with reduced ejection fraction) HTN (hypertension) Accidental drug overdose Overweight (BMI 25.0-29.9) Tobacco use CAD (coronary artery disease) Surgical History Stented coronary artery AICD (automatic cardioverter/defibrillator) present Family History Other No significant family history Social History Smoking Status: Current every day smoker tobacco type: cigarettes packs per day: 1 second hand exposure: Yes alcohol intake: current alcohol intake frequency: holidays/special occasions only substance use type: denies use current occupational status: employed Travel in the last 8 weeks: Inside the [place] household members: children housing: house current occupational exposures/hazards: No caffeine: Yes Other Medical History Have you received the Flu Vaccine for this season: No Have you received the Pneumonia Vaccine: No Review of Systems Review of Systems Review of systems (narrative): 14 point review of systems performed, pertinent positives and negatives as per [facility] Meds Home Medications and Allergies Home Medications ?Medication ?Instructions ?Recorded ?Confirmed ?Type aspirin 81 mg tablet,delayed 81 mg PO DAILY #90 tabs 10/30/23 12/03/23 Rx release atorvastatin 80 mg tablet (Lipitor) 80 mg PO HS #90 tabs 10/30/23 12/03/23 Rx bumetanide 2 mg tablet 2 mg PO BID #60 tabs 10/30/23 12/03/23 Rx carvedilol 6.25 mg tablet (Coreg) 6.25 mg PO BID #60 tabs 10/30/23 12/03/23 Rx empagliflozin 10 mg tablet 10 mg PO DAILY #90 tabs 10/30/23 12/03/23 Rx (Jardiance) sacubitril 97 mg-valsartan 103 mg 1 tab PO BID #60 tabs 10/30/23 12/03/23 Rx tablet (Entresto) spironolactone 25 mg tablet 25 mg PO BID #60 tabs 10/30/23 12/03/23 Rx metolazone 2.5 mg tablet 2.5 mg PO Q OTHER DAY #30 tabs 11/21/23 12/03/23 Rx prednisone 20 mg tablet 20 mg PO BID 5 days #10 tabs 12/03/23 12/03/23 Rx New Prescriptions to Start Prescriptions: Allergies Allergy/AdvReac Type Severity Reaction Status Date / Time No Known Allergies Allergy Verified 12/03/23 10:30 Exam Data for Last 24 hours Vital signs and Labs for Last 24 Hours: Temp Pulse Resp BP Pulse Ox O2 Del Method 97.7 F 103 H 21 144/97 H 99 Room Air 12/13/23 14:32 12/13/23 17:00 12/13/23 15:07 12/13/23 17:00 12/13/23 17:00 12/13/23 17:00 Laboratory Results - last 24 hr 12/13/23 14:35: WBC 8.9, RBC 5.26, Hgb 15.6, Hct 48.2, MCV 91.6, MCH 29.6, MCHC 32.3, RDW 17.8 H, Plt Count 328, MPV 7.2 L, Neut % (Auto) 72.8, Lymph % (Auto) 17.2, [place] % (Auto) 7.0, Eos % (Auto) 2.3, Baso % (Auto) 0.8, Neut # (Auto) 6.5, Lymph # (Auto) 1.5, [place] # (Auto) 0.6, Eos # (Auto) 0.2, Baso # (Auto) 0.1, PT 14.0 H, INR 1.28 H, D-Dimer 0.94 H, Sodium 133 L, Potassium 3.0 L, Chloride 100, Carbon Dioxide 29, Anion Gap 7.0, BUN 41 H, Creatinine 1.20, Estimated Creat Clear 82, Estimated GFR 61, Est GFR ( Amer) 74, Glucose 107 H, Calcium 8.8, Total Bilirubin 2.0 H, AST 145 H, ALT 90 H, Alkaline Phosphatase 122, CK-MB (CK-2) 48.0 H*, Troponin I 0.06 H, NT-Pro-B Natriuret Pep 6830 H, Total Protein 7.9, Albumin 4.2, Globulin 3.7 H, Albumin/Globulin Ratio 1.1, HIV 1&2 Antibody Rapid Nonreactive I & O for Last 24 hours: Intake & Output 12/10/23 12/11/23 12/12/23 12/13/23 23:59 23:59 23:59 23:59 Weight 92.986 kg Constitutional Constitutional: moderate distress, average body habitus, chronically ill appearing and cooperative *Routine HEENT Exam Head: Present normocephalic Eye: Present EOMI and PERRL ENT: Present mucous membranes moist *Routine Neck Exam Neck: Present supple; Absent lymphadenopathy Routine Chest/Breast/Axilla Exam Chest wall: Present pacemaker *Routine Respiratory Exam Respiratory: Present accessory muscle use, prolonged expiratory phase, crackles (Bases) and diminished air movement; Absent rhonchi or wheezes *Routine Cardiovascular Exam Cardiovascular: Present tachycardia *Routine Abdominal Exam Abdominal: Present soft and normoactive bowel sounds; Absent tenderness *Routine Rectal Exam Rectal:: deferred *Routine Genitalia Exam Genitalia:: deferred *Routine Extremities Exam Extremities: Present edema (3+ to thighs) and full ROM; Absent cyanosis or clubbing *Routine Skin Exam Skin: Present warm; Absent rash *Routine Neurological Exam Neurological: Present alert, oriented X3 and moving all extremities; Absent altered mental status Assessment and Plan *Assessment and plan (1) HFrEF (heart failure with reduced ejection fraction): Problem Comment: Acute on chronic with exacerbation and volume overload Status: Acute Category: Medical Code(s): I50.20 - Unspecified systolic (congestive) heart failure (2) Atypical chest pain: Status: Acute Category: Medical Code(s): R07.89 - Other chest pain (3) Stented coronary artery: Status: Chronic Category: Surgical Code(s): Z95.5 - Presence of coronary angioplasty implant and graft (4) AICD (automatic cardioverter/defibrillator) present: Status: Acute Category: Surgical Code(s): Z95.810 - Presence of automatic (implantable) cardiac defibrillator (5) NICM (nonischemic cardiomyopathy): Status: Acute Category: Medical Code(s): I42.8 - Other cardiomyopathies (6) SPEEDY (obstructive sleep apnea): Status: Acute Category: Medical Code(s): G47.33 - Obstructive sleep apnea (adult) (pediatric) (7) HTN (hypertension): Status: Chronic Qualifiers: Hypertension type: essential hypertension Qualified Code(s): I10 - Essential (primary) hypertension Category: Medical Code(s): I10 - Essential (primary) hypertension (8) HLD (hyperlipidemia): Status: Chronic Qualifiers: Hyperlipidemia type: other hyperlipidemia Qualified Code(s): E78.4 - Other hyperlipidemia Category: Medical Code(s): E78.5 - Hyperlipidemia, unspecified (9) Tobacco use: Status: Chronic Category: Social Hx Code(s): Z72.0 - Tobacco use Plan Mr. Jimenez is a 63-year-old male with history of heart failure with reduced ejection fraction, COPD, SPEEDY, AICD in place. Presented with chest pressure and shortness of breath to the ER. Workup concerning for acute on chronic heart failure. Discussed case with ER, request admission for diuresis and further management. I agreed to admit. Received diuretics in the ER, having response but still quite short of breath. Clinically volume overloaded with edema that is new compared to previous presentations. Necessitating inpatient admission. Will monitor on telemetry. Problems addressed as follows: Acute on chronic heart failure with reduced ejection fraction Atypical chest pain Volume overload -Initial troponin elevated at 0.06. Repeat pending. Minor nonspecific changes on EKG per my review. BNP elevated at 6800. -Received 80 mg Lasix IV in the ER. Monitor for strict output. Goal negative fluid status daily -Administer additional 2 mg Bumex this evening at 10 PM. Repeat Bumex 2 mg twice daily starting in the morning -Per my review of chest imaging, has bilateral pulmonary edema. -Monitor on telemetry, carvedilol 6.25 mg twice daily, spironolactone 25 mg twice daily, Entresto 24/26 mg twice daily, Farxiga 10 mg daily -Kidney function at baseline for patient, BUN 41, creatinine 1.2. Repeat CBC, CMP, magnesium ordered for the morning. Nonischemic cardiomyopathy -AICD implanted 08/2023, 100 on telemetry Transaminitis: Suspect congestive hepatopathy. Bilirubin 2, AST 145, ALT 90. Holding statin in the setting of elevated liver enzymes. Thoracic aortic aneurysm, stable by chest CTA today on my review. COPD with continued tobacco use: DuoNebs as needed every 6 hours DNR cardiac diet Lovenox 40 mg subcu daily
[2023-12-13 17:48] LABS: Troponin I 0.05 ng/ml (0.00-0.034)
--- NOTE | 2023-12-13 18:14 | PC.NURSE ---
REPORT GIVEN TO SUSSY SHEPHERD
--- NOTE | 2023-12-13 18:54 | PC.NURSE ---
Patient arrived to floor via wheelchair from ED at 18:35.
--- NOTE | 2023-12-13 20:09 | EXP.EVENT.NO ---
Conversation with patient: Went into see Mr. Jimenez, decided hide get to know him better. Staff had told me that he was a DNR but had changed him back to full code until his daughter has arrived. Talk with him about this he wanted to talk with his daughter first.. But he expressed clear knowledge and very good understanding of his present physical condition. He feels he has limited time to live, that he wanted to talk with her and make himself a DO NOT RESUSCITATE. He did notice that he had an implanted defibrillator., But that he would not not want to live on any type of life support.. He did also note that he has chronic pain, that he had not been getting that treated as he was trying to extend his life but now that he knows probably his life is limited he would like to have this pain in much better control. I let him know I would check his chart make sure that medication had been ordered and that would come back to him after him and his daughter had decided on any type of CODE STATUS. But until that moment he will be on full code and he understands that. Daughter is now in room and said that they will have that discussion.. Talking with the patient he used to be on OxyContin 10 for his chronic back pain.. It has been more than a year since he is really taken it but he is expressing that he is quite uncomfortable at this time. Will add regular Tylenol at this point in time and also Percocet 5 mg/325 every 4 hours as needed for moderate pain. Depending upon their discussion would change CODE STATUS to DNR if that is what they decide.
[2023-12-13] MEDS: CARVEDILOL 6.25MG TABLET 6.25 MG PO (20:34)
[2023-12-13] MEDS: SPIRONOLACTONE 25MG TABLET 25 MG PO (20:34)
[2023-12-13] MEDS: SACUBITRIL/VALSARTAN 24-26MG TABLET 1 EACH PO (20:34)
[2023-12-13] MEDS: BUMETANIDE 1MG/4ML VIAL 2 MG IV (20:34)
[2023-12-13 21:12] LABS: Troponin I 0.05 ng/ml (0.00-0.034)
[2023-12-13] MEDS: OXYCODONE 5MG W/APAP 325MG TABLET 1 EACH PO (21:29)
[2023-12-14] VITALS (8 sets, daily range): BP systolic 95–117; BP diastolic 52–78; PULSE 70–86; RESP 17–20; TEMP 36.3–36.8; O2SAT 90–99; BMI 25.8
[2023-12-14] MEDS: OXYCODONE 5MG W/APAP 325MG TABLET 1 EACH PO (03:28)
[2023-12-14 06:52] LABS: Basophils # 0.1 K/mm3 (0-0.2); Basophils % 0.7 % (0.1-2.0); Eosinophils # 0.3 K/mm3 (0.0-0.4); Eosinophils % 3.2 % (0.1-12.0); Hematocrit 46.1 % (42.0-52.0); Lymphocytes # 1.6 K/mm3 (0.7-4.5); Lymphocytes % 18.7 % (10-50); Mean Corpuscular HGB Conc 32.5 g/dL (31.8-35.4); Mean Platelet Volume 7.1 fl (7.4-10.4); Monocytes # 0.7 K/mm3 (0.1-1.0); Monocytes % 7.8 % (1.7-9.3); Neutrophils # 5.9 K/mm3 (1.8-7.8); Neutrophils % 69.5 % (37.0-80.0); Platelet Count 297 K/mm3 (142-424); Red Blood Count 5.18 M/mm3 (4.60-6.20); Red Cell Distribution Width 17.9 % (11.5-17.5); White Blood Count 8.4 K/mm3 (4.8-10.8)
[2023-12-14 06:57] LABS: Albumin Level 3.3 g/dl (3.5-5.0); Chloride 102 mmol/L (98-107); Potassium 3.1 mmoL/L (3.5-5.1); Sodium 133 mmol/L (136-145)
[2023-12-14 06:59] LABS: Blood Urea Nitrogen 34 mg/dl (9-20); Creatinine Clearance Estimated 93 mL/min (50-200); Estimated Glomerular Filt Rate 85 ml/min (>60); GFR (African American) 103 ML/MIN (>60)
[2023-12-14 07:00] LABS: Alanine Aminotransferase 66 U/L (12-78); Alkaline Phosphatase 99 U/L (38-126); Anion Gap 7.1 mEq/L (5-15); Aspartate Amino Transferase 85 U/L (17-59); Bilirubin,Total 2.1 mg/dl (0.2-1.3); Calcium 8.3 mg/dl (8.4-10.2); Carbon Dioxide 27 mmol/L (22.0-30.0); Globulin 3.2 g/dL (1.3-3.2); Glucose 94 mg/dl (74-100); Magnesium 1.5 mg/dl (1.6-2.3); Total Protein,Serum 6.5 g/dl (6.3-8.2)
--- NOTE | 2023-12-14 07:02 | EXP.ACUTE.PN ---
Subjective *Date: 12/14/23 *Time: 13:40 Interval history: Patient had pain overnight. Complains of burning sensation. Has had gabapentin in the past, not currently on it. Swelling showing some minor improvement. Stable on room air. Still appears dyspneic on exam but no oxygen requirement. Responding to IV diuretics. Afebrile. Medical Exam Vital signs and Labs for Last 24 Hours: Vital Signs Temp Pulse Pulse Resp BP BP Pulse Ox 12/14/23 06:53 12/14/23 05:00 12/14/23 04:00 76 12/14/23 04:00 98.2 F 79 18 109/69 L 90 L 12/14/23 03:00 12/14/23 01:00 12/14/23 00:00 84 12/14/23 00:00 98.1 F 86 18 95/59 L 90 L 12/13/23 23:00 12/13/23 21:00 12/13/23 20:14 105 H 12/13/23 20:00 12/13/23 19:40 98.2 F 105 H 18 128/90 91 L 12/13/23 18:16 97.9 F 99 H 18 126/98 H 12/13/23 17:31 102 H 126/100 H 98 12/13/23 17:00 103 H 144/97 H 99 12/13/23 16:00 102 H 136/104 H 99 12/13/23 15:30 102 H 137/102 H 98 12/13/23 15:07 99 H 21 151/103 H 100 12/13/23 15:05 103 H 19 95 12/13/23 14:32 97.7 F 104 H 20 127/82 95 O2 Del Method 12/14/23 06:53 Room Air 12/14/23 05:00 Room Air 12/14/23 04:00 12/14/23 04:00 Room Air 12/14/23 03:00 Room Air 12/14/23 01:00 Room Air 12/14/23 00:00 12/14/23 00:00 Room Air 12/13/23 23:00 Room Air 12/13/23 21:00 Room Air 12/13/23 20:14 12/13/23 20:00 Room Air 12/13/23 19:40 Room Air 12/13/23 18:16 Room Air 12/13/23 17:31 Room Air 12/13/23 17:00 Room Air 12/13/23 16:00 Room Air 12/13/23 15:30 12/13/23 15:07 12/13/23 15:05 12/13/23 14:32 Room Air Intake and Output 12/13/23 12/13/23 12/14/23 15:59 23:59 07:59 Output Total 200 / 200 Balance -200 / -200 Output: Output, Urine Amount 200 / 200 Other: Number of Unmeasured Voids 1 Weight 92.986 kg 88.36 kg Patient Weight 12/14/23 23:59 Weight 88.36 kg Laboratory Results - last 24 hr 12/13/23 14:35: WBC 8.9, RBC 5.26, Hgb 15.6, Hct 48.2, MCV 91.6, MCH 29.6, MCHC 32.3, RDW 17.8 H, Plt Count 328, MPV 7.2 L, Neut % (Auto) 72.8, Lymph % (Auto) 17.2, [place] % (Auto) 7.0, Eos % (Auto) 2.3, Baso % (Auto) 0.8, Neut # (Auto) 6.5, Lymph # (Auto) 1.5, [place] # (Auto) 0.6, Eos # (Auto) 0.2, Baso # (Auto) 0.1, PT 14.0 H, INR 1.28 H, D-Dimer 0.94 H, Sodium 133 L, Potassium 3.0 L, Chloride 100, Carbon Dioxide 29, Anion Gap 7.0, BUN 41 H, Creatinine 1.20, Estimated Creat Clear 82, Estimated GFR 61, Est GFR ( Amer) 74, Glucose 107 H, Calcium 8.8, Total Bilirubin 2.0 H, AST 145 H, ALT 90 H, Alkaline Phosphatase 122, CK-MB (CK-2) 48.0 H*, Troponin I 0.06 H, NT-Pro-B Natriuret Pep 6830 H, Total Protein 7.9, Albumin 4.2, Globulin 3.7 H, Albumin/Globulin Ratio 1.1, HIV 1&2 Antibody Rapid Nonreactive 12/13/23 17:19: Troponin I 0.05 H 12/13/23 20:40: Troponin I 0.05 H 12/14/23 06:33: WBC 8.4, RBC 5.18, Hgb 15.0, Hct 46.1, MCV 89.0, MCH 29.0, MCHC 32.5, RDW 17.9 H, Plt Count 297, MPV 7.1 L, Neut % (Auto) 69.5, Lymph % (Auto) 18.7, [place] % (Auto) 7.8, Eos % (Auto) 3.2, Baso % (Auto) 0.7, Neut # (Auto) 5.9, Lymph # (Auto) 1.6, [place] # (Auto) 0.7, Eos # (Auto) 0.3, Baso # (Auto) 0.1, Sodium 133 L, Potassium 3.1 L, Chloride 102, Albumin 3.3 L D I & O for Labs for Last 24 Hours: Intake & Output 12/11/23 12/12/23 12/13/23 12/14/23 23:59 23:59 23:59 23:59 Output Total 200 / 200 Balance -200 / -200 Weight 92.986 kg 88.36 kg Constitutional: Present mild distress, average body habitus, chronically ill appearing and cooperative Head: Present atraumatic and normocephalic ENT: Present normal exam Neck: Present normal inspection Respiratory: Present accessory muscle use and normal respiratory effort; Absent rhonchi, wheezes or crackles Cardiac: Present Reg Rate and Rhythm GI: Present soft and normal bowel sounds; Absent distention or tenderness Extremities: Present normal inspection, full ROM and edema (3+ to knees. Showing some improvement) Skin: Present intact; Absent erythema Neuro: Present Grossly Intact, alert, awake, oriented x 3 and moves all extremities Assessment and Plan *Assessment and plan (1) HFrEF (heart failure with reduced ejection fraction): Problem Comment: Acute on chronic with exacerbation and volume overload Status: Acute Category: Medical Code(s): I50.20 - Unspecified systolic (congestive) heart failure (2) Atypical chest pain: Status: Acute Category: Medical Code(s): R07.89 - Other chest pain (3) Stented coronary artery: Status: Chronic Category: Surgical Code(s): Z95.5 - Presence of coronary angioplasty implant and graft (4) AICD (automatic cardioverter/defibrillator) present: Status: Acute Category: Surgical Code(s): Z95.810 - Presence of automatic (implantable) cardiac defibrillator (5) NICM (nonischemic cardiomyopathy): Status: Acute Category: Medical Code(s): I42.8 - Other cardiomyopathies (6) SPEEDY (obstructive sleep apnea): Status: Acute Category: Medical Code(s): G47.33 - Obstructive sleep apnea (adult) (pediatric) (7) HTN (hypertension): Status: Chronic Qualifiers: Hypertension type: essential hypertension Qualified Code(s): I10 - Essential (primary) hypertension Category: Medical Code(s): I10 - Essential (primary) hypertension (8) HLD (hyperlipidemia): Status: Chronic Qualifiers: Hyperlipidemia type: other hyperlipidemia Qualified Code(s): E78.4 - Other hyperlipidemia Category: Medical Code(s): E78.5 - Hyperlipidemia, unspecified (9) Tobacco use: Status: Chronic Category: Social Hx Code(s): Z72.0 - Tobacco use Plan Mr. Jimenez is a 63-year-old male with history of heart failure with reduced ejection fraction, COPD, SPEEDY, AICD in place. Presented with chest pressure and shortness of breath to the ER. Workup concerning for acute on chronic heart failure. Discussed case with ER, request admission for diuresis and further management. I agreed to admit. Received diuretics in the ER, having response but still quite short of breath. Clinically volume overloaded with edema that is new compared to previous presentations. Necessitating inpatient admission. Continue to monitor on telemetry. Responding to diuretics but still quite symptomatic. Edema slowly improving, continues to require inpatient management. Problems addressed as follows: Acute on chronic heart failure with reduced ejection fraction Atypical chest pain Volume overload -Initial troponin elevated at 0.06. Repeat 0.05. No chest pain today. BNP elevated at 6800 on admission. --Strict output. -1 L overnight. -IV Bumex 2 mg twice daily -Monitor on telemetry, carvedilol 6.25 mg twice daily, spironolactone 25 mg twice daily, Entresto 24/26 mg twice daily, Farxiga 10 mg daily -Kidney function at baseline for patient, BUN 34, creatinine 0.9. Repeat CBC, CMP, magnesium ordered for the morning. -Medium low at 1.5, replace IV x 1 today. Potassium low at 3.1, replacing with oral potassium 40 mEq 3 times a day. Nonischemic cardiomyopathy -AICD implanted 08/2023, 100 on telemetry Transaminitis: Suspect congestive hepatopathy. Bilirubin 2.1, AST 85, ALT 65, slight improvement from admission. Holding statin in the setting of elevated liver enzymes. Thoracic aortic aneurysm, stable by chest CTA today on my review. COPD with continued tobacco use: DuoNebs as needed every 6 hours DNR cardiac diet Lovenox 40 mg subcu daily
--- NOTE | 2023-12-14 09:22 | HMH.PHAINT1 ---
Pharmacy Intervention Comments: MEDICATION RECONCILIATION COMPLETED ON PATIENT USING EXTERNAL FILL HISTORY FROM PHARMACY. -CARLOS CUELLAR, JADEND
[2023-12-14] MEDS: BUMETANIDE 1MG/4ML VIAL 2 MG IV ×2 (09:33→16:29)
[2023-12-14] MEDS: MAGNESIUM SULFATE IN WATER 2 GM/50 ML PIGGYBACK IV (09:33)
[2023-12-14] MEDS: SPIRONOLACTONE 25MG TABLET 25 MG PO ×2 (09:33→20:06)
[2023-12-14] MEDS: ASPIRIN EC 81MG TABLET 81 MG PO (09:33)
[2023-12-14] MEDS: ENOXAPARIN 40MG/0.4ML SYRINGE 40 MG SQ (09:33)
[2023-12-14] MEDS: SACUBITRIL/VALSARTAN 24-26MG TABLET 1 EACH PO ×2 (09:33→20:06)
[2023-12-14] MEDS: CARVEDILOL 6.25MG TABLET 6.25 MG PO ×2 (09:33→20:06)
[2023-12-14] MEDS: EMPAGLIFLOZIN 10MG TABLET 10 MG PO (09:33)
[2023-12-14] MEDS: POTASSIUM CHLORIDE 20MEQ TAB 40 MEQ PO ×3 (09:34→20:07)
[2023-12-14] MEDS: GABAPENTIN 100MG CAPSULE 200 MG PO ×2 (13:49→20:06)
[2023-12-15] VITALS: BP 118/56; PULSE 73; PULSE 82; RESP 18; TEMP 36.6; O2SAT 93
[2023-12-15 04:00] VITALS: BP 95/57; PULSE 73; PULSE 83; RESP 18; TEMP 36.8; O2SAT 95; BMI 26.9
--- NOTE | 2023-12-15 05:30 | PC.NURSE ---
Alert and oriented. NSR on tele. No complaints from patient throughout the night. Has rested off and on throughout shift. Uses urinal. +2 pitting edema to BLE. Lung sounds diminished. Remains on room air. Bed alarm on. Call light in reach.
[2023-12-15 06:51] LABS: Albumin Level 3.4 g/dl (3.5-5.0); Chloride 103 mmol/L (98-107); Sodium 135 mmol/L (136-145)
[2023-12-15 06:54] LABS: Alanine Aminotransferase 63 U/L (12-78); Alkaline Phosphatase 99 U/L (38-126); Aspartate Amino Transferase 65 U/L (17-59); Bilirubin,Total 1.4 mg/dl (0.2-1.3); Blood Urea Nitrogen 34 mg/dl (9-20); Calcium 8.4 mg/dl (8.4-10.2); Carbon Dioxide 26 mmol/L (22.0-30.0); Creatinine Clearance Estimated 88 mL/min (50-200); Estimated Glomerular Filt Rate 67 ml/min (>60); GFR (African American) 82 ML/MIN (>60); Globulin 3.3 g/dL (1.3-3.2); Glucose 127 mg/dl (74-100); Total Protein,Serum 6.7 g/dl (6.3-8.2)
[2023-12-15 07:16] LABS: Basophils # 0.1 K/mm3 (0-0.2); Basophils % 0.7 % (0.1-2.0); Eosinophils # 0.4 K/mm3 (0.0-0.4); Eosinophils % 3.8 % (0.1-12.0); Hematocrit 48.5 % (42.0-52.0); Lymphocytes # 1.4 K/mm3 (0.7-4.5); Lymphocytes % 14.6 % (10-50); Mean Corpuscular Hemoglobin 29.9 pg (27.0-31.2); Mean Corpuscular Volume 90.5 fl (80-94); Mean Platelet Volume 7.3 fl (7.4-10.4); Monocytes # 0.9 K/mm3 (0.1-1.0); Monocytes % 9.2 % (1.7-9.3); Neutrophils % 71.7 % (37.0-80.0); Platelet Count 323 K/mm3 (142-424); Red Blood Count 5.35 M/mm3 (4.60-6.20); Red Cell Distribution Width 17.7 % (11.5-17.5); White Blood Count 9.7 K/mm3 (4.8-10.8)
[2023-12-15 08:00] VITALS: BP 97/70; PULSE 89; PULSE 96; RESP 16; TEMP 36.4; O2SAT 86
[2023-12-15] MEDS: SPIRONOLACTONE 25MG TABLET 25 MG PO ×2 (08:14→20:55)
[2023-12-15] MEDS: ASPIRIN EC 81MG TABLET 81 MG PO (08:14)
[2023-12-15] MEDS: SACUBITRIL/VALSARTAN 24-26MG TABLET 1 EACH PO ×2 (08:14→20:55)
[2023-12-15] MEDS: POTASSIUM CHLORIDE 20MEQ TAB 40 MEQ PO ×3 (08:14→20:55)
[2023-12-15] MEDS: ENOXAPARIN 40MG/0.4ML SYRINGE 40 MG SQ (08:14)
[2023-12-15] MEDS: GABAPENTIN 100MG CAPSULE 200 MG PO ×3 (08:14→20:55)
[2023-12-15] MEDS: CARVEDILOL 6.25MG TABLET 6.25 MG PO ×2 (08:14→20:55)
[2023-12-15] MEDS: EMPAGLIFLOZIN 10MG TABLET 10 MG PO (08:15)
[2023-12-15] MEDS: BUMETANIDE 1MG/4ML VIAL 2 MG IV (08:15)
[2023-12-15] MEDS: OXYCODONE 5MG W/APAP 325MG TABLET 1 EACH PO ×3 (08:18→20:55)
[2023-12-15 08:43] LABS: Magnesium 1.8 mg/dl (1.6-2.3)
--- NOTE | 2023-12-15 08:47 | EXP.ACUTE.PN ---
Subjective *Date: 12/15/23 *Time: 12:58 Interval history: Patient wore 2 L oxygen overnight. Will wean as tolerated today. Afebrile overnight. Diuresing but not at goal. Down only 1 L since admission. Tolerating p.o. intake. Daughter at bedside. Medical Exam Vital signs and Labs for Last 24 Hours: Vital Signs Temp Pulse Pulse Resp BP Pulse Ox O2 Del Method 12/15/23 08:00 Room Air 12/15/23 06:57 Room Air 12/15/23 04:56 Room Air 12/15/23 04:00 83 12/15/23 04:00 98.2 F 73 18 95/57 L 95 Room Air 12/15/23 03:00 Room Air 12/15/23 01:00 Room Air 12/15/23 00:00 82 12/15/23 00:00 97.9 F 73 18 118/56 L 93 L Room Air 12/14/23 22:35 Room Air 12/14/23 20:47 Room Air 12/14/23 20:00 80 12/14/23 20:00 Room Air 12/14/23 19:58 98.2 F 83 18 100/61 L 90 L Room Air 12/14/23 18:13 Room Air 12/14/23 17:00 Room Air 12/14/23 16:00 70 12/14/23 16:00 97.8 F 73 17 117/78 99 12/14/23 15:00 Room Air 12/14/23 13:00 Room Air 12/14/23 12:00 70 12/14/23 12:00 97.4 F L 80 18 117/52 L 92 L 12/14/23 11:00 Room Air 12/14/23 09:00 Room Air Intake and Output 12/14/23 12/15/23 12/15/23 23:59 07:59 15:59 Intake Total 300 / 1050 Output Total 700 / 1700 300 / 300 Balance -400 / -650 -300 / -300 Intake: Intake, Oral Amount 300 / 1050 Output: Output, Urine Amount 700 / 1700 300 / 300 Other: Weight 92.079 kg Patient Weight 12/15/23 23:59 Weight 92.079 kg Laboratory Results - last 24 hr 12/15/23 06:45: WBC 9.7, RBC 5.35, Hgb 16.0, Hct 48.5, MCV 90.5, MCH 29.9, MCHC 33.0, RDW 17.7 H, Plt Count 323, MPV 7.3 L, Neut % (Auto) 71.7, Lymph % (Auto) 14.6, [place] % (Auto) 9.2, Eos % (Auto) 3.8, Baso % (Auto) 0.7, Neut # (Auto) 7.0, Lymph # (Auto) 1.4, [place] # (Auto) 0.9, Eos # (Auto) 0.4, Baso # (Auto) 0.1, Sodium 135 L, Potassium 4.0 D, Chloride 103, Carbon Dioxide 26, Anion Gap 10.0, BUN 34 H, Creatinine 1.10 D, Estimated Creat Clear 88, Estimated GFR 67, Est GFR ( Amer) 82 D, Glucose 127 H, Calcium 8.4, Magnesium 1.8 D, Total Bilirubin 1.4 H, AST 65 H, ALT 63, Alkaline Phosphatase 99, Total Protein 6.7, Albumin 3.4 L, Globulin 3.3 H, Albumin/Globulin Ratio 1.0 L I & O for Labs for Last 24 Hours: Intake & Output 12/12/23 12/13/23 12/14/23 12/15/23 23:59 23:59 23:59 23:59 Intake Total 1050 / 1050 Output Total 1700 / 1700 300 / 300 Balance -650 / -650 -300 / -300 Weight 92.986 kg 88.36 kg 92.079 kg Constitutional: Present mild distress, average body habitus, chronically ill appearing and cooperative Head: Present atraumatic and normocephalic ENT: Present normal exam Neck: Present normal inspection Respiratory: Present accessory muscle use and normal respiratory effort; Absent rhonchi, wheezes or crackles Cardiac: Present Reg Rate and Rhythm GI: Present soft and normal bowel sounds; Absent distention or tenderness Extremities: Present normal inspection, full ROM and edema (3+ to knees. Showing some improvement) Skin: Present intact; Absent erythema Neuro: Present Grossly Intact, alert, awake, oriented x 3 and moves all extremities Assessment and Plan *Assessment and plan (1) HFrEF (heart failure with reduced ejection fraction): Status: Acute Category: Medical Code(s): I50.20 - Unspecified systolic (congestive) heart failure (2) Atypical chest pain: Status: Acute Category: Medical Code(s): R07.89 - Other chest pain (3) Stented coronary artery: Status: Chronic Category: Surgical Code(s): Z95.5 - Presence of coronary angioplasty implant and graft (4) AICD (automatic cardioverter/defibrillator) present: Status: Acute Category: Surgical Code(s): Z95.810 - Presence of automatic (implantable) cardiac defibrillator (5) NICM (nonischemic cardiomyopathy): Status: Acute Category: Medical Code(s): I42.8 - Other cardiomyopathies (6) SPEEDY (obstructive sleep apnea): Status: Acute Category: Medical Code(s): G47.33 - Obstructive sleep apnea (adult) (pediatric) (7) HTN (hypertension): Status: Chronic Qualifiers: Hypertension type: essential hypertension Qualified Code(s): I10 - Essential (primary) hypertension Category: Medical Code(s): I10 - Essential (primary) hypertension (8) HLD (hyperlipidemia): Status: Chronic Qualifiers: Hyperlipidemia type: other hyperlipidemia Qualified Code(s): E78.4 - Other hyperlipidemia Category: Medical Code(s): E78.5 - Hyperlipidemia, unspecified (9) Tobacco use: Status: Chronic Category: Social Hx Code(s): Z72.0 - Tobacco use Plan Mr. Jimenez is a 63-year-old male with history of heart failure with reduced ejection fraction, COPD, SPEEDY, AICD in place. Presented with chest pressure and shortness of breath to the ER. Workup concerning for acute on chronic heart failure. Discussed case with ER, request admission for diuresis and further management. I agreed to admit. Received diuretics in the ER. Increased requirement and oxygen overnight. Remains clinically volume overloaded. Still edematous in his legs with slight wrinkling. Transition to Bumex drip today. Continues to require inpatient management. Continue monitoring on telemetry. Problems addressed as follows: Acute on chronic heart failure with reduced ejection fraction Atypical chest pain Volume overload -Initial troponin elevated at 0.06. Repeat 0.05. No chest pain today. BNP elevated at 6800 on admission. - Monitoring strict I's and O's. Transition to Bumex drip 0.5 mg/h. -Monitor on telemetry, carvedilol 6.25 mg twice daily, spironolactone 25 mg twice daily, Entresto 24/26 mg twice daily, Farxiga 10 mg daily -Kidney function remained stable with BUN 34, creatinine 1.1. Potassium normal at 4.0. Repeat CBC, CMP, magnesium ordered for the morning. -Continue oral potassium replacement in the setting of diuresis.. Nonischemic cardiomyopathy -AICD implanted 08/2023, 100 on telemetry Transaminitis: Suspect congestive hepatopathy. Slight improvement in liver enzymes with bilirubin 1.4, AST 65, ALT 63. Holding statin in the setting of elevated liver enzymes. Thoracic aortic aneurysm, stable by chest CTA today on my review. COPD with continued tobacco use: DuoNebs as needed every 6 hours DNR cardiac diet Lovenox 40 mg subcu daily
[2023-12-15 09:09] LABS: HCV Ab Non Reactive (Non Reactive)
[2023-12-15] MEDS: BUMETANIDE 10 MG in 0.9 % SODIUM CHLORIDE 60 ML 5 MG IV (10:33)
[2023-12-15 12:00] VITALS: BP 94/48; PULSE 108; PULSE 80; RESP 18; TEMP 36.1; O2SAT 88
--- NOTE | 2023-12-15 12:33 | ECG_ITS ---
APPROVED REPORT Exam: Resting ECG HR:104 bpm ECG Measurements Heart Rate 104 AXES [place] 90 P 267 QRSd 239 QRS -80 QT 492 T 132 QTc 553 Conclusion ELECTRONIC VENTRICULAR PACEMAKER PROLONGED QT INTERVAL CRITICAL TEST RESULT UNCONFIRMED REPORT Electronically signed by : Syed Kelly MD 12/18/2023 09:21:47
[2023-12-15 16:00] VITALS: BP 96/63; PULSE 77; PULSE 90; RESP 17; TEMP 36.4; O2SAT 88
[2023-12-15 17:12] LABS: Chloride 101 mmol/L (98-107); Sodium 135 mmol/L (136-145)
[2023-12-15 17:13] LABS: Potassium 4.6 mmoL/L (3.5-5.1)
[2023-12-15 17:15] LABS: Blood Urea Nitrogen 33 mg/dl (9-20); Creatinine Clearance Estimated 69 mL/min (50-200); Estimated Glomerular Filt Rate 51 ml/min (>60); GFR (African American) 62 ML/MIN (>60)
[2023-12-15 17:16] LABS: Anion Gap 9.6 mEq/L (5-15); Calcium 8.6 mg/dl (8.4-10.2); Carbon Dioxide 29 mmol/L (22.0-30.0); Glucose 93 mg/dl (74-100)
[2023-12-15 20:00] VITALS: BP 81/53; PULSE 71; PULSE 73; RESP 18; TEMP 36.3; O2SAT 91
[2023-12-16] VITALS: BP 98/42; PULSE 108; PULSE 73; RESP 18; TEMP 36.6
[2023-12-16 04:00] VITALS: BP 102/78; PULSE 76; PULSE 82; RESP 18; TEMP 36.6; O2SAT 96; BMI 26.5
[2023-12-16] MEDS: BUMETANIDE 10 MG in 0.9 % SODIUM CHLORIDE 60 ML 5 MG IV (05:19)
--- NOTE | 2023-12-16 05:29 | PC.NURSE ---
Patient has rested intermittently throughout the night in both his bed and chair. No complaints expressed from patient this shift. Around 0000, patients oxygen dropped to 82% while sleeping, now on 2L NC and maintaining o2 stats >90%. 2+ pitting edema noted to BLE. Call light within reach.
[2023-12-16 06:54] LABS: Albumin Level 3.7 g/dl (3.5-5.0); Chloride 100 mmol/L (98-107); Potassium 5.1 mmoL/L (3.5-5.1); Sodium 135 mmol/L (136-145)
[2023-12-16 06:56] LABS: Basophils # 0.1 K/mm3 (0-0.2); Basophils % 1.2 % (0.1-2.0); Blood Urea Nitrogen 36 mg/dl (9-20); Creatinine Clearance Estimated 68 mL/min (50-200); Eosinophils # 0.4 K/mm3 (0.0-0.4); Eosinophils % 4.5 % (0.1-12.0); Estimated Glomerular Filt Rate 51 ml/min (>60); GFR (African American) 62 ML/MIN (>60); Hematocrit 51.2 % (42.0-52.0); Hemoglobin 16.1 g/dL (14.1-18.0); Lymphocytes # 1.5 K/mm3 (0.7-4.5); Lymphocytes % 16.4 % (10-50); Mean Corpuscular HGB Conc 31.5 g/dL (31.8-35.4); Mean Corpuscular Hemoglobin 28.9 pg (27.0-31.2); Mean Corpuscular Volume 91.8 fl (80-94); Mean Platelet Volume 7.2 fl (7.4-10.4); Monocytes # 0.9 K/mm3 (0.1-1.0); Monocytes % 9.5 % (1.7-9.3); Neutrophils # 6.1 K/mm3 (1.8-7.8); Neutrophils % 68.4 % (37.0-80.0); Platelet Count 300 K/mm3 (142-424); Red Blood Count 5.58 M/mm3 (4.60-6.20); Red Cell Distribution Width 17.8 % (11.5-17.5); White Blood Count 8.9 K/mm3 (4.8-10.8)
[2023-12-16 06:57] LABS: Alanine Aminotransferase 57 U/L (12-78); Albumin/Globulin Ratio 1.1 (1.1-1.8); Alkaline Phosphatase 109 U/L (38-126); Anion Gap 10.1 mEq/L (5-15); Aspartate Amino Transferase 55 U/L (17-59); Bilirubin,Total 1.4 mg/dl (0.2-1.3); Calcium 8.7 mg/dl (8.4-10.2); Carbon Dioxide 30 mmol/L (22.0-30.0); Globulin 3.4 g/dL (1.3-3.2); Glucose 97 mg/dl (74-100); Total Protein,Serum 7.1 g/dl (6.3-8.2)
[2023-12-16 07:17] LABS: Magnesium 1.9 mg/dl (1.6-2.3)
[2023-12-16 08:00] VITALS: BP 117/69; PULSE 100; PULSE 94; RESP 18; TEMP 36.7; O2SAT 98
[2023-12-16] MEDS: EMPAGLIFLOZIN 10MG TABLET 10 MG PO (08:12)
[2023-12-16] MEDS: ASPIRIN EC 81MG TABLET 81 MG PO (08:12)
[2023-12-16] MEDS: SPIRONOLACTONE 25MG TABLET 25 MG PO ×2 (08:12→20:54)
[2023-12-16] MEDS: SACUBITRIL/VALSARTAN 24-26MG TABLET 1 EACH PO ×2 (08:12→20:54)
[2023-12-16] MEDS: CARVEDILOL 6.25MG TABLET 6.25 MG PO ×2 (08:13→20:54)
[2023-12-16] MEDS: GABAPENTIN 100MG CAPSULE 200 MG PO ×3 (08:13→20:54)
[2023-12-16] MEDS: POTASSIUM CHLORIDE 20MEQ TAB 40 MEQ PO (08:13)
[2023-12-16] MEDS: OXYCODONE 5MG W/APAP 325MG TABLET 1 EACH PO ×2 (08:14→20:59)
[2023-12-16] MEDS: ENOXAPARIN 40MG/0.4ML SYRINGE 40 MG SQ (08:14)
[2023-12-16 09:21] VITALS: BMI 26.5
--- NOTE | 2023-12-16 11:07 | SW/DCPLANNER ---
Addendum entered by Krista Queen 12/17/23 15:21: Patient will discharge to [facility] today ICF level of care. I have updated Lynda daugherty/ Hospice and they will admit to their services this evening. Patient and family are agreeable w/ this plan. Addendum entered by Donna Shen RN 12/17/23 11:48: [facility] has accepted this patient as Medicaid pending. Patient and daughter aware. Will discharge there today with Hospice to admit. Addendum entered by Krista Queen 12/16/23 16:01: AD w/ Hospice spoke w/ patient and family. Patient is a candidate for Hospice and agreeable to services. Daughter expressed that she did not feel patient was safe to be at home alone and patient agrees. Patient is agreeable to LTC at [place], [facility], [facility] and [facility]. Patient information will be faxed to facilities today. Addendum entered by Krista Queen 12/16/23 12:57: Per [facility]: hospice nurse and daughter will be onsite to evaluate and speak w/ patient at 2PM today. Original Note: I received a Hospice consult for this patient. Patient is agreeable to Hospice services and information has been faxed to [facility]. Lynda daugherty/ Hospice stated that nurse spoke w/ daughter and plan to meet at [facility] at 2PM today. Per MD patient can discharge home later this afternoon once evaluated by Hospice. Patient is agreeable w/ plan.
--- NOTE | 2023-12-16 11:38 | EXP.CARD.CON ---
History of Present Illness History of Present Illness Consult date: 12/16/23 Requesting physician: Rod Ryan Consult reason: shortness of breath Chief complaint: SOA and chest pain History of present illness: This is a 63-year-old white gentleman who presented to the emergency department complaints of shortness of breath and chest pain. He has a past medical history of coronary artery disease, HFrEF status post AICD placement, thoracic aortic aneurysm, hypertension, hyperlipidemia and COPD. The patient presented to the emergency department with worsening shortness of breath. He states for approximately 3 days prior to admission he became severely short of breath and had significant bilateral lower extremity edema. He states that his legs have never been this swollen in the past. He states that he has been taking his diuretics as prescribed but they were no longer helping to improve his symptoms. He has also been having pressure in his chest. He states that radiates to his back. He states that this has significantly worsened over the last few days prior to admission as well. The patient was admitted and is currently on a Bumex drip. He states that all of his symptoms have improved, although they have not resolved. He states that he is not having any chest pain this morning but still does feel pretty short of breath. He states his swelling is much better. He denies any fever, chills, nausea, vomiting or diarrhea. [facility] Disclaimer: The information contained in this section may have been updated after the patient was seen, as this information can be updated by other users. Medical History History of aortic aneurysm HARITHA (acute kidney injury) Hypokalemia NICM (nonischemic cardiomyopathy) HFrEF (heart failure with reduced ejection fraction) SPEEDY (obstructive sleep apnea) Unstable angina Non-STEMI (non-ST elevated myocardial infarction) LV dysfunction Cardiomyopathy Dyspnea Acute on chronic HFrEF (heart failure with reduced ejection fraction) HTN (hypertension) Accidental drug overdose Overweight (BMI 25.0-29.9) Tobacco use CAD (coronary artery disease) Surgical History Stented coronary artery AICD (automatic cardioverter/defibrillator) present Family History Other No significant family history Social History Smoking Status: Current every day smoker tobacco type: cigarettes packs per day: 1 second hand exposure: Yes alcohol intake: current alcohol intake frequency: holidays/special occasions only substance use type: denies use current occupational status: employed Travel in the last 8 weeks: Inside the [place] household members: children housing: house current occupational exposures/hazards: No caffeine: Yes Review of Systems Review of Systems Review of systems:: pertinent systems reviewed and negative unless documented below Constitutional Constitutional: Reports system reviewed and no additional complaints, except as documented and Reports fatigue Eyes Eyes: Reports system reviewed and no additional complaints, except as documented ENT Ears, Nose, Mouth, and Throat: Reports system reviewed and no additional complaints, except as documented *Cardiovascular Cardiovascular: Reports system reviewed and no additional complaints, except as documented, Reports chest pain, Reports chest pain at rest, Reports chest pain with activity, Reports dyspnea, Reports dyspnea on exertion, Reports leg edema, Reports orthopnea, Reports paroxysmal nocturnal dyspnea and Reports pedal edema *Respiratory Respiratory: Reports system reviewed and no additional complaints, except as documented, Reports dyspnea and Reports dyspnea on exertion *Gastrointestinal Gastrointestinal: Reports system reviewed and no additional complaints, except as documented *Genitourinary Genitourinary: Reports system reviewed and no additional complaints, except as documented *Musculoskeletal Musculoskeletal: Reports system reviewed and no additional complaints, except as documented Integumentary/Breasts Skin/Breast: Reports system reviewed and no additional complaints, except as documented *Neurologic Neurologic: Reports system reviewed and no additional complaints, except as documented Psychiatric Psychiatric: Reports system reviewed and no additional complaints, except as documented Endocrine Endocrine: Reports system reviewed and no additional complaints, except as documented and Reports fatigue Hematologic/Lymphatic Hematologic/Lymphatic: Reports system reviewed and no additional complaints, except as documented Allergic/Immunologic Allergic/Immunologic: Reports system reviewed and no additional complaints, except as documented Exam Data for Last 24 hours Vital signs and Labs for Last 24 Hours: Temp Pulse Resp BP Pulse Ox O2 Del Method O2 Flow Rate 98.1 F 94 H 18 117/69 98 Room Air 2 12/16/23 08:00 12/16/23 08:00 12/16/23 08:00 12/16/23 08:00 12/16/23 08:00 12/16/23 09:00 12/16/23 06:47 Laboratory Results - last 24 hr 12/15/23 16:45: Sodium 135 L, Potassium 4.6, Chloride 101, Carbon Dioxide 29, Anion Gap 9.6, BUN 33 H, Creatinine 1.40 H D, Estimated Creat Clear 69, Estimated GFR 51 L, Est GFR ( Amer) 62 D, Glucose 93 D, Calcium 8.6 12/16/23 05:58: WBC 8.9, RBC 5.58, Hgb 16.1, Hct 51.2, MCV 91.8, MCH 28.9, MCHC 31.5 L, RDW 17.8 H, Plt Count 300, MPV 7.2 L, Neut % (Auto) 68.4, Lymph % (Auto) 16.4, [place] % (Auto) 9.5 H, Eos % (Auto) 4.5, Baso % (Auto) 1.2, Neut # (Auto) 6.1, Lymph # (Auto) 1.5, [place] # (Auto) 0.9, Eos # (Auto) 0.4, Baso # (Auto) 0.1, Sodium 135 L, Potassium 5.1, Chloride 100, Carbon Dioxide 30, Anion Gap 10.1, BUN 36 H, Creatinine 1.40 H, Estimated Creat Clear 68, Estimated GFR 51 L, Est GFR ( Amer) 62, Glucose 97, Calcium 8.7, Magnesium 1.9, Total Bilirubin 1.4 H, AST 55, ALT 57, Alkaline Phosphatase 109, Total Protein 7.1, Albumin 3.7, Globulin 3.4 H, Albumin/Globulin Ratio 1.1 I & O for Last 24 hours: Intake & Output 12/13/23 12/14/23 12/15/23 12/16/23 23:59 23:59 23:59 23:59 Intake Total 1050 / 1050 1310 / 1310 573.833 / 573.833 Output Total 1700 / 1700 800 / 800 1500 / 1500 Balance -650 / -650 510 / 510 -926.167 / -926.167 Weight 205 lb 194 lb 12.8 oz 203 lb 200 lb 2.876 oz Constitutional Constitutional: no acute distress and average body habitus *Routine HEENT Exam Head: Present normocephalic and atraumatic ENT: Present mucous membranes moist *Routine Neck Exam Neck: Present supple, full ROM and normal carotid upstroke; Absent JVD, carotid bruit or lymphadenopathy *Routine Respiratory Exam Respiratory: Present CTA bilaterally, normal respiratory effort, able to speak in complete sentences and symmetric chest movement *Routine Cardiovascular Exam Cardiovascular: Present RRR, Normal S1 and Normal S2; Absent murmur or gallop *Routine Abdominal Exam Abdominal: Present soft and normoactive bowel sounds; Absent tenderness, distended or organomegaly *Routine Extremities Exam Extremities: Present edema, full ROM, pulses intact and normal capillary refill; Absent cyanosis or clubbing *Routine Skin Exam Skin: Present intact and warm; Absent erythema *Routine Neurological Exam Neurological: Present alert, oriented X3 and CN II-XII intact; Absent sensory deficit or motor deficit Routine Psychiatric Exam Psychiatric: Present normal affect Meds Home Medications and Allergies Home Medications ?Medication ?Instructions ?Recorded ?Confirmed ?Type aspirin 81 mg tablet,delayed 81 mg PO DAILY #90 tabs 10/30/23 12/13/23 Rx release atorvastatin 80 mg tablet (Lipitor) 80 mg PO HS #90 tabs 10/30/23 12/13/23 Rx bumetanide 2 mg tablet 2 mg PO BID #60 tabs 10/30/23 12/13/23 Rx carvedilol 6.25 mg tablet (Coreg) 6.25 mg PO BID #60 tabs 10/30/23 12/13/23 Rx empagliflozin 10 mg tablet 10 mg PO DAILY #90 tabs 10/30/23 12/13/23 Rx (Jardiance) sacubitril 97 mg-valsartan 103 mg 1 tab PO BID #60 tabs 10/30/23 12/13/23 Rx tablet (Entresto) spironolactone 25 mg tablet 25 mg PO BID #60 tabs 10/30/23 12/13/23 Rx metolazone 2.5 mg tablet 2.5 mg PO Q OTHER DAY #30 tabs 11/21/23 12/13/23 Rx New Prescriptions to Start Prescriptions: Allergies Allergy/AdvReac Type Severity Reaction Status Date / Time No Known Allergies Allergy Verified 12/03/23 10:30 Assessment and Plan *Assessment and plan (1) Atypical chest pain: Status: Acute Category: Medical Code(s): R07.89 - Other chest pain (2) HFrEF (heart failure with reduced ejection fraction): Status: Acute Category: Medical Code(s): I50.20 - Unspecified systolic (congestive) heart failure (3) NICM (nonischemic cardiomyopathy): Status: Acute Category: Medical Code(s): I42.8 - Other cardiomyopathies (4) AICD (automatic cardioverter/defibrillator) present: Status: Acute Category: Surgical Code(s): Z95.810 - Presence of automatic (implantable) cardiac defibrillator (5) Stented coronary artery: Status: Chronic Category: Surgical Code(s): Z95.5 - Presence of coronary angioplasty implant and graft (6) COPD (chronic obstructive pulmonary disease): Status: Chronic Qualifiers: COPD type: unspecified COPD Qualified Code(s): J44.9 - Chronic obstructive pulmonary disease, unspecified Category: Medical Code(s): J44.9 - Chronic obstructive pulmonary disease, unspecified (7) CAD (coronary artery disease): Status: Chronic Qualifiers: Associated angina: without angina Coronary Disease-Associated Artery/Lesion type: [place] artery [place] vs. transplanted heart: [place] heart Qualified Code(s): I25.10 - Atherosclerotic heart disease of [place] coronary artery without angina pectoris Category: Medical Code(s): I25.10 - Atherosclerotic heart disease of [place] coronary artery without angina pectoris (8) HTN (hypertension): Status: Acute Qualifiers: Hypertension type: primary hypertension Qualified Code(s): I10 - Essential (primary) hypertension Category: Medical Code(s): I10 - Essential (primary) hypertension (9) HLD (hyperlipidemia): Status: Chronic Qualifiers: Hyperlipidemia type: other hyperlipidemia Qualified Code(s): E78.4 - Other hyperlipidemia Category: Medical Code(s): E78.5 - Hyperlipidemia, unspecified (10) Tobacco use: Status: Chronic Category: Social Hx Code(s): Z72.0 - Tobacco use (11) Dyspnea: Status: Acute Qualifiers: Dyspnea type: shortness of breath Qualified Code(s): R06.02 - Shortness of breath Category: Medical Code(s): R06.00 - Dyspnea, unspecified (12) Cardiomyopathy: Status: Acute Qualifiers: Cardiomyopathy type: unspecified Qualified Code(s): I42.9 - Cardiomyopathy, unspecified Category: Medical Code(s): I42.9 - Cardiomyopathy, unspecified (13) LV dysfunction: Status: Acute Category: Medical Code(s): I51.9 - Heart disease, unspecified (14) Non-STEMI (non-ST elevated myocardial infarction): Status: Acute Category: Medical Code(s): I21.4 - Non-ST elevation (NSTEMI) myocardial infarction Plan Plan: 1. The patient presented to the emergency department complaints of shortness of breath. BNP elevated at 6830. The patient has acute on chronic HFrEF. He is being diuresed with IV Bumex. Will continue with IV Bumex and spironolactone for diuresis at this time. He was previously on a Bumex drip and has been switched over to IV Bumex 2 mg IV twice daily. If he does not have a negative fluid balance overnight then we may have to consider putting him back on a Bumex drip tomorrow at a higher dose or adding metolazone. 2. Continue Coreg, Jardiance and Entresto for HFrEF as well. 3. The patient does have a history of coronary artery disease. He did have a slightly elevated troponin with a troponin max 0.06. No plans for invasive left cardiac catheterization at this time. His troponin is likely elevated from his acute exacerbation of HFrEF. Continue aspirin 81 mg daily. 4. His blood pressure is well-controlled. 5. His LDL goal is less than 55. His LDL was 93 in November 2023. He is on a statin. 6. The patient does have his descending thoracic aortic aneurysm measuring 4.8 cm. Will continue to follow this on an outpatient basis. 7. His creatinine did bump to 1.4 today. Will continue to follow his renal function. 8. The patient was referred to [facility] heart failure clinic at his last outpatient visit. The patient has not seen heart failure clinic yet. We are going to try to see when the patient is [facility]. He would likely benefit from a heart failure specialist to discuss advanced heart failure options. 9. Further recommendations were made pending the patient's response to treatment and the results of his echocardiogram today. Thank you for the opportunity to help her to spend the care of this patient. All recommendations and orders are per Dr. Moore.
--- NOTE | 2023-12-16 11:42 | EXP.DC.SUM ---
General Admission date:: 12/13/23 Discharge date: 12/16/23 HPI HPI HPI: Mr. Jimenez is a 63-year-old male with history of CAD, severe heart failure with reduced ejection fraction, AICD placement, hyperlipidemia, aortic aneurysm, COPD. Presented to the ER today because of complaint of chest pressure and worsening shortness of breath. Having a hard time laying down. Difficulty ambulating without shortness of breath. Increased swelling in his legs over the past several days. Has been taking his diuretic but not having the same benefit. Workup in the ER concerning for acute exacerbation of CHF with elevated BNP and volume overload on chest imaging. Discussed case with ER physician, request admission for further management. Initiated on diuretic in the ER. On evaluation, he is afebrile, appears in moderate distress though he is on room air. Leg significantly more swollen than previous evaluations by me when he has been admitted. Exam Data for Last 24 hours Vital signs and Labs for Last 24 Hours: Temp Pulse Resp BP Pulse Ox O2 Del Method O2 Flow Rate 98.1 F 94 H 18 117/69 98 Room Air 2 12/16/23 08:00 12/16/23 08:00 12/16/23 08:00 12/16/23 08:00 12/16/23 08:00 12/16/23 09:00 12/16/23 06:47 Laboratory Results - last 24 hr 12/15/23 16:45: Sodium 135 L, Potassium 4.6, Chloride 101, Carbon Dioxide 29, Anion Gap 9.6, BUN 33 H, Creatinine 1.40 H D, Estimated Creat Clear 69, Estimated GFR 51 L, Est GFR ( Amer) 62 D, Glucose 93 D, Calcium 8.6 12/16/23 05:58: WBC 8.9, RBC 5.58, Hgb 16.1, Hct 51.2, MCV 91.8, MCH 28.9, MCHC 31.5 L, RDW 17.8 H, Plt Count 300, MPV 7.2 L, Neut % (Auto) 68.4, Lymph % (Auto) 16.4, [place] % (Auto) 9.5 H, Eos % (Auto) 4.5, Baso % (Auto) 1.2, Neut # (Auto) 6.1, Lymph # (Auto) 1.5, [place] # (Auto) 0.9, Eos # (Auto) 0.4, Baso # (Auto) 0.1, Sodium 135 L, Potassium 5.1, Chloride 100, Carbon Dioxide 30, Anion Gap 10.1, BUN 36 H, Creatinine 1.40 H, Estimated Creat Clear 68, Estimated GFR 51 L, Est GFR ( Amer) 62, Glucose 97, Calcium 8.7, Magnesium 1.9, Total Bilirubin 1.4 H, AST 55, ALT 57, Alkaline Phosphatase 109, Total Protein 7.1, Albumin 3.7, Globulin 3.4 H, Albumin/Globulin Ratio 1.1 I & O for Last 24 hours: Intake & Output 12/13/23 12/14/23 12/15/23 12/16/23 23:59 23:59 23:59 23:59 Intake Total 1050 / 1050 1310 / 1310 573.833 / 573.833 Output Total 1700 / 1700 800 / 800 1500 / 1500 Balance -650 / -650 510 / 510 -926.167 / -926.167 Weight 92.986 kg 88.36 kg 92.079 kg 90.8 kg Results Data Completed and Pending Labs on day of discharge: Labs from last 24 hours 12/16/23 12/15/23 05:58 16:45 WBC 8.9 RBC 5.58 Hgb 16.1 Hct 51.2 MCV 91.8 MCH 28.9 MCHC 31.5 L RDW 17.8 H Plt Count 300 MPV 7.2 L Neut % (Auto) 68.4 Lymph % (Auto) 16.4 [place] % (Auto) 9.5 H Eos % (Auto) 4.5 Baso % (Auto) 1.2 Neut # (Auto) 6.1 Lymph # (Auto) 1.5 [place] # (Auto) 0.9 Eos # (Auto) 0.4 Baso # (Auto) 0.1 Sodium 135 L 135 L Potassium 5.1 4.6 Chloride 100 101 Carbon Dioxide 30 29 Anion Gap 10.1 9.6 BUN 36 H 33 H Creatinine 1.40 H 1.40 H D Estimated Creat Clear 68 69 Estimated GFR 51 L 51 L Est GFR ( Amer) 62 62 D Glucose 97 93 D Calcium 8.7 8.6 Magnesium 1.9 Total Bilirubin 1.4 H AST 55 ALT 57 Alkaline Phosphatase 109 Total Protein 7.1 Albumin 3.7 Globulin 3.4 H Albumin/Globulin Ratio 1.1 DS: Diagnosis Discharge Diagnosis (1) HFrEF (heart failure with reduced ejection fraction): Status: Acute Code(s): I50.20 - Unspecified systolic (congestive) heart failure (2) Atypical chest pain: Status: Acute Code(s): R07.89 - Other chest pain (3) Stented coronary artery: Status: Chronic Code(s): Z95.5 - Presence of coronary angioplasty implant and graft (4) AICD (automatic cardioverter/defibrillator) present: Status: Acute Code(s): Z95.810 - Presence of automatic (implantable) cardiac defibrillator (5) NICM (nonischemic cardiomyopathy): Status: Acute Code(s): I42.8 - Other cardiomyopathies (6) SPEEDY (obstructive sleep apnea): Status: Acute Code(s): G47.33 - Obstructive sleep apnea (adult) (pediatric) (7) HTN (hypertension): Status: Chronic Code(s): I10 - Essential (primary) hypertension Qualifiers: Hypertension type: essential hypertension Qualified Code(s): I10 - Essential (primary) hypertension (8) HLD (hyperlipidemia): Status: Chronic Code(s): E78.5 - Hyperlipidemia, unspecified Qualifiers: Hyperlipidemia type: other hyperlipidemia Qualified Code(s): E78.4 - Other hyperlipidemia (9) Tobacco use: Status: Chronic Code(s): Z72.0 - Tobacco use Meds Home Medications and Allergies Home Medications ?Medication ?Instructions ?Recorded ?Confirmed ?Type aspirin 81 mg tablet,delayed 81 mg PO DAILY #90 tabs 10/30/23 12/13/23 Rx release atorvastatin 80 mg tablet (Lipitor) 80 mg PO HS #90 tabs 10/30/23 12/13/23 Rx bumetanide 2 mg tablet 2 mg PO BID #60 tabs 10/30/23 12/13/23 Rx carvedilol 6.25 mg tablet (Coreg) 6.25 mg PO BID #60 tabs 10/30/23 12/13/23 Rx empagliflozin 10 mg tablet 10 mg PO DAILY #90 tabs 10/30/23 12/13/23 Rx (Jardiance) sacubitril 97 mg-valsartan 103 mg 1 tab PO BID #60 tabs 10/30/23 12/13/23 Rx tablet (Entresto) spironolactone 25 mg tablet 25 mg PO BID #60 tabs 10/30/23 12/13/23 Rx metolazone 2.5 mg tablet 2.5 mg PO Q OTHER DAY #30 tabs 11/21/23 12/13/23 Rx gabapentin 100 mg capsule 200 mg (2 x 100 mg) PO TID 30 days 12/16/23 Rx #180 caps New Prescriptions to Start Prescriptions: gabapentin Rod Ryan Allergies Allergy/AdvReac Type Severity Reaction Status Date / Time No Known Allergies Allergy Verified 12/03/23 10:30 Discharge Plan Disposition Patient Disposition: Hospice - Home Condition: Good Follow up Plan Follow up with: Tom Castaneda APRN [Primary Care Provider] - 12/24/23 1:00 pm Enrique Moore MD [Staff Physician] - Enter time for follow up Prescriptions/Medication Reconciliation: New gabapentin 100 mg Capsule 200 mg PO TID 30 Days Qty: 180 0RF Continued aspirin 81 mg tablet,delayed release (DR/EC) 81 mg PO DAILY Qty: 90 3RF atorvastatin [Lipitor] 80 mg tablet 80 mg PO HS Qty: 90 3RF bumetanide 2 mg tablet 2 mg PO BID Qty: 60 5RF carvedilol [Coreg] 6.25 mg tablet 6.25 mg PO BID Qty: 60 5RF Rx Instructions: must administer with a meal/food Jardiance 10 mg tablet 10 mg PO DAILY Qty: 90 3RF spironolactone 25 mg tablet 25 mg PO BID Qty: 60 5RF metolazone 2.5 mg tablet 2.5 mg PO Q OTHER DAY Qty: 30 4RF No Action Entresto 97-103 mg tablet 1 tab PO BID Qty: 60 5RF Problem Reconciliation Problems Reviewed?: Yes Patient Discharge Instructions ACTIVITY: Continue current activity DIET: continue same diet Patient Instructions: DI for Heart Failure Print Language: Setswana Providers Primary Care Provider: Tom Castaneda Admit Provider: Rod Ryan Attending Provider: Rod Ryan
[2023-12-16 12:00] VITALS: BP 120/68; PULSE 70; PULSE 90; RESP 18; TEMP 36.6; O2SAT 91
[2023-12-16] MEDS: BUMETANIDE 1MG/4ML VIAL 2 MG IV ×2 (12:18→16:23)
[2023-12-16] MEDS: POLYETHYLENE GLYCOL 3350 17 GM PACKET PO (12:18)
--- NOTE | 2023-12-16 15:04 | PC.NURSE ---
10:30 Bumex drip discontinued
[2023-12-16 16:00] VITALS: BP 114/68; PULSE 100; PULSE 74; RESP 22; TEMP 36.6; O2SAT 94
--- NOTE | 2023-12-16 18:10 | PC.NURSE ---
1810: P.t has been sleepy all day today. Pt. was interested in being evaluated for Hospice service, accounts receivable analyst Carmencita Collier came to bedside, to speak to both lauratent and his daughter, Pt. Aki HI pt needs to be placed in a custodial and than put on Hospice service. Per the Hospice note pt. can be put on service prior to being placed in a custodial.. Pt's daughter tearful. vital signs stable. Case Management went to bedside to speak to patient and his daughter to sort out placement arrangements.
--- NOTE | 2023-12-16 18:18 | EXP.ACUTE.PN ---
Subjective *Date: 12/16/23 *Time: 21:57 Medical Exam Vital signs and Labs for Last 24 Hours: Vital Signs Temp Pulse Pulse Resp BP Pulse Ox O2 Del Method 12/16/23 17:00 Room Air 12/16/23 16:00 100 H 12/16/23 16:00 98 F 74 22 114/68 94 L Room Air 12/16/23 15:00 Room Air 12/16/23 13:00 Room Air 12/16/23 12:00 98 F 90 18 120/68 91 L 12/16/23 12:00 70 12/16/23 11:00 Room Air 12/16/23 09:00 Room Air 12/16/23 08:00 100 H 12/16/23 08:00 Room Air 12/16/23 08:00 98.1 F 94 H 18 117/69 98 12/16/23 06:47 Nasal Cannula 12/16/23 05:00 Nasal Cannula 12/16/23 04:00 76 12/16/23 04:00 97.8 F 82 18 102/78 L 96 Room Air 12/16/23 03:00 Nasal Cannula 12/16/23 01:00 Nasal Cannula 12/16/23 00:00 73 12/16/23 00:00 97.9 F 108 H 18 98/42 L Nasal Cannula 12/15/23 23:00 Room Air 12/15/23 21:00 Room Air 12/15/23 20:55 Room Air 12/15/23 20:00 71 12/15/23 20:00 97.4 F L 73 18 81/53 L 91 L Nasal Cannula 12/15/23 18:26 Room Air O2 Flow Rate 12/16/23 17:00 12/16/23 16:00 12/16/23 16:00 12/16/23 15:00 12/16/23 13:00 12/16/23 12:00 12/16/23 12:00 12/16/23 11:00 12/16/23 09:00 12/16/23 08:00 12/16/23 08:00 12/16/23 08:00 12/16/23 06:47 2 12/16/23 05:00 2 12/16/23 04:00 12/16/23 04:00 12/16/23 03:00 2 12/16/23 01:00 2 12/16/23 00:00 12/16/23 00:00 2 12/15/23 23:00 12/15/23 21:00 12/15/23 20:55 12/15/23 20:00 12/15/23 20:00 2 12/15/23 18:26 Intake and Output 12/16/23 12/16/23 12/16/23 07:59 15:59 23:59 Intake Total 93.833 / 1293.833 840 / 1293.833 360 / 1293.833 Output Total 1250 / 3750 2000 / 3750 500 / 3750 Balance -1156.167 / -2456.167 -1160 / -2456.167 -140 / -2456.167 Intake: Intake, Oral Amount 840 / 1200 360 / 1200 Intake, Total IV Amount 93.833 / 93.833 Output: Output, Urine Amount 1250 / 3750 2000 / 3750 500 / 3750 Other: Number of Unmeasured Voids 0 Weight 90.809 kg 90.8 kg Patient Weight 12/16/23 23:59 Weight 90.8 kg Laboratory Results - last 24 hr 12/16/23 05:58: WBC 8.9, RBC 5.58, Hgb 16.1, Hct 51.2, MCV 91.8, MCH 28.9, MCHC 31.5 L, RDW 17.8 H, Plt Count 300, MPV 7.2 L, Neut % (Auto) 68.4, Lymph % (Auto) 16.4, [place] % (Auto) 9.5 H, Eos % (Auto) 4.5, Baso % (Auto) 1.2, Neut # (Auto) 6.1, Lymph # (Auto) 1.5, [place] # (Auto) 0.9, Eos # (Auto) 0.4, Baso # (Auto) 0.1, Sodium 135 L, Potassium 5.1, Chloride 100, Carbon Dioxide 30, Anion Gap 10.1, BUN 36 H, Creatinine 1.40 H, Estimated Creat Clear 68, Estimated GFR 51 L, Est GFR ( Amer) 62, Glucose 97, Calcium 8.7, Magnesium 1.9, Total Bilirubin 1.4 H, AST 55, ALT 57, Alkaline Phosphatase 109, Total Protein 7.1, Albumin 3.7, Globulin 3.4 H, Albumin/Globulin Ratio 1.1 I & O for Labs for Last 24 Hours: Intake & Output 12/13/23 12/14/23 12/15/23 12/16/23 23:59 23:59 23:59 23:59 Intake Total 1050 / 1050 1310 / 1310 1293.833 / 1293.833 Output Total 1700 / 1700 800 / 800 3750 / 3750 Balance -650 / -650 510 / 510 -2456.167 / -2456.167 Weight 92.986 kg 88.36 kg 92.079 kg 90.8 kg Assessment and Plan *Assessment and plan (1) HFrEF (heart failure with reduced ejection fraction): Status: Acute Category: Medical Code(s): I50.20 - Unspecified systolic (congestive) heart failure (2) Atypical chest pain: Status: Acute Category: Medical Code(s): R07.89 - Other chest pain (3) Stented coronary artery: Status: Chronic Category: Surgical Code(s): Z95.5 - Presence of coronary angioplasty implant and graft (4) AICD (automatic cardioverter/defibrillator) present: Status: Acute Category: Surgical Code(s): Z95.810 - Presence of automatic (implantable) cardiac defibrillator (5) NICM (nonischemic cardiomyopathy): Status: Acute Category: Medical Code(s): I42.8 - Other cardiomyopathies (6) SPEEDY (obstructive sleep apnea): Status: Acute Category: Medical Code(s): G47.33 - Obstructive sleep apnea (adult) (pediatric) (7) HTN (hypertension): Status: Chronic Qualifiers: Hypertension type: essential hypertension Qualified Code(s): I10 - Essential (primary) hypertension Category: Medical Code(s): I10 - Essential (primary) hypertension (8) HLD (hyperlipidemia): Status: Chronic Qualifiers: Hyperlipidemia type: other hyperlipidemia Qualified Code(s): E78.4 - Other hyperlipidemia Category: Medical Code(s): E78.5 - Hyperlipidemia, unspecified (9) Tobacco use: Status: Chronic Category: Social Hx Code(s): Z72.0 - Tobacco use Plan Mr. Jimenez is a 63-year-old male with history of heart failure with reduced ejection fraction, COPD, SPEEDY, AICD in place. Presented with chest pressure and shortness of breath to the ER. Workup concerning for acute on chronic heart failure. Discussed case with ER, request admission for diuresis and further management. I agreed to admit. Received diuretics in the ER. Increased requirement and oxygen overnight. Remains clinically volume overloaded. Showing improvement in leg swelling. Discontinue Bumex drip, transition to IV twice daily. Hospice consulted today. Cardiology evaluating. Problems addressed as follows: Acute on chronic heart failure with reduced ejection fraction, worsening life-threatening condition. Atypical chest pain Volume overload - Cardiology evaluated today. Discussed case afterward. Will discontinue Bumex drip and switch to IV Bumex 2 mg twice daily. -They recommend referral to advanced heart failure clinic. Patient has elected to proceed with hospice. - No indication for invasive intervention at this time. Continue to monitor kidney function. Creatinine with slight bump to 1.4 today. -Monitor on telemetry, carvedilol 6.25 mg twice daily, spironolactone 25 mg twice daily, Entresto 24/26 mg twice daily, Farxiga 10 mg daily -Slight bump in kidney function with BUN 36, creatinine 1.4. Potassium elevated at 5.1. Discontinue replacement. Repeat CBC, CMP, magnesium ordered for the morning. Nonischemic cardiomyopathy: AICD implanted 08/2023, 100 on telemetry Transaminitis: Suspect congestive hepatopathy. Slight improvement in liver enzymes with bilirubin 1.4, AST 65, ALT 63. Holding statin in the setting of elevated liver enzymes. Thoracic aortic aneurysm, stable by chest CTA today on my review. COPD with continued tobacco use: DuoNebs as needed every 6 hours Extensive discussion with patient about goals of care today. Would like to have hospice consult placed. Is tired of feeling poorly from his heart failure. Wants to focus on comfort and quality. Hospice evaluated and recommend placement for long-term care with hospice. Patient and daughter do not feel he is safe to go home. DNR cardiac diet Lovenox 40 mg subcu daily
[2023-12-16 20:00] VITALS: BP 102/69; PULSE 80; PULSE 89; RESP 18; RESP 24; TEMP 36.8; O2SAT 1; O2SAT 100
[2023-12-17] VITALS: BP 106/51; PULSE 70; PULSE 75; RESP 18; TEMP 36.8; O2SAT 92
[2023-12-17 04:00] VITALS: BP 123/62; PULSE 90; PULSE 94; RESP 16; TEMP 36.7; O2SAT 95; BMI 26.6
--- NOTE | 2023-12-17 05:08 | PC.NURSE ---
Pt is alert and oriented x4 and currently tolerating 1L well. Pt did not require O2 at beginning of shift, pt O2 decreased while sleeping thus requiring 2L, this nurse was able to lower to 1L and pt is sating @ 92%. Pt has had no other acute changes, denies pain and needs at this time.
[2023-12-17 06:52] LABS: Albumin Level 3.6 g/dl (3.5-5.0); Chloride 97 mmol/L (98-107); Potassium 5.3 mmoL/L (3.5-5.1); Sodium 133 mmol/L (136-145)
[2023-12-17 06:54] LABS: Anion Gap 10.3 mEq/L (5-15); Blood Urea Nitrogen 44 mg/dl (9-20); Carbon Dioxide 31 mmol/L (22.0-30.0); Creatinine Clearance Estimated 57 mL/min (50-200); Estimated Glomerular Filt Rate 41 ml/min (>60); GFR (African American) 49 ML/MIN (>60)
[2023-12-17 06:55] LABS: Alanine Aminotransferase 47 U/L (12-78); Albumin/Globulin Ratio 1.1 (1.1-1.8); Alkaline Phosphatase 93 U/L (38-126); Aspartate Amino Transferase 44 U/L (17-59); Bilirubin,Total 1.5 mg/dl (0.2-1.3); Calcium 8.8 mg/dl (8.4-10.2); Globulin 3.2 g/dL (1.3-3.2); Glucose 118 mg/dl (74-100); Magnesium 1.8 mg/dl (1.6-2.3); Total Protein,Serum 6.8 g/dl (6.3-8.2)
[2023-12-17 06:56] LABS: Basophils # 0.1 K/mm3 (0-0.2); Basophils % 0.4 % (0.1-2.0); Eosinophils # 0.1 K/mm3 (0.0-0.4); Eosinophils % 0.3 % (0.1-12.0); Hematocrit 46.8 % (42.0-52.0); Hemoglobin 14.9 g/dL (14.1-18.0); Lymphocytes # 0.5 K/mm3 (0.7-4.5); Mean Corpuscular HGB Conc 31.8 g/dL (31.8-35.4); Mean Corpuscular Hemoglobin 29.2 pg (27.0-31.2); Mean Corpuscular Volume 91.8 fl (80-94); Mean Platelet Volume 7.2 fl (7.4-10.4); Monocytes # 1.1 K/mm3 (0.1-1.0); Monocytes % 7.2 % (1.7-9.3); Neutrophils # 13.4 K/mm3 (1.8-7.8); Neutrophils % 89.1 % (37.0-80.0); Platelet Count 248 K/mm3 (142-424); White Blood Count 15.1 K/mm3 (4.8-10.8)
[2023-12-17 07:10] LABS: MANUAL DIFFERENTIAL MANUAL DIFFERENTIAL (MANUAL DIFF)
[2023-12-17 08:00] VITALS: BP 117/71; PULSE 100; PULSE 102; RESP 20; TEMP 37.8; O2SAT 90
[2023-12-17] MEDS: ASPIRIN EC 81MG TABLET 81 MG PO (08:42)
[2023-12-17] MEDS: SACUBITRIL/VALSARTAN 24-26MG TABLET 1 EACH PO (08:42)
[2023-12-17] MEDS: ACETAMINOPHEN 500MG TAB 500 MG PO (08:42)
[2023-12-17] MEDS: CARVEDILOL 6.25MG TABLET 6.25 MG PO (08:42)
[2023-12-17] MEDS: GABAPENTIN 100MG CAPSULE 200 MG PO (08:42)
[2023-12-17] MEDS: ENOXAPARIN 40MG/0.4ML SYRINGE 40 MG SQ (08:42)
[2023-12-17] MEDS: SPIRONOLACTONE 25MG TABLET 25 MG PO (08:42)
[2023-12-17] MEDS: EMPAGLIFLOZIN 10MG TABLET 10 MG PO (08:42)
[2023-12-17] MEDS: BUMETANIDE 1MG/4ML VIAL 2 MG IV (08:43)
--- NOTE | 2023-12-17 09:29 | PC.NURSE ---
while cardiology was in room pt stated that he needed to use the urinal. Pt helped to standing and pt urinated all over the floor and the chair. pt is also very unsteady on his feet. chair alarm taken into room and placed on pt.
[2023-12-17 09:48] LABS: Eosinophils % 1 % (0-3); Lymphocytes % 3 % (10-50); Monocytes % 4 % (2-9); Neutrophils % 92 % (42-76); Total Cells Counted 100
[2023-12-17 09:49] LABS: Platelet Estimate Normal; RBC Morphology Normal
[2023-12-17 10:32] LABS: Lactic Acid 1.2 mmol/L (0.7-2.1)
--- NOTE | 2023-12-17 11:20 | EXP.CARD.PN ---
Subjective Subjective Date: 12/17/23 Time: 09:30 Principal diagnosis: acute on chronic HFrEF Interval history: This is a 63-year-old gentleman who is admitted to the hospital shortness of breath and chest pain. The patient was found to have acute on chronic HFrEF. He was being diuresed with a Bumex drip and has been switched over to IV Bumex. He is diuresing well with a -1500 mL fluid balance overnight. The patient states that he still has shortness of breath but it is much better than when he presented to the hospital. He still has bilateral lower extremity edema but this is also improved since admission. His creatinine has elevated today to 1.7. He denies any chest pain or pressure. He does complain of fatigue and having no energy. The patient does seem like he is unable to focus this morning. He answers all of my questions appropriately but it does take him a while to answer which is kind of unusual for him. He denies any fever, chills, nausea, vomiting or diarrhea. Exam Data for Last 24 hours Vital signs and Labs for Last 24 Hours: Temp Pulse Resp BP Pulse Ox O2 Del Method O2 Flow Rate 100.1 F H 102 H 20 117/71 90 L Nasal Cannula 2 12/17/23 08:00 12/17/23 08:00 12/17/23 08:00 12/17/23 08:00 12/17/23 08:00 12/17/23 11:00 12/17/23 08:00 Laboratory Results - last 24 hr 12/17/23 05:34: WBC 15.1 H D, RBC 5.10, Hgb 14.9, Hct 46.8, MCV 91.8, MCH 29.2, MCHC 31.8, RDW 18.0 H, Plt Count 248, MPV 7.2 L, Neut % (Auto) 89.1 H, Lymph % (Auto) 3.0 L, [place] % (Auto) 7.2, Eos % (Auto) 0.3, Baso % (Auto) 0.4, Neut # (Auto) 13.4 H, Lymph # (Auto) 0.5 L, [place] # (Auto) 1.1 H, Eos # (Auto) 0.1, Baso # (Auto) 0.1, Total Counted 100, Neutrophils % (Manual) 92 H, Lymphocytes % (Manual) 3 L, Monocytes % (Manual) 4, Eosinophils % (Manual) 1, Platelet Estimate Normal, RBC Morphology Normal, Sodium 133 L, Potassium 5.3 H, Chloride 97 L, Carbon Dioxide 31 H, Anion Gap 10.3, BUN 44 H, Creatinine 1.70 H D, Estimated Creat Clear 57, Estimated GFR 41 L, Est GFR ( Amer) 49 L D, Glucose 118 H D, Calcium 8.8, Magnesium 1.8, Total Bilirubin 1.5 H, AST 44, ALT 47, Alkaline Phosphatase 93, Total Protein 6.8, Albumin 3.6, Globulin 3.2, Albumin/Globulin Ratio 1.1, Procalcitonin 5.10 H 12/17/23 10:14: Lactate 1.2 I & O for Last 24 hours: Intake & Output 12/14/23 12/15/23 12/16/23 12/17/23 23:59 23:59 23:59 23:59 Intake Total 1050 / 1050 1310 / 1310 1293.833 / 1653.833 360 / 360 Output Total 1700 / 1700 800 / 800 4350 / 4350 0 / 0 Balance -650 / -650 510 / 510 -3056.167 / -2696.167 360 / 360 Weight 194 lb 12.8 oz 203 lb 200 lb 2.876 oz 201 lb 3 oz Constitutional Constitutional: no acute distress and average body habitus *Routine HEENT Exam Head: Present normocephalic and atraumatic ENT: Present mucous membranes moist *Routine Neck Exam Neck: Present supple, full ROM and normal carotid upstroke; Absent JVD, carotid bruit or lymphadenopathy *Routine Respiratory Exam Respiratory: Present CTA bilaterally, normal respiratory effort, able to speak in complete sentences and symmetric chest movement *Routine Cardiovascular Exam Cardiovascular: Present RRR, Normal S1 and Normal S2; Absent murmur or gallop *Routine Abdominal Exam Abdominal: Present soft and normoactive bowel sounds; Absent tenderness, distended or organomegaly *Routine Extremities Exam Extremities: Present edema, full ROM, pulses intact and normal capillary refill; Absent cyanosis or clubbing *Routine Skin Exam Skin: Present intact and warm; Absent erythema *Routine Neurological Exam Neurological: Present alert, oriented X3 and CN II-XII intact; Absent sensory deficit or motor deficit Routine Psychiatric Exam Psychiatric: Present normal affect Progress Note: A&P Assessment and plan (1) HFrEF (heart failure with reduced ejection fraction): Status: Acute (2) Atypical chest pain: Status: Acute (3) Stented coronary artery: Status: Chronic (4) AICD (automatic cardioverter/defibrillator) present: Status: Acute (5) NICM (nonischemic cardiomyopathy): Status: Acute (6) SPEEDY (obstructive sleep apnea): Status: Acute (7) HTN (hypertension): Status: Chronic (8) HLD (hyperlipidemia): Status: Chronic (9) Tobacco use: Status: Chronic (10) COPD (chronic obstructive pulmonary disease): Status: Chronic (11) LV dysfunction: Status: Acute (12) Cardiomyopathy: Status: Acute (13) Dyspnea: Status: Acute Assessment and Plan Assessment and Plan for All Diagnoses:: Plan: 1. The patient presented to the emergency department complaints of shortness of breath. BNP elevated at 6830. The patient has acute on chronic HFrEF. He is being diuresed with IV Bumex. Will continue with IV Bumex and spironolactone for diuresis at this time. He does have a -1500 mL fluid balance overnight. Continue with diuresis. 2. Continue Coreg, Jardiance and Entresto for HFrEF as well. 3. The patient does have a history of coronary artery disease. He did have a slightly elevated troponin with a troponin max 0.06. No plans for invasive left cardiac catheterization at this time. His troponin is likely elevated from his acute exacerbation of HFrEF. Continue aspirin 81 mg daily. 4. His blood pressure is well-controlled. 5. His LDL goal is less than 55. His LDL was 93 in November 2023. He is on a statin. 6. The patient does have his descending thoracic aortic aneurysm measuring 4.8 cm. Will continue to follow this on an outpatient basis. 7. His creatinine did bump to 1.7 today. Will continue to follow his renal function. 8. The patient was referred to [facility] heart failure clinic at his last outpatient visit. He has an appointment on December 31 for evaluation to see if he would benefit from advanced heart failure treatment. The patient is highly encouraged to keep this appointment. 9. The hospitalist and the patient discussed hospice yesterday. It appears that the patient told the hospitalist team that he wanted to enroll in hospice care. We do think that this is a little premature from a cardiac standpoint as he has not been evaluated by the heart failure specialist or given advanced heart failure treatment options. However if the patient ultimately decides he wants to enroll in hospice care then that is up to him, but we highly recommend this decision not be made until he is evaluated by the heart failure specialist. 10. Further recommendations will be made pending the patient's response to treatment. Thank you for the opportunity to help her to spend the care of this patient. All recommendations and orders are per Dr. Moore.
[2023-12-17 12:00] VITALS: BP 82/50; PULSE 110; PULSE 87; RESP 19; TEMP 39.3; O2SAT 92
[2023-12-17] MEDS: CEFTRIAXONE 1 GM 1 GM in 0.9 % SODIUM CHLORIDE 50 ML IV (12:06)
[2023-12-17] MEDS: AZITHROMYCIN 500 MG in 0.9 % SODIUM CHLORIDE 250 ML 250 MG IV (12:38)
--- NOTE | 2023-12-17 15:08 | P.DS_ITS ---
General Admission date:: 12/13/23 Hospital Course Hospital Course Hospital Course: Mr. Jimenez is a 63-year-old male with history of heart failure with reduced ejection fraction, COPD, SPEEDY, AICD in place. Presented with chest pressure and shortness of breath to the ER. Workup concerning for acute on chronic heart failure. Discussed case with ER, request admission for diuresis and further management. I agreed to admit. Received diuretics in the ER. Increased requirement and oxygen overnight. Remains clinically volume overloaded. Showing improvement in leg swelling. Discontinue Bumex drip, transition to IV twice daily. Hospice consulted today. Cardiology evaluating. Problems addressed as follows: #Acute on chronic heart failure with reduced ejection fraction #Atypical chest pain ? Improved with IV diuresis with Bumex. ?Cardiac MRI reveals LVEF 10%, RVEF 18.1%. - Cardiology consulted, they recommend referral to advanced heart failure clinic. However, after extensive conversations with family they have elected to pursue hospice care. Moreover, they also do not want treatment for sepsis other than oral antibiotics. - Bumex 1 mg daily, carvedilol 6.25 mg twice daily, spironolactone 25 mg twice daily, Entresto 24/26 mg twice daily, Farxiga 10 mg daily. ?These medications likely can be discontinued as he transitions to hospice care at [facility]. #Hypotension #Febrile #Leukocytosis ? Patient's blood pressure became softer in the 80s over 50s today, temperature up to 102.7 Fahrenheit, and WBC of 13. ? However, after extension conversations with patient's daughter she would like for her father to be made hospice/comfort care as her father has continuously expressed how uncomfortable he has been from his heart failure, chest pains in the past months. ? They do not want escalation of care including IV antibiotics, IV pressors. ? They are amenable to discharging on oral antibiotics. He will be discharged on cefdinir, azithromycin. Nonischemic cardiomyopathy: AICD implanted 08/2023. Transaminitis: Suspect congestive hepatopathy. Slight improvement in liver enzymes with bilirubin 1.4, AST 65, ALT 63. Holding statin in the setting of elevated liver enzymes. Thoracic aortic aneurysm, stable by chest CTA today on my review. COPD with continued tobacco use: DuoNebs as needed every 6 hours Exam Data for Last 24 hours Vital signs and Labs for Last 24 Hours: Temp Pulse Resp BP Pulse Ox O2 Del Method O2 Flow Rate 102.7 F H 87 19 82/50 L 92 L Nasal Cannula 3 12/17/23 12:00 12/17/23 12:00 12/17/23 12:00 12/17/23 12:00 12/17/23 12:00 12/17/23 13:00 12/17/23 13:00 Laboratory Results - last 24 hr 12/17/23 05:34: WBC 15.1 H D, RBC 5.10, Hgb 14.9, Hct 46.8, MCV 91.8, MCH 29.2, MCHC 31.8, RDW 18.0 H, Plt Count 248, MPV 7.2 L, Neut % (Auto) 89.1 H, Lymph % (Auto) 3.0 L, [place] % (Auto) 7.2, Eos % (Auto) 0.3, Baso % (Auto) 0.4, Neut # (Auto) 13.4 H, Lymph # (Auto) 0.5 L, [place] # (Auto) 1.1 H, Eos # (Auto) 0.1, Baso # (Auto) 0.1, Total Counted 100, Neutrophils % (Manual) 92 H, Lymphocytes % (Manual) 3 L, Monocytes % (Manual) 4, Eosinophils % (Manual) 1, Platelet Estimate Normal, RBC Morphology Normal, Sodium 133 L, Potassium 5.3 H, Chloride 97 L, Carbon Dioxide 31 H, Anion Gap 10.3, BUN 44 H, Creatinine 1.70 H D, Estimated Creat Clear 57, Estimated GFR 41 L, Est GFR ( Amer) 49 L D, Glucose 118 H D, Calcium 8.8, Magnesium 1.8, Total Bilirubin 1.5 H, AST 44, ALT 47, Alkaline Phosphatase 93, Total Protein 6.8, Albumin 3.6, Globulin 3.2, Albumin/Globulin Ratio 1.1, Procalcitonin 5.10 H 12/17/23 10:14: Lactate 1.2 I & O for Last 24 hours: Intake & Output 12/14/23 12/15/23 12/16/23 12/17/23 23:59 23:59 23:59 23:59 Intake Total 1050 / 1050 1310 / 1310 1293.833 / 1653.833 360 / 360 Output Total 1700 / 1700 800 / 800 4350 / 4350 0 / 0 Balance -650 / -650 510 / 510 -3056.167 / -2696.167 360 / 360 Weight 88.36 kg 92.079 kg 90.8 kg 91.257 kg Constitutional Constitutional: no acute distress Comments: ill-appearing. *Routine HEENT Exam Head: Present normocephalic Eye: Present EOMI and PERRL ENT: Present mucous membranes moist *Routine Neck Exam Neck: Present supple; Absent lymphadenopathy *Routine Respiratory Exam Respiratory: Present CTA bilaterally *Routine Cardiovascular Exam Cardiovascular: Present RRR *Routine Abdominal Exam Abdominal: Present soft and normoactive bowel sounds; Absent tenderness *Routine Extremities Exam Extremities: Absent cyanosis, clubbing or edema *Routine Skin Exam Skin: Present warm; Absent rash *Routine Neurological Exam Neurological: Present alert and oriented X3 Results Data Completed and Pending Labs on day of discharge: Labs from last 24 hours 12/17/23 12/17/23 10:14 05:34 WBC 15.1 H D RBC 5.10 Hgb 14.9 Hct 46.8 MCV 91.8 MCH 29.2 MCHC 31.8 RDW 18.0 H Plt Count 248 MPV 7.2 L Neut % (Auto) 89.1 H Lymph % (Auto) 3.0 L [place] % (Auto) 7.2 Eos % (Auto) 0.3 Baso % (Auto) 0.4 Neut # (Auto) 13.4 H Lymph # (Auto) 0.5 L [place] # (Auto) 1.1 H Eos # (Auto) 0.1 Baso # (Auto) 0.1 Total Counted 100 Neutrophils % (Manual) 92 H Lymphocytes % (Manual) 3 L Monocytes % (Manual) 4 Eosinophils % (Manual) 1 Platelet Estimate Normal RBC Morphology Normal Sodium 133 L Potassium 5.3 H Chloride 97 L Carbon Dioxide 31 H Anion Gap 10.3 BUN 44 H Creatinine 1.70 H D Estimated Creat Clear 57 Estimated GFR 41 L Est GFR ( Amer) 49 L D Glucose 118 H D Lactate 1.2 Calcium 8.8 Magnesium 1.8 Total Bilirubin 1.5 H AST 44 ALT 47 Alkaline Phosphatase 93 Total Protein 6.8 Albumin 3.6 Globulin 3.2 Albumin/Globulin Ratio 1.1 Procalcitonin 5.10 H DS: Diagnosis Discharge Diagnosis (1) HFrEF (heart failure with reduced ejection fraction): Status: Acute Code(s): I50.20 - Unspecified systolic (congestive) heart failure (2) Atypical chest pain: Status: Acute Code(s): R07.89 - Other chest pain (3) Stented coronary artery: Status: Chronic Code(s): Z95.5 - Presence of coronary angioplasty implant and graft (4) AICD (automatic cardioverter/defibrillator) present: Status: Acute Code(s): Z95.810 - Presence of automatic (implantable) cardiac defibrillator (5) NICM (nonischemic cardiomyopathy): Status: Acute Code(s): I42.8 - Other cardiomyopathies (6) SPEEDY (obstructive sleep apnea): Status: Acute Code(s): G47.33 - Obstructive sleep apnea (adult) (pediatric) (7) HTN (hypertension): Status: Chronic Code(s): I10 - Essential (primary) hypertension Qualifiers: Hypertension type: essential hypertension Qualified Code(s): I10 - Essential (primary) hypertension (8) HLD (hyperlipidemia): Status: Chronic Code(s): E78.5 - Hyperlipidemia, unspecified Qualifiers: Hyperlipidemia type: other hyperlipidemia Qualified Code(s): E78.4 - Other hyperlipidemia (9) Tobacco use: Status: Chronic Code(s): Z72.0 - Tobacco use (10) COPD (chronic obstructive pulmonary disease): Status: Chronic Code(s): J44.9 - Chronic obstructive pulmonary disease, unspecified Qualifiers: COPD type: unspecified COPD Qualified Code(s): J44.9 - Chronic obstructive pulmonary disease, unspecified (11) LV dysfunction: Status: Acute Code(s): I51.9 - Heart disease, unspecified (12) Cardiomyopathy: Status: Acute Code(s): I42.9 - Cardiomyopathy, unspecified Qualifiers: Cardiomyopathy type: unspecified Qualified Code(s): I42.9 - Cardiomyopathy, unspecified (13) Dyspnea: Status: Acute Code(s): R06.00 - Dyspnea, unspecified Qualifiers: Dyspnea type: shortness of breath Qualified Code(s): R06.02 - Shortness of breath Meds Home Medications and Allergies Home Medications ?Medication ?Instructions ?Recorded ?Confirmed ?Type aspirin 81 mg tablet,delayed 81 mg PO DAILY #90 tabs 10/30/23 12/13/23 Rx release atorvastatin 80 mg tablet (Lipitor) 80 mg PO HS #90 tabs 10/30/23 12/13/23 Rx carvedilol 6.25 mg tablet (Coreg) 6.25 mg PO BID #60 tabs 10/30/23 12/13/23 Rx empagliflozin 10 mg tablet 10 mg PO DAILY #90 tabs 10/30/23 12/13/23 Rx (Jardiance) spironolactone 25 mg tablet 25 mg PO BID #60 tabs 10/30/23 12/13/23 Rx metolazone 2.5 mg tablet 2.5 mg PO Q OTHER DAY #30 tabs 11/21/23 12/13/23 Rx gabapentin 100 mg capsule 200 mg (2 x 100 mg) PO TID 30 days 12/16/23 Rx #180 caps azithromycin 250 mg tablet 250 mg PO DAILY 5 days #5 tabs 12/17/23 Rx bumetanide 2 mg tablet 1 mg (1/2 x 2 mg) PO BID #60 tabs 12/17/23 Rx cefdinir 300 mg capsule 300 mg PO BID 7 days #14 caps 12/17/23 Rx oxycodone-acetaminophen 5 mg-325 1 tab PO Q4HP PRN Mild To Moderate 12/17/23 Rx mg tablet Pain (1-6) 3 days #18 tabs sacubitril 24 mg-valsartan 26 mg 1 tab PO BID 7 days #14 tabs 12/17/23 Rx tablet (Entresto) New Prescriptions to Start Prescriptions: Faustino Pace bumetanide Faustino Carrion cefdinir Murali,Faustino gabapentin Rod Ryan oxycodone-acetaminophen Faustino Carrion sacubitril-valsartan [Entresto] Faustino Carrion Allergies Allergy/AdvReac Type Severity Reaction Status Date / Time No Known Allergies Allergy Verified 12/03/23 10:30 Discharge Plan Disposition Patient Disposition: Hospice - Medical Facility Condition: Good Discharge Order Discharge Orders: Discharge Order (Routine); Ordered 12/17/23 Ordered By: Faustino Carrion Follow up Plan Follow up with: Enrique Moore MD [Staff Physician] - 12/30/23 2:30 pm Prescriptions/Medication Reconciliation: New gabapentin 100 mg Capsule 200 mg PO TID 30 Days Qty: 180 0RF Entresto 24-26 mg Tablet 1 tab PO BID 7 Days Qty: 14 0RF cefdinir 300 mg capsule 300 mg PO BID 7 Days Qty: 14 0RF azithromycin 250 mg tablet 250 mg PO DAILY 5 Days Qty: 5 0RF oxycodone-acetaminophen 5-325 mg Tablet 1 tab PO Q4HP PRN (Reason: Mild To Moderate Pain (1-6)) 3 Days Qty: 18 0RF Continued aspirin 81 mg tablet,delayed release (DR/EC) 81 mg PO DAILY Qty: 90 3RF atorvastatin [Lipitor] 80 mg tablet 80 mg PO HS Qty: 90 3RF carvedilol [Coreg] 6.25 mg tablet 6.25 mg PO BID Qty: 60 5RF Rx Instructions: must administer with a meal/food Jardiance 10 mg tablet 10 mg PO DAILY Qty: 90 3RF spironolactone 25 mg tablet 25 mg PO BID Qty: 60 5RF metolazone 2.5 mg tablet 2.5 mg PO Q OTHER DAY Qty: 30 4RF Changed bumetanide 2 mg tablet 1 mg PO BID Qty: 60 5RF Discontinued Entresto 97-103 mg tablet 1 tab PO BID Qty: 60 5RF Problem Reconciliation Problems Reviewed?: Yes Patient Discharge Instructions ACTIVITY: Continue current activity DIET: continue same diet Patient Instructions: DI for Heart Failure Print Language: Armenian Providers Primary Care Provider: Tom Castaneda Admit Provider: Rod Ryan Attending Provider: Rod Ryan
[2023-12-17] MEDS: MORPHINE 2MG/ML SYRINGE 2 MG IV (15:37)
--- NOTE | 2023-12-17 15:56 | PC.NURSE ---
report given to [facility] at this time
== END 2023-12-17 18:09 | disposition hospice, inpatient (51) | DRG 291 ==
LOC: ER 17:46 → 2ND 18:17
PROVIDERS: Nurse Practitioner Family; Physician Assistant; Student in an Organized Health Care Education/Training Program; Admitting Provider Internal Medicine Adolescent Medicine; Emergency Provider Emergency Medicine; PCP Nurse Practitioner Family; Visit Provider Internal Medicine Adolescent Medicine
DX: I11.0 Hypertensive heart disease with heart failure; I50.23 Acute on chronic systolic (congestive) heart failure; Z95.5 Presence of coronary angioplasty implant and graft; Z95.810 Presence of automatic (implantable) cardiac defibrillator; I42.8 Other cardiomyopathies; G47.33 Obstructive sleep apnea (adult) (pediatric); F17.210 Nicotine dependence, cigarettes, uncomplicated; J44.9 Chronic obstructive pulmonary disease, unspecified; Z79.899 Other long term (current) drug therapy; I25.2 Old myocardial infarction; I25.10 Atherosclerotic heart disease of native coronary artery without angina pectoris; E78.5 Hyperlipidemia, unspecified
CPT/HCPCS: 36415; 71046; 71250; 80048; 80053; 82553; 83605; 83735; 83880; 84145; 84484; 85007; 85025; 85027; 85378; 85610; 86803; 87389; 93005; 99285; J0456; J0696; J1650; J1939; J1940; J2270; J3475; J7050

== ENCOUNTER 2023-12-23 14:22 | Outpatient (CLI) | payer MEDICARE, SELFPAY ==
--- NOTE | 2023-12-23 14:29 | US_ITS ---
PROCEDURE INFORMATION: Exam: US Left Limited Joint or Other Non-Vascular Extremity Structure Exam date and time: 12/23/2023 2:39 PM Age: 63 years old Clinical indication: Edema is localized; Arm, lower; Left; Patient HX: PT had iv removed last week-- area now hardened from mid forearm to distal humerus and red; Additional info: Redness, swelling, warm to touch TECHNIQUE: Imaging protocol: US left limited joint or other nonvascular extremity structure. Real-time ultrasound with image documentation. Exam focused on the area of clinical interest. COMPARISON: No relevant prior studies available. FINDINGS: Soft tissues: Sonography of the soft tissues of the LEFT arm at the site of redness, swelling at IV site demonstrates thrombosed cephalic vein with extensive edema of the surrounding soft tissues extending from the mid forearm to mid biceps. IMPRESSION: Superficial thrombophlebitis of the LEFT cephalic vein with surrounding cellulitis.
== END 2023-12-23 23:59 | disposition home or self-care (01) ==
LOC: RAD 14:23
PROVIDERS: PCP Family Medicine; Visit Provider Family Medicine
DX: M79.89 Other specified soft tissue disorders (principal)
CPT/HCPCS: 76882

== ENCOUNTER 2023-12-31 14:05 | Outpatient (CLI) | payer MEDICARE, SELFPAY ==
--- NOTE | 2023-12-31 14:09 | US_ITS ---
PROCEDURE INFORMATION: Exam: US Left Limited Joint or Other Non-Vascular Extremity Structure Exam date and time: 12/31/2023 2:16 PM Age: 63 years old Clinical indication: Abnormal findings; Abnormal imaging study; Lt extremity US; Patient HX: Fu from clot noted previously lt arm; Additional info: Left arm swelling TECHNIQUE: Imaging protocol: US left limited joint or other nonvascular extremity structure. Real-time ultrasound with image documentation. Exam focused on the area of clinical interest. COMPARISON: US EXTREMITY LT LIMITED 12/23/2023 2:39 PM FINDINGS: Soft tissues: There is persistent but improving edema surrounding the thrombosed segment of the left cephalic vein. Other findings: There is persistent, occlusive thrombus in the left cephalic vein spanning the mid left forearm to the distal left upper arm. IMPRESSION: Stable superficial thrombophlebitis of the left cephalic vein.
== END 2023-12-31 23:59 | disposition home or self-care (01) ==
LOC: RAD 14:06
PROVIDERS: PCP Nurse Practitioner Family; Visit Provider Family Medicine
DX: M79.89 Other specified soft tissue disorders (principal)
CPT/HCPCS: 76882

== ENCOUNTER 2024-01-08 09:20 | Emergency (ER) | payer MEDICARE, SELFPAY ==
[2024-01-08] VITALS (10 sets, daily range): BP systolic 89–126; BP diastolic 62–84; PULSE 61–63; RESP 12–18; TEMP 34.2–36.7; O2SAT 95–99; BMI 23.0
--- NOTE | 2024-01-08 09:18 | PC.NURSE ---
PT PLACED IN [facility]
--- NOTE | 2024-01-08 09:19 | PC.NURSE ---
Called [facility] for patient to talk to about his care.
--- NOTE | 2024-01-08 10:10 | PC.NURSE ---
HOSPICE AT BEDSIDE
--- NOTE | 2024-01-08 10:26 | HMH.EDGENADL ---
Discharge Plan Disposition Patient Disposition: Hospice - Home Condition: Good Prescriptions Prescriptions: New potassium chloride 20 mEq tablet extended release 20 meq PO DAILY Qty: 30 0RF No Action aspirin 81 mg tablet,delayed release (DR/EC) 81 mg PO DAILY Qty: 90 3RF atorvastatin [Lipitor] 80 mg tablet 80 mg PO HS Qty: 90 3RF carvedilol [Coreg] 6.25 mg tablet 6.25 mg PO BID Qty: 60 5RF Rx Instructions: must administer with a meal/food Jardiance 10 mg tablet 10 mg PO DAILY Qty: 90 3RF spironolactone 25 mg tablet 25 mg PO BID Qty: 60 5RF metolazone 2.5 mg tablet 2.5 mg PO Q OTHER DAY Qty: 30 4RF gabapentin 100 mg Capsule 200 mg PO TID 30 Days Qty: 180 0RF Entresto 24-26 mg Tablet 1 tab PO BID 7 Days Qty: 14 0RF cefdinir 300 mg capsule 300 mg PO BID 7 Days Qty: 14 0RF azithromycin 250 mg tablet 250 mg PO DAILY 5 Days Qty: 5 0RF oxycodone-acetaminophen 5-325 mg Tablet 1 tab PO Q4HP PRN (Reason: Mild To Moderate Pain (1-6)) 3 Days Qty: 18 0RF bumetanide 2 mg tablet 1 mg PO BID Qty: 60 5RF Activity Restrictions/Add. Instructions Additional Instructions/Restrictions: You were evaluated in the emergency department today. At this time, you were found to have low potassium, which was replaced. Please continue with home hospice care. Return to the emergency department for new or worsening symptoms. Clinical Impressions Clinical Impression: Hypokalemia, Elevated CK, Hyperbilirubinemia, Hypothermia Instructions Patient Instructions: DI for Hypokalemia, DI for Altered Mental Status Print Language Print Language: Korean Discharge ED Provider: Maru Godfrey General Adult HPI General Chief complaint: Altered Mental Status Stated complaint: weakness Time Seen by Provider: 01/08/24 09:23 Mode of Arrival: EMS Source of Information: Patient and EMS Limitations: No Limitations Description of Symptoms (Recalled from ER Triage Doc. by RN): PT BROUGHT VIA EMS. PT FOUND OUTSIDE, ALERT BUT CONFUSED TO WHAT HAPPENED. REPORTS TAKING DOG FOR A WALK AROUND 0200. PT REPORTS GENERALIZED PAIN. NO OBVIOUS INJURY. PT WANTS TO SPEAK WITH HOSPICE NURSE ON HOW TO PROCEED WITH CARE History of Present Illness HPI narrative: This patient is a 63-year-old male with a history of advanced CHF for which she is on hospice presenting to the emergency department for evaluation with concern for being found down. According to EMS, the patient was found outside by bystanders on a concrete patio of a building, where he lives in an apartment upstairs. He reports that he had taken his dog for a walk around 2:00 in the morning and thus with the last thing that he remembers. Patient states that overall, he is just hurting all over but denies any specific concerns or complaints. He is not sure what happened. The next he remembers is waking up with EMS talking to him. Related Data Previous Rx's ?Medication ?Instructions ?Recorded aspirin 81 mg tablet,delayed 81 mg PO DAILY #90 tabs 10/30/23 release atorvastatin 80 mg tablet (Lipitor) 80 mg PO HS #90 tabs 10/30/23 carvedilol 6.25 mg tablet (Coreg) 6.25 mg PO BID #60 tabs 10/30/23 empagliflozin 10 mg tablet 10 mg PO DAILY #90 tabs 10/30/23 (Jardiance) spironolactone 25 mg tablet 25 mg PO BID #60 tabs 10/30/23 metolazone 2.5 mg tablet 2.5 mg PO Q OTHER DAY #30 tabs 11/21/23 gabapentin 100 mg capsule 200 mg (2 x 100 mg) PO TID 30 days 12/16/23 #180 caps azithromycin 250 mg tablet 250 mg PO DAILY 5 days #5 tabs 12/17/23 bumetanide 2 mg tablet 1 mg (1/2 x 2 mg) PO BID #60 tabs 12/17/23 cefdinir 300 mg capsule 300 mg PO BID 7 days #14 caps 12/17/23 oxycodone-acetaminophen 5 mg-325 1 tab PO Q4HP PRN Mild To Moderate 12/17/23 mg tablet Pain (1-6) 3 days #18 tabs sacubitril 24 mg-valsartan 26 mg 1 tab PO BID 7 days #14 tabs 12/17/23 tablet (Entresto) potassium chloride 20 mEq 20 meq PO DAILY #30 tabs 01/08/24 tablet,extended release Allergies Allergy/AdvReac Type Severity Reaction Status Date / Time No Known Allergies Allergy Verified 12/22/23 21:11 [facility] Disclaimer: The information contained in this section may have been updated after the patient was seen, as this information can be updated by other users. Medical History History of aortic aneurysm HARITHA (acute kidney injury) Hypokalemia NICM (nonischemic cardiomyopathy) HFrEF (heart failure with reduced ejection fraction) SPEEDY (obstructive sleep apnea) Unstable angina Non-STEMI (non-ST elevated myocardial infarction) LV dysfunction Cardiomyopathy Dyspnea Acute on chronic HFrEF (heart failure with reduced ejection fraction) HTN (hypertension) Accidental drug overdose Overweight (BMI 25.0-29.9) Tobacco use CAD (coronary artery disease) Surgical History Stented coronary artery AICD (automatic cardioverter/defibrillator) present Family History Other No significant family history Social History Smoking Status: Current every day smoker tobacco type: cigarettes packs per day: 1 second hand exposure: Yes alcohol intake: current alcohol intake frequency: holidays/special occasions only substance use type: denies use current occupational status: employed Travel in the last 8 weeks: Inside the [place] household members: children housing: house current occupational exposures/hazards: No caffeine: Yes Other Medical History Have you received the Flu Vaccine for this season: No Have you received the Pneumonia Vaccine: No ROS Obtained: Yes All systems reviewed & no additional complaints except as documented Physical Exam General General appearance: alert and cachectic Comment: Chronically ill-appearing, pale, cold Head Head exam: atraumatic and normocephalic Eye Eye exam: Present normal appearance, PERRL and EOMI ENT ENT exam: Present normal oropharynx, mucous membranes dry and normal external ear exam Neck Neck exam: Present normal inspection, full ROM and trachea midline; Absent tenderness Chest Chest inspection: Present normal inspection and symmetric chest wall rise; Absent tenderness Respiratory Respiratory exam: Present normal lung sounds bilaterally; Absent respiratory distress, wheezes, stridor or accessory muscle use Cardiovascular Cardiovascular exam: Present regular rate and normal rhythm Abdominal Exam Abdominal exam: Present soft; Absent distention, tenderness or guarding Extremities Exam Extremities exam: Present normal inspection, full ROM and normal capillary refill; Absent tenderness or edema Back Exam Back exam: Present normal inspection and full ROM; Absent tenderness Neurological Exam Neurological exam: Present alert, oriented X3, CN II-XII intact and normal gait; Absent motor sensory deficit Psychiatric Psychiatric exam: Present normal affect and normal mood Skin Skin exam: Present dry and other (Cold) Medical Decision Making Medical Records Medical records reviewed: Yes I reviewed the patient's medical records. Screening: Per USPSTF and CDC recommendations, given the prevalence of disease in our region, it is our hospital?s policy to screen for HIV and viral Hepatitis for all patients aged 18 and over and those with ongoing risk factors. Brett Inquiry Pt receiving controlled substance: No Vital Signs: 01/08/24 09:20 01/08/24 09:30 01/08/24 10:01 Temperature 93.6 F L Temperature Source Rectal Pulse Rate 61 61 Pulse Rate [Apical] 63 Respiratory Rate 18 12 13 Blood Pressure 123/84 107/70 L Blood Pressure [Left Arm] 126/82 Blood Pressure Mean Blood Pressure Mean [Left Arm] 96 Blood Pressure Source [Left Arm] Automatic Cuff Blood Pressure Position [Left Arm] Sitting 02 Sat by Pulse Oximetry 98 99 95 Oxygen Delivery Method Room Air 01/08/24 10:18 01/08/24 10:30 01/08/24 11:30 Temperature 93.9 F L Temperature Source Rectal Pulse Rate 63 Pulse Rate [Apical] Respiratory Rate 17 14 Blood Pressure 105/62 L 105/71 L Blood Pressure [Left Arm] Blood Pressure Mean Blood Pressure Mean [Left Arm] Blood Pressure Source [Left Arm] Blood Pressure Position [Left Arm] 02 Sat by Pulse Oximetry 97 Oxygen Delivery Method 01/08/24 12:00 01/08/24 12:33 01/08/24 12:47 Temperature 97.6 F Temperature Source Rectal Pulse Rate Pulse Rate [Apical] Respiratory Rate 16 14 Blood Pressure 89/70 L 107/84 L 107/84 L Blood Pressure [Left Arm] Blood Pressure Mean 74 91 Blood Pressure Mean [Left Arm] Blood Pressure Source [Left Arm] Blood Pressure Position [Left Arm] 02 Sat by Pulse Oximetry Oxygen Delivery Method 01/08/24 13:27 Temperature 98.0 F Temperature Source Pulse Rate 63 Pulse Rate [Apical] Respiratory Rate 13 Blood Pressure 107/84 L Blood Pressure [Left Arm] Blood Pressure Mean Blood Pressure Mean [Left Arm] Blood Pressure Source [Left Arm] Blood Pressure Position [Left Arm] 02 Sat by Pulse Oximetry Oxygen Delivery Method Room Air Lab Data Lab results reviewed: Yes I reviewed the patient's lab results. Lab Results 01/08/24 08:55: WBC 10.8, RBC 6.18, Hgb 17.5, Hct 52.9 H, MCV 85.6, MCH 28.3, MCHC 33.1, RDW 16.5, Plt Count 554 H, MPV 7.9, Neut % (Auto) 67.6, Lymph % (Auto) 19.5, Meade % (Auto) 9.6 H, Eos % (Auto) 1.6, Baso % (Auto) 1.6, Neut # (Auto) 7.3, Lymph # (Auto) 2.1, Meade # (Auto) 1.0, Eos # (Auto) 0.2, Baso # (Auto) 0.2, PT 11.8, INR 1.06, Sodium 132 L, Potassium 3.0 L, Chloride 83 L, Carbon Dioxide 38 H, Anion Gap 14.0, BUN 94 H, Creatinine 1.70 H, Estimated Creat Clear 48, Estimated GFR 41 L, Est GFR ( Amer) 49 L, Glucose 142 H, Calcium 10.1, Phosphorus 4.8 H, Magnesium 3.0 H, Total Bilirubin 1.7 H, AST 66 H, ALT 31, Alkaline Phosphatase 127 H, Total Creatine Kinase 293 H, Total Protein 10.3 H D, Albumin 5.0, Globulin 5.3 H, Albumin/Globulin Ratio 0.9 L 01/08/24 08:55 01/08/24 08:55 Orders (Tests/Meds): ED MEDICATIONS Discontinued Medications Generic Name Dose Route Start Last Admin Trade Name Freq PRN Reason Stop Dose Admin Potassium Chloride/Water 100 mls @ 100 mls/hr 01/08/24 12:03 01/08/24 12:14 Potassium Chloride 10meq/100ml Ivpb IV 01/08/24 13:02 100 mls/hr ONCE ONE Administration Potassium Chloride 60 meq 01/08/24 12:03 01/08/24 12:14 Potassium Chloride 20meq Tab PO 01/08/24 12:04 60 meq ONCE ONE Administration Sodium Chloride 500 ml 01/08/24 12:04 01/08/24 12:14 Sodium Chloride 0.9% 500ml Bag IV 01/08/24 12:05 500 ml ONCE ONE Administration ORDERS Category Date Time Status CXR --portable [XR chest portable] Stat Exams 01/08/24 11:32 Taken CBC w/Auto Diff [Complete Blood Count Auto Diff] Stat Lab 01/08/24 08:55 Completed CK [Creatine Kinase] Stat Lab 01/08/24 08:55 Completed CMP [Comprehensive Metabolic Panel] Stat Lab 01/08/24 08:55 Completed INR [Prothrombin Time INR] Stat Lab 01/08/24 08:55 Completed MAG [Magnesium] Stat Lab 01/08/24 08:55 Completed PHOS [Phosphorous] Stat Lab 01/08/24 08:55 Completed Medical Decision Narrative: In summary, this patient is a 63-year-old male presenting to the Emergency Department for evaluation after being found outside down for an unknown period of time. Differential diagnoses considered include but are not limited to hypothermia, rhabdomyolysis, intracranial hemorrhage, CVA, cardiac event, ACS, sepsis. Ruling out the most morbid conditions drove assessment. It should be noted patient's history includes advanced heart failure for which he is on hospice which is not at goal therapy. This complicates all aspects of care by increasing patient's risk for morbidity. I reviewed patient's past medical records and noted previous admission, at which point patient was discharged to retirement with AICD. Patient reportedly left from [facility] to go home on hospice according to hospice nurse and medical case worker who I had an interactive discussion with. On exam, the patient is cold, ill-appearing. He is very pale. I advised him that we could obtain workup to evaluate for other reversible causes not related to his heart failure so that it would not interfere with hospice, such as rhabdomyolysis, electrolyte derangements, dehydration, infection, other concerns. Patient declines stating that he is a minimalist and does not want to have labs or imaging done. He notes that he is okay with being warmed and being given warm fluids to try and help warm up, his rectal temp upon arrival is 93 ?F. As of this time, he does not want anything else done. His daughter is on the way. Daughter arrived and advised that she was okay with obtaining basic lab work, as he is had potassium issues in the past that have led to him not feeling the best. They do not want to pursue cardiac workup or workup of the cause of which the patient was down. They do note that he took NyQuil PM last night for the first time to try and sleep, so it is possible this is related. Ultimately, they want to pursue potassium replacement and then continue with home hospice care without further aggressive workup or intervention. Patient warmed to a normal temperature and was eating and drinking without issue. He returned to his baseline state of health. Labs are reassuring with the exception of chronic transaminitis, hyperbilirubinemia, and some electrolyte derangements such as hypochloremia, hyponatremia, hypokalemia. Potassium replacement was given as well as fluids that were warmed. We were careful not to give too many fluids given his history of heart failure. Ultimately at this point, it is felt the patient is appropriate for discharge home back on home hospice. He was discharged in stable condition. I had interactive discussion with the hospice care team. Critical Care Critical Care Time Critical Care Time: No
--- NOTE | 2024-01-08 10:37 | SW/DCPLANNER ---
Addendum entered by Krista Queen 01/08/24 12:35: Per daughter and patient the plan is for patient to return home w/ family assistance and Hospice services. I will contact Hospice once patient is medically stable for discharge. Original Note: This patient discharged from [facility] on 12/17/23 and admitted to [facility] w/ Hospice services. Per Nikki ([employer]) patient was at [facility], showed improvement and returned home w/ Hospice services 9 days later. Patient presents to ER today after being found down outside of his home. Hospice nurse (Lynda) is at bedside this AM to evaluate patient. Per Lynda patient's daughter will be at [facility] this AM. I will follow up w/ daughter, patient and Hospice to discuss placement vs returning home once daughter arrives.
--- NOTE | 2024-01-08 11:32 | XR_ITS ---
FINAL REPORT CLINICAL HISTORY: AMS COMPARISON: 12/13/2023 FINDINGS: A single portable view of the chest was obtained. Cardiomegaly is noted. There is improved pulmonary vascular congestion. The mediastinum is within normal limits. A left subclavian ICD is present. There are improved pulmonary opacities. Postoperative changes are noted in the lower cervical spine. IMPRESSION: Cardiomegaly with improved pulmonary vascular congestion. Improved pulmonary opacities. Reviewed, Interpreted and Dictated by Geremias Quintana III, MD Transcribed by Jeannie Thompson Authenticated and [facility]
[2024-01-08 11:41] LABS: Chloride 83 mmol/L (98-107); Sodium 132 mmol/L (136-145)
[2024-01-08 11:43] LABS: Creatinine Clearance Estimated 48 mL/min (50-200); Estimated Glomerular Filt Rate 41 ml/min (>60); GFR (African American) 49 ML/MIN (>60)
[2024-01-08 11:44] LABS: Alanine Aminotransferase 31 U/L (12-78); Alkaline Phosphatase 127 U/L (38-126); Aspartate Amino Transferase 66 U/L (17-59); Bilirubin,Total 1.7 mg/dl (0.2-1.3); Calcium 10.1 mg/dl (8.4-10.2); Carbon Dioxide 38 mmol/L (22.0-30.0); Creatine Kinase 293 U/L (55-170); Glucose 142 mg/dl (74-100)
[2024-01-08 11:51] LABS: Albumin/Globulin Ratio 0.9 (1.1-1.8); Globulin 5.3 g/dL (1.3-3.2); Total Protein,Serum 10.3 g/dl (6.3-8.2)
[2024-01-08 11:52] LABS: Blood Urea Nitrogen 94 mg/dl (9-20)
[2024-01-08 11:54] LABS: Phosphorous 4.8 mg/dl (2.5-4.5)
[2024-01-08 11:55] LABS: Basophils # 0.2 K/mm3 (0-0.2); Basophils % 1.6 % (0.1-2.0); Eosinophils # 0.2 K/mm3 (0.0-0.4); Eosinophils % 1.6 % (0.1-12.0); Hematocrit 52.9 % (42.0-52.0); Hemoglobin 17.5 g/dL (14.1-18.0); Lymphocytes # 2.1 K/mm3 (0.7-4.5); Lymphocytes % 19.5 % (10-50); Mean Corpuscular HGB Conc 33.1 g/dL (31.8-35.4); Mean Corpuscular Hemoglobin 28.3 pg (27.0-31.2); Mean Corpuscular Volume 85.6 fl (80-94); Mean Platelet Volume 7.9 fl (7.4-10.4); Monocytes % 9.6 % (1.7-9.3); Neutrophils # 7.3 K/mm3 (1.8-7.8); Neutrophils % 67.6 % (37.0-80.0); Platelet Count 554 K/mm3 (142-424); Red Blood Count 6.18 M/mm3 (4.60-6.20); Red Cell Distribution Width 16.5 % (11.5-17.5); White Blood Count 10.8 K/mm3 (4.8-10.8)
[2024-01-08 12:07] LABS: INR 1.06 (0.9-1.1); Prothrombin Time 11.8 seconds (10.1-12.5)
[2024-01-08] MEDS: POTASSIUM CHLORIDE 20MEQ TAB 60 MEQ PO (12:14)
[2024-01-08] MEDS: KCl 10mEq/100ml 100 ML 100 MEQ IV (12:14)
[2024-01-08] MEDS: SODIUM CHLORIDE 0.9% 500ML BAG 500 ML IV (12:14)
--- NOTE | 2024-01-08 12:22 | PC.NURSE ---
LUNCH TRAY SET-UP FOR PT. DAUGHTER AT BEDSIDE
== END 2024-01-08 13:27 | disposition hospice, home (50) ==
PROVIDERS: Emergency Provider Emergency Medicine
DX: T68.XXXA Hypothermia, initial encounter (principal); E80.6 Other disorders of bilirubin metabolism; R74.8 Abnormal levels of other serum enzymes; E87.6 Hypokalemia; R41.82 Altered mental status, unspecified; R53.1 Weakness; R52 Pain, unspecified
CPT/HCPCS: 71045; 80053; 82550; 83735; 84100; 85025; 85610; 96360; 99283; J3480